=== PATIENT | male | born 1985 | race African-American/Black ===

== ENCOUNTER 2016-07-06 18:22 | Inpatient (IN) | payer OTHER ==
[~2016-07-06] VITALS: Ht 175.3 cm; Wt 62.3 kg
[~2016-07-06 18:22] MED LIST: BENZ1TAB PO; HALO10 PO; HALO10TA PO; HALO50P IM; LITH450 PO; OLAN10 PO
[2016-07-06 18:24] VITALS: BP 121/76; PULSE 97; RESP 12; TEMP 98.1; O2SAT 98
--- NOTE | 2016-07-06 20:02 | PD ---
HPI Chief Complaint: Psychiatric Symptoms Time Seen by Provider: 19:56 Travel History International Travel<30 days: No Contact w/Intl Traveler<30days: No Traveled to known affect area: No History of Present Illness HPI Patient is a 30-year-old male with a history of schizophrenia presents voluntarily because "I want to hurt brother love ". The patient gives nonsensical answers to questions frequent refers to this time in the [employer], the city of [place] and people who are "not feeding me ". He has not been taking his medications including lithium for an indeterminate amount of time. He states he is seeing hand dragons and is hearing voices telling him to hurt other people. He denies any attempts or plans to do so. He denies any SI or attempts. He states he's had a cough for several weeks which is dry. Denies fever and chest pain. He endorses tobacco use but denies illicit drugs and alcohol. 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, UTI) Immune Disorder: No Implanted Vascular Access Dvce: No Musculoskeletal: No Neurologic: No Reproductive: No Respiratory: Yes (ASTHMA) Immunizations Current: Yes Schizophrenia: Yes (paranoid schizophrenia) Sickle Cell Disease: Yes (TRAIT) Past Surgical History Abdominal Surgery: No Cardiac Surgery: No Ear Surgery: No Endocrine Surgery: No Eye Surgery: No Genitourinary Surgery: No Gynecologic Surgery: No Neurologic Surgery: No Oral Surgery: No Thoracic Surgery: No Other Surgery: Yes (cyst removed R wrist) Social History Alcohol Use: Yes Tobacco Use: Yes (1 ppd) Substance Use: Yes Allergies-Medications (Allergen,Severity, Reaction): Coded Allergies: Pork (Verified Adverse Reaction, Intermediate, Nausea/Vomiting, 11/06/15) Reported Meds & Prescriptions Reported Meds & Active Scripts Active Olanzapine 10 Mg Tab 20 Mg PO Q12HR 30 Days [place] Carbonate ER ([place] Carbonate) 450 Mg Tab 450 Mg PO BIDPC 30 Days Haldol (Haloperidol) 10 Mg Tab 10 Mg PO BID 30 Days Haldol (Decanoate) 50 mg Ampule (Haloperidol Decanoate) 50 Mg/Ml Inj 150 Mg IM Q28D 30 Days Haloperidol 10 Mg Tab 10 Mg PO BID 15 Days Continue supplementation with oral Haldol until instructed otherwise by your outpatient mental health provider. Cogentin (Benztropine Mesylate) 1 Mg Tab 1 Mg PO DAILY 15 Days Reported Haldol (Haloperidol) 10 Mg Tab 10 Mg PO TID Review of Systems ROS Limitations: Psychotic General / Constitutional: No: Fever HENT: Positive: Rhinitis, Congestion, No: Headaches, Sore Throat, Neck Stiffness, Masses, Earache Cardiovascular: No: Chest Pain or Discomfort, Tachycardia, Edema Respiratory: Positive: Cough, No: Shortness of Breath, Wheezing, Orthopnea, Hemoptysis, Pleuritic Pain Gastrointestinal: No: Nausea, Vomiting, Abdominal Pain Neurologic: No: Focal Abnormalities Psychiatric: Positive: Depression, Disorder of Thought, Homicidal Ideation, No : Suicidal Ideations, Mood Disorder, Substance Abuse Physical Exam Narrative GENERAL: Well-developed and well-nourished adult male in no acute distress. SKIN: Warm and dry. Good turgor without tenting. HEAD: Normocephalic and atraumatic. EYES: PERRL bilaterally, 5mm. EOMI bilaterally. No injection or icterus present. No proptosis. Lids without edema or erythema. ENT: Nasal mucosa pink and moist without discharge, septum intact and midline. Buccal mucosa pink and moist. Oropharynx free of erythema, tonsillar hypertrophy , masses, swelling, asymmetry and exudates. Uvula midline and airway patent. NECK: Supple, no meningeal signs. Trachea midline, no JVD. No cervical or facial lymphadenopathy. CARDIOVASCULAR: Regular rate and rhythm without murmurs, rubs, clicks or gallops. Radial and posterior tibial pulses 2+ bilaterally. No pedal edema. RESPIRATORY: Clear to auscultation bilaterally with symmetrical rise and fall, no distress or use of accessory muscles. MUSCULOSKELETAL: Patient freely moving all four extremities spontaneously. Extremities without clubbing, cyanosis, or edema. No obvious deformities. NEUROLOGIC: CN II-XII grossly intact. Awake and alert. Motor grossly within normal limits. Normal speech. PSYCHIATRIC: Flat affect. Very tangential. Does not appear to be responding to internal stimuli. Data Data Last Documented VS Vital Signs Date Time Temp Pulse Resp B/P Pulse Ox O2 Delivery O2 Flow Rate FiO2 07/06/16 20:14 16 07/06/16 18:24 98.1 97 121/76 98 Room Air Orders Complete Blood Count With Diff (07/06/16 19:55) Basic Metabolic Panel (Bmp) (07/06/16 19:55) Drug Screen, Random Urine (07/06/16 19:55) Alcohol (Ethanol) (07/06/16 19:55) Psych Screen (07/06/16 19:55) [place] (Li) (07/06/16 19:55) Calcium Carbonate Chew (Tums Chew) (07/06/16 21:00) Admit Order (Ed Use Only) (07/06/16 ) Admit To Inpatient Psych (07/06/16 ) Vital Signs (Adult) DAY.Q12H.E (07/06/16 21:17) Activity Oob Ad Smitha (07/06/16:17) Level Of Observation (Psych) (07/06/16 21:17) Aims-Abnormal Invol Move Scale ONCE (07/06/16 21:17) Diet Regular Basic (07/07/16 Breakfast) Lorazepam (Ativan) (07/06/16 21:30) Lorazepam Inj (Ativan Inj) (07/06/16 21:30) Diphenhydramine (Benadryl) (07/06/16 21:30) Acetaminophen (Tylenol) (07/06/16 21:30) Magnesium Hydroxide Liq (Milk Of Magnesi (07/06/16 21:30) Al-Mag Hy-Si 40-40-4 Mg/Ml Liq (Mag-Al P (07/06/16 21:30) Nicotine 21 Mg Patch.24 Hr (Habitrol 21 (07/07/16 09:00) Benztropine (Cogentin) (07/06/16 21:30) Benztropine Inj (Cogentin Inj) (07/06/16 21:30) Complete Blood Count With Diff (07/07/16 06:00) Comprehensive Metabolic Panel (07/07/16 06:00) Lipid Profile (07/07/16 06:00) Hemoglobin (Hgb) A1c (07/07/16 06:00) Remove Old Patch (07/07/16 09:00) Labs Laboratory Tests Test 07/06/16 07/06/16 20:10 20:25 White Blood Count 5.6 TH/MM3 Red Blood Count 5.40 MIL/MM3 Hemoglobin 11.2 GM/DL Hematocrit 34.2 % Mean Corpuscular Volume 63.3 FL Mean Corpuscular Hemoglobin 20.8 PG Mean Corpuscular Hemoglobin 32.8 % Concent Red Cell Distribution Width 14.3 % Platelet Count 171 TH/MM3 Mean Platelet Volume 9.8 FL Neutrophils (%) (Auto) 52.5 % Lymphocytes (%) (Auto) 32.4 % Monocytes (%) (Auto) 10.4 % Eosinophils (%) (Auto) 4.0 % Basophils (%) (Auto) 0.7 % Neutrophils # (Auto) 3.0 TH/MM3 Lymphocytes # (Auto) 1.8 TH/MM3 Monocytes # (Auto) 0.6 TH/MM3 Eosinophils # (Auto) 0.2 TH/MM3 Basophils # (Auto) 0.0 TH/MM3 CBC Comment AUTO DIFF Differential Comment AUTO DIFF CONFIRMED Platelet Estimate NORMAL Platelet Morphology Comment NORMAL Sodium Level 142 MEQ/L Potassium Level 3.6 MEQ/L Chloride Level 106 MEQ/L Carbon Dioxide Level 27.9 MEQ/L Anion Gap 8 MEQ/L Blood Urea Nitrogen 10 MG/DL Creatinine 0.85 MG/DL Estimat Glomerular Filtration 128 ML/MIN Rate Random Glucose 92 MG/DL Calcium Level 8.2 MG/DL [place] Level LESS THAN 0.1 MEQ/L Ethyl Alcohol Level LESS THAN 3 MG/DL Urine Opiates Screen NEG Urine Barbiturates Screen NEG Urine Amphetamines Screen NEG Urine Benzodiazepines Screen NEG Urine Cocaine Screen NEG Urine Cannabinoids Screen POS MDM Medical Decision Making Medical Screen Exam Complete: Yes Emergency Medical Condition: Yes Differential Diagnosis SI versus depression versus anxiety versus bipolar disorder versus schizophrenia versus substance abuse versus mood disorder versus personality disorder versus adjustment disorder Narrative Course Patient is a 30-year-old male with a history of schizophrenia who has been off of medications presenting with homicidal ideations towards "Brother Love". Endorses visual and auditory hallucinations as well. His cranial chronic dry cough that he is afebrile, nontoxic and his lungs are clear to auscultation. Ordered labs including lithium level. CBC shows H&H 11.2/34.2 which is chronic. MCV 63.3. Metabolic panel shows calcium 8.2, patient was given 1 g calcium carbonate shoes. Ethanol less than 3. Urine drug positive for cannabinoids. [place] less than 0.1. Patient is medically cleared to proceed a psych evaluation. Diagnosis Primary Impression: Schizophrenia Qualified Code: F20.9 - Schizophrenia, unspecified type Condition: Stable Jason Sullivan III Jul 06, 2016 20:02
[2016-07-06 20:24] LABS: BASOPHIL % 0.7 % (0.0-2.0); EOSINOPHIL # 0.2 TH/MM3 (0-0.4); HEMATOCRIT 34.2 % (39.0-51.0); LYMPH % 32.4 % (9.0-44.0); LYMPHOCYTE # 1.8 TH/MM3 (1.0-4.8); MEAN CELL VOLUME 63.3 FL (80.0-100.0); MEAN CORPUSCULAR HEMOGLOBIN 20.8 PG (27.0-34.0); MEAN CORPUSCULAR HGB CONC 32.8 % (32.0-36.0); MONO % 10.4 % (0.0-8.0); NEUT % 52.5 % (16.0-70.0); PLATELET COUNT 171 TH/MM3 (150-450); RED CELL DISTRIBUTION WIDTH 14.3 % (11.6-17.2); WHITE BLOOD COUNT 5.6 TH/MM3 (4.0-11.0)
[2016-07-06 20:27] LABS: HEMO FLAGS AUTO DIFF
[2016-07-06 20:46] LABS: ANION GAP 8 MEQ/L (5-15); BICARBONATE 27.9 MEQ/L (21.0-32.0); BLOOD UREA NITROGEN 10 MG/DL (7-18); CHLORIDE 106 MEQ/L (98-107); GLOMERULAR FILTRATION RATE 128 ML/MIN (>89); POTASSIUM 3.6 MEQ/L (3.5-5.1); SODIUM (NA) 142 MEQ/L (136-145)
[2016-07-06 20:50] LABS: AMPHETAMINE, URINE NEG (NEG); BARBITURATES, URINE NEG (NEG); COCAINE, URINE NEG (NEG)
[2016-07-06] MEDS ORDERED: CALCIUM CARBONATE 500 MG CHEWABLE TAB CHEW ONE (21:00)
[2016-07-06 21:26] LABS: PLATELET ESTIMATE SMEAR NORMAL (NORMAL); PLATELET MORPHOLOGY NORMAL (NORMAL); SCAN/DIFF AUTO DIFF CONFIRMED
[2016-07-06] MEDS ORDERED: ALUMINUM/MAGNESIUM/SIMETH 30 ML CUP PO PRN (21:30)
[2016-07-06] MEDS ORDERED: LORazepam 2 MG/ML VIAL IM PRN (21:30)
[2016-07-06] MEDS ORDERED: MAGNESIUM HYDROXIDE SUSP 30 ML CUP PO PRN (21:30)
[2016-07-06] MEDS ORDERED: BENZTROPINE MESYLATE 2 MG/2 ML VIAL IM PRN (21:30)
[2016-07-06] MEDS ORDERED: BENZTROPINE MESYLATE 1 MG TAB PO PRN (21:30)
[2016-07-06 22:23] VITALS: BP 115/73; PULSE 94; RESP 18; O2SAT 98
[2016-07-06] MEDS ORDERED: HALO10TA PO (22:40)
[2016-07-06] MEDS ORDERED: LITH300T3 PO ×2 (22:40→22:47)
[2016-07-07 01:56] VITALS: BP 124/81; PULSE 79; RESP 16; TEMP 98.2; O2SAT 98
[2016-07-07] MEDS: ACETAMINOPHEN 325 MG TAB PO PRN (05:16)
[2016-07-07 06:21] VITALS: BP 112/69; PULSE 82; RESP 17; TEMP 98.1; O2SAT 98
[2016-07-07 06:23] LABS: AUTOMATED NEUTROPHIL # 3.1 TH/MM3 (1.8-7.7); BASOPHIL % 0.7 % (0.0-2.0); EOSINOPHIL # 0.2 TH/MM3 (0-0.4); EOSINOPHIL % 4.4 % (0.0-4.0); HEMATOCRIT 36.5 % (39.0-51.0); LYMPH % 25.4 % (9.0-44.0); LYMPHOCYTE # 1.3 TH/MM3 (1.0-4.8); MEAN CELL VOLUME 63.6 FL (80.0-100.0); MEAN CORPUSCULAR HEMOGLOBIN 20.6 PG (27.0-34.0); MEAN CORPUSCULAR HGB CONC 32.4 % (32.0-36.0); MONO % 10.5 % (0.0-8.0); PLATELET COUNT 182 TH/MM3 (150-450); RED BLOOD COUNT 5.75 MIL/MM3 (4.50-5.90); RED CELL DISTRIBUTION WIDTH 14.7 % (11.6-17.2); WHITE BLOOD COUNT 5.2 TH/MM3 (4.0-11.0)
[2016-07-07 06:26] LABS: HEMO FLAGS AUTO DIFF
[2016-07-07 06:52] LABS: ALT (GPT) 19 U/L (12-78); ANION GAP 7 MEQ/L (5-15); AST (GOT) 10 U/L (15-37); BICARBONATE 27.5 MEQ/L (21.0-32.0); BLOOD UREA NITROGEN 9 MG/DL (7-18); CHLORIDE 106 MEQ/L (98-107); GLOMERULAR FILTRATION RATE 127 ML/MIN (>89); POTASSIUM 3.7 MEQ/L (3.5-5.1); SODIUM (NA) 140 MEQ/L (136-145)
[2016-07-07 06:54] LABS: ALKALINE PHOSPHATASE 48 U/L (45-117); HDL CHOLESTEROL 47.8 MG/DL (40.0-60.0); LDL CHOLESTEROL 64 MG/DL (0-99); TOTAL BILIRUBIN ADULT 0.6 MG/DL (0.2-1.0)
[2016-07-07 07:34] LABS: SCAN/DIFF AUTO DIFF CONFIRMED
[2016-07-07 07:35] LABS: PLATELET ESTIMATE SMEAR NORMAL (NORMAL); PLATELET MORPHOLOGY NORMAL (NORMAL); TEARDROP RBCS 1+ (NORMAL)
[2016-07-07] MEDS: REMOVE OLD PATCH T-DERMAL SCH (09:00)
[2016-07-07] MEDS: NICOTINE 21 MG/24 HR PATCH T-DERMAL SCH (09:00)
--- NOTE | 2016-07-07 13:52 | HHI.HP ---
Provisional Diagnosis Admission Date Jul 06, 2016 at 21:18 Esparto I. 1. Schizophrenia, paranoid type, acute decompensation 2. Cannabis abuse Esparto II. Deferred Esparto V. GAF is 30 presently Certification of Person's Competence To Provide Express and Informed Consent I have personally examined Kannan Lopez , a person being served at [facility] on, Jul 07, 2016 13:52. Express and informed consent means consent voluntarily given in writing, by a competent person, after sufficient explanation and disclosure of the subject matter involved to enable the person to make a knowing and willful decision without any element of force, fraud, deceit, duress, or other form of constraint or coercion. This person is 18 years of age or older, is not now known to be incompetent to consent to treatment with a guardian advocate, and does not have a health care surrogate or proxy currently making medical treatment decisions. I have found this person to be one of the following: [] Competent to provide express and informed consent, as defined above, for voluntary admission to this facility and is competent to provide express and informed consent for treatment. He/she has the consistent capacity to make well reasoned, willful, and knowing decisions concerning his or her medical or mental health treatment. The person fully and consistently understands the purpose of the admission for examination/placement and is fully capable of personally exercising all rights [place] [x] Incompetent to provide express and informed consent to voluntary admission, and this is incompetent to provide express and informed consent to treatment. The person must be transferred to involuntary status and a petition for a guardian advocate filed with the Circuit Court. [] Refusing to provide express and informed consent to voluntary admission but is competent to provide express and informed consent for treatment. The person must be discharged or transferred to involuntary status. Form shall be completed within 24 hours of a person's arrival at the receiving facility and filed in the clinical record of each person: 1. Admitted on a voluntary basis 2. Permitted to provide express and informed consent to his/her own treatment 3. Allowed to transfer from involuntary to voluntary status 4. Prior to permitting a person to consent to his or her own treatment after having been previously found incompetent to consent to treatment. History of Present Illness Capacity: Lacks Capacity HPI Mr. Lopez is a 30-year-old male with a history of schizophrenia and cannabis abuse who presented voluntarily to the emergency department for psychiatric symptoms. Per the ED provider note, patient was fairly nonsensical and appeared to be hallucinating. Patient is known to me from several prior inpatient psychiatric admissions. Reviewing the electronic medical record, I note the patient was admitted here most recently in October [address] White. Patient seen and examined with nurse, Silverio. Chart reviewed. Case discussed with nurse. On my examination today, the patient presents as fairly somatically preoccupied. He insists that he has "fluid in my neck and swollen hands." In point of fact, patient does not appear to have any fluid in his neck , nor does he have any neck stiffness or immobility. Likewise his hands do not appear to be particularly swollen. In any event, the patient insists that he has had these symptoms for 3 days since he got out of [facility] on stone theft charges. He appears somewhat internally preoccupied and is intense and guarded on examination. He says that he has been having difficulty with sleeping. He denies any issues with mood saying "I'm okay." He denies any suicidal or homicidal ideation. I can elicit no hypomanic or manic symptoms. The remainder of the psychiatric ROS is negative. With the patient's permission, I have obtained collateral from his mother, Suma Lopez. She says that since he was released from [facility] "he's been wandering at 3 or 4 in the morning in [facility] and his mind has been scattering. It's getting to be too much." She is concerned that he is significantly off of his psychiatric baseline. She notes that his psychotropic medications were changed when he was in the [facility]. She says that he's had multiple hospitalizations since he was here under Dr. White including a stay at [facility] and also at a hospital in [place]. She also notes that she has filed an ex parte order to get him into treatment since then. Past psychiatric history: When I endeavor to obtain past psychiatric history from the patient he says "I changed my name to Mikaela Byers, middle name Court, that's [id number]. #[employer] flag in basketball." He maintains that he has been following up psychiatrically at [facility] and denies any interval psychiatric admissions or suicide attempts since he was last here. He says that his only psychotropic medication his Cogentin. Review of Systems ROS Limitations: Psychotic, Poor Historian Other Patient has somatic complaints as detailed above. Otherwise no physical complaints. Past Psych History Psychological trauma history No reported trauma history. Patient denies a history of abuse Violence risk - others (6 mos) Indeterminate. Patient is psychotic and unpredictable. Violence risk - self (6 mos) Indeterminate. Patient is psychotic and unpredictable. Substance Abuse History Drugs/Alcohol past 12 months Patient admits to using "some" cannabis. Denies any other substance use. Past Family Social History Coded Allergies: Pork (Verified Adverse Reaction, Intermediate, Nausea/Vomiting, 11/06/15) Past Medical History See electronic medical record Reported Medications [place]av[place] Carbonate 300 Mg [id number] Mg PO BIDPC Ref 0 07/06/16 Discontinued Reported Medications [place] Carbonate 300 Mg [id number] Mg PO BIDPC Ref 0 07/06/16 Haloperidol 10 Mg Tab10 Mg PO TID Ref 0 07/06/16 Current Medications Medications (Trade) Dose Ordered Sig/Bunny Route Start Time Stop Time Status Last Admin (Ativan) 1 mg Q6H PRN PO 07/06/16 21:30 (Ativan Inj) 1 mg Q6H PRN IM 07/06/16 21:30 (Benadryl) 50 mg HS PRN PO 07/06/16 21:30 (Tylenol) 650 mg Q4H PRN PO 07/06/16 21:30 07/07/16 05:16 (Milk Of Magnesia Liq) 30 ml DAILY PRN PO 07/06/16 21:30 (Mag-Al Plus Susp Liq) 30 ml Q6H PRN PO 07/06/16 21:30 (Habitrol 21 Mg Patch.24 Hr) 1 patch DAILY T-DERMAL 07/07/16 09:00 (Cogentin) 1 mg Q12H PRN PO 07/06/16 21:30 (Cogentin Inj) 1 mg Q12H PRN IM 07/06/16 21:30 Miscellaneous Information 1 DAILY T-DERMAL 07/07/16 09:00 Family History Patient denies any family history of mental illness. Social History Patient reports that he has been living with his father. He was recently released from [facility] on stone theft charges. He is single but says that he has "13 kids and 11 baby mommas." He has some college education. He denies any history. Denies any access to guns or firearms. Patient's Strengths (min. 2) Maintain basic hygiene. Verbally fluent. Physical Exam Physical examination was completed in the emergency room by the ER staff and the patient was medically cleared. On my examination today, the patient appears to be in no acute physical distress. No abnormal motor movements noted. No swelling noted in the neck or hands. Labs and vital signs reviewed. Vital Signs Vital Signs Date Time Temp Pulse Resp B/P Pulse Ox O2 Delivery O2 Flow Rate FiO2 07/07/16 06:21 98.1 82 17 112/69 98 07/06/16 22:23 Room Air I/O 07/06/16 07/06/16 07/07/16 08:00 16:00 00:00 Intake Total 240 ml Balance 240 ml Lab Results Item Value Date Time White Blood Count 5.2 TH/MM3 07/07/16 0609 Hemoglobin 11.8 GM/DL L 07/07/16 0609 Platelet Count 182 TH/MM3 07/07/16 0609 Sodium Level 140 MEQ/L 07/07/16 0609 Potassium Level 3.7 MEQ/L 07/07/16 0609 Chloride Level 106 MEQ/L 07/07/16 0609 Carbon Dioxide Level 27.5 MEQ/L 07/07/16 0609 Blood Urea Nitrogen 9 MG/DL 07/07/16 0609 Creatinine 0.86 MG/DL 07/07/16 0609 Aspartate Amino Transf (AST/SGOT) 10 U/L L 07/07/16 0609 Alanine Aminotransferase (ALT/SGPT) 19 U/L 07/07/16 0609 Alkaline Phosphatase 48 U/L 07/07/16 0609 Urine Cannabinoids Screen POS H 07/06/162024 Ethyl Alcohol Level LESS THAN 3 MG/DL 07/06/162009 Patient's microcytic anemia is chronic and stable. Mental Status Examination Patient is casually dressed. He is somewhat disheveled but appears to be maintaining basic hygiene. He is awake and alert and oriented to person and hospital at least. No abnormal motor movements noted. Speech is within normal limits for rate, tone and volume. Language and fund of knowledge seem average for age. Mood is okay and affect is somewhat inappropriately intense. Thought process somewhat disorganized. Patient is suspicious and guarded and I suspect there is underlying paranoia. He appears internally stimulated. He denies SI or HI but appears to be unreliable to contract for safety at present. Insight and judgment are poor. Assessment & Plan Problem List: (1) Schizophrenia ICD Code: F20.9 (2) Cannabis abuse ICD Code: F12.10 Assessment & Plan This is a 30-year-old male with a history of schizophrenia and cannabis use issues who presented voluntarily to the ED for psychiatric symptoms. Patient is presently psychotic and his mother articulates concerns that he is far from his psychiatric baseline. However, given the history that she provides in our own history with the patient, I wonder if he has had any recent period of significant stability. Patient's recidivist cannabis use, along with medication nonadherence, is almost certainly a precipitating factor for his recurrent psychotic decompensations. Patient requires psychiatric hospitalization at this time for safety, observation and stabilization. --Admit inpatient --Involuntary status as the patient is presently declining voluntary status and insisting on discharge from the hospital. I have completed the first opinion. Consult for second opinion. Request a healthcare surrogate and guardian advocate. --Consult the hospitalist for patient's somatic complaints although I suspect these are delusional in nature. --Patient was stabilized most recently here on Zyprexa. He would likely benefit from a long-acting injectable. Given that the long-acting Zyprexa is cumbersome to administer and little used in our area, I think it best to substitute a different agent. The patient has conceived the notion that he is allergic to Haldol although he is tolerated this well in the past. I will start Prolixin with plans to transition to Prolixin Decanoate. --Ativan as needed for anxiety. Cogentin as needed for EPS. Benadryl as needed for sleep. --Vitals every shift --Counselor to see --Disposition planning --Estimated length of stay: 7-9 days Discharge Planning Pending psychiatric stabilization Request HC Surrog/Guard Advoc?: Yes Problem Qualifiers (1) Schizophrenia: Qualified Code: F20.0 - Paranoid schizophrenia Kirby Melendez MD Jul 07, 2016 13:52
[2016-07-07 14:09] LABS: HEMOGLOBIN A1a 1.8 %; HEMOGLOBIN A1b 0.7 %; HEMOGLOBIN Ao 86.2 %; HEMOGLOBIN F 1.1 %; HEMOGLOBIN LA1C 1.6 %; HEMOGLOBIN P3 3.3 %
[2016-07-07] MEDS ORDERED: fluPHENAZine HCL 25 MG/10 ML VIAL IM PRN (16:00)
--- NOTE | 2016-07-07 16:15 | PD.CONS ---
HPI Service [facility] Hospitalists Consult Requested By Dr Whitaker Reason for Consult swelling in neck and arm Primary Care Physician Ita Lgaos MD Diagnoses: History of Present Illness 30-year-old male with past medical history of schizophrenia presented to the emergency room for Evaluation. He is admitted to psychiatric unit. The hospitalist was consulted for evaluation of neck swelling and arm swelling. The patient is in bed. Says " I need a CAT scan". Says he can't move his head because he has pain. However when asked he moves head in all directions. He doesn't have any swelling in his neck or arms. He is also ambulating without problems. No fever or chills. Review of Systems Constitutional: DENIES: Fever, Chills, Change in appetite Endocrine: DENIES: Heat/cold intolerance Eyes: DENIES: Blurred vision, Eye pain Ears, nose, mouth, throat: DENIES: Tinnitus, Hearing loss, Vertigo, Nasal discharge, Oral lesions, Throat pain, Hoarseness, Ear Pain, Running Nose, Epistaxis, Sinus Pain, Toothache, Odynophagia Respiratory: DENIES: Apneas, Cough, Snoring, Wheezing, Hemoptysis, Sputum production, Shortness of breath Cardiovascular: DENIES: Chest pain, Palpitations, Syncope, Dyspnea on Exertion , PND, Lower Extremity Edema, Orthopnea, Claudication Gastrointestinal: DENIES: Abdominal pain, Black stools, Bloody stools, Constipation, Diarrhea, Nausea, Vomiting, Difficulty Swallowing, Anorexia Genitourinary: DENIES: Urgency, Hematuria, Dysuria Integumentary: DENIES: Rash Neurologic: DENIES: Abnormal gait, Headache, Localized weakness, Paresthesias, Seizures, Speech Problems, Tremor, Poor Balance Psychiatric: COMPLAINS OF: Anxiety, Depression Past Family Social History Allergies: Coded Allergies: Pork (Verified Adverse Reaction, Intermediate, Nausea/Vomiting, 11/06/15) Past Medical History Schizophrenia Past Surgical History None Reported Medications Reported Meds & Active Scripts Active Reported [place] Carbonate 300 Mg Tab 450 Mg PO BIDPC Family History Family history of substance abuse Social History Substance abuse cocaine No alcohol abuse. No tobacco use Physical Exam Vital Signs Vital Signs Date Time Temp Pulse Resp B/P Pulse Ox O2 Delivery O2 Flow Rate FiO2 07/07/16 06:21 98.1 82 17 112/69 98 07/07/16 01:56 98.2 79 16 124/81 98 07/06/16 22:23 94 18 115/73 98 Room Air 07/06/16 20:14 16 07/06/16 18:24 98.1 97 12 121/76 98 Room Air Physical Exam GENERAL: This is a well-nourished, well-developed patient, in no apparent distress. SKIN: No rashes, ecchymoses or lesions. Cool and dry. HEAD: Atraumatic. Normocephalic. No temporal or scalp tenderness. EYES: Pupils equal round and reactive. Extraocular motions intact. No scleral icterus. No injection or drainage. ENT: Nose without bleeding, purulent drainage or septal hematoma. Throat without erythema, tonsillar hypertrophy or exudate. Uvula midline. Airway patent. NECK: Trachea midline. No JVD or lymphadenopathy. Supple, nontender, no meningeal signs. CARDIOVASCULAR: Regular rate and rhythm without murmurs, gallops, or rubs. RESPIRATORY: Clear to auscultation. Breath sounds equal bilaterally. No wheezes , rales, or rhonchi. GASTROINTESTINAL: Abdomen soft, non-tender, nondistended. No hepato-splenomegaly , or palpable masses. No guarding. MUSCULOSKELETAL: Neck paravertebral muscle tenderness on palpation, some pain with flexion. Extremities without clubbing, cyanosis, or edema. No joint tenderness, effusion, or edema noted. No calf tenderness. Negative Homans sign bilaterally. NEUROLOGICAL: Awake and alert. Cranial nerves II through XII intact. Motor and sensory grossly within normal limits. Five out of 5 muscle strength in all muscle groups. Normal speech. Laboratory Laboratory Tests Test 07/06/16 07/06/16 07/07/16 20:10 20:25 06:09 White Blood Count 5.6 5.2 Red Blood Count 5.40 5.75 Hemoglobin 11.2 11.8 Hematocrit 34.2 36.5 Mean Corpuscular Volume 63.3 63.6 Mean Corpuscular Hemoglobin 20.8 20.6 Mean Corpuscular Hemoglobin 32.8 32.4 Concent Red Cell Distribution Width 14.3 14.7 Platelet Count 171 182 Mean Platelet Volume 9.8 9.6 Neutrophils (%) (Auto) 52.5 59.0 Lymphocytes (%) (Auto) 32.4 25.4 Monocytes (%) (Auto) 10.4 10.5 Eosinophils (%) (Auto) 4.0 4.4 Basophils (%) (Auto) 0.7 0.7 Neutrophils # (Auto) 3.0 3.1 Lymphocytes # (Auto) 1.8 1.3 Monocytes # (Auto) 0.6 0.5 Eosinophils # (Auto) 0.2 0.2 Basophils # (Auto) 0.0 0.0 CBC Comment AUTO DIFF AUTO DIFF Differential Comment AUTO DIFF AUTO DIFF CONFIRMED CONFIRMED Platelet Estimate NORMAL NORMAL Platelet Morphology Comment NORMAL NORMAL Sodium Level 142 140 Potassium Level 3.6 3.7 Chloride Level 106 106 Carbon Dioxide Level 27.9 27.5 Anion Gap 8 7 Blood Urea Nitrogen 10 9 Creatinine 0.85 0.86 Estimat Glomerular Filtration 128 127 Rate Random Glucose 92 81 Calcium Level 8.2 8.5 [place] Level LESS THAN 0.1 Ethyl Alcohol Level LESS THAN 3 Urine Opiates Screen NEG Urine Barbiturates Screen NEG Urine Amphetamines Screen NEG Urine Benzodiazepines Screen NEG Urine Cocaine Screen NEG Urine Cannabinoids Screen POS Tear Drop Cells 1+ Total Bilirubin 0.6 Aspartate Amino Transf 10 (AST/SGOT) Alanine Aminotransferase 19 (ALT/SGPT) Alkaline Phosphatase 48 Total Protein 6.3 Albumin 3.4 Triglycerides Level 67 Cholesterol Level 125 LDL Cholesterol 64 HDL Cholesterol 47.8 Cholesterol/HDL Ratio 2.61 Result Diagram: 07/07/1660807/07/16608 Assessment and Plan Assessment and Plan 30-year-old male with Schizophrenia. Management per psychiatry Neck pain, paravertebral muscle tenderness. Will give flexeril at night DVT ppx with ambulation Discussed Condition With Patient, nurse Lacy Delgadillo MD Jul 07, 2016 16:15
[2016-07-07] MEDS ORDERED: PILL SPLITTER OTHER PRN (19:45)
[2016-07-07 19:46] VITALS: BP 146/67; PULSE 65; RESP 18; TEMP 98.4; O2SAT 100
[2016-07-07] MEDS: CYCLOBENZAPRINE HCL 10 MG TAB PO PRN (21:45)
[2016-07-08 05:40] VITALS: BP 120/75; PULSE 73; RESP 18; TEMP 98.1; O2SAT 99
[2016-07-08] MEDS: ACETAMINOPHEN 325 MG TAB PO PRN (05:42)
[2016-07-08] MEDS: NICOTINE 21 MG/24 HR PATCH T-DERMAL SCH (08:04)
[2016-07-08] MEDS: REMOVE OLD PATCH T-DERMAL SCH (09:00)
--- NOTE | 2016-07-08 11:07 | HHI.PYPN ---
Subjective Remarks Patient seen and examined with counselor. Chart reviewed. Case discussed with nursing staff. Patient was transferred from the 2600 to the 2700 unit early this morning to better suit his needs given functional impairment associated with his psychotic disorder; for example, the patient apparently had a bowel movement in a trash can in the shower. On my examination today, the patient remains exceedingly interpersonally intense. He remains internally stimulated. He insists on discharge today, and when I explain that I have transitioned him to involuntary status he abruptly gets up and terminates the interview. I did try to address his cannabis use during our encounter today, but the patient insists, "I'm just gonna keep smoking [cannabis]." No side effects from meds. Review of Systems ROS Limitations: Poor Historian Other No physical complaints today Objective Alert: Yes [place]: Person, Place Mood: Angry, Anxious Affect: Other (Inappropriately intense) Memory Intact: Comment (Intact) Hallucinations: Other (Int stim) Delusions: Yes Delusion Type: Paranoid Suicidal: Ideation (No SI) Homicidal: Ideation (No HI) Insight/Judgement Poor Remarks No abnormal motor movements noted. Thought process perseverative on discharge. Speech somewhat jose david and terse. Labs Labs reviewed. No new labs. Vitals/IOs Vital Signs Date Time Temp Pulse Resp B/P Pulse Ox O2 Delivery O2 Flow Rate FiO2 07/08/16 05:40 98.1 73 18 120/75 99 07/06/16 22:23 Room Air Assessment & Plan Problem List: (1) Schizophrenia ICD Code: F20.9 (2) Cannabis abuse ICD Code: F12.10 Assessment & Plan Titrate Prolixin to 2.5 mg 3 times daily. Plan remains for long-acting injectable antipsychotic. Continue other psychotropics as ordered. Continue other medications and care as ordered. Hospitalist consult noted and appreciated. Justification for Cont. Inpt. Impairments in self-care, reality construction, social functioning. Risk for decompensation. Medication changes. Discharge Planning Pending psychiatric stabilization Request HC Surrog/Guard Advoc?: Yes Problem Qualifiers (1) Schizophrenia: Qualified Code: F20.0 - Paranoid schizophrenia Kirby Melendez MD Jul 08, 2016 11:06
--- NOTE | 2016-07-08 11:58 | PD.CONS ---
Provisional Diagnosis Admission Date Jul 06, 2016 at 21:18 [place] I. 1. Schizophrenia, paranoid type, acute decompensation 2. Cannabis abuse [place] II. Deferred [place] V. GAF is 30 presently History of Present Illness Service Psychiatry Consult Requested By Primary Care Physician Ita Lagos MD HPI Mr. Lopez is a 30-year-old male with a history of schizophrenia and cannabis abuse who presented voluntarily to the emergency department for psychiatric symptoms. Per the ED provider note, patient was fairly nonsensical and appeared to be hallucinating. Patient is known to me from several prior inpatient psychiatric admissions. Reviewing the electronic medical record, I note the patient was admitted here most recently in October [address] White. Patient seen and examined with nurseSilverio. Chart reviewed. Case discussed with nurse. On my examination today, the patient presents as fairly somatically preoccupied. He insists that he has "fluid in my neck and swollen hands." In point of fact, patient does not appear to have any fluid in his neck , nor does he have any neck stiffness or immobility. Likewise his hands do not appear to be particularly swollen. In any event, the patient insists that he has had these symptoms for 3 days since he got out of nursing home on stone theft charges. He appears somewhat internally preoccupied and is intense and guarded on examination. He says that he has been having difficulty with sleeping. He denies any issues with mood saying "I'm okay." He denies any suicidal or homicidal ideation. I can elicit no hypomanic or manic symptoms. The remainder of the psychiatric ROS is negative. With the patient's permission, I have obtained collateral from his mother, Suma Lopez. She says that since he was released from nursing home "he's been wandering at 3 or 4 in the morning in [facility] and his mind has been scattering. It's getting to be too much." She is concerned that he is significantly off of his psychiatric baseline. She notes that his psychotropic medications were changed when he was in the nursing home. She says that he's had multiple hospitalizations since he was here under Dr. White including a stay at [facility] and also at a hospital in [place]. She also notes that she has filed an ex parte order to get him into treatment since then. Past psychiatric history: When I endeavor to obtain past psychiatric history from the patient he says "I changed my name to Mikaela Byers, middle name Court, that's [id number]. #45 flag in basketball." He maintains that he has been following up psychiatrically at [facility] and denies any interval psychiatric admissions or suicide attempts since he was last here. He says that his only psychotropic medication his Cogentin. 07/08/16 Above note dictated by Dr. Melendez noted and agreed with. Patient is 30-year- old Afro-French male admitted to Dr. melendez service under the X[employer] act. Patient seen by me on unit with floor staff, patient very vigilant with marked irritable expression on his face very distracted with marked thought blocking is of responding to internal stimuli. Patient showing no insight into his disease though acknowledges being a "paranoid schizophrenic. But the only medicine he takes is Tylenol. Dr. Melendez is signed first opinion petition supporting [employer] act. I agree. Patient meets criteria for involuntary psychiatric hospitalization under the Xiong act. Thus I will sign second opinion petition supporting [employer] act Past Family Social History Coded Allergies: Pork (Verified Adverse Reaction, Intermediate, Nausea/Vomiting, 11/06/15) Reported Medications [place] Carbonate 300 Mg [id number] Mg PO BIDPC Ref 0 07/06/16 Discontinued Reported Medications [place] Carbonate 300 Mg [id number] Mg PO BIDPC Ref 0 07/06/16 Haloperidol 10 Mg Tab10 Mg PO TID Ref 0 07/06/16 Current Medications Medications (Trade) Dose Ordered Sig/Bunny Route Start Time Stop Time Status Last Admin (Ativan) 1 mg Q6H PRN PO 07/06/16 21:30 (Ativan Inj) 1 mg Q6H PRN IM 07/06/16 21:30 (Benadryl) 50 mg HS PRN PO 07/06/16 21:30 (Tylenol) 650 mg Q4H PRN PO 07/06/16 21:30 07/08/16 05:42 (Milk Of Magnesia Liq) 30 ml DAILY PRN PO 07/06/16 21:30 (Mag-Al Plus Susp Liq) 30 ml Q6H PRN PO 07/06/16 21:30 (Habitrol 21 Mg Patch.24 Hr) 1 patch DAILY T-DERMAL 07/07/16 09:00 (Cogentin) 1 mg Q12H PRN PO 07/06/16 21:30 (Cogentin Inj) 1 mg Q12H PRN IM 07/06/16 21:30 Miscellaneous Information 1 DAILY T-DERMAL 07/07/16 09:00 (Prolixin) 2.5 mg Q12HR PO 07/07/16 21:00 07/08/16 08:03 (Prolixin Inj) 2.5 mg Q12HR PRN IM 07/07/16 16:00 (Flexeril) 5 mg HS PRN PO 07/07/16 20:00 07/07/16 21:45 (Pill Splitter) 1 ea UNSCH PRN OTHER 07/07/16 19:45 Patient's Strengths (min. 2) Maintain basic hygiene. Verbally fluent. Physical Exam Vital Signs Vital Signs Date Time Temp Pulse Resp B/P Pulse Ox O2 Delivery O2 Flow Rate FiO2 07/08/16 05:40 98.1 73 18 120/75 99 07/06/16 22:23 Room Air Mental Status Examination Alert diffusely confused vigilant angry Afro-French male with significant thought blocking Appearance Somewhat disheveled Speech: Hesitant, Other (disorganized) Orientation: Person, Place Memory: Impaired (describe) Thought Process: Linear, Loose Association Thought Content: Paranoid Hallucination Type: None (patient denies though he appears to be responding to internal stimuli and perhaps visual) Attention and Concentration: Easily Distracted Suicidal Ideation: No Previous Suicide Attempts: No Homicidal Ideation: No Previous Homicide Attempts: No Insight: Poor Judgement: Poor Affect: Other (slight increase range and intensity) Mood: Irritable, Other (restricted) Motor Activity: Normal gait Assessment & Plan Problem List: (1) Schizophrenia ICD Code: F20.9 (2) Cannabis abuse ICD Code: F12.10 Assessment & Plan Estimated LOS: days Request HC Surrog/Guard Advoc?: Yes Problem Qualifiers (1) Schizophrenia: Qualified Code: F20.0 - Paranoid schizophrenia Jason Freeman MD Jul 08, 2016 11:58
[2016-07-08] MEDS ORDERED: fluPHENAZine HCL 25 MG/10 ML VIAL IM PRN (13:00)
[2016-07-08] MEDS: LORazepam 1 MG TAB PO PRN (13:41)
[2016-07-08] MEDS ORDERED: IBUPROFEN 400 MG TAB PO PRN (16:15)
[2016-07-08 19:28] VITALS: BP 102/79; PULSE 98; RESP 19; TEMP 98.4; O2SAT 100
[2016-07-09 05:03] VITALS: BP 114/71; PULSE 73; RESP 18; TEMP 98; O2SAT 100
[2016-07-09] MEDS: NICOTINE 21 MG/24 HR PATCH T-DERMAL SCH (09:00)
[2016-07-09] MEDS: REMOVE OLD PATCH T-DERMAL SCH (09:00)
[2016-07-09] MEDS ORDERED: diphenhydrAMINE HCL 50 MG/ML VIAL ONE (10:26)
[2016-07-09] MEDS ORDERED: fluPHENAZine HCL 25 MG/10 ML VIAL IM PRN ×2 (11:00→13:00)
--- NOTE | 2016-07-09 11:00 | HHI.PYPN ---
Subjective Remarks Patient seen and examined with counselor. Chart reviewed. Case discussed with RN. Per RN, patient remains psychotic and disorganized with significant behavioral disorganization. He continues, for example, to move his bowels inappropriately in the trash can with no evident medical reason for this behavior. I would like to ask the patient more about this behavior today, but he is quite irritable and dysphoric. He insists that we are holding him in the hospital illicitly. I do try to explain the involuntary hospitalization process , but he is hearing none of it. He remains disorganized and internally stimulated. No evident side effects from medications. Following my departure from the unit, I receive a call from the nursing staff that the patient is escalating and growing more agitated and has already received PRN Ativan without significant benefit. I have ordered him medicated with Prolixin 5mg IM and Benadryl 50mg IM ETO. Review of Systems ROS Limitations: Uncooperative, Psychotic, Poor Historian Other No reported physical complaints today. Objective Alert: Yes [place]: Person, Place Mood: Agitated, Angry, Anxious Affect: Other (Intense and dysphoric) Memory Intact: Comment (Intact) Hallucinations: Other (Remains internally stimulated.) Delusions: Yes Delusion Type: Paranoid Suicidal: Ideation (No SI) Homicidal: Ideation (No HI) Insight/Judgement Poor. Remarks No abnormal motor movements noted. Steady gait and station. Speech remains angry, short. TP disorganized. Labs Labs reviewed. No new labs. Vitals/IOs Vital Signs Date Time Temp Pulse Resp B/P Pulse Ox O2 Delivery O2 Flow Rate FiO2 07/09/16 05:03 98.0 73 18 114/71 100 07/06/16 22:23 Room Air Assessment & Plan Problem List: (1) Schizophrenia ICD Code: F20.9 (2) Cannabis abuse ICD Code: F12.10 Assessment & Plan Patient's psychosis remains decompensated to a severe degree with associated behavioral disturbance. Titrate Prolixin to 2.5/2.5/5mg PO/IM to target psychosis. Plan for Prolixin Dec. Continue other medications and care as ordered. Justification for Cont. Inpt. Impairments in self-care, social function and reality testing. Medication adjustments. Risk for decompensation. Discharge Planning Pending psychiatric stabilization. Request HC Surrog/Guard Advoc?: Yes Problem Qualifiers (1) Schizophrenia: Qualified Code: F20.0 - Paranoid schizophrenia Kirby Melendez MD Jul 09, 2016 11:00
[2016-07-09] MEDS ORDERED: fluPHENAZine HCL 25 MG/10 ML VIAL IM ONE (12:00)
[2016-07-09] MEDS ORDERED: diphenhydrAMINE HCL 50 MG/ML VIAL IM ONE (12:00)
[2016-07-09] MEDS: CYCLOBENZAPRINE HCL 10 MG TAB PO PRN (21:49)
[2016-07-10 06:28] VITALS: BP 118/61; PULSE 73; RESP 18; TEMP 99; O2SAT 100
[2016-07-10] MEDS: REMOVE OLD PATCH T-DERMAL SCH (08:09)
[2016-07-10] MEDS: LORazepam 1 MG TAB PO PRN ×2 (08:09→15:27)
[2016-07-10] MEDS: NICOTINE 21 MG/24 HR PATCH T-DERMAL SCH (08:09)
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
[2016-07-10] MEDS ORDERED: fluPHENAZine HCL 25 MG/10 ML VIAL IM PRN (18:00)
[2016-07-11 05:50] VITALS: BP 92/47; PULSE 72; RESP 18; TEMP 98.2; O2SAT 96
[2016-07-11] MEDS: REMOVE OLD PATCH T-DERMAL SCH (09:00)
[2016-07-11] MEDS: NICOTINE 21 MG/24 HR PATCH T-DERMAL SCH (09:56)
[2016-07-11 15:21] VITALS: BP 92/58; PULSE 79
--- NOTE | 2016-07-11 16:43 | HHI.PYPN ---
Subjective Remarks Patient was seen and case discussed with nursing. Patient was interviewed while he was mostly under the covers. He is flat and appears paranoid. He is focused on discharge. Affect is irritable. Poor insight into admission psychiatric history. He denies any positive symptoms. Compliant with medications Objective Alert: Yes [place]: Person, Place Mood: Angry, Oppositional Affect: Other (Remains intense and dysphoric) Memory Intact: Comment (Intact) Hallucinations: Other (Again internally stimulated.) Delusions: Yes Delusion Type: Paranoid Suicidal: Ideation (No SI) Homicidal: Ideation (No HI) Insight/Judgement Poor Vitals/IOs Vital Signs Date Time Temp Pulse Resp B/P Pulse Ox O2 Delivery O2 Flow Rate FiO2 07/11/16 15:21 79 92/58 07/11/16 05:50 98.2 18 96 Assessment & Plan Problem List: (1) Schizophrenia ICD Code: F20.9 (2) Cannabis abuse ICD Code: F12.10 Assessment & Plan Continue current treatment plan Justification for Cont. Inpt. Patient will decompensate in a less restrictive setting Request HC Surrog/Guard Advoc?: Yes Problem Qualifiers (1) Schizophrenia: Qualified Code: F20.0 - Paranoid schizophrenia Jorge Best DO Jul 11, 2016 16:43
[2016-07-11 18:27] VITALS: BP 117/73; PULSE 71; RESP 18; TEMP 96.8; O2SAT 100
[2016-07-12] MEDS: REMOVE OLD PATCH T-DERMAL SCH (09:00)
[2016-07-12] MEDS: NICOTINE 21 MG/24 HR PATCH T-DERMAL SCH (09:00)
--- NOTE | 2016-07-12 16:07 | HHI.PYPN ---
Subjective Remarks Patient was seen and case discussed with nursing. Patient remains flat and oppositional. He has been behaving well on the unit. Largely seclusive to self. Very focused and perseverative on discharge. Poor insight into admission. Compliant with medications. Denies psychotic symptoms Objective Alert: Yes [place]: Person, Place Mood: Angry, Oppositional Affect: Other (Remains intense and dysphoric) Memory Intact: Comment (Intact) Hallucinations: Other (Again internally stimulated.) Delusions: Yes Delusion Type: Paranoid Suicidal: Ideation (No SI) Homicidal: Ideation (No HI) Insight/Judgement Poor Vitals/IOs Vital Signs Date Time Temp Pulse Resp B/P Pulse Ox O2 Delivery O2 Flow Rate FiO2 07/11/16 18:27 96.8 71 18 117/73 100 Intake and Output 07/11/16 07/11/16 07/12/16 08:00 16:00 00:00 Intake Total 480 ml Balance 480 ml Assessment & Plan Problem List: (1) Schizophrenia ICD Code: F20.9 (2) Cannabis abuse ICD Code: F12.10 Assessment & Plan Continue current treatment plan Justification for Cont. Inpt. Patient will decompensate in a less restrictive setting Request HC Surrog/Guard Advoc?: Yes Problem Qualifiers (1) Schizophrenia: Qualified Code: F20.0 - Paranoid schizophrenia Jorge Best DO Jul 12, 2016 16:07
[2016-07-12] MEDS: diphenhydrAMINE HCL 50 MG CAP PO PRN (21:54)
[2016-07-13 06:20] VITALS: BP 120/63; PULSE 76; RESP 18; TEMP 97.1; O2SAT 98
[2016-07-13] MEDS: REMOVE OLD PATCH T-DERMAL SCH (09:00)
[2016-07-13] MEDS: NICOTINE 21 MG/24 HR PATCH T-DERMAL SCH (09:00)
--- NOTE | 2016-07-13 10:56 | HHI.PYPN ---
Subjective Remarks Patient seen and examined with counselor. Chart reviewed. Case discussed with nursing staff who reports patient is fixated on discharge but otherwise has been no real behavioral problem. On my examination today, the patient insists that his mother and father waiting on him to be discharged. He remains fairly paranoid. Poor insight prevails. He now says that he will simply quit using cannabis although he had previously said that he will continue to smoke regardless of what happens. He denies any SI, HI or AVH but remains fairly internally stimulated. No evident side effects from medications. Review of Systems ROS Limitations: Psychotic, Poor Historian Other No physical complaints today Objective Alert: Yes [place]: Person, Place Mood: Oppositional, Other (calmer) Affect: Other (less intensely dysphoric) Memory Intact: Comment (Intact) Hallucinations: Other (remains internally stimulated) Delusions: Yes Delusion Type: Paranoid Suicidal: Ideation (No SI) Homicidal: Ideation (No HI) Insight/Judgement Poor Remarks No motoric abnormalities noted Labs Labs reviewed. No new labs. Vitals/IOs Vital Signs Date Time Temp Pulse Resp B/P Pulse Ox O2 Delivery O2 Flow Rate FiO2 07/13/16 06:20 97.1 76 18 120/63 98 Intake and Output 07/12/16 07/12/16 07/13/16 08:00 16:00 00:00 Intake Total 550 ml 440 ml 440 ml Balance 550 ml 440 ml 440 ml Assessment & Plan Problem List: (1) Schizophrenia ICD Code: F20.9 (2) Cannabis abuse ICD Code: F12.10 Assessment & Plan In discussing the case with counselor and nursing staff, we have noticed only modest improvement in patient's psychosis with Prolixin. I will try to titrate the dose one more time to 20 mg total daily dose, but if we don't start see much benefit soon we'll need to switch to a different agent most likely. I will continue other medications as ordered. Continue other care as ordered. Justification for Cont. Inpt. Risk for decompensation. Impairments in reality testing. Medication changes in process. Discharge Planning Pending psychiatric stabilization Request HC Surrog/Guard Advoc?: Yes Problem Qualifiers (1) Schizophrenia: Qualified Code: F20.0 - Paranoid schizophrenia Kirby Melendez MD Jul 13, 2016 10:56
[2016-07-13] MEDS ORDERED: fluPHENAZine HCL 25 MG/10 ML VIAL IM PRN (13:00)
[2016-07-13 20:00] VITALS: BP 118/70; PULSE 77; RESP 16; TEMP 97.6
[2016-07-13] MEDS: diphenhydrAMINE HCL 50 MG CAP PO PRN (20:51)
[2016-07-14 05:34] VITALS: BP 120/67; PULSE 81; RESP 18; TEMP 97.5; O2SAT 100
[2016-07-14] MEDS: NICOTINE 21 MG/24 HR PATCH T-DERMAL SCH (09:00)
[2016-07-14] MEDS: REMOVE OLD PATCH T-DERMAL SCH (09:00)
--- NOTE | 2016-07-14 10:26 | HHI.PYPN ---
Subjective Remarks Patient seen and examined with counselor. Chart reviewed. Case discussed in treatment team. On my examination today, the patient continues to display extremely poor insight. He remains quite paranoid. He insists that because he is taking his medication he is ready to leave, despite the fact that he remains symptomatic. He remains internally preoccupied. Affect is dysphoric. No evident side effects from medications. Review of Systems ROS Limitations: Psychotic, Poor Historian Other No somatic complaints today. Objective Alert: Yes [place]: Person, Place Mood: Oppositional Affect: Other (Dysphoric) Memory Intact: Comment (Intact) Hallucinations: Other (Int stim) Delusions: Yes Delusion Type: Paranoid Suicidal: Ideation (No SI) Homicidal: Ideation (No HI) Insight/Judgement Poor Remarks No motoric abnormalities noted. Speech terse, angry. TP perseverative on discharge. Labs Labs reviewed. No new labs. Vitals/IOs Vital Signs Date Time Temp Pulse Resp B/P Pulse Ox O2 Delivery O2 Flow Rate FiO2 07/14/16 05:34 97.5 81 18 120/67 100 Intake and Output 07/13/16 07/13/16 07/14/16 08:00 16:00 00:00 Intake Total 180 ml Balance 180 ml Assessment & Plan Problem List: (1) Schizophrenia ICD Code: F20.9 (2) Cannabis abuse ICD Code: F12.10 Assessment & Plan Patient with ongoing psychotic symptoms. There also seems to be a significant affective component and the patient has had a schizoaffective disorder diagnosis in the past. I see that he is frequently required a mood stabilizer, such as lithium or Depakote for stabilization. I will add Depakote ER 1 g at bedtime. LFTs and platelets okay. Plan to check a level later this week. No evidence of violence on the unit and so I will discontinue the one-to-one and continue to have the patient monitored closely by the floor staff. Justification for Cont. Inpt. Impairments in reality construction. Risk for decompensation. Discharge Planning Pending outcome a [facility], . If the patient is retained about the court, we will plan to pursue outpatient commitment. Request HC Surrog/Guard Advoc?: Yes Problem Qualifiers (1) Schizophrenia: Qualified Code: F20.0 - Paranoid schizophrenia Kirby Melendez MD Jul 14, 2016 10:26
[2016-07-14] MEDS: LORazepam 1 MG TAB PO PRN (15:28)
[2016-07-14 21:00] VITALS: BP 105/65; PULSE 67; RESP 18; TEMP 97.7; O2SAT 99
[2016-07-14] MEDS ORDERED: DIVALPROEX SODIUM E.R. 500 MG TAB PO SCH (21:00)
[2016-07-15 05:52] VITALS: BP 113/60; PULSE 75; RESP 18; TEMP 97.9; O2SAT 97
[2016-07-15] MEDS: REMOVE OLD PATCH T-DERMAL SCH (09:00)
[2016-07-15] MEDS: NICOTINE 21 MG/24 HR PATCH T-DERMAL SCH (09:00)
--- NOTE | 2016-07-15 10:19 | HHI.PYPN ---
Subjective Remarks Patient seen and examined with counselor. Chart reviewed. Case discussed with nursing staff who reports patient is perhaps somewhat improved today after starting Depakote last night. On my examination today, the patient remains fairly intense and irritable. Paranoid about his family's intentions saying that they are trying to keep him in the hospital for months. Pleased with his current psychotropic medication regimen and insists that the medications are helping. No side effects from medications. Review of Systems ROS Limitations: Psychotic, Poor Historian Other No physical complaints today Objective Alert: Yes [place]: Person, Place Mood: Angry Affect: Other (Dysphoric) Memory Intact: Comment (Intact) Hallucinations: Other (perhaps a little less internally stimulated) Delusions: Yes Delusion Type: Paranoid (perhaps a little less paranoid) Suicidal: Ideation (No SI) Homicidal: Ideation (No HI) Insight/Judgement Poor Remarks No abnormal motor movements noted Labs Labs reviewed. No new labs. Vitals/IOs Vital Signs Date Time Temp Pulse Resp B/P Pulse Ox O2 Delivery O2 Flow Rate FiO2 07/15/16 05:52 97.9 75 18 113/60 97 Assessment & Plan Problem List: (1) Schizophrenia ICD Code: F20.9 (2) Cannabis abuse ICD Code: F12.10 Assessment & Plan Continue Prolixin and Depakote as ordered. Plan to check a Depakote level later this week. Continue other medications and care as ordered. Justification for Cont. Inpt. Impairments in reality testing. Risk for decompensation. Discharge Planning Pending outcome a [facility] court tomorrow. Request HC Surrog/Guard Advoc?: Yes Problem Qualifiers (1) Schizophrenia: Qualified Code: F20.0 - Paranoid schizophrenia Kirby Melendez MD Jul 15, 2016 10:19
[2016-07-15] MEDS: LORazepam 1 MG TAB PO PRN (16:07)
[2016-07-16 06:19] VITALS: BP 110/61; PULSE 80; RESP 16; TEMP 98; O2SAT 97
[2016-07-16] MEDS: NICOTINE 21 MG/24 HR PATCH T-DERMAL SCH (08:38)
[2016-07-16] MEDS ORDERED: FLUP5TAB PO (12:17)
[2016-07-16] MEDS ORDERED: DEPA500T3 PO (12:17)
--- NOTE | 2016-07-16 12:17 | HHI.DS ---
Psychiatry Discharge Summary Inpatient Psychiatric care?: Yes Advance Directive: No Reason Not Provided: Due to Patient Condition Mental Health AdvanceDirective: No Health Care Proxy: No Admission Admission Date Jul 06, 2016 at 21:18 Admission Diagnosis: (1) Schizophrenia ICD Code: F20.9 (2) Cannabis abuse ICD Code: F12.10 Brief History Mr. Lopez is a 30-year-old male with a history of schizophrenia and cannabis abuse who presented voluntarily to the emergency department for psychiatric symptoms. Per the ED provider note, patient was fairly nonsensical and appeared to be hallucinating. Patient is known to me from several prior inpatient psychiatric admissions. Reviewing the electronic medical record, I note the patient was admitted here most recently in October [address] White. Patient seen and examined with nurseSilverio. Chart reviewed. Case discussed with nurse. On my examination today, the patient presents as fairly somatically preoccupied. He insists that he has "fluid in my neck and swollen hands." In point of fact, patient does not appear to have any fluid in his neck , nor does he have any neck stiffness or immobility. Likewise his hands do not appear to be particularly swollen. In any event, the patient insists that he has had these symptoms for 3 days since he got out of correction on stone theft charges. He appears somewhat internally preoccupied and is intense and guarded on examination. He says that he has been having difficulty with sleeping. He denies any issues with mood saying "I'm okay." He denies any suicidal or homicidal ideation. I can elicit no hypomanic or manic symptoms. The remainder of the psychiatric ROS is negative. With the patient's permission, I have obtained collateral from his mother, Suma Lopez. She says that since he was released from correction "he's been wandering at 3 or 4 in the morning in [facility] and his mind has been scattering. It's getting to be too much." She is concerned that he is significantly off of his psychiatric baseline. She notes that his psychotropic medications were changed when he was in the correction. She says that he's had multiple hospitalizations since he was here under Dr. White including a stay at [facility] and also at a hospital in [place]. She also notes that she has filed an ex parte order to get him into treatment since then. Past psychiatric history: When I endeavor to obtain past psychiatric history from the patient he says "I changed my name to Mikaela Byers, middle name Court, that's [id number]. #45 flag in basketball." He maintains that he has been following up psychiatrically at [facility] and denies any interval psychiatric admissions or suicide attempts since he was last here. He says that his only psychotropic medication his Cogentin. Tobacco Use In Past 30 Days: No Tobacco Past 30 Days Alcohol Use: Never Hospital Course Patient was admitted to a locked, inpatient psychiatric unit. Appropriate precautions were in place throughout patient's hospital stay. A general medical consultation was obtained. Patient was seen and examined daily on the unit by psychiatry and also visited by counselor. Medications were adjusted. Patient tolerated medications well without side effects. There was no evidence of any suicidality or homicidality on the inpatient unit. Patient's behavior improved somewhat with medication treatment. On the day of discharge: The patient's case was presented to the Xiong [place] court and the electrical service technician ordered his release from the inpatient psychiatric hospital. The patient did agree to enter into the outpatient commitment program. Patient is to be discharged today with psychiatric follow-up as arranged by counselor. Patient is also to follow-up with primary care. Results Blood Pressure 110 / 61 Vital Signs Date Time Temp Pulse Resp B/P Pulse Ox O2 Delivery O2 Flow Rate FiO2 07/16/16 06:19 98.0 80 16 110/61 97 Item Value Date Time White Blood Count 5.2 TH/MM3 07/07/16 0609 Hemoglobin 11.8 GM/DL L 07/07/16 0609 Platelet Count 182 TH/MM3 07/07/16 0609 Sodium Level 140 MEQ/L 07/07/16 0609 Potassium Level 3.7 MEQ/L 07/07/16 0609 Chloride Level 106 MEQ/L 07/07/16 0609 Carbon Dioxide Level 27.5 MEQ/L 07/07/16 0609 Blood Urea Nitrogen 9 MG/DL 07/07/16 0609 Creatinine 0.86 MG/DL 07/07/16 0609 Hemoglobin A1c 4.9 % 07/07/16 0609 Aspartate Amino Transf (AST/SGOT) 10 U/L L 07/07/16 0609 Alanine Aminotransferase (ALT/SGPT) 19 U/L 07/07/16 0609 Alkaline Phosphatase 48 U/L 07/07/16 0609 Urine Cannabinoids Screen POS H 07/06/162024 Ethyl Alcohol Level LESS THAN 3 MG/DL 07/06/162009 Summary of Procedures None done Imaging None done Pending results at discharge: No Medications # of Antipsychotic meds at D/C: 1 Approp Antipsych med options 1 - Minimum of three failed multiple trials of monotherapy. 2 - Documented plan to taper to monotherapy due to previous use of multiple meds OR cross-taper in progress at D/C. 3 - Documentation of augmentation of Clozapine. 4 - Justification other than those listed in allowable values 1-3, document here : Discharge Discharge Date: Jul 16, 2016 Discharge Diagnosis: (1) Schizophrenia Diagnosis: Principal ICD Code: F20.9 (2) Cannabis abuse Diagnosis: Secondary ICD Code: F12.10 GAF on discharge is 45 Mental Status Exam at Disch Patient is casually dressed. He is fairly well groomed. He is awake and alert and oriented to person and hospital at least. No abnormal motor movements noted. Speech is within normal limits for rate, tone and volume. Mood and affect remain a little dysphoric. Thought process remains perseverative on discharge. I do detect some lingering paranoia. No AVH. No SI or HI. Insight and judgment are poor. Pt Condition on Discharge: Guarded Discharge Disposition: Discharge Home Discharge Instructions Diet Instructions: As Tolerated, No Restrictions Activities you can perform: Weight Bearing as Luís Scheduled Appointment: Aleksandar Hayden Appointment Date: Jul 16, 2016 Appointment Time: 2:30pm New Orders: AMMONIA - 1 Week CBC WITH DIFF - 1 Week DEPAKENE - 1 Week New Medications: Divalproex ER (Depakote ER) 500 Mg Claudia 1000 MG PO HS Mental Health Days 15 Ref 1 TAB Fluphenazine (Fluphenazine) 5 Mg Tab 5 MG PO QID Mental Health Days 15 Ref 1 TAB Discontinued Medications: [place] Carbonate (Ormsby Carbonate) 300 Mg Tab 450 MG PO BIDPC Mood Ref 0 TAB Discharge Time <= 30 minutes Discharge/Advance Care Plan Health Problems: (1) Schizophrenia (2) Cannabis abuse Goals to promote your health * To prevent worsening of your condition and complications * To maintain your health at the optimal level Directions to meet your goals Take your medications as prescribed Follow your dietary instruction Follow activity as directed Keep your appointments as scheduled Take your immunizations and boosters as scheduled If your symptoms worsen call your PCP, if no PCP go to Urgent Care Center or Emergency Room For 18/01 questions related to your inpatient stay or results of tests pending at discharge, please contact Dr. Kirby Melendez at Smoking is Dangerous to Your Health. Avoid second hand smoking Problem Qualifiers (1) Schizophrenia: Qualified Code: F20.0 - Paranoid schizophrenia Kirby Melendez MD Jul 16, 2016 12:17
== END 2016-07-16 14:00 | disposition home or self-care (01) | DRG 885 ==
LOC: NEPJ 18:22 → NEDA 21:18 → H260 23:43 → H270 07-08 08:30
PROVIDERS: ADMIT Psychiatry & Neurology Psychiatry; ATTEND Psychiatry & Neurology Psychiatry
DX: F20.0 Paranoid schizophrenia (principal); R45.850 Homicidal ideations; F14.10 Cocaine abuse, uncomplicated; Z91.14 Patient's other noncompliance with medication regimen; F12.10 Cannabis abuse, uncomplicated; D57.3 Sickle-cell trait; F31.9 Bipolar disorder, unspecified; J45.909 Unspecified asthma, uncomplicated; F17.200 Nicotine dependence, unspecified, uncomplicated
CPT/HCPCS: 80048; 80053; 80061; 80178; 80307; 80320; 83036; 85025; 99285; J1200; J2060; Q0163

== ENCOUNTER 2016-07-21 00:33 | Inpatient (IN) | payer OTHER ==
[~2016-07-21] VITALS: Ht 175.3 cm; Wt 65.0 kg
[~2016-07-21 00:33] MED LIST changes: -BENZ1TAB PO; +DEPA500T3 PO; +FLUP5TAB PO; -HALO10 PO; -HALO10TA PO; -HALO50P IM; -LITH450 PO; -OLAN10 PO
[2016-07-21 02:00] VITALS: BP 124/57; PULSE 61; RESP 18; TEMP 97.4; O2SAT 97
--- NOTE | 2016-07-21 02:59 | PD ---
HPI Chief Complaint: Psychiatric Symptoms Time Seen by Provider: 02:55 Travel History International Travel<30 days: No Contact w/Intl Traveler<30days: No Traveled to known affect area: No History of Present Illness HPI 30-year-old black male with history of schizophrenia presents to emergency department under [facility] act. The patient seemed to be disorganized. He is laying in bed with the covers pulled over his head. He initially declines to talk. After multiple attempts the patient finally then starts to talk but is not making much sense. He states that his back is hurting because people are walking all over his back. He lays back down and pulls covers back over his head. He denies any suicidal or homicidal ideation. Further history is unobtainable due to patient cooperation. PFSH Past Medical History Anemia: Yes Blood Disorders: No Bipolar Disorder: Yes Anxiety: Yes Diminished Hearing: No Endocrine: No Gastrointestinal Disorders: No Genetic Disorder: Yes (sickle cell trait) Genitourinary: Yes (h/o testicular thrombosis, UTI) Immune Disorder: No Implanted Vascular Access Dvce: No Musculoskeletal: No Neurologic: No Psychiatric: Yes Reproductive: Yes Respiratory: Yes (asthma) Immunizations Current: Yes Schizophrenia: Yes (paranoid schizophrenia) Sickle Cell Disease: Yes (trait) Tetanus Vaccination: > 5 Years Influenza Vaccination: Yes Past Surgical History Abdominal Surgery: No Cardiac Surgery: No Ear Surgery: No Endocrine Surgery: No Eye Surgery: No Genitourinary Surgery: No Gynecologic Surgery: No Neurologic Surgery: No Oral Surgery: No Thoracic Surgery: No Other Surgery: Yes (removal of right wrist cyst) Social History Alcohol Use: Yes Tobacco Use: Yes (1 ppd) Substance Use: Yes (FLAKKA and marijuana) Allergies-Medications (Allergen,Severity, Reaction): Coded Allergies: Pork (Verified Adverse Reaction, Intermediate, Nausea/Vomiting, 11/06/15) Reported Meds & Prescriptions Reported Meds & Active Scripts Active Fluphenazine (Fluphenazine HCl) 5 Mg Tab 5 Mg PO QID 15 Days Depakote ER (Divalproex Sodium) 500 Mg Claudia 1,000 Mg PO HS 15 Days Review of Systems ROS Limitations: Uncooperative Except as stated in HPI: all other systems reviewed are Neg Physical Exam Narrative GENERAL: Well-nourished, well-developed patient. SKIN: Warm and dry. HEAD: Normocephalic and atraumatic. EYES: No scleral icterus. No injection or drainage. ENT: No nasal drainage noted. Mucous membranes pink. Airway patent. NECK: Supple, trachea midline. Moves head freely without obvious discomfort. CARDIOVASCULAR: Regular rate and rhythm without murmurs, gallops, or rubs. RESPIRATORY: Breath sounds equal bilaterally. No accessory muscle use. GASTROINTESTINAL: Abdomen soft, non-tender, nondistended. EXTREMITIES: No cyanosis or edema. BACK: Nontender without obvious deformity. No CVA tenderness. NEURO: Patient is alert and oriented. no sensorimotor deficits. Nonfocal. Normal speech. PSYCH: Unable to truly assess secondary to patient cooperation. Data Data Orders Psych Screen (07/21/16 01:39) Complete Blood Count With Diff (07/21/16 02:00) Comprehensive Metabolic Panel (07/21/16 02:00) Drug Screen, Random Urine (07/21/16 02:00) Alcohol (Ethanol) (07/21/16 02:00) Diet Regular Basic (07/21/16 Breakfast) MDM Medical Decision Making Medical Screen Exam Complete: Yes Emergency Medical Condition: Yes Medical Record Reviewed: Yes Differential Diagnosis MDM: High Differential diagnoses: Schizophrenia, schizoaffective disorder, bipolar, anxiety, depression, adjustment reaction, mood disorder NOS, ODD, depressive disorder NOS, dementia, dementia with agitation, psychosis NOS, substance induced mood disorder, intermittent explosive disorder, Asperger syndrome, infection,electrolyte abnormality, malingering. Narrative Course Mental health screening discussed with the patient. Psychiatric screen ordered. The patient's been medically cleared. This is schizophrenia Diagnosis Primary Impression: Schizophrenia Qualified Code: F20.9 - Schizophrenia, unspecified type Condition: Terv Nugent Jul 21, 2016 02:59
[2016-07-21 03:20] LABS: AUTOMATED NEUTROPHIL # 3.8 TH/MM3 (1.8-7.7); BASOPHIL % 0.6 % (0.0-2.0); EOSINOPHIL # 0.1 TH/MM3 (0-0.4); EOSINOPHIL % 0.8 % (0.0-4.0); HEMATOCRIT 33.7 % (39.0-51.0); LYMPH % 31.3 % (9.0-44.0); MEAN CELL VOLUME 63.5 FL (80.0-100.0); MEAN CORPUSCULAR HEMOGLOBIN 20.5 PG (27.0-34.0); MEAN CORPUSCULAR HGB CONC 32.3 % (32.0-36.0); NEUT % 59.3 % (16.0-70.0); PLATELET COUNT 190 TH/MM3 (150-450); RED BLOOD COUNT 5.31 MIL/MM3 (4.50-5.90); RED CELL DISTRIBUTION WIDTH 14.8 % (11.6-17.2); WHITE BLOOD COUNT 6.4 TH/MM3 (4.0-11.0)
[2016-07-21 03:21] LABS: HEMO FLAGS AUTO DIFF
[2016-07-21 03:33] LABS: ALT (GPT) 19 U/L (12-78); ANION GAP 6 MEQ/L (5-15); AST (GOT) 15 U/L (15-37); BICARBONATE 30.6 MEQ/L (21.0-32.0); BLOOD UREA NITROGEN 9 MG/DL (7-18); CHLORIDE 106 MEQ/L (98-107); GLOMERULAR FILTRATION RATE 130 ML/MIN (>89); POTASSIUM 3.9 MEQ/L (3.5-5.1); SODIUM (NA) 143 MEQ/L (136-145)
[2016-07-21 03:36] LABS: ALKALINE PHOSPHATASE 42 U/L (45-117)
[2016-07-21 04:59] LABS: SCAN/DIFF AUTO DIFF CONFIRMED; STOMATOCYTES 1+ (NORMAL)
[2016-07-21 05:00] LABS: ACANTHOCYTES OCC (NORMAL)
[2016-07-21 06:27] VITALS: BP 115/54; PULSE 72; RESP 18; O2SAT 99
[2016-07-21 07:08] LABS: AMPHETAMINE, URINE NEG (NEG); BARBITURATES, URINE NEG (NEG); COCAINE, URINE NEG (NEG)
[2016-07-21 10:25] VITALS: BP 147/63; PULSE 73; RESP 17; O2SAT 96
[2016-07-21 13:59] VITALS: BP 147/63; PULSE 73; RESP 17; O2SAT 96
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
[2016-07-21] MEDS ORDERED: MAGNESIUM HYDROXIDE SUSP 30 ML CUP PO PRN (15:15)
[2016-07-21] MEDS ORDERED: ACETAMINOPHEN 325 MG TAB PO PRN (15:15)
[2016-07-21] MEDS ORDERED: ALUMINUM/MAGNESIUM/SIMETH 30 ML CUP PO PRN (15:15)
[2016-07-21 17:11] VITALS: BP 116/68; PULSE 63; RESP 14; TEMP 98.7; O2SAT 100
[2016-07-21] MEDS: DIVALPROEX SODIUM E.R. 500 MG TAB PO SCH (20:26)
[2016-07-22 06:12] VITALS: BP 116/60; PULSE 70; RESP 18; TEMP 97.7; O2SAT 99
[2016-07-22 07:34] LABS: ANION GAP 8 MEQ/L (5-15); BICARBONATE 28.2 MEQ/L (21.0-32.0); BLOOD UREA NITROGEN 8 MG/DL (7-18); CHLORIDE 104 MEQ/L (98-107); GLOMERULAR FILTRATION RATE 111 ML/MIN (>89); POTASSIUM 4.2 MEQ/L (3.5-5.1); SODIUM (NA) 140 MEQ/L (136-145)
[2016-07-22 07:37] LABS: HDL CHOLESTEROL 40.9 MG/DL (40.0-60.0); LDL CHOLESTEROL 74 MG/DL (0-99)
[2016-07-22] MEDS ORDERED: LORazepam 2 MG/ML VIAL IM PRN (12:15)
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
[2016-07-22] MEDS ORDERED: BENZTROPINE MESYLATE 2 MG/2 ML VIAL IM PRN (13:00)
[2016-07-22] MEDS ORDERED: BENZTROPINE MESYLATE 1 MG TAB PO PRN (13:00)
--- NOTE | 2016-07-22 14:13 | PD.CONS ---
Provisional Diagnosis Admission Date Jul 21, 2016 at 15:17 History of Present Illness Service Psychiatry Consult Requested By Primary Care Physician Ita Lagos MD HPI Patient is a 30-year-old Afro-Canadian male well-known to posterior prior contact comes here under Xiong act and admitted to service. Drs. Melendez initial H&P reviewed and agreed with. Patient seen by me in dayroom with floor staff. Patient continues markedly vigilant and paranoid showing no insight into his problems denying that he ever made statements to harm his mother, denying noncompliance with medication, stating his willingness to be cooperative with medication. Dr. melendez is signed first opinion petition supporting Xiong act. I agree. Patient meets criteria for involuntary psychiatric hospitalization. Thus I will cosign second opinion petition supporting Xiong act Past Family Social History Coded Allergies: Pork (Verified Adverse Reaction, Intermediate, Nausea/Vomiting, 11/06/15) Active Scripts Fluphenazine 5 Mg Tab5 Mg PO QID 15 Days Ref 1 Prov:Kirby Melendez MD 07/16/16 Divalproex ER (Depakote ER)500 Mg Taber1,000 Mg PO HS 15 Days Ref 1 Prov:Kirby Melendez MD 07/16/16 Discontinued Reported Medications [place] Carbonate 300 Mg Piq121 Mg PO BIDPC Ref 0 07/06/16 Current Medications Medications (Trade) Dose Ordered Sig/Bunny Route Start Time Stop Time Status Last Admin (Tylenol) 650 mg Q4H PRN PO 07/21/16 15:15 (Milk Of Magnesia Liq) 30 ml DAILY PRN PO 07/21/16 15:15 (Mag-Al Plus Susp Liq) 30 ml Q6H PRN PO 07/21/16 15:15 (Depakote Er) 1,000 mg HS PO 07/21/16 21:00 07/21/16 20:26 (Prolixin) 5 mg QID PO 07/21/16 18:00 07/22/16 09:00 (Ativan) 1 mg Q6H PRN PO 07/22/16 13:00 (Ativan Inj) 1 mg Q6H PRN IM 07/22/16 12:15 (Cogentin) 1 mg Q12HR PRN PO 07/22/16 13:00 (Cogentin Inj) 1 mg Q12HR PRN IM 07/22/16 13:00 (Benadryl) 50 mg HS PRN PO 07/22/16 13:00 Physical Exam Vital Signs Vital Signs Date Time Temp Pulse Resp B/P Pulse Ox O2 Delivery O2 Flow Rate FiO2 07/22/16 06:12 97.7 70 18 116/60 99 07/21/16 06:27 Room Air Mental Status Examination Speech: Rapid (somewhat), Tangential Orientation: Person, Place Memory: Impaired (describe) Thought Process: Linear Thought Content: Bizarre thinking, Paranoid Hallucination Type: None (denies though he appears to be responding to internal stimuli) Attention and Concentration: Easily Distracted Suicidal Ideation: No Previous Suicide Attempts: No Homicidal Ideation: No (made threatening remarks towards his mother) Previous Homicide Attempts: No Insight: Poor Judgement: Poor Affect: Other (increased range and intensity) Mood: Angry, Irritable Motor Activity: Normal gait Assessment & Plan Problem List: (1) Schizophrenia, paranoid type ICD Code: F20.0 Assessment & Plan Estimated LOS: Jason Xavier MD Jul 22, 2016 14:13
[2016-07-22 15:50] LABS: HEMOGLOBIN A1a 0.8 %; HEMOGLOBIN A1b 0.7 %; HEMOGLOBIN Ao 86.2 %; HEMOGLOBIN F 1.2 %; HEMOGLOBIN LA1C 1.5 %; HEMOGLOBIN P3 3.2 %
[2016-07-22 19:49] VITALS: BP 113/67; PULSE 70; RESP 16; TEMP 98.4
[2016-07-22] MEDS: DIVALPROEX SODIUM E.R. 500 MG TAB PO SCH (20:41)
--- NOTE | 2016-07-23 11:18 | HHI.PYPN ---
Subjective Remarks Patient seen and examined with counselor. Chart reviewed. Case discussed with nursing staff who reports the patient believed he was a nurse himself earlier today and said that he needed "3 vials of pink hydrocodone." On my examination today, the patient is intensely irritable, oppositional and negativistic. He is laying in his room facing away from us and says repeatedly "I'm asleep." He remains internally preoccupied and paranoid. Denies side effects from medications. Review of Systems ROS Limitations: Poor Historian Other No physical complaints today. Objective Alert: Yes [place]: Person, Place Mood: Angry, Oppositional Affect: Restricted (Dysphoric) Memory Intact: Comment (Not formally assessed) Hallucinations: Other (Int stim) Delusions: Yes Delusion Type: Grandiose, Paranoid Suicidal: Ideation (No SI voiced; unreliable to contract for safety) Homicidal: Ideation (No HI voiced) Insight/Judgement Poor Remarks No abnormal motor movements noted. TP perseverative on discharge. Speech very jose david, angry. Labs Labs reviewed. No new labs. Vitals/IOs Vital Signs Date Time Temp Pulse Resp B/P Pulse Ox O2 Delivery O2 Flow Rate FiO2 07/22/16 19:49 98.4 70 16 113/67 07/22/16 06:12 99 07/21/16 06:27 Room Air Assessment & Plan Problem List: (1) Schizophrenia, paranoid type ICD Code: F20.0 Assessment & Plan Patient received Prolixin Dec yesterday and is tolerating this well. Continue oral Prolixin supplementation. Gently titrate Depakote to target irritability; weight based dosing suggests he could tolerate at least 1250mg/day. Plan to check a level over the weekend. Check a CBC to make sure anemia, which is chronic but slowly worsening, remains stable. Continue other medications and care as ordered. Justification for Cont. Inpt. Impairments in reality construction and social function. Risk for impairment in safety. Risk for decompensation. Discharge Planning Pending psychiatric stabilization Request HC Surrog/Guard Advoc?: Yes Kirby Melendez MD Jul 23, 2016 11:18
[2016-07-23] MEDS: DIVALPROEX SODIUM E.R. 500 MG TAB PO SCH (20:31)
[2016-07-23] MEDS: DIVALPROEX SODIUM E.R. 250 MG TAB PO SCH (20:31)
[2016-07-24 05:23] VITALS: BP 95/53; PULSE 66; RESP 18; TEMP 98.5; O2SAT 99
[2016-07-24] MEDS ORDERED: HALOPERIDOL LACTATE 5 MG/ML AMP ONE (10:29)
[2016-07-24] MEDS ORDERED: diphenhydrAMINE HCL 50 MG/ML VIAL ONE (10:29)
--- NOTE | 2016-07-24 10:29 | HHI.PYPN ---
Subjective Remarks Patient seen and examined with counselor. Chart reviewed. Case discussed with nursing staff who reports patient is quite discharge focused insisting that he has to go to work. Patient has reportedly said that he has a variety of different fanciful jobs that he has to get to, none of which are apparently factually based. On my examination today, the patient is extremely dysphoric. 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 He maintains that he had been adherent with his psychotropic medications prior to admission, even given his markedly subtherapeutic Depakote level. I try to explain that we plan to retain him for additional psychiatric stabilization, but the patient is unwilling to accept this. He is quite intrusive as we continue our rounds and castigates the treatment team generally. He grows more agitated and begins to threaten other patients. I have ordered him medicated with Haldol, Ativan and Benadryl. Objective Alert: Yes [place]: Person, Place Mood: Agitated, Angry, Oppositional Affect: Restricted (Remains quite dysphoric) Memory Intact: Comment (Not formally assessed) Hallucinations: Other (Remains internally preoccupied) Delusions: Yes Delusion Type: Grandiose, Paranoid Suicidal: Ideation (No SI voiced; unreliable to contract for safety) Homicidal: Ideation (Agitated, threatening) Insight/Judgement Poor Remarks No abnormal motor movements noted. TP perseverative on discharge. Speech loud , angry. Labs Labs reviewed. No new labs. CBC ordered for tomorrow. Vitals/IOs Vital Signs Date Time Temp Pulse Resp B/P Pulse Ox O2 Delivery O2 Flow Rate FiO2 07/24/16 05:23 98.5 66 18 95/53 99 07/21/16 06:27 Room Air Assessment & Plan Problem List: (1) Schizophrenia, paranoid type ICD Code: F20.0 (2) Cannabis abuse ICD Code: F12.10 Assessment & Plan Patient with ongoing significant psychotic agitation despite fairly significant psychopharmacology. I also note that the patient refused his midday dose of oral Prolixin needed to supplement the Prolixin Decanoate he received a few days ago. I will add IM backup for his oral Prolixin. I will, hopefully temporarily, augment the typical antipsychotic with atypical Geodon PO/IM in divided doses. Depakote level ordered for over the weekend. Continue other medications and care as ordered. Justification for Cont. Inpt. Impairments and safety. Impairments in reality construction. Impairments in social functioning. Risk for decompensation. Medication adjustments in process. Discharge Planning Pending psychiatric stabilization Request HC Surrog/Guard Advoc?: Yes Kirby Melendez MD Jul 24, 2016 10:29
[2016-07-24] MEDS ORDERED: diphenhydrAMINE HCL 50 MG/ML VIAL IM STA (10:41)
[2016-07-24] MEDS ORDERED: HALOPERIDOL LACTATE 5 MG/ML AMP IM ONE (10:42)
[2016-07-24] MEDS ORDERED: LORazepam 2 MG/ML VIAL IM ONE (11:00)
[2016-07-24] MEDS ORDERED: ZIPRASIDONE MESYLATE 20 MG VIAL IM PRN (14:00)
[2016-07-24] MEDS ORDERED: fluPHENAZine HCL 25 MG/10 ML VIAL IM PRN (14:00)
[2016-07-24] MEDS: DIVALPROEX SODIUM E.R. 500 MG TAB PO SCH (21:22)
[2016-07-24] MEDS: DIVALPROEX SODIUM E.R. 250 MG TAB PO SCH (21:22)
[2016-07-25] MEDS: ZIPRASIDONE HCL 40 MG CAP PO SCH ×2 (09:00→17:39)
--- NOTE | 2016-07-25 17:28 | HHI.PYPN ---
Subjective Remarks Patient was seen and case discussed with nursing. Patient is secluded to room. Continues to have very poor insight into his admission. Minimizes history and is focused on discharge. Compliant with medications. Denying psychotic symptoms. Behaving well on the unit Objective Alert: Yes [place]: Person, Place Mood: Agitated, Angry, Oppositional Affect: Restricted (Remains quite dysphoric) Memory Intact: Comment (Not formally assessed) Hallucinations: Other (Remains internally preoccupied) Delusions: Yes Delusion Type: Grandiose, Paranoid Suicidal: Ideation (No SI voiced; unreliable to contract for safety) Homicidal: Ideation (Agitated, threatening) Insight/Judgement Poor Vitals/IOs Vital Signs Date Time Temp Pulse Resp B/P Pulse Ox O2 Delivery O2 Flow Rate FiO2 07/24/16 05:23 98.5 66 18 95/53 99 Assessment & Plan Problem List: (1) Schizophrenia, paranoid type ICD Code: F20.0 (2) Cannabis abuse ICD Code: F12.10 Assessment & Plan Continue current treatment plan Justification for Cont. Inpt. Patient will decompensate in a less restrictive setting Request HC Surrog/Guard Advoc?: Yes Jorge Best DO Jul 25, 2016 17:28
[2016-07-25 19:00] VITALS: BP 103/67; PULSE 108; RESP 18; TEMP 97.5; O2SAT 96
[2016-07-25] MEDS: DIVALPROEX SODIUM E.R. 250 MG TAB PO SCH (20:49)
[2016-07-25] MEDS: DIVALPROEX SODIUM E.R. 500 MG TAB PO SCH (20:49)
[2016-07-26 06:17] VITALS: BP 95/72; PULSE 97; RESP 18; TEMP 98; O2SAT 96
[2016-07-26] MEDS: ZIPRASIDONE HCL 40 MG CAP PO SCH ×2 (09:02→17:15)
--- NOTE | 2016-07-26 16:37 | HHI.PYPN ---
Subjective Remarks Patient was seen and case discussed with nursing. Patient was seen by nursing talking to himself, responding to internal stimuli. Patient remains oppositional and guarded. He denies any psychiatric symptoms or history of psychosis. Tinnitus refuse lab work. Interacting with staff and others showing the various dance moves Objective Alert: Yes [place]: Person, Place Mood: Agitated, Angry, Oppositional Affect: Restricted (Remains quite dysphoric) Memory Intact: Comment (Not formally assessed) Hallucinations: Other (Remains internally preoccupied) Delusions: Yes Delusion Type: Grandiose, Paranoid Suicidal: Ideation (No SI voiced; unreliable to contract for safety) Homicidal: Ideation (Agitated, threatening) Insight/Judgement Poor Vitals/IOs Vital Signs Date Time Temp Pulse Resp B/P Pulse Ox O2 Delivery O2 Flow Rate FiO2 07/26/16 06:17 98.0 97 18 95/72 96 Assessment & Plan Problem List: (1) Schizophrenia, paranoid type ICD Code: F20.0 (2) Cannabis abuse ICD Code: F12.10 Assessment & Plan Continue current treatment plan Justification for Cont. Inpt. Patient will decompensate in a less restrictive setting Request HC Surrog/Guard Advoc?: Yes Jorge Best DO Jul 26, 2016 16:37
[2016-07-26 18:25] VITALS: BP 118/76; PULSE 66; RESP 18; TEMP 97.7; O2SAT 98
[2016-07-26 18:44] LABS: AUTOMATED NEUTROPHIL # 1.7 TH/MM3 (1.8-7.7); BASOPHIL % 0.5 % (0.0-2.0); EOSINOPHIL # 0.1 TH/MM3 (0-0.4); EOSINOPHIL % 2.4 % (0.0-4.0); HEMATOCRIT 37.2 % (39.0-51.0); LYMPH % 44.8 % (9.0-44.0); LYMPHOCYTE # 1.8 TH/MM3 (1.0-4.8); MEAN CELL VOLUME 63.8 FL (80.0-100.0); MEAN CORPUSCULAR HGB CONC 32.9 % (32.0-36.0); MONO % 9.9 % (0.0-8.0); NEUT % 42.4 % (16.0-70.0); PLATELET COUNT 186 TH/MM3 (150-450); RED BLOOD COUNT 5.84 MIL/MM3 (4.50-5.90); RED CELL DISTRIBUTION WIDTH 14.8 % (11.6-17.2); WHITE BLOOD COUNT 4.1 TH/MM3 (4.0-11.0)
[2016-07-26 18:45] LABS: HEMO FLAGS AUTO DIFF
[2016-07-26 19:06] LABS: OVALOCYTES 1+ (NORMAL); TARGET CELLS 1+ (NORMAL)
[2016-07-26 19:07] LABS: PLATELET ESTIMATE SMEAR NORMAL (NORMAL); PLATELET MORPHOLOGY NORMAL (NORMAL); SCAN/DIFF AUTO DIFF CONFIRMED
[2016-07-26] MEDS: DIVALPROEX SODIUM E.R. 250 MG TAB PO SCH (20:40)
[2016-07-26] MEDS: DIVALPROEX SODIUM E.R. 500 MG TAB PO SCH (20:40)
[2016-07-27] MEDS: ZIPRASIDONE HCL 40 MG CAP PO SCH (08:27)
--- NOTE | 2016-07-27 14:11 | HHI.PYPN ---
Subjective Remarks Patient seen and examined with counselor. Chart reviewed. Case discussed with nursing staff who reports patient had no problematic behaviors overnight. On my examination today, the patient is quite discharge focused. We discussed the circumstances of his presentation here, and he takes no ownership for his role in hospitalization, insisting that his mother did not give him the requisite medications and his mother's boyfriend called the police to have him Xiong Acted out of spite. He says that we must discharge him so that he can get to work. His plan is to live with his father, although the patient describes his father as "a crackhead." Patient's insight is poor and he says, "I am not mentally ill." No side effects from medications. Counselor has endeavor to liaison with outpatient case coordinator but has not received a call back yet apparently. Review of Systems ROS Limitations: Poor Historian Other No physical complaints today Objective Alert: Yes [place]: Person, Place Mood: Angry, Oppositional Affect: Restricted (dysphoric) Memory Intact: Comment (Not formally assessed) Hallucinations: Other (again somewhat internally preoccupied) Delusions: Yes Delusion Type: Paranoid Suicidal: Ideation (no SI voiced) Homicidal: Ideation (no HI voiced) Insight/Judgement Very poor Remarks No abnormal motor movements noted Labs Test 07/26/16 18:20 White Blood Count 4.1 TH/MM3 Red Blood Count 5.84 MIL/MM3 Hemoglobin 12.3 GM/DL Hematocrit 37.2 % Mean Corpuscular Volume 63.8 FL Mean Corpuscular Hemoglobin 21.0 PG Mean Corpuscular Hemoglobin 32.9 % Concent Red Cell Distribution Width 14.8 % Platelet Count 186 TH/MM3 Mean Platelet Volume 10.5 FL Neutrophils (%) (Auto) 42.4 % Lymphocytes (%) (Auto) 44.8 % Monocytes (%) (Auto) 9.9 % Eosinophils (%) (Auto) 2.4 % Basophils (%) (Auto) 0.5 % Neutrophils # (Auto) 1.7 TH/MM3 Lymphocytes # (Auto) 1.8 TH/MM3 Monocytes # (Auto) 0.4 TH/MM3 Eosinophils # (Auto) 0.1 TH/MM3 Basophils # (Auto) 0.0 TH/MM3 CBC Comment AUTO DIFF Differential Comment AUTO DIFF CONFIRMED Platelet Estimate NORMAL Platelet Morphology Comment NORMAL Target Cells 1+ Ovalocytes 1+ Ammonia 80 MCMOL/L Valproic Acid (Depakene) Level 73 MCG/ML Labs reviewed. Anemia is improved. Depakote level is within the therapeutic range but ammonia level is elevated without signs of encephalopathy. Vitals/IOs Vital Signs Date Time Temp Pulse Resp B/P Pulse Ox O2 Delivery O2 Flow Rate FiO2 07/26/16 18:25 97.7 66 18 118/76 98 Assessment & Plan Problem List: (1) Schizophrenia, paranoid type ICD Code: F20.0 (2) Cannabis abuse ICD Code: F12.10 Assessment & Plan Titrate Geodon to target ongoing psychosis. Add Carnitor for hyperammonemia. Continue other medications and care as ordered. Justification for Cont. Inpt. Risk for decompensation Discharge Planning Possibly we could consider returning the patient to the outpatient commitment program to give this more of an opportunity to allow the patient to function in the community. However, his insight is extremely poor, and I fear that even the outpatient commitment program may not be adequate to the task. Request HC Surrog/Guard Advoc?: Yes Kirby Melendez MD Jul 27, 2016 14:11
[2016-07-27] MEDS: LORazepam 1 MG TAB PO PRN (16:32)
[2016-07-27] MEDS: levOCARNitine 10% ORAL SOLN 118 ML BTL PO SCH (16:45)
[2016-07-27] MEDS ORDERED: ZIPRASIDONE HCL 40 MG CAP PO SCH (18:00)
[2016-07-27 18:42] VITALS: BP 120/71; PULSE 85; RESP 18; TEMP 97.9; O2SAT 98
[2016-07-27] MEDS: DIVALPROEX SODIUM E.R. 250 MG TAB PO SCH (20:37)
[2016-07-27] MEDS: DIVALPROEX SODIUM E.R. 500 MG TAB PO SCH (20:37)
[2016-07-28 05:38] VITALS: BP 120/70; PULSE 86; RESP 18; TEMP 97.9; O2SAT 99
[2016-07-28] MEDS ORDERED: ZIPRASIDONE HCL 60 MG CAP PO SCH (09:00)
[2016-07-28] MEDS: levOCARNitine 10% ORAL SOLN 118 ML BTL PO SCH ×3 (09:20→18:08)
--- NOTE | 2016-07-28 11:26 | HHI.PYPN ---
Subjective Remarks Patient seen and examined with counselor. Chart reviewed. I note the patient was observed by nursing staff to be acting out and belligerent towards staff yesterday evening. Case discussed in treatment team with nurse, occupational therapist and counselor. Per nursing staff, the patient is angry and was somewhat aggressive yesterday afternoon. Nursing staff notes that the patient only accept his oral medication with hesitation. On my examination today, patient's insight into her mental illness is extremely poor. He continues to say "I don't have a mental illness." He insists that he must be discharged and notes that today is his birthday. He is perhaps slightly less angry and agitated today but remains quite paranoid. No evident side effects from medications. Review of Systems ROS Limitations: Psychotic, Poor Historian Other No physical complaints today Objective Alert: Yes [place]: Person, Place Mood: Anxious, Oppositional Affect: Restricted (dysphoric) Memory Intact: Comment (Not formally assessed) Hallucinations: Other (remains somewhat internally preoccupied) Delusions: Yes Delusion Type: Paranoid Suicidal: Ideation (no SI) Homicidal: Ideation (no HI but unclear that patient is reliable to contract for safety in this regard and he was fairly agitated yesterday per report) Insight/Judgement Poor Remarks No abnormal motor movements noted. No sedation noted. Thought process perseverative on discharge. Labs Labs reviewed. No new labs. Vitals/IOs Vital Signs Date Time Temp Pulse Resp B/P Pulse Ox O2 Delivery O2 Flow Rate FiO2 07/28/16 05:38 97.9 86 18 120/70 99 Assessment & Plan Problem List: (1) Schizophrenia, paranoid type ICD Code: F20.0 (2) Cannabis abuse ICD Code: F12.10 Assessment & Plan Titrate Geodon to target ongoing psychosis. Continue other psychotropics as ordered. Continue other medications and care as ordered. Justification for Cont. Inpt. Risk for decompensation. Impairments in social function. Discharge Planning Pending psychiatric stabilization. Patient now insists that he can go stay with his brother and asks that the counselor give his brother a call. Request HC Surrog/Guard Advoc?: Yes Kirby Melendez MD Jul 28, 2016 11:26
[2016-07-28 18:00] VITALS: BP 102/61; PULSE 65; RESP 18; TEMP 97.7; O2SAT 100
[2016-07-28] MEDS: ZIPRASIDONE HCL 80 MG CAP PO SCH (18:09)
[2016-07-28] MEDS: DIVALPROEX SODIUM E.R. 250 MG TAB PO SCH (21:00)
[2016-07-28] MEDS: DIVALPROEX SODIUM E.R. 500 MG TAB PO SCH (21:41)
[2016-07-28] MEDS: diphenhydrAMINE HCL 50 MG CAP PO PRN (21:46)
[2016-07-29 06:45] VITALS: BP 114/66; PULSE 76; RESP 18; TEMP 98.2; O2SAT 99
[2016-07-29] MEDS: ZIPRASIDONE HCL 80 MG CAP PO SCH ×2 (08:51→18:54)
[2016-07-29] MEDS: levOCARNitine 10% ORAL SOLN 118 ML BTL PO SCH ×4 (08:51→18:00)
--- NOTE | 2016-07-29 09:52 | HHI.PYPN ---
Subjective Remarks Patient seen and examined with counselor. Chart reviewed. Case discussed with nursing staff. On my examination today, the patient seems less angry and agitated than in previous days. He continues to have poor insight into mental illness and remains quite discharge focused but is less frankly paranoid. He now says that he doesn't think that he can stay with his brother but instead might try to stay with a boiler tender that he knows in the community. Denies side effects from medications. Review of Systems ROS Limitations: Poor Historian Other No physical complaints today Objective Alert: Yes [place]: Person, Place Mood: Calm Affect: Restricted (mildly dysphoric) Memory Intact: Comment (Not formally assessed) Hallucinations: Other (no AVH) Delusions: Yes Delusion Type: Paranoid (lessened) Suicidal: Ideation (no SI) Homicidal: Ideation (no HI) Insight/Judgement Poor, likely patient's chronic condition Remarks No abnormal motor movements noted. Labs Labs reviewed. No new labs. Vitals/IOs Vital Signs Date Time Temp Pulse Resp B/P Pulse Ox O2 Delivery O2 Flow Rate FiO2 07/29/16 06:45 98.2 76 18 114/66 99 Assessment & Plan Problem List: (1) Schizophrenia, paranoid type ICD Code: F20.0 (2) Cannabis abuse ICD Code: F12.10 Assessment & Plan Patient appears to be responding to Geodon/Prolixin combination. Continue current psychotropics as ordered. Continue other medications and care as ordered. Justification for Cont. Inpt. Risk for decompensation Discharge Planning Patient will be presented to Xiong act court tomorrow. Disposition is pending outcome of that hearing. If the patient is retained on the inpatient psychiatric unit by the federal judge, I think that we should work towards trying to get the patient some sort of stable housing as I think he would do poorly and relapse quickly without this. Request HC Surrog/Guard Advoc?: Yes Kirby Melendez MD Jul 29, 2016 09:52
[2016-07-29] MEDS: LORazepam 1 MG TAB PO PRN (10:07)
[2016-07-29 21:45] VITALS: BP 115/58; PULSE 84; RESP 18; TEMP 98.2; O2SAT 99
[2016-07-29] MEDS: DIVALPROEX SODIUM E.R. 500 MG TAB PO SCH (22:44)
[2016-07-29] MEDS: DIVALPROEX SODIUM E.R. 250 MG TAB PO SCH (22:45)
[2016-07-30] MEDS: levOCARNitine 10% ORAL SOLN 118 ML BTL PO SCH ×3 (08:49→18:00)
[2016-07-30] MEDS: ZIPRASIDONE HCL 80 MG CAP PO SCH ×2 (08:51→16:25)
--- NOTE | 2016-07-30 10:55 | HHI.PYPN ---
Subjective Remarks Patient seen and case discussed with nursing staff. Chart reviewed. On my examination today, patient seems calmer and less paranoid. His insight into his mental illness remains poor. He is agreeable to assisted living placement. His case was presented to the [facility] court, and he was retained for a period of 1 week with the goal of transitioning the patient into assisted living placement within that time. Review of Systems Other No reported physical complaints Objective Alert: Yes [place]: Person, Place Mood: Calm Affect: Blunted Memory Intact: Comment (Not formally assessed) Hallucinations: Other (no AVH) Delusions: Yes Delusion Type: Paranoid (significantly attenuated) Suicidal: Ideation (no SI) Homicidal: Ideation (no HI) Insight/Judgement Poor Remarks No motoric abnormalities noted Labs Test 07/30/16 07:16 Ammonia 41 MCMOL/L Labs reviewed. Ammonia level significantly improved with Carnitor. Vitals/IOs Vital Signs Date Time Temp Pulse Resp B/P Pulse Ox O2 Delivery O2 Flow Rate FiO2 07/29/16 21:45 98.2 84 18 115/58 99 Assessment & Plan Problem List: (1) Schizophrenia, paranoid type ICD Code: F20.0 (2) Cannabis abuse ICD Code: F12.10 Assessment & Plan Continue current psychotropics as ordered. Continue other medications and care as ordered. Justification for Cont. Inpt. Risk for decompensation Discharge Planning Counselor is working on placement for this patient. There is a facility, [facility], but is considering the patient, but they are requesting first to speak with the patient's outpatient porter sample case through the involuntary outpatient commitment program, and counselor will try to facilitate this. Request HC Surrog/Guard Advoc?: Yes Kirby Melendez MD Jul 30, 2016 10:55
[2016-07-30 18:15] VITALS: BP 106/55; PULSE 72; RESP 16; TEMP 97.7; O2SAT 99
[2016-07-30] MEDS: DIVALPROEX SODIUM E.R. 500 MG TAB PO SCH (20:21)
[2016-07-30] MEDS: DIVALPROEX SODIUM E.R. 250 MG TAB PO SCH (20:22)
[2016-07-30] MEDS: diphenhydrAMINE HCL 50 MG CAP PO PRN (20:22)
[2016-07-31] MEDS: levOCARNitine 10% ORAL SOLN 118 ML BTL PO SCH ×3 (09:16→17:33)
[2016-07-31] MEDS: ZIPRASIDONE HCL 80 MG CAP PO SCH ×2 (09:18→17:34)
--- NOTE | 2016-07-31 12:45 | HHI.PYPN ---
Subjective Remarks Nursing patient seen and examined with nursing staff. Chart reviewed. Case discussed with nursing who reports patient has been no behavioral problem. On my examination today, patient is calm but quite discharge focused. Counselor has been in contact with the [facility] that was considering accepting the patient, and apparently with further investigation patient's finances are inadequate for this placement. Counselor is looking into other placement options, although these will likely not be available before the weekend. Patient's paranoia is considerably attenuated. He denies any suicidal or homicidal thoughts. He denies any side effects from medications. Review of Systems Other No physical complaints today Objective Alert: Yes [place]: Person, Place Mood: Calm Affect: Blunted (remains blunted) Memory Intact: Comment (Not formally assessed) Hallucinations: Other (denies AVH) Delusions: No Delusion Type: Other (no evident delusional material) Suicidal: Ideation (denies SI) Homicidal: Ideation (denies HI) Insight/Judgement Poor Remarks No abnormal motor movements noted Labs Labs reviewed. No new labs. Vitals/IOs Vital Signs Date Time Temp Pulse Resp B/P Pulse Ox O2 Delivery O2 Flow Rate FiO2 07/30/16 18:15 97.7 72 16 106/55 99 Assessment & Plan Problem List: (1) Schizophrenia, paranoid type ICD Code: F20.0 (2) Cannabis abuse ICD Code: F12.10 Assessment & Plan Continue oral Prolixin supplementation of Prolixin Decanoate. Next dose of Prolixin Decanoate due 08/12/2016. Continue Geodon augmentation of Prolixin. Continue Depakote with Carnitor for hyperammonemia. Continue other medications and care as ordered. Justification for Cont. Inpt. High risk for decompensation in a lower level of care without stable housing. Discharge Planning Placement, hopefully after the weekend. Request HC Surrog/Guard Advoc?: Yes Kirby Melendez MD Jul 31, 2016 12:45
[2016-07-31] MEDS: LORazepam 1 MG TAB PO PRN (14:43)
[2016-07-31] MEDS: DIVALPROEX SODIUM E.R. 250 MG TAB PO SCH (20:47)
[2016-07-31] MEDS: DIVALPROEX SODIUM E.R. 500 MG TAB PO SCH (20:48)
[2016-08-01 05:24] VITALS: BP 115/73; PULSE 73; RESP 18; TEMP 97.3; O2SAT 98
[2016-08-01] MEDS: levOCARNitine 10% ORAL SOLN 118 ML BTL PO SCH ×3 (08:56→17:04)
[2016-08-01] MEDS: ZIPRASIDONE HCL 80 MG CAP PO SCH ×2 (08:56→17:04)
--- NOTE | 2016-08-01 11:23 | HHI.PYPN ---
Subjective Remarks Pt seen and discussed with staff. He has been compliant iw medications and deneis side effects. He is preoccupied with discharge but has not been disruptive. He conducts interview huddled under blanket adn refuses to allow MD to see his face. No SI/HI. Objective Alert: Yes [place]: Person, Place Mood: Calm Affect: Blunted (remains blunted) Memory Intact: Comment (Not formally assessed) Hallucinations: Other (denies AVH) Delusions: No Delusion Type: Other (no evident delusional material) Suicidal: Ideation (denies SI) Homicidal: Ideation (denies HI) Insight/Judgement limited Vitals/IOs Vital Signs Date Time Temp Pulse Resp B/P Pulse Ox O2 Delivery O2 Flow Rate FiO2 08/01/16 05:24 97.3 73 18 115/73 98 Assessment & Plan Problem List: (1) Schizophrenia, paranoid type ICD Code: F20.0 (2) Cannabis abuse ICD Code: F12.10 Assessment & Plan Continue current tx plan. Estimated LOS: days Justification for Cont. Inpt. risk of decompensation Request HC Surrog/Guard Advoc?: Yes Aneta Marcano MD Aug 01, 2016 11:23
[2016-08-01 19:37] VITALS: BP 87/48; PULSE 75; RESP 18; TEMP 97.7; O2SAT 97
[2016-08-01] MEDS: DIVALPROEX SODIUM E.R. 250 MG TAB PO SCH (21:03)
[2016-08-01] MEDS: DIVALPROEX SODIUM E.R. 500 MG TAB PO SCH (21:03)
[2016-08-02 06:37] VITALS: BP 129/58; PULSE 73; RESP 18; TEMP 97.8
[2016-08-02] MEDS: levOCARNitine 10% ORAL SOLN 118 ML BTL PO SCH ×3 (08:55→17:30)
[2016-08-02] MEDS: ZIPRASIDONE HCL 80 MG CAP PO SCH ×2 (08:55→17:30)
--- NOTE | 2016-08-02 14:10 | HHI.PYPN ---
Subjective Remarks Pt seen and discussed with staff. Pt has been laughing inappropriately about Armando Paniagua's mustache and making statements that Felicia is bringing about the end of the world. He is compliant with medications and denies side effects. No SI/ HI. Objective Alert: Yes [place]: Person, Place Mood: Calm Affect: Blunted Memory Intact: Comment (Not formally assessed) Hallucinations: Other (denies AVH) Delusions: No Delusion Type: Other (no evident delusional material) Suicidal: Ideation (denies SI) Homicidal: Ideation (denies HI) Insight/Judgement poor Vitals/IOs Vital Signs Date Time Temp Pulse Resp B/P Pulse Ox O2 Delivery O2 Flow Rate FiO2 08/02/16 06:37 97.8 73 18 129/58 08/01/16 19:37 97 Assessment & Plan Problem List: (1) Schizophrenia, paranoid type ICD Code: F20.0 (2) Cannabis abuse ICD Code: F12.10 Assessment & Plan Continue current tx plan. Estimated LOS: days Justification for Cont. Inpt. impairments in social functioning and reality construction. Request HC Surrog/Guard Advoc?: Yes Aneta Marcano MD Aug 02, 2016 14:10
[2016-08-02 19:18] VITALS: BP 129/59; PULSE 78; RESP 19; TEMP 97.6; O2SAT 100
[2016-08-02] MEDS: DIVALPROEX SODIUM E.R. 500 MG TAB PO SCH (20:18)
[2016-08-02] MEDS: DIVALPROEX SODIUM E.R. 250 MG TAB PO SCH (20:18)
[2016-08-03 05:57] VITALS: BP 129/61; PULSE 81; RESP 18; TEMP 98.2; O2SAT 100
[2016-08-03] MEDS: ZIPRASIDONE HCL 80 MG CAP PO SCH ×2 (08:09→16:58)
[2016-08-03] MEDS: levOCARNitine 10% ORAL SOLN 118 ML BTL PO SCH ×3 (08:10→16:58)
--- NOTE | 2016-08-03 12:04 | HHI.PYPN ---
Subjective Remarks Patient seen and examined counselor. Chart reviewed. Case discussed with nursing staff who reports patient has been functioning well on the unit. On my examination today, the patient is hopeful and in good spirits. He says that he is sleeping better with medications. He denies any AVH. He denies any SI or HI. He is hopeful that he will be accepted into [facility] and had an interview with them this morning. Denies side effects from medications. Review of Systems Other No physical complaints today Objective Alert: Yes [place]: Person, Place Mood: Calm Affect: Blunted (somewhat more full and reactive) Memory Intact: Comment (fair) Hallucinations: Other (no AVH) Delusions: No Delusion Type: Other (no delusions) Suicidal: Ideation (denies suicidal ideation) Homicidal: Ideation (denies homicidal ideation) Insight/Judgement Perhaps improving somewhat Remarks No abnormal motor movements noted Labs Labs reviewed. No new labs. Vitals/IOs Vital Signs Date Time Temp Pulse Resp B/P Pulse Ox O2 Delivery O2 Flow Rate FiO2 08/03/16 05:57 98.2 81 18 129/61 100 Assessment & Plan Problem List: (1) Schizophrenia, paranoid type ICD Code: F20.0 (2) Cannabis abuse ICD Code: F12.10 Assessment & Plan Patient appears to be doing well with current psychotropics. Continue these as ordered. Continue other medications and care as ordered. Justification for Cont. Inpt. Risk for decompensation Discharge Planning Placement, hopefully discharge tomorrow Request HC Surrog/Guard Advoc?: Yes Kirby Melendez MD Aug 03, 2016 12:04
[2016-08-03] MEDS: DIVALPROEX SODIUM E.R. 250 MG TAB PO SCH (20:43)
[2016-08-03] MEDS: DIVALPROEX SODIUM E.R. 500 MG TAB PO SCH (20:43)
[2016-08-04] MEDS: LORazepam 1 MG TAB PO PRN ×2 (04:40→13:08)
[2016-08-04 05:17] VITALS: BP 135/66; PULSE 86; RESP 17; TEMP 97.6; O2SAT 97
[2016-08-04] MEDS: levOCARNitine 10% ORAL SOLN 118 ML BTL PO SCH ×3 (08:46→18:00)
[2016-08-04] MEDS: ZIPRASIDONE HCL 80 MG CAP PO SCH ×3 (08:46→18:23)
--- NOTE | 2016-08-04 12:06 | HHI.PYPN ---
Subjective Remarks Patient seen and examined with counselor. Chart reviewed. Case discussed in treatment team with nursing staff, counselor an occupational therapist. On my examination today, patient is fairly discharge focused. He denies any SI, HI or AVH. Denies side effects from medications. We are waiting to hear back from house as a follow-up to see if he has been accepted there. Review of Systems Other No somatic complaints today Objective Alert: Yes [place]: Person, Place Mood: Calm Affect: Blunted Memory Intact: Comment (fair) Hallucinations: Other (denies AVH) Delusions: No Delusion Type: Other (no delusional material) Suicidal: Ideation (denies SI) Homicidal: Ideation (denies HI) Insight/Judgement Poor Remarks Thought processes fairly linear Labs Labs reviewed. No new labs. Vitals/IOs Vital Signs Date Time Temp Pulse Resp B/P Pulse Ox O2 Delivery O2 Flow Rate FiO2 08/04/16 05:17 97.6 86 17 135/66 97 Assessment & Plan Problem List: (1) Schizophrenia, paranoid type ICD Code: F20.0 (2) Cannabis abuse ICD Code: F12.10 Assessment & Plan Continue current psychiatric medications as ordered. Continue other medications and care as ordered. Justification for Cont. Inpt. High risk for decompensation in an unstructured living environment. Discharge Planning Endeavoring to organize placement in a structured living environment. Case discussed with counselor. Request HC Surrog/Guard Advoc?: Yes Kirby Melendez MD Aug 04, 2016 12:06
[2016-08-04] MEDS: DIVALPROEX SODIUM E.R. 500 MG TAB PO SCH (20:57)
[2016-08-04] MEDS: DIVALPROEX SODIUM E.R. 250 MG TAB PO SCH (20:57)
[2016-08-04 21:30] VITALS: BP 105/58; PULSE 76; RESP 18; TEMP 98.7; O2SAT 100
[2016-08-05] MEDS: LORazepam 1 MG TAB PO PRN ×2 (03:47→17:03)
[2016-08-05 06:08] VITALS: BP 111/59; PULSE 74; RESP 17; TEMP 97.7; O2SAT 96
[2016-08-05] MEDS: levOCARNitine 10% ORAL SOLN 118 ML BTL PO SCH ×3 (09:00→17:38)
--- NOTE | 2016-08-05 11:41 | HHI.PYPN ---
Subjective Remarks Patient seen and examined with counselor. Chart reviewed. Case discussed with nursing staff. On my examination today, the patient is quite discharge focused. He insists that he can go stay with his "baby momma" and gives the counselor a number to call. He is more irritable and guarded than in previous days. Denies side effects from medications. Review of Systems ROS Limitations: Poor Historian Other No somatic complaints today. Objective Alert: Yes [place]: Person, Place Mood: Calm Affect: Blunted (more irritable) Memory Intact: Comment (fair) Hallucinations: Other (denies AVH) Delusions: No Delusion Type: Other (Somewhat more guarded than in previous days.) Suicidal: Ideation (Denies SI) Homicidal: Ideation (Denies HI) Insight/Judgement Poor Remarks No motoric abnormalities noted. TP remains fairly linear. Speech wnl for rate , tone, volume. Labs Labs reviewed. No new labs. Vitals/IOs Vital Signs Date Time Temp Pulse Resp B/P Pulse Ox O2 Delivery O2 Flow Rate FiO2 08/05/16 06:08 97.7 74 17 111/59 96 Assessment & Plan Problem List: (1) Schizophrenia, paranoid type ICD Code: F20.0 (2) Cannabis abuse ICD Code: F12.10 Assessment & Plan I am concerned that ongoing hospitalization is wearing on the patient, and he is beginning to decompensate once again. However, discharge into unstructured environment would lead to almost certain rapid decompensation and rehospitalization. I will continue current psychotropics for now, but to consider titration of his Geodon. Continue other medications and care as ordered. Justification for Cont. Inpt. Risk for decompensation in a lower level of care Discharge Planning [facility] [address] tomorrow. [facility] declined pt, per counselor. She is working on other placement options for pt. Request HC Surrog/Guard Advoc?: Yes Kirby Melendez MD Aug 05, 2016 11:41
[2016-08-05] MEDS: ZIPRASIDONE HCL 80 MG CAP PO SCH (17:37)
[2016-08-05 19:26] VITALS: BP 120/68; PULSE 99; RESP 18; TEMP 98.5; O2SAT 98
[2016-08-05] MEDS: DIVALPROEX SODIUM E.R. 500 MG TAB PO SCH (20:37)
[2016-08-05] MEDS: DIVALPROEX SODIUM E.R. 250 MG TAB PO SCH (20:37)
[2016-08-06] MEDS: LORazepam 1 MG TAB PO PRN (06:07)
[2016-08-06] MEDS: ZIPRASIDONE HCL 80 MG CAP PO SCH (09:17)
[2016-08-06] MEDS: levOCARNitine 10% ORAL SOLN 118 ML BTL PO SCH ×2 (09:17→12:23)
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
[2016-08-06] MEDS ORDERED: DEPA500T3 PO (09:47)
[2016-08-06] MEDS ORDERED: FLUP1INJ IM (09:47)
[2016-08-06] MEDS ORDERED: GEOD80CA PO (09:47)
[2016-08-06] MEDS ORDERED: DIVA250ER PO (09:47)
[2016-08-06] MEDS ORDERED: FLUP5TAB PO (09:47)
[2016-08-06] MEDS ORDERED: LEVO10%S PO (09:47)
== END 2016-08-06 12:20 | disposition home or self-care (01) | DRG 885 ==
LOC: NEPJ 00:33 → NEDA 15:17 → H270 16:09
PROVIDERS: ADMIT Psychiatry & Neurology Psychiatry; ATTEND Psychiatry & Neurology Psychiatry
DX: F20.0 Paranoid schizophrenia (principal); E72.20 Disorder of urea cycle metabolism, unspecified; D50.9 Iron deficiency anemia, unspecified; F12.10 Cannabis abuse, uncomplicated; F41.9 Anxiety disorder, unspecified; D57.3 Sickle-cell trait; Z91.14 Patient's other noncompliance with medication regimen; J45.909 Unspecified asthma, uncomplicated; H93.19 Tinnitus, unspecified ear
CPT/HCPCS: 80048; 80053; 80061; 80164; 80307; 80320; 82140; 83036; 85025; 99285; J1200; J1630; J2060; J2680; Q0163

== ENCOUNTER 2016-08-07 21:10 | Inpatient (IN) | payer OTHER ==
[~2016-08-07] VITALS: Ht 175.3 cm; Wt 67.7 kg
[~2016-08-07 21:10] MED LIST changes: +DIVA250ER PO; +FLUP1INJ IM; +GEOD80CA PO; +LEVO10%S PO
[2016-08-07] MEDS ORDERED: LORazepam 1 MG TAB PO ONE (21:45)
[2016-08-07 21:53] LABS: AUTOMATED NEUTROPHIL # 3.2 TH/MM3 (1.8-7.7); BASOPHIL % 0.4 % (0.0-2.0); EOSINOPHIL % 0.7 % (0.0-4.0); HEMATOCRIT 35.1 % (39.0-51.0); LYMPH % 29.6 % (9.0-44.0); LYMPHOCYTE # 1.9 TH/MM3 (1.0-4.8); MEAN CORPUSCULAR HEMOGLOBIN 21.1 PG (27.0-34.0); MEAN CORPUSCULAR HGB CONC 32.9 % (32.0-36.0); MONO % 19.4 % (0.0-8.0); NEUT % 49.9 % (16.0-70.0); PLATELET COUNT 144 TH/MM3 (150-450); RED BLOOD COUNT 5.49 MIL/MM3 (4.50-5.90); RED CELL DISTRIBUTION WIDTH 15.1 % (11.6-17.2); WHITE BLOOD COUNT 6.4 TH/MM3 (4.0-11.0)
[2016-08-07 21:58] VITALS: BP 125/78; PULSE 98; RESP 16; TEMP 99.1; O2SAT 99
[2016-08-07 22:09] LABS: ANION GAP 5 MEQ/L (5-15); HEMO FLAGS AUTO DIFF
[2016-08-07 22:12] LABS: ACETAMINOPHEN LESS THAN 2.0 MCG/ML (10.0-30.0); ALKALINE PHOSPHATASE 49 U/L (45-117); ALT (GPT) 14 U/L (12-78); AST (GOT) 12 U/L (15-37); BICARBONATE 31.1 MEQ/L (21.0-32.0); BLOOD UREA NITROGEN 14 MG/DL (7-18); CHLORIDE 103 MEQ/L (98-107); GLOMERULAR FILTRATION RATE 101 ML/MIN (>89); POTASSIUM 3.8 MEQ/L (3.5-5.1); SODIUM (NA) 139 MEQ/L (136-145); TOTAL BILIRUBIN ADULT 0.6 MG/DL (0.2-1.0)
[2016-08-07 22:24] LABS: PLATELET ESTIMATE SMEAR LOW (NORMAL); PLATELET MORPHOLOGY NORMAL (NORMAL); SCAN/DIFF AUTO DIFF CONFIRMED
[2016-08-07 22:35] LABS: AMPHETAMINE, URINE NEG (NEG); BARBITURATES, URINE NEG (NEG); COCAINE, URINE NEG (NEG)
--- NOTE | 2016-08-07 23:22 | PD ---
HPI Chief Complaint: Psychiatric Symptoms Time Seen by Provider: 21:21 Travel History International Travel<30 days: No Contact w/Intl Traveler<30days: No Traveled to known affect area: No History of Present Illness HPI Patient is a 31-year-old male with known psychiatric history, who comes in voluntarily for psychiatric evaluation. He was discharged yesterday, I did not have any place to go. He says he took walk tonight. He is speaking very quickly and not making much sense. He is not able to provide much history. He says he has no place to sleep. He has no complaints at this time. He denies suicidal or homicidal ideation. PFSH Past Medical History Anemia: Yes Blood Disorders: No Bipolar Disorder: Yes Anxiety: Yes Diminished Hearing: No Endocrine: No Gastrointestinal Disorders: No Genetic Disorder: Yes (sickle cell trait) Genitourinary: Yes (h/o testicular thrombosis, UTI) Immune Disorder: No Implanted Vascular Access Dvce: No Musculoskeletal: No Neurologic: No Psychiatric: Yes Reproductive: Yes Respiratory: Yes (asthma) Immunizations Current: Yes Schizophrenia: Yes (paranoid schizophrenia) Sickle Cell Disease: Yes (trait) Tetanus Vaccination: Unknown Influenza Vaccination: No Past Surgical History Abdominal Surgery: No Cardiac Surgery: No Ear Surgery: No Endocrine Surgery: No Eye Surgery: No Genitourinary Surgery: No Gynecologic Surgery: No Neurologic Surgery: No Oral Surgery: No Thoracic Surgery: No Other Surgery: Yes (removal of right wrist cyst) Social History Alcohol Use: Yes Tobacco Use: Yes (1 ppd) Substance Use: Yes (FLAKKA and marijuana) Allergies-Medications (Allergen,Severity, Reaction): Coded Allergies: Pork (Verified Adverse Reaction, Intermediate, Nausea/Vomiting, 08/07/16) Reported Meds & Prescriptions Reported Meds & Active Scripts Active Fluphenazine Decanoate Inj (Fluphenazine Decanoate) 125 Mg/5 Ml Inj 25 Mg IM Q21D Next dose of fluphenazine decanoate due on 08/12/2016. Geodon (Ziprasidone) 80 Mg Cap 80 Mg PO BIDPC 15 Days Carnitor Liq (Levocarnitine) 1 Gm/10 Ml Soln 3 Ml PO TID 15 Days Fluphenazine (Fluphenazine HCl) 5 Mg Tab 5 Mg PO QID 15 Days Continue taking oral fluphenazine at least until your next fluphenazine decanoate injection. Discuss with your outpatient provider how to proceed after that. Depakote ER (Divalproex Sodium) 500 Mg Claudia 1,000 Mg PO HS 15 Days Depakote ER (Divalproex Sodium) 250 Mg Claudia 250 Mg PO HS 15 Days Review of Systems ROS Limitations: Psychotic General / Constitutional: No: Fever, Chills Cardiovascular: No: Chest Pain or Discomfort Respiratory: No: Shortness of Breath Gastrointestinal: No: Nausea, Vomiting Musculoskeletal: No: Pain Physical Exam Narrative GENERAL: Awake and alert, in no acute distress. SKIN: Warm and dry. HEAD: Atraumatic. Normocephalic. EYES: Pupils equal and round. No scleral icterus. Extraocular movements intact. ENT: Mucous membranes pink and moist. NECK: Trachea midline. No JVD. CARDIOVASCULAR: Regular rate and rhythm. No murmur appreciated. RESPIRATORY: No accessory muscle use. Clear to auscultation. Breath sounds equal bilaterally. MUSCULOSKELETAL: No obvious deformities. No clubbing. No cyanosis. No edema. NEUROLOGICAL: Awake and alert. No obvious cranial nerve deficits. Motor grossly within normal limits. Pressured and tangential speech. Patient often says things that don't make any sense. Data Data Last Documented VS Vital Signs Date Time Temp Pulse Resp B/P Pulse Ox O2 Delivery O2 Flow Rate FiO2 08/07/16 21:58 99.1 98 16 125/78 99 Orders Complete Blood Count With Diff (08/07/16 21:30) Comprehensive Metabolic Panel (08/07/16 21:30) Psych Screen (08/07/16 21:30) Drug Screen, Random Urine (08/07/16 21:30) Alcohol (Ethanol) (08/07/16 21:30) Salicylates (Aspirin) (08/07/16 21:30) Tylenol (Acetaminophen) (08/07/16 21:30) Lorazepam (Ativan) (08/07/16 21:45) Olanzapine (Zyprexa) (08/07/16 23:30) Labs Laboratory Tests Test 08/07/16 21:35 White Blood Count 6.4 TH/MM3 Red Blood Count 5.49 MIL/MM3 Hemoglobin 11.6 GM/DL Hematocrit 35.1 % Mean Corpuscular Volume 64.0 FL Mean Corpuscular Hemoglobin 21.1 PG Mean Corpuscular Hemoglobin 32.9 % Concent Red Cell Distribution Width 15.1 % Platelet Count 144 TH/MM3 Mean Platelet Volume 11.0 FL Neutrophils (%) (Auto) 49.9 % Lymphocytes (%) (Auto) 29.6 % Monocytes (%) (Auto) 19.4 % Eosinophils (%) (Auto) 0.7 % Basophils (%) (Auto) 0.4 % Neutrophils # (Auto) 3.2 TH/MM3 Lymphocytes # (Auto) 1.9 TH/MM3 Monocytes # (Auto) 1.3 TH/MM3 Eosinophils # (Auto) 0.0 TH/MM3 Basophils # (Auto) 0.0 TH/MM3 CBC Comment AUTO DIFF Differential Comment AUTO DIFF CONFIRMED Platelet Estimate LOW Platelet Morphology Comment NORMAL Basophilic Stippling MOD Sodium Level 139 MEQ/L Potassium Level 3.8 MEQ/L Chloride Level 103 MEQ/L Carbon Dioxide Level 31.1 MEQ/L Anion Gap 5 MEQ/L Blood Urea Nitrogen 14 MG/DL Creatinine 1.04 MG/DL Estimat Glomerular Filtration 101 ML/MIN Rate Random Glucose 71 MG/DL Calcium Level 8.4 MG/DL Total Bilirubin 0.6 MG/DL Aspartate Amino Transf 12 U/L (AST/SGOT) Alanine Aminotransferase 14 U/L (ALT/SGPT) Alkaline Phosphatase 49 U/L Total Protein 7.1 GM/DL Albumin 3.9 GM/DL Salicylates Level LESS THAN 1.7 MG/DL Urine Opiates Screen NEG Acetaminophen Level LESS THAN 2.0 MCG/ML Urine Barbiturates Screen NEG Urine Amphetamines Screen NEG Urine Benzodiazepines Screen NEG Urine Cocaine Screen NEG Urine Cannabinoids Screen POS Ethyl Alcohol Level LESS THAN 3 MG/DL MDM Medical Decision Making Medical Screen Exam Complete: Yes Emergency Medical Condition: Yes Medical Record Reviewed: Yes Differential Diagnosis Psychosis versus drug overdose versus electrolyte abnormality Narrative Course Patient is a 31-year-old male who has history of psychiatric illness who comes in on involuntary basis for psychiatric evaluation. Patient is speaking quickly and makes very little sense. Exam shows no physical abnormalities. Patient has no medical complaints. Labs sent show no acute abnormalities. Urine tox is positive for cannabinoids. Patient given Ativan as well as Zyprexa. Medically cleared for psychiatric evaluation. Disposition per psychiatry. Diagnosis Primary Impression: Psychosis Condition: Stable Veronique Mccormick MD Aug 07, 2016 23:22
[2016-08-07] MEDS ORDERED: OLANZapine 5 MG TAB PO ONE (23:30)
[2016-08-08 03:00] VITALS: BP 109/75; PULSE 58; RESP 18; TEMP 97.5; O2SAT 96
[2016-08-08 06:21] VITALS: BP 111/75; PULSE 82; RESP 18; TEMP 97.6; O2SAT 99
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
[2016-08-08] MEDS ORDERED: MAGNESIUM HYDROXIDE SUSP 30 ML CUP PO PRN (08:45)
[2016-08-08] MEDS ORDERED: LORazepam 2 MG/ML VIAL IM PRN (08:45)
[2016-08-08] MEDS ORDERED: BENZTROPINE MESYLATE 1 MG TAB PO PRN (08:45)
[2016-08-08] MEDS ORDERED: BENZTROPINE MESYLATE 2 MG/2 ML VIAL IM PRN (08:45)
[2016-08-08] MEDS: levOCARNitine 10% ORAL SOLN 118 ML BTL PO SCH ×3 (09:00→18:00)
[2016-08-08] MEDS: NICOTINE 21 MG/24 HR PATCH T-DERMAL SCH (09:00)
[2016-08-08] MEDS: ZIPRASIDONE HCL 80 MG CAP PO SCH ×3 (09:00→18:00)
[2016-08-08 09:45] VITALS: BP 110/63; PULSE 75; RESP 18; TEMP 97.8; O2SAT 100
[2016-08-08 10:55] LABS: AMPHETAMINE, URINE NEG (NEG); BARBITURATES, URINE NEG (NEG); COCAINE, URINE NEG (NEG)
[2016-08-08] MEDS: DIVALPROEX SODIUM E.R. 500 MG TAB PO SCH (21:00)
[2016-08-08] MEDS: DIVALPROEX SODIUM E.R. 250 MG TAB PO SCH (21:51)
[2016-08-09] MEDS: diphenhydrAMINE HCL 50 MG CAP PO PRN ×2 (01:39→21:16)
[2016-08-09] MEDS: LORazepam 1 MG TAB PO PRN ×3 (01:39→17:58)
[2016-08-09 05:45] VITALS: BP 108/71; PULSE 82; RESP 18; TEMP 98; O2SAT 98
[2016-08-09 07:34] LABS: ANION GAP 6 MEQ/L (5-15); BICARBONATE 27.8 MEQ/L (21.0-32.0); CHLORIDE 106 MEQ/L (98-107); GLOMERULAR FILTRATION RATE 96 ML/MIN (>89); POTASSIUM 4.4 MEQ/L (3.5-5.1); SODIUM (NA) 140 MEQ/L (136-145)
[2016-08-09 07:36] LABS: BLOOD UREA NITROGEN 11 MG/DL (7-18); HDL CHOLESTEROL 44.3 MG/DL (40.0-60.0); LDL CHOLESTEROL 68 MG/DL (0-99)
[2016-08-09] MEDS: NICOTINE 21 MG/24 HR PATCH T-DERMAL SCH (09:00)
[2016-08-09] MEDS: REMOVE OLD PATCH T-DERMAL SCH (09:00)
[2016-08-09] MEDS: levOCARNitine 10% ORAL SOLN 118 ML BTL PO SCH ×3 (09:00→18:00)
[2016-08-09 09:08] LABS: HEMOGLOBIN A1a 0.9 %; HEMOGLOBIN A1b 0.7 %; HEMOGLOBIN Ao 85.7 %; HEMOGLOBIN F 1.4 %; HEMOGLOBIN LA1C 1.7 %; HEMOGLOBIN P3 3.3 %
[2016-08-09] MEDS: ZIPRASIDONE HCL 80 MG CAP PO SCH ×2 (09:10→18:00)
[2016-08-09] MEDS: ACETAMINOPHEN 325 MG TAB PO PRN (09:12)
--- NOTE | 2016-08-09 15:07 | HHI.PYPN ---
Subjective Remarks This is a second opinion for Dr. Melendez. Per nursing patient has been labile and disorganized. She was seen dancing in the hallways and responding to internal stimuli and responding to his previous providers Kiley Resendiz. Patient continues to have very poor insight into his admission. His compliant with his medications. During this interview he denies auditory visual hallucinations. Denies suicidal or homicidal ideations thought content or plan. Objective Alert: Yes [place]: Person, Place Mood: Oppositional Affect: Blunted Memory Intact: Immediate (impaired) Hallucinations: Auditory (denies but not reliable) Delusions: No Delusion Type: Paranoid (bizarre delusions), Other Suicidal: Ideation Homicidal: Ideation Insight/Judgement Poor Labs Test 08/09/16 06:45 Sodium Level 140 MEQ/L Potassium Level 4.4 MEQ/L Chloride Level 106 MEQ/L Carbon Dioxide Level 27.8 MEQ/L Anion Gap 6 MEQ/L Blood Urea Nitrogen 11 MG/DL Creatinine 1.09 MG/DL Estimat Glomerular Filtration 96 ML/MIN Rate Random Glucose 86 MG/DL Hemoglobin A1c 5.0 % Calcium Level 8.5 MG/DL Triglycerides Level 43 MG/DL Cholesterol Level 121 MG/DL LDL Cholesterol 68 MG/DL HDL Cholesterol 44.3 MG/DL Cholesterol/HDL Ratio 2.73 RATIO Valproic Acid (Depakene) Level 29 MCG/ML Vitals/IOs Vital Signs Date Time Temp Pulse Resp B/P Pulse Ox O2 Delivery O2 Flow Rate FiO2 08/09/16 05:45 98.0 82 18 108/71 98 08/08/16 06:21 Room Air Assessment & Plan Problem List: (1) Schizophrenia, paranoid type ICD Code: F20.0 (2) Cannabis abuse ICD Code: F12.10 Assessment & Plan I agree with the first opinion to continue petition. Criteria include acute psychosis and unstable mood Justification for Cont. Inpt. Patient will decompensate in a less restrictive setting Request HC Surrog/Guard Advoc?: Yes Jorge Best DO Aug 09, 2016 15:07
[2016-08-09 19:39] VITALS: BP 107/56; PULSE 68; RESP 18; TEMP 98.1; O2SAT 99
[2016-08-09] MEDS: DIVALPROEX SODIUM E.R. 250 MG TAB PO SCH (21:16)
[2016-08-09] MEDS: DIVALPROEX SODIUM E.R. 500 MG TAB PO SCH (21:16)
[2016-08-10] MEDS: LORazepam 1 MG TAB PO PRN (03:15)
[2016-08-10 05:32] VITALS: BP_SYST 116; PULSE 80; RESP 17; TEMP 97.6; O2SAT 99
[2016-08-10] MEDS: levOCARNitine 10% ORAL SOLN 118 ML BTL PO SCH ×3 (09:00→17:23)
[2016-08-10] MEDS: ZIPRASIDONE HCL 80 MG CAP PO SCH ×3 (09:00→17:22)
[2016-08-10] MEDS: REMOVE OLD PATCH T-DERMAL SCH (09:00)
[2016-08-10] MEDS: NICOTINE 21 MG/24 HR PATCH T-DERMAL SCH (09:00)
--- NOTE | 2016-08-10 14:25 | HHI.PYPN ---
Subjective Remarks Patient seen and examined with counselor and nurse. Chart reviewed. Case discussed with nursing staff who reports patient is somewhat disorganized and spouting out random numbers. On my examination today, the patient is observed dancing and carrying on in the day room somewhat inappropriately to the milieu. His mood seems somewhat elevated today and he says "welcome to my room, [facility]." He is somewhat disinhibited. He grows increasingly irritable during the course of our interview and finally shows us the peace sign and dismisses us saying "see you." Denies side effects from medications although I do note that he is refusing most of his Geodon. Review of Systems ROS Limitations: Psychotic, Poor Historian Other No somatic complaints today Objective Alert: Yes [place]: Person, Place Mood: Other (elevated/irritable) Affect: Labile Memory Intact: Comment (not formally assessed) Hallucinations: Other (appears internally preoccupied) Delusions: Yes Delusion Type: Paranoid Suicidal: Ideation (no SI voiced but unreliable to contract for safety) Homicidal: Ideation (no HI voiced but unreliable to contract for safety) Insight/Judgement Poor Remarks No abnormal motor movements noted. Thought process disorganized. Speech rambling. Labs Labs reviewed. Extended urine toxicology pending. Vitals/IOs Vital Signs Date Time Temp Pulse Resp B/P Pulse Ox O2 Delivery O2 Flow Rate FiO2 08/10/16 05:32 97.6 80 17 116/ 99 08/08/16 06:21 Room Air Assessment & Plan Problem List: (1) Schizophrenia, paranoid type ICD Code: F20.0 (2) Cannabis abuse ICD Code: F12.10 Assessment & Plan I will order Geodon IM backup for PO Geodon, should he refuse. Continue oral Prolixin, supplementing Prolixin Dec. He is due for next dose of Prolixin Dec, and given his degree of psychiatric decompensation, I believe we should plan for a larger dose of Dec at that time. Continue other medications and care as ordered. Justification for Cont. Inpt. Impairments in reality testing. Very high risk for decompensation in a less restricted environment. Discharge Planning Pending outcome of [facility]. Request HC Surrog/Guard Advoc?: Yes Kirby Melendez MD Aug 10, 2016 14:25
[2016-08-10 17:49] VITALS: BP 108/62; PULSE 80; RESP 18; TEMP 98.1; O2SAT 98
[2016-08-10] MEDS ORDERED: ZIPRASIDONE MESYLATE 20 MG VIAL IM PRN (18:00)
[2016-08-10] MEDS: DIVALPROEX SODIUM E.R. 250 MG TAB PO SCH (21:51)
[2016-08-10] MEDS: DIVALPROEX SODIUM E.R. 500 MG TAB PO SCH (21:51)
[2016-08-11 05:24] VITALS: BP 120/57; PULSE 70; RESP 18; TEMP 97.2; O2SAT 80
[2016-08-11 08:12] VITALS: PULSE 80; O2SAT 100
[2016-08-11] MEDS: REMOVE OLD PATCH T-DERMAL SCH (09:00)
[2016-08-11] MEDS: levOCARNitine 10% ORAL SOLN 118 ML BTL PO SCH ×3 (09:00→17:26)
[2016-08-11] MEDS: ZIPRASIDONE HCL 80 MG CAP PO SCH ×2 (09:36→17:26)
[2016-08-11] MEDS: NICOTINE 21 MG/24 HR PATCH T-DERMAL SCH (09:37)
--- NOTE | 2016-08-11 12:44 | HHI.PYPN ---
Subjective Remarks Patient seen and examined with counselor and nursing staff in treatment team. Chart reviewed. Case discussed with nursing staff, counselor an occupational therapist. Per nursing staff, patient's moods are all over the place. He was apparently telling people that he was a football star yesterday. Per occupational therapist, the patient makes an attempt to go to groups but is too disorganized to really participate in a meaningful way. Prior to my evaluation , the patient is flitting around the unit, apparently in good spirits. He is smiling broadly and asks me repeatedly as I am making my rounds, "How '[email or web address] those Cowboys, doc?" When we go to interview the patient, however, his mood has grown dour and he has the covers pulled over his head. All that he will say to us is, "get out." No evident side effects from medications. Review of Systems ROS Limitations: Psychotic, Poor Historian Other No somatic complaints Objective Alert: Yes [place]: Person, Place Mood: Other (variable) Affect: Labile Memory Intact: Comment (not formally assessed) Hallucinations: Other (remains internally preoccupied) Delusions: Yes Delusion Type: Grandiose, Paranoid Suicidal: Ideation (no SI) Homicidal: Ideation (no HI) Insight/Judgement Poor Remarks No abnormal motor movements noted. Thought process somewhat disorganized with loosening of associations. Speech rambling. Labs Labs reviewed. Vitals/IOs Vital Signs Date Time Temp Pulse Resp B/P Pulse Ox O2 Delivery O2 Flow Rate FiO2 08/11/16 08:12 80 100 08/11/16 05:24 97.2 18 120/57 08/08/16 06:21 Room Air Assessment & Plan Problem List: (1) Schizophrenia, paranoid type ICD Code: F20.0 (2) Cannabis abuse ICD Code: F12.10 Assessment & Plan Patient with ongoing mood instability and psychosis. I will order a larger dose of Prolixin Dec, 37.5mg IM, for tomorrow and continue his Depakote and Geodon as ordered. Plan to check a Depakote level later this week. Continue other medications and care as ordered. Justification for Cont. Inpt. Impairments in reality construction. Impairments in social function. Extremely high risk for decompensation in a less restrictive environment. Discharge Planning Pending psychiatric stabilization. Possible state hospitalization if retained by the [facility] for extended stabilization. Request HC Surrog/Guard Advoc?: Yes Kirby Melendez MD Aug 11, 2016 12:44
[2016-08-11] MEDS: DIVALPROEX SODIUM E.R. 250 MG TAB PO SCH (20:43)
[2016-08-11] MEDS: DIVALPROEX SODIUM E.R. 500 MG TAB PO SCH (20:43)
[2016-08-11] MEDS: diphenhydrAMINE HCL 50 MG CAP PO PRN (22:43)
[2016-08-11] MEDS: ALUMINUM/MAGNESIUM/SIMETH 30 ML CUP PO PRN (22:43)
[2016-08-12 06:05] VITALS: BP 115/77; PULSE 58; RESP 18; TEMP 98.2; O2SAT 98
[2016-08-12] MEDS: levOCARNitine 10% ORAL SOLN 118 ML BTL PO SCH ×3 (09:00→17:46)
[2016-08-12] MEDS: ZIPRASIDONE HCL 80 MG CAP PO SCH ×2 (09:00→17:46)
[2016-08-12] MEDS: NICOTINE 21 MG/24 HR PATCH T-DERMAL SCH (09:00)
[2016-08-12] MEDS: REMOVE OLD PATCH T-DERMAL SCH (09:00)
--- NOTE | 2016-08-12 12:27 | HHI.PYPN ---
Subjective Remarks Patient seen and examined with counselor. Chart reviewed. Case discussed with nursing staff who reports patient remains quite delusional. On my examination today, the patient is quite disrespectful and petulant. He insists on calling me by my first name, although I have not invited him to do so. He is intrusive. He is paranoid. His affect is dysphoric. He refuses to participate in an extended interview and tells me to "take your [place] out of your ass." No evident side effects from medications. Review of Systems ROS Limitations: Psychotic, Poor Historian Other No somatic complaints today. Objective Alert: Yes [place]: Person, Place Mood: Oppositional Affect: Restricted (dysphoric. Petulant and childlike.) Memory Intact: Comment (Not assessed today) Hallucinations: Other (Int stim) Delusions: Yes Delusion Type: Grandiose, Paranoid Suicidal: Ideation (None voiced) Homicidal: Ideation (None voiced) Insight/Judgement Poor Remarks Thought process somewhat scattered. Speech rambling but generally deprecatory. No abnormal motor movements noted. Labs Labs reviewed. No new labs. Awaiting extended urine toxicology. Vitals/IOs Vital Signs Date Time Temp Pulse Resp B/P Pulse Ox O2 Delivery O2 Flow Rate FiO2 08/12/16 06:05 98.2 58 18 115/77 98 Assessment & Plan Problem List: (1) Schizophrenia, paranoid type Assessment & Plan: Versus schizoaffective disorder. Significant affective overlay on this admission. ICD Code: F20.0 (2) Cannabis abuse ICD Code: F12.10 Assessment & Plan Patient to receive increased dose of Prolixin Decanoate today. Patient is in need of additional mood stabilization and I will titrate his Depakote and check a level after the appropriate interval. Continue other medications and care as ordered. Justification for Cont. Inpt. Impairments in social function and reality construction. High risk for decompensation in a lower level of care. Discharge Planning Pending outcome of [place] [facility] tomorrow. If retained by the court, we'll likely refer to the [facility] for extended stabilization. Request HC Surrog/Guard Advoc?: Yes Kirby Melendez MD Aug 12, 2016 12:27
[2016-08-12 19:58] VITALS: BP 131/74; PULSE 77; RESP 16; TEMP 98.4; O2SAT 100
[2016-08-12] MEDS: DIVALPROEX SODIUM E.R. 500 MG TAB PO SCH (21:09)
[2016-08-13] MEDS: LORazepam 1 MG TAB PO PRN ×2 (04:31→20:11)
[2016-08-13 05:50] VITALS: BP 100/49; PULSE 76; RESP 18; TEMP 97.2; O2SAT 99
[2016-08-13 08:09] LABS: BATH SALTS (MDPV) UR NEG (NEG); ECSTASY (MDMA) UR NEG (NEG); HEROIN (6-ACETYLMORPHINE) UR NEG (NEG); K2 SPICE UR NEG (NEG); OBMETHADONE UR NEG (NEG); OXYCODONE (PERCODAN) NEG (NEG); PHENCYCLIDINE URINE NEG (NEG)
[2016-08-13] MEDS: levOCARNitine 10% ORAL SOLN 118 ML BTL PO SCH ×3 (08:18→16:50)
[2016-08-13] MEDS: ZIPRASIDONE HCL 80 MG CAP PO SCH ×2 (08:18→16:50)
[2016-08-13] MEDS: REMOVE OLD PATCH T-DERMAL SCH (09:00)
[2016-08-13] MEDS: NICOTINE 21 MG/24 HR PATCH T-DERMAL SCH (09:00)
--- NOTE | 2016-08-13 12:09 | HHI.PYPN ---
Subjective Remarks Patient seen and case discussed with nursing staff. Chart reviewed. Case discussed with counselor. For me today, patient remains paranoid with poor insight into his condition. Affect remains generally dysphoric. He received his Prolixin Dec yesterday without incident. No evident side effects from medications. Review of Systems ROS Limitations: Psychotic, Poor Historian Other No somatic complaints today. Objective Alert: Yes [place]: Person, Place Mood: Angry, Oppositional Affect: Restricted (dysphoric.) Memory Intact: Comment (Not assessed today) Hallucinations: Other (Remains int stim) Delusions: Yes Delusion Type: Grandiose, Paranoid Suicidal: Ideation (No SI) Homicidal: Ideation (No HI) Insight/Judgement Poor Remarks Thought process somewhat disorganized. Speech rambling. Labs Labs reviewed. Extended toxicological screen negative except for cannabinoids. Vitals/IOs Vital Signs Date Time Temp Pulse Resp B/P Pulse Ox O2 Delivery O2 Flow Rate FiO2 08/13/16 05:50 97.2 76 18 100/49 99 Assessment & Plan Problem List: (1) Schizophrenia, paranoid type ICD Code: F20.0 (2) Cannabis abuse ICD Code: F12.10 Assessment & Plan Titrate Geodon to 100mg BID with IM backup for psychosis. Discontinue oral supplementation of Prolixin Dec. Next dose of Prolixin Dec due on 09/02/16. Continue Depakote with a level ordered for later this week. Patient's case was presented to the [place] today. Patient was retained on the inpatient psychiatric unit by the court. Patient's mother was also in attendance at court. Justification for Cont. Inpt. Impairments in reality construction. Impairments in social function. Very high risk for decompensation in a lower level of care. Discharge Planning Referral to the [facility] for extended stabilization. Request HC Surrog/Guard Advoc?: Yes Kirby Melendez MD Aug 13, 2016 12:08
[2016-08-13] MEDS: ZIPRASIDONE HCL 20 MG CAP PO SCH (16:50)
[2016-08-13 19:19] VITALS: BP 118/80; PULSE 84; RESP 18; TEMP 97.8; O2SAT 100
[2016-08-13] MEDS: DIVALPROEX SODIUM E.R. 500 MG TAB PO SCH (20:11)
[2016-08-14] MEDS: ZIPRASIDONE HCL 20 MG CAP PO SCH ×2 (08:12→17:42)
[2016-08-14] MEDS: ZIPRASIDONE HCL 80 MG CAP PO SCH ×2 (08:12→17:42)
[2016-08-14] MEDS: LORazepam 1 MG TAB PO PRN (08:12)
[2016-08-14] MEDS: REMOVE OLD PATCH T-DERMAL SCH (08:13)
[2016-08-14] MEDS: NICOTINE 21 MG/24 HR PATCH T-DERMAL SCH (08:13)
[2016-08-14] MEDS: levOCARNitine 10% ORAL SOLN 118 ML BTL PO SCH ×3 (08:13→18:00)
--- NOTE | 2016-08-14 10:08 | HHI.PYPN ---
Subjective Remarks Patient seen and examined with counselor. Chart reviewed. Case discussed with nursing staff. On my examination today, patient seems more in keeping with previous presentations than in the last several days. He is dysphoric, paranoid , and fixated on discharge. His insight remains quite poor, "I don't have no [ mental] illness." He denies side effects from medications. Review of Systems ROS Limitations: Poor Historian Other No physical complaints today Objective Alert: Yes [place]: Person, Place Mood: Depressed Affect: Restricted (remains dysphoric) Memory Intact: Comment (Not assessed today) Hallucinations: Other (internally stimulated) Delusions: Yes Delusion Type: Paranoid Suicidal: Ideation (No SI) Homicidal: Ideation (No HI) Insight/Judgement Poor Remarks Thought process less disorganized. Speech remains somewhat rambling. No abnormal motor movements noted. Labs Labs reviewed. No new labs. Vitals/IOs Vital Signs Date Time Temp Pulse Resp B/P Pulse Ox O2 Delivery O2 Flow Rate FiO2 08/13/16 19:19 97.8 84 18 118/80 100 Assessment & Plan Problem List: (1) Schizophrenia, paranoid type ICD Code: F20.0 (2) Cannabis abuse ICD Code: F12.10 Assessment & Plan Patient received increased dose of Prolixin Decanoate 08/12. Geodon dose increased yesterday. Mood seems more stable today although psychosis persists. Continue current psychotropics as ordered and plan to check a Depakote level at the end of the weekend. Continue other medications and care as ordered. Justification for Cont. Inpt. Impairment in social function, reality construction. Extremely high risk for decompensation in a lower level of care. Discharge Planning [facility] psychiatric hospitalization Request HC Surrog/Guard Advoc?: Yes Kirby Melendez MD Aug 14, 2016 10:07
[2016-08-14] MEDS: ACETAMINOPHEN 325 MG TAB PO PRN ×2 (17:44→19:36)
[2016-08-14 19:21] VITALS: BP 116/59; PULSE 67; RESP 16; TEMP 97.3; O2SAT 100
[2016-08-14] MEDS: DIVALPROEX SODIUM E.R. 500 MG TAB PO SCH (20:50)
[2016-08-15] MEDS: ACETAMINOPHEN 325 MG TAB PO PRN (04:16)
[2016-08-15 06:15] VITALS: BP 122/65; PULSE 70; RESP 18; TEMP 98.6; O2SAT 97
[2016-08-15] MEDS: NICOTINE 21 MG/24 HR PATCH T-DERMAL SCH (09:00)
[2016-08-15] MEDS: REMOVE OLD PATCH T-DERMAL SCH (09:00)
[2016-08-15] MEDS: ZIPRASIDONE HCL 20 MG CAP PO SCH ×2 (09:03→18:02)
[2016-08-15] MEDS: levOCARNitine 10% ORAL SOLN 118 ML BTL PO SCH ×3 (09:03→18:02)
[2016-08-15] MEDS: ZIPRASIDONE HCL 80 MG CAP PO SCH ×2 (09:03→18:02)
--- NOTE | 2016-08-15 12:43 | HHI.PYPN ---
Subjective Remarks Pt seen and discussed with staff. Pt remains paranoid and isolative. He states that he will no longer take depakote because he does not need a mood stabilizer and is resistant to attempts at psychoeducation. Staff report that he was angry and agitated earlier in this morning. No SI/HI. No medication side effects. Objective Alert: Yes [place]: Person, Place, Date Mood: Depressed Affect: Restricted (remains dysphoric) Memory Intact: Comment (Not assessed today) Hallucinations: Other (internally stimulated) Delusions: Yes Delusion Type: Paranoid Suicidal: Ideation (No SI) Homicidal: Ideation (No HI) Insight/Judgement poor Vitals/IOs Vital Signs Date Time Temp Pulse Resp B/P Pulse Ox O2 Delivery O2 Flow Rate FiO2 08/15/16 06:15 98.6 70 18 122/65 97 Assessment & Plan Problem List: (1) Schizophrenia, paranoid type ICD Code: F20.0 (2) Cannabis abuse ICD Code: F12.10 Assessment & Plan Continue to encourage medication compliance. Continue current tx plan. Estimated LOS: days Justification for Cont. Inpt. impairments in reality construction Request HC Surrog/Guard Advoc?: Yes Aneta Marcano MD Aug 15, 2016 12:43
[2016-08-15 20:05] VITALS: BP 110/71; PULSE 76; RESP 18; TEMP 98.2; O2SAT 100
[2016-08-15] MEDS: DIVALPROEX SODIUM E.R. 500 MG TAB PO SCH (20:40)
[2016-08-16] MEDS: ZIPRASIDONE HCL 20 MG CAP PO SCH ×2 (08:48→17:19)
[2016-08-16] MEDS: levOCARNitine 10% ORAL SOLN 118 ML BTL PO SCH ×3 (08:48→17:19)
[2016-08-16] MEDS: ZIPRASIDONE HCL 80 MG CAP PO SCH ×2 (08:48→17:19)
[2016-08-16] MEDS: REMOVE OLD PATCH T-DERMAL SCH (08:57)
[2016-08-16] MEDS: NICOTINE 21 MG/24 HR PATCH T-DERMAL SCH (08:57)
--- NOTE | 2016-08-16 13:57 | HHI.PYPN ---
Subjective Remarks Pt seen and discussed with staff. 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 He remains suspicious about medications but has been compliant. He denies medication side effects. No signs or symptoms of depakote toxicity. He has been less agitated today. No SI/HI. Objective Alert: Yes [place]: Person, Place, Date Mood: Depressed Affect: Restricted (remains dysphoric) Memory Intact: Comment (Not assessed today) Hallucinations: Other (internally stimulated) Delusions: Yes Delusion Type: Paranoid Suicidal: Ideation (No SI) Homicidal: Ideation (No HI) Insight/Judgement poor Labs Test 08/16/16 07:07 Valproic Acid (Depakene) Level 111 MCG/ML Vitals/IOs Vital Signs Date Time Temp Pulse Resp B/P Pulse Ox O2 Delivery O2 Flow Rate FiO2 08/15/16 20:05 98.2 76 18 110/71 100 Assessment & Plan Problem List: (1) Schizophrenia, paranoid type ICD Code: F20.0 (2) Cannabis abuse ICD Code: F12.10 Assessment & Plan Continue current tx plan. Estimated LOS: days Justification for Cont. Inpt. impairments in reality construction Request HC Surrog/Guard Advoc?: Yes Aneta Marcano MD Aug 16, 2016 13:57
[2016-08-16 18:00] VITALS: BP 115/79; PULSE 75; RESP 16; TEMP 97.2; O2SAT 99
[2016-08-16] MEDS: DIVALPROEX SODIUM E.R. 500 MG TAB PO SCH (20:38)
[2016-08-17 06:17] VITALS: BP 118/62; PULSE 73; RESP 18; TEMP 98.3; O2SAT 98
[2016-08-17] MEDS: ALUMINUM/MAGNESIUM/SIMETH 30 ML CUP PO PRN (07:16)
[2016-08-17] MEDS: levOCARNitine 10% ORAL SOLN 118 ML BTL PO SCH ×3 (09:00→17:21)
[2016-08-17] MEDS: ZIPRASIDONE HCL 80 MG CAP PO SCH ×2 (09:00→17:24)
[2016-08-17] MEDS: ZIPRASIDONE HCL 20 MG CAP PO SCH ×2 (09:00→17:24)
--- NOTE | 2016-08-17 11:07 | HHI.PYPN ---
Subjective Remarks Patient seen and examined with counselor. Chart reviewed. Case discussed with nursing staff. On my examination today, the patient is quite discharge focused. He insists that his mother is going to buy him a hotel room to stay in , although this has never been her position in the past. He is pleased with his current psychotropic medication regimen and is not interested in medication adjustments at this time. He denies side effects. He says that he will file a writ of Habeas to try to be discharged. Review of Systems ROS Limitations: Poor Historian Other No somatic complaints. No symptoms of Depakote toxicity. Objective Alert: Yes [place]: Person, Place, Date Mood: Other (dysphoric) Affect: Restricted Memory Intact: Comment (Not assessed today) Hallucinations: Other (remains somewhat internally stimulated) Delusions: Yes Delusion Type: Paranoid Suicidal: Ideation (No SI) Homicidal: Ideation (No HI) Insight/Judgement Poor Remarks Thought process less disorganized. Speech more linear. No abnormal motor movements noted. No ataxia. Steady gait and station. Labs Labs reviewed. I note that the Depakote level over the weekend was 111 patient has no signs or symptoms of Depakote toxicity. Vitals/IOs Vital Signs Date Time Temp Pulse Resp B/P Pulse Ox O2 Delivery O2 Flow Rate FiO2 08/17/16 06:17 98.3 73 18 118/62 98 Assessment & Plan Problem List: (1) Schizophrenia, paranoid type ICD Code: F20.0 (2) Cannabis abuse ICD Code: F12.10 Assessment & Plan Continue current psychotropics as ordered. To consider further titration of patient's Geodon. Continue other medications and care as ordered. Justification for Cont. Inpt. Extremely high risk for decompensation in a less restrictive environment. Discharge Planning [facility]. Request HC Surrog/Guard Advoc?: Yes Kirby Melendez MD Aug 17, 2016 11:07
[2016-08-17 18:00] VITALS: BP 107/64; PULSE 74; RESP 18; TEMP 98; O2SAT 98
[2016-08-17 19:57] VITALS: BP 107/64; PULSE 74; RESP 18; TEMP 98; O2SAT 98
[2016-08-17] MEDS: DIVALPROEX SODIUM E.R. 500 MG TAB PO SCH (20:43)
[2016-08-18 05:55] VITALS: BP 104/64; PULSE 98; RESP 16; TEMP 97.3; O2SAT 100
[2016-08-18] MEDS: ZIPRASIDONE HCL 20 MG CAP PO SCH ×2 (08:28→17:19)
[2016-08-18] MEDS: ZIPRASIDONE HCL 80 MG CAP PO SCH ×2 (08:28→17:19)
[2016-08-18] MEDS: levOCARNitine 10% ORAL SOLN 118 ML BTL PO SCH ×3 (08:34→17:19)
[2016-08-18] MEDS: ACETAMINOPHEN 325 MG TAB PO PRN (10:52)
--- NOTE | 2016-08-18 11:56 | HHI.PYPN ---
Subjective Remarks Patient seen and examined with counselor and nurse in treatment team. Chart reviewed. Case discussed with counselor, nursing staff and occupational therapist. Per nursing staff, patient now believes that he has 11 children. He reportedly slept 5 hours last night. On my examination today, the patient continues to insist that his mother is going to put him up in a hotel. Is "I only came here because I was smoking flakka. There are lots of people from [employer] migrating down here." We discussed his medications and he says that the Geodon "helps me not be agitated." He says he likes the Depakote too but " I speak [place]ans so I don't know what Depakote means." Review of Systems ROS Limitations: Poor Historian Other No physical complaints today Objective Alert: Yes [place]: Person, Place, Date Mood: Calm Affect: Blunted Memory Intact: Comment (Not assessed today) Hallucinations: Other (no AVH) Delusions: Yes Delusion Type: Paranoid Suicidal: Ideation (No SI) Homicidal: Ideation (No HI) Insight/Judgement Poor Remarks Speech within normal limits for rate, tone and volume. Labs Labs reviewed. No new labs. Vitals/IOs Vital Signs Date Time Temp Pulse Resp B/P Pulse Ox O2 Delivery O2 Flow Rate FiO2 08/18/16 05:55 97.3 98 16 104/64 100 Assessment & Plan Problem List: (1) Schizophrenia, paranoid type ICD Code: F20.0 (2) Cannabis abuse ICD Code: F12.10 Assessment & Plan Continue current psychotropics as ordered. We could consider titrating his Geodon to 120 mg twice daily. Continue other medications and care as ordered. Justification for Cont. Inpt. Very high risk for decompensation in a lower level of care. Impairments in reality construction. Discharge Planning [facility] psychiatric hospital referral. Request HC Surrog/Guard Advoc?: Yes Kirby Melendez MD Aug 18, 2016 11:56
[2016-08-18] MEDS: LORazepam 1 MG TAB PO PRN (17:21)
[2016-08-18 20:04] VITALS: BP 93/51; PULSE 67; RESP 18; TEMP 97.3; O2SAT 100
[2016-08-18] MEDS: DIVALPROEX SODIUM E.R. 500 MG TAB PO SCH (21:48)
[2016-08-19] MEDS: ACETAMINOPHEN 325 MG TAB PO PRN (04:43)
[2016-08-19 05:55] VITALS: BP 115/69; PULSE 71; RESP 18; TEMP 97.3; O2SAT 99
[2016-08-19] MEDS: levOCARNitine 10% ORAL SOLN 118 ML BTL PO SCH ×3 (09:00→18:00)
[2016-08-19] MEDS: LORazepam 1 MG TAB PO PRN (09:00)
[2016-08-19] MEDS: ZIPRASIDONE HCL 80 MG CAP PO SCH (09:00)
[2016-08-19] MEDS: ZIPRASIDONE HCL 20 MG CAP PO SCH (09:00)
[2016-08-19] MEDS ORDERED: HALOPERIDOL LACTATE 5 MG/ML AMP IM STA (09:24)
[2016-08-19] MEDS ORDERED: diphenhydrAMINE HCL 50 MG/ML VIAL IM STA (09:24)
[2016-08-19] MEDS ORDERED: HALOPERIDOL LACTATE 5 MG/ML AMP ONE (09:29)
[2016-08-19] MEDS ORDERED: diphenhydrAMINE HCL 50 MG/ML VIAL ONE (09:30)
--- NOTE | 2016-08-19 09:54 | HHI.PYPN ---
Subjective Remarks Patient seen and examined. Chart reviewed. Case discussed with nursing staff who reports patient is rambling and delusional. Several new psychotic patients have arrived on the unit and the patient is riling them up. On my examination today, the patient is discharged focused. His insight is extremely poor. He is irritable and demanding. Because of his level of agitation I have ordered him medicated with Haldol and Benadryl ETO. Denies side effects from medications. Review of Systems ROS Limitations: Psychotic, Poor Historian Other No physical complaints today Objective Alert: Yes [place]: Person, Place Mood: Agitated Affect: Restricted (irritable) Memory Intact: Comment (Not assessed today) Hallucinations: Other (appears internally preoccupied) Delusions: Yes Delusion Type: Paranoid Suicidal: Ideation (No SI) Homicidal: Ideation (No HI) Insight/Judgement Poor Remarks Thought process perseverative on discharge. Speech somewhat rambling. No motoric abnormalities noted. Labs Labs reviewed. No new labs. Vitals/IOs Vital Signs Date Time Temp Pulse Resp B/P Pulse Ox O2 Delivery O2 Flow Rate FiO2 08/19/16 05:55 97.3 71 18 115/69 99 Assessment & Plan Problem List: (1) Schizophrenia, paranoid type ICD Code: F20.0 (2) Cannabis abuse ICD Code: F12.10 Assessment & Plan Titrate Geodon to 120 mg twice daily with meals for psychosis. Although mouth checks are being performed, I will check a Depakote level to ensure that he is in fact taking this agent as prescribed to ensure that nonadherence is not contributing to his decompensated appearance today. Continue to monitor on the inpatient psychiatric unit. Continue other medications and care as ordered. Justification for Cont. Inpt. Impairment in social functioning. Impairment in reality construction. Medication changes. High risk for decompensation in a lower level of care. Discharge Planning [facility] psychiatric hospital referral Request HC Surrog/Guard Advoc?: Yes Kirby Melendez MD Aug 19, 2016 09:54
[2016-08-19] MEDS: ZIPRASIDONE HCL 60 MG CAP PO SCH (18:09)
[2016-08-19 18:18] VITALS: BP 110/67; PULSE 78; RESP 16; TEMP 98.7; O2SAT 98
[2016-08-19] MEDS: DIVALPROEX SODIUM E.R. 500 MG TAB PO SCH (20:00)
[2016-08-20] MEDS: diphenhydrAMINE HCL 50 MG CAP PO PRN ×2 (02:32→23:47)
[2016-08-20] MEDS: LORazepam 1 MG TAB PO PRN ×3 (02:50→23:46)
[2016-08-20 05:34] VITALS: BP 115/66; PULSE 74; RESP 18; TEMP 98.2; O2SAT 97
[2016-08-20] MEDS: ZIPRASIDONE HCL 60 MG CAP PO SCH ×2 (08:42→18:00)
[2016-08-20] MEDS: levOCARNitine 10% ORAL SOLN 118 ML BTL PO SCH ×3 (09:00→18:00)
--- NOTE | 2016-08-20 11:42 | HHI.PYPN ---
Subjective Remarks Patient seen and examined. Chart reviewed. Case discussed with nursing staff. On my examination today, the patient presents as paranoid and responding to internal stimuli. He has poor boundaries and crowds over me, trying to look at the patient notes that I am writing. He is discharge focused and insists that we must send him home. He threatens that if we do not then his mother is going to [place]. He shows me the writ of habeas corpus he has filed. No evident side effects from medications. Review of Systems ROS Limitations: Psychotic, Poor Historian Other No physical complaints today. Objective Alert: Yes [place]: Person, Place Mood: Agitated, Angry Affect: Restricted (dysphoric) Memory Intact: Comment (Not assessed today) Hallucinations: Other (Remains internally stimulated) Delusions: Yes Delusion Type: Paranoid Suicidal: Ideation (No SI) Homicidal: Ideation (No HI) Insight/Judgement Poor Remarks No abnormal motor movements noted. Thought process remains somewhat disorganized. Speech terse, somewhat rambling. Labs Test 08/20/16 07:20 Valproic Acid (Depakene) Level 96 MCG/ML Labs reviewed. Depakote level more or less unchanged, suggesting ongoing adherence with at least this medication. Vitals/IOs Vital Signs Date Time Temp Pulse Resp B/P Pulse Ox O2 Delivery O2 Flow Rate FiO2 08/20/16 05:34 98.2 74 18 115/66 97 Assessment & Plan Problem List: (1) Schizophrenia, paranoid type ICD Code: F20.0 (2) Cannabis abuse ICD Code: F12.10 Assessment & Plan Geodon dose titrated yesterday. Continue Geodon as ordered. Continue Depakote as ordered as the level remains at the top of the therapeutic range. Next dose of Prolixin Decanoate due September 02, and we might consider once again titrating the dose at that time. Continue to monitor on the inpatient psychiatric unit. Continue other medications and care as ordered. Justification for Cont. Inpt. Impairment in reality construction. Impairment in social function. Extremely high risk for decompensation in a lower level of care. Discharge Planning [facility]. Request HC Surrog/Guard Advoc?: Yes Kirby Melendez MD Aug 20, 2016 11:41
[2016-08-20] MEDS: DIVALPROEX SODIUM E.R. 500 MG TAB PO SCH (20:26)
[2016-08-21 00:13] VITALS: BP 116/68; PULSE 72
[2016-08-21 05:54] VITALS: BP 116/68; PULSE 72; RESP 18; TEMP 97.2; O2SAT 98
[2016-08-21] MEDS: LORazepam 1 MG TAB PO PRN ×2 (08:20→18:13)
[2016-08-21] MEDS: ZIPRASIDONE HCL 60 MG CAP PO SCH ×2 (08:20→17:31)
[2016-08-21] MEDS: levOCARNitine 10% ORAL SOLN 118 ML BTL PO SCH ×3 (09:00→17:31)
--- NOTE | 2016-08-21 10:36 | HHI.PYPN ---
Subjective Remarks Patient seen and examined with counselor. Chart reviewed. Case discussed with nursing staff who reports patient did well through the early evening last night but then in the later evening became quite somatically preoccupied and verbally abusive and threatened to call 911. On my examination this morning the patient is calm but remains quite paranoid and discharge focused. He wants to speak of little except his writ of habeas and eventual discharge. He remains internally stimulated. No side effects from medications. Review of Systems ROS Limitations: Psychotic, Poor Historian Other No physical complaints today. Objective Alert: Yes [place]: Person, Place Mood: Calm Affect: Restricted (dysphoric) Memory Intact: Comment (Not assessed today) Hallucinations: Other (Remains internally stimulated) Delusions: Yes Delusion Type: Paranoid Suicidal: Ideation (No SI voiced) Homicidal: Ideation (No HI voiced) Insight/Judgement remains poor Remarks No abnormal motor movements noted Labs Labs reviewed. No new labs. Vitals/IOs Vital Signs Date Time Temp Pulse Resp B/P Pulse Ox O2 Delivery O2 Flow Rate FiO2 08/21/16 05:54 97.2 72 18 116/68 98 Assessment & Plan Problem List: (1) Schizophrenia, paranoid type ICD Code: F20.0 (2) Cannabis abuse ICD Code: F12.10 Assessment & Plan Continue Geodon and Depakote as ordered. Patient already has Prolixin Decanoate on board. Continue other medications and care as ordered. Justification for Cont. Inpt. Impairment in social function. Impairment in reality construction. Very high risk for decompensation in a less restrictive environment. Discharge Planning [facility] [place] [facility] referral Request HC Surrog/Guard Advoc?: Yes Kirby Melendez MD Aug 21, 2016 10:36
[2016-08-21] MEDS: DIVALPROEX SODIUM E.R. 500 MG TAB PO SCH (20:39)
[2016-08-21 22:37] VITALS: BP 112/70; PULSE 70; RESP 18; TEMP 98; O2SAT 98
[2016-08-22 06:12] VITALS: BP 98/53; PULSE 107; RESP 18; TEMP 98.1; O2SAT 98
[2016-08-22] MEDS: levOCARNitine 10% ORAL SOLN 118 ML BTL PO SCH ×3 (08:26→17:50)
[2016-08-22] MEDS: ZIPRASIDONE HCL 60 MG CAP PO SCH ×2 (08:27→17:50)
--- NOTE | 2016-08-22 15:05 | HHI.PYPN ---
Subjective Remarks Patient was seen and case discussed with nursing. Patient is apathetic with poor eye contact. Laying in bed and perseverative on discharge. Poor insight into his admission. Compliant with medications per nursing. No outbursts. Denies auditory or visual hallucinations. Objective Alert: Yes [place]: Person, Place Mood: Calm Affect: Restricted (dysphoric) Memory Intact: Comment (Not assessed today) Hallucinations: Other (Remains internally stimulated) Delusions: Yes Delusion Type: Paranoid Suicidal: Ideation Homicidal: Ideation Insight/Judgement Poor Vitals/IOs Vital Signs Date Time Temp Pulse Resp B/P Pulse Ox O2 Delivery O2 Flow Rate FiO2 08/22/16 06:12 98.1 107 18 98/53 98 Assessment & Plan Problem List: (1) Schizophrenia, paranoid type ICD Code: F20.0 (2) Cannabis abuse ICD Code: F12.10 Assessment & Plan Continue current treatment plan Justification for Cont. Inpt. Patient will decompensate in a less restrictive setting Request HC Surrog/Guard Advoc?: Yes Jorge Best DO Aug 22, 2016 15:05
[2016-08-22 19:42] VITALS: BP 124/58; PULSE 80; RESP 18; TEMP 97.2; O2SAT 100
[2016-08-22] MEDS: DIVALPROEX SODIUM E.R. 500 MG TAB PO SCH (21:19)
[2016-08-23 05:35] VITALS: BP 111/58; PULSE 63; RESP 16; TEMP 97.4; O2SAT 100
[2016-08-23] MEDS: levOCARNitine 10% ORAL SOLN 118 ML BTL PO SCH ×3 (08:18→17:56)
[2016-08-23] MEDS: ZIPRASIDONE HCL 60 MG CAP PO SCH ×2 (08:18→17:56)
[2016-08-23] MEDS: LORazepam 1 MG TAB PO PRN (08:24)
[2016-08-23 17:04] VITALS: BP 122/63; PULSE 77; RESP 18; TEMP 97.4; O2SAT 99
--- NOTE | 2016-08-23 17:13 | HHI.PYPN ---
Subjective Remarks Patient was seen and case discussed with nursing. Nursing notes some improvements in his thought process. He apologized for an incidence couple weeks ago to a nurse earlier in the day. This morning was animated and talkative. He appears less apathetic and less focused on discharge. His concerns today is whether he is going to the replaced by [facility] or not. His compliant with his medications. Continues to deny psychosis but remains a poor historian Objective Alert: Yes [place]: Person, Place Mood: Calm Affect: Restricted (dysphoric) Memory Intact: Comment (Not assessed today) Hallucinations: Other (Remains internally stimulated) Delusions: Yes Delusion Type: Paranoid Suicidal: Ideation Homicidal: Ideation Insight/Judgement Poor Vitals/IOs Vital Signs Date Time Temp Pulse Resp B/P Pulse Ox O2 Delivery O2 Flow Rate FiO2 08/23/16 17:04 97.4 77 18 122/63 99 Assessment & Plan Problem List: (1) Schizophrenia, paranoid type ICD Code: F20.0 (2) Cannabis abuse ICD Code: F12.10 Assessment & Plan Continue current treatment plan Justification for Cont. Inpt. Patient will decompensate in a less restrictive setting Request HC Surrog/Guard Advoc?: Yes Jorge Best DO Aug 23, 2016 17:13
[2016-08-23] MEDS: DIVALPROEX SODIUM E.R. 500 MG TAB PO SCH (20:45)
[2016-08-23] MEDS: diphenhydrAMINE HCL 50 MG CAP PO PRN (20:45)
[2016-08-24 05:53] VITALS: BP 106/66; PULSE 76; RESP 17; TEMP 97.4; O2SAT 98
[2016-08-24] MEDS: levOCARNitine 10% ORAL SOLN 118 ML BTL PO SCH ×3 (08:50→17:26)
[2016-08-24] MEDS: ZIPRASIDONE HCL 60 MG CAP PO SCH ×2 (08:50→17:26)
--- NOTE | 2016-08-24 09:50 | HHI.PYPN ---
Subjective Remarks Patient seen and examined with nursing staff. Chart reviewed. Case discussed with nurse who reports patient condition is more or less unchanged. On my examination today, patient is back in his petulant mode. Discharge focused. Remains somewhat psychotic and internally preoccupied, but this seems improved versus before the weekend. No evident side effects from medications. Review of Systems ROS Limitations: Poor Historian Other No physical complaints today. Objective Alert: Yes [place]: Person, Place Mood: Calm Affect: Blunted Memory Intact: Comment (Not formally assessed) Hallucinations: Other (Remains slightly int stim) Delusions: Yes Delusion Type: Paranoid Suicidal: Ideation (No SI) Homicidal: Ideation (No HI) Insight/Judgement Poor Remarks Thought process somewhat disorganized. Speech within normal limits for rate, tone and volume. No motoric abnormalities noted. Labs Labs reviewed. No new labs. Vitals/IOs Vital Signs Date Time Temp Pulse Resp B/P Pulse Ox O2 Delivery O2 Flow Rate FiO2 08/24/16 05:53 97.4 76 17 106/66 98 Assessment & Plan Problem List: (1) Schizophrenia, paranoid type ICD Code: F20.0 (2) Cannabis abuse ICD Code: F12.10 Assessment & Plan Estimated LOS: days continue Geodon and Depakote as ordered. Booster dose of Prolixin Decanoate will be due on September 02. Continue other medications and care as ordered. Justification for Cont. Inpt. Very high risk for decompensation in a lower level of care. Discharge Planning [facility] psychiatric hospital referral. Request HC Surrog/Guard Advoc?: Yes Kirby Melendez MD Aug 24, 2016 09:50
[2016-08-24 15:28] VITALS: BP 120/57; PULSE 72; RESP 18; TEMP 98.2; O2SAT 97
[2016-08-24] MEDS: diphenhydrAMINE HCL 50 MG CAP PO PRN (20:53)
[2016-08-24] MEDS: DIVALPROEX SODIUM E.R. 500 MG TAB PO SCH (20:53)
[2016-08-25] MEDS: ACETAMINOPHEN 325 MG TAB PO PRN (02:01)
[2016-08-25] MEDS: LORazepam 1 MG TAB PO PRN ×3 (03:05→18:00)
[2016-08-25 05:42] VITALS: BP 109/60; PULSE 60; RESP 18; TEMP 97.9; O2SAT 100
[2016-08-25] MEDS: ZIPRASIDONE HCL 60 MG CAP PO SCH ×2 (08:57→17:18)
[2016-08-25] MEDS: levOCARNitine 10% ORAL SOLN 118 ML BTL PO SCH ×3 (08:58→17:18)
--- NOTE | 2016-08-25 09:29 | HHI.PYPN ---
Subjective Remarks Patient seen and examined with counselor. Chart reviewed. Case discussed with counselor, nurse and recreation therapist in treatment team. On my examination today, the patient remains fairly petulant and uncooperative. Remains discharge focused. Insight remains poor. He refuses interview saying, "get out of my room while I sleep." Review of Systems ROS Limitations: Psychotic, Poor Historian Other No physical complaints today Objective Alert: Yes [place]: Person, Place Mood: Oppositional Affect: Flat Memory Intact: Comment (Not formally assessed) Hallucinations: Other (Not assessed) Delusions: Yes Delusion Type: Paranoid Suicidal: Ideation (No SI voiced) Homicidal: Ideation (No HI voiced) Insight/Judgement Very poor Remarks No abnormal motor movements noted. Labs Labs reviewed. No new labs. Vitals/IOs Vital Signs Date Time Temp Pulse Resp B/P Pulse Ox O2 Delivery O2 Flow Rate FiO2 08/25/16 05:42 97.9 60 18 109/60 100 Assessment & Plan Problem List: (1) Schizophrenia, paranoid type ICD Code: F20.0 (2) Cannabis abuse ICD Code: F12.10 Assessment & Plan Continue current psychotropics as ordered. Continue other medications and care as ordered. Justification for Cont. Inpt. Very high risk for decompensation in a less restrictive environment. Discharge Planning [facility] psychiatric hospitalization Request HC Surrog/Guard Advoc?: Yes Kirby Melendez MD Aug 25, 2016 09:29
[2016-08-25 18:12] VITALS: BP 108/74; PULSE 82; RESP 18; TEMP 98.6; O2SAT 100
[2016-08-25] MEDS: DIVALPROEX SODIUM E.R. 500 MG TAB PO SCH (20:32)
[2016-08-26 05:27] VITALS: BP 123/54; PULSE 77; RESP 18; TEMP 97.2; O2SAT 99
[2016-08-26] MEDS: ZIPRASIDONE HCL 60 MG CAP PO SCH ×2 (08:41→17:01)
[2016-08-26] MEDS: LORazepam 1 MG TAB PO PRN (08:41)
[2016-08-26] MEDS: levOCARNitine 10% ORAL SOLN 118 ML BTL PO SCH ×3 (08:41→16:58)
--- NOTE | 2016-08-26 08:49 | HHI.PYPN ---
Subjective Remarks Patient seen and examined with RN. Chart reviewed. Case discussed with RN. Patient reportedly more agitated today, yelling at the TV and racially preoccupied. On my exam, patient presents with a silly, buoyant affect. He says, "hey doc, you smell like weed." He expresses a desire to mate with his nurse and "have black babies that are good at football." We reinforce that this kind of commentary is inappropriate. When I ask why he is so exuberant today, he says it's because "I got $735" referring to his disability check. No evident side effects from medications. Review of Systems ROS Limitations: Psychotic, Poor Historian Other No physical complaints today. Objective Alert: Yes [place]: Person, Place Mood: Other (Elevated) Affect: Other (silly, expansive) Memory Intact: Comment (Not formally assessed) Hallucinations: Other (Int stim) Delusions: Yes Delusion Type: Grandiose, Paranoid Suicidal: Ideation (No SI voiced) Homicidal: Ideation (No HI voiced) Insight/Judgement Poor Remarks No abnormal motor movements noted. Speech a little effusive and hyperverbal. TP with some loosening of associations. Labs Labs reviewed. No new labs. Vitals/IOs Vital Signs Date Time Temp Pulse Resp B/P Pulse Ox O2 Delivery O2 Flow Rate FiO2 08/26/16 05:27 97.2 77 18 123/54 99 Assessment & Plan Problem List: (1) Schizoaffective disorder ICD Code: F25.9 (2) Cannabis abuse ICD Code: F12.10 Assessment & Plan Ongoing issues with control of mood instability. Given comorbid mood and psychosis, I have adjusted the diagnostic schema to reflect his current presentation. Patient is already on a robust dose of Depakote and is also receiving maximal dose of Geodon, which has some mood stabilizing properties. He has received lithium therapy here in the past. I will check a TSH and BMP, and if these are unremarkable will plan to add in lithium for mood stabilization. Continue other medications and care as ordered. UPDATE: BMP and TSH wnl. Start [place] 300mg PO BID. Justification for Cont. Inpt. Impairment in reality testing. Impairment in social function. Very high risk for decompensation in a lower level of care. [facility] Request HC Surrog/Guard Advoc?: Yes Problem Qualifiers (1) Schizoaffective disorder: Qualified Code: F25.0 - Schizoaffective disorder, bipolar type Kirby Melendez MD Aug 26, 2016 08:49
[2016-08-26 13:09] LABS: BICARBONATE 29.8 MEQ/L (21.0-32.0); POTASSIUM 4.1 MEQ/L (3.5-5.1)
[2016-08-26 19:27] VITALS: BP 102/59; PULSE 65; RESP 18; TEMP 98.8
[2016-08-26] MEDS: DIVALPROEX SODIUM E.R. 500 MG TAB PO SCH (20:15)
[2016-08-26] MEDS: LITHIUM CARBONATE 300 MG CAP PO SCH (20:15)
[2016-08-27] MEDS: LORazepam 1 MG TAB PO PRN ×2 (01:58→17:45)
[2016-08-27] MEDS: diphenhydrAMINE HCL 50 MG CAP PO PRN ×2 (02:49→20:32)
[2016-08-27 05:57] VITALS: BP 117/60; PULSE 71; RESP 18; TEMP 97.6
[2016-08-27] MEDS: LITHIUM CARBONATE 300 MG CAP PO SCH ×3 (08:26→20:37)
[2016-08-27] MEDS: ZIPRASIDONE HCL 60 MG CAP PO SCH ×2 (08:26→17:14)
[2016-08-27] MEDS: levOCARNitine 10% ORAL SOLN 118 ML BTL PO SCH ×3 (08:26→17:14)
--- NOTE | 2016-08-27 09:48 | HHI.PYPN ---
Subjective Remarks Patient seen and examined with counselor. Chart reviewed. Case discussed with nursing staff who reports patient remains paranoid and psychotic. On my examination today, patient has elevated mood. Today he is enthusiastic about going to the [facility]. Speech remains rambling and thought process remains a little disorganized. Says he is reading his way through the Quran while he is here. Tolerating the addition of lithium well and has no side effects from medications generally. Review of Systems ROS Limitations: Poor Historian Other No physical complaints today Objective Alert: Yes [place]: Person, Place Mood: Other (somewhat elevated) Affect: Other (somewhat expansive) Memory Intact: Comment (Not formally assessed) Hallucinations: Other (remains somewhat internally stimulated) Delusions: Yes Delusion Type: Grandiose, Paranoid Suicidal: Ideation (No SI voiced) Homicidal: Ideation (No HI voiced) Insight/Judgement Poor Remarks No abnormal motor movements noted Labs Test 08/26/16 11:34 Sodium Level 139 MEQ/L Potassium Level 4.1 MEQ/L Chloride Level 102 MEQ/L Carbon Dioxide Level 29.8 MEQ/L Anion Gap 7 MEQ/L Blood Urea Nitrogen 12 MG/DL Creatinine 1.12 MG/DL Estimat Glomerular Filtration 93 ML/MIN Rate Random Glucose 67 MG/DL Calcium Level 8.7 MG/DL Thyroid Stimulating Hormone 1.990 uIU/ML 3rd Gen Labs reviewed. Renal function intact. TSH within normal limits. Vitals/IOs Vital Signs Date Time Temp Pulse Resp B/P Pulse Ox O2 Delivery O2 Flow Rate FiO2 08/27/16 05:57 97.6 71 18 117/60 08/26/16 05:27 99 Assessment & Plan Problem List: (1) Schizoaffective disorder ICD Code: F25.9 (2) Cannabis abuse ICD Code: F12.10 Assessment & Plan Continue patient's current psychotropics including: [place] 300mg BID, Geodon 120mg BID, Depakote 1500mg qHS. Patient also has Prolixin Dec 37.5mg IM on board and his next dose is due on 09/02, and I have ordered this. I've ordered a lithium level and BMP for Wednesday, and we can adjust the dose based on the level. Continue other medications and care as ordered. Justification for Cont. Inpt. Impairment in reality construction. Impairment in social function. High risk for decompensation in a less restrictive environment. Discharge Planning [facility] referral Request HC Surrog/Guard Advoc?: Yes Problem Qualifiers (1) Schizoaffective disorder: Qualified Code: F25.0 - Schizoaffective disorder, bipolar type Kirby Melendez MD Aug 27, 2016 09:48
[2016-08-27 19:38] VITALS: BP 106/49; PULSE 66; RESP 18; TEMP 98.3; O2SAT 100
[2016-08-27] MEDS: DIVALPROEX SODIUM E.R. 500 MG TAB PO SCH (20:32)
[2016-08-28] MEDS: LORazepam 1 MG TAB PO PRN (00:39)
[2016-08-28 05:29] VITALS: BP 118/62; PULSE 69; RESP 18; TEMP 97.6; O2SAT 99
[2016-08-28] MEDS: levOCARNitine 10% ORAL SOLN 118 ML BTL PO SCH ×3 (09:00→17:51)
[2016-08-28] MEDS: LITHIUM CARBONATE 300 MG CAP PO SCH ×2 (09:06→20:41)
[2016-08-28] MEDS: ZIPRASIDONE HCL 60 MG CAP PO SCH ×2 (09:06→20:40)
--- NOTE | 2016-08-28 11:32 | HHI.PYPN ---
Subjective Remarks Remains delusional with a significant lack of insight and impaired judgment. However, the patient is more calm and cooperative today. Review of Systems ROS Limitations: Clinical Condition Except as stated in HPI: all other systems reviewed are Neg Objective Alert: Yes [place]: Person, Place Mood: Anxious, Other (somewhat elevated) Affect: Restricted, Other (somewhat expansive) Memory Intact: Comment (Not formally assessed) Hallucinations: Other (remains somewhat internally stimulated) Delusions: Yes Delusion Type: Grandiose, Paranoid Suicidal: Ideation (No SI voiced) Homicidal: Ideation (No HI voiced) Insight/Judgement Continues to be very unrealistic regarding his disease and current life expectations. Vitals/IOs Vital Signs Date Time Temp Pulse Resp B/P Pulse Ox O2 Delivery O2 Flow Rate FiO2 08/28/16 05:29 97.6 69 18 118/62 99 Assessment & Plan Problem List: (1) Schizoaffective disorder ICD Code: F25.9 (2) Cannabis abuse ICD Code: F12.10 Assessment & Plan Estimated LOS: days we will continue to evaluate him for medication effectiveness and for improved insight and judgment regarding his illness. Justification for Cont. Inpt. Remains unable to care for himself. Request HC Surrog/Guard Advoc?: Yes Problem Qualifiers (1) Schizoaffective disorder: Qualified Code: F25.0 - Schizoaffective disorder, bipolar type Ki Bowers MD Aug 28, 2016 11:32
[2016-08-28 17:00] VITALS: BP 121/60; PULSE 76; RESP 18; TEMP 98.1; O2SAT 97
[2016-08-28] MEDS: diphenhydrAMINE HCL 50 MG CAP PO PRN (20:40)
[2016-08-28] MEDS: DIVALPROEX SODIUM E.R. 500 MG TAB PO SCH (20:40)
[2016-08-29 05:39] VITALS: BP 113/65; PULSE 75; RESP 18; TEMP 98.3; O2SAT 100
[2016-08-29] MEDS: ZIPRASIDONE HCL 60 MG CAP PO SCH ×2 (08:54→18:36)
[2016-08-29] MEDS: levOCARNitine 10% ORAL SOLN 118 ML BTL PO SCH ×3 (08:54→18:00)
[2016-08-29] MEDS: LITHIUM CARBONATE 300 MG CAP PO SCH ×2 (09:00→20:57)
[2016-08-29] MEDS: LORazepam 1 MG TAB PO PRN (09:20)
--- NOTE | 2016-08-29 12:40 | HHI.PYPN ---
Subjective Remarks Pt seen and discussed with staff. He refused lithium again last night, stating that it would cause him to have headaches. Staff state that pt did not complain of headaches when he was compliant with lithium and did not display signs of discomfort or pain. Staff report that he used this same excuse for other medications. Pt has been increasingly paranoid and irritable since refusing lithium with deteriorating mood. Pt has been isolative to room. During interview , pt engaged minimally and expressed paranoid ideations. No SI/HI. Objective Alert: Yes [place]: Person, Place Mood: Other (irritable) Affect: Restricted, Other (somewhat expansive) Memory Intact: Comment (Not formally assessed) Hallucinations: Other (remains somewhat internally stimulated) Delusions: Yes Delusion Type: Grandiose, Paranoid Suicidal: Ideation (No SI voiced) Homicidal: Ideation (No HI voiced) Insight/Judgement poor Vitals/IOs Vital Signs Date Time Temp Pulse Resp B/P Pulse Ox O2 Delivery O2 Flow Rate FiO2 08/29/16 05:39 98.3 75 18 113/65 100 Assessment & Plan Problem List: (1) Schizoaffective disorder ICD Code: F25.9 (2) Cannabis abuse ICD Code: F12.10 Assessment & Plan Continue current tx plan. Continue to encourage medication compliance. Estimated LOS: days Justification for Cont. Inpt. Pt psychotic and unable to care for self due to current mental state. Request HC Surrog/Guard Advoc?: Yes Problem Qualifiers (1) Schizoaffective disorder: Qualified Code: F25.0 - Schizoaffective disorder, bipolar type Aneta Marcano MD Aug 29, 2016 12:40
[2016-08-29 17:36] VITALS: BP 112/54; PULSE 71; RESP 17; TEMP 96; O2SAT 100
[2016-08-29 19:49] VITALS: BP 112/54; PULSE 71; RESP 17; TEMP 96
[2016-08-29] MEDS: DIVALPROEX SODIUM E.R. 500 MG TAB PO SCH (20:56)
[2016-08-29] MEDS: diphenhydrAMINE HCL 50 MG CAP PO PRN (20:57)
[2016-08-30] MEDS: LORazepam 1 MG TAB PO PRN ×4 (04:08→20:12)
[2016-08-30 05:53] VITALS: BP 124/60; PULSE 71; RESP 18; TEMP 97.6; O2SAT 98
[2016-08-30] MEDS: ACETAMINOPHEN 325 MG TAB PO PRN (06:41)
[2016-08-30 07:34] LABS: BICARBONATE 30.1 MEQ/L (21.0-32.0); POTASSIUM 4.2 MEQ/L (3.5-5.1)
[2016-08-30] MEDS: LITHIUM CARBONATE 300 MG CAP PO SCH ×3 (08:59→20:09)
[2016-08-30] MEDS: ZIPRASIDONE HCL 60 MG CAP PO SCH ×2 (08:59→17:59)
[2016-08-30] MEDS: levOCARNitine 10% ORAL SOLN 118 ML BTL PO SCH ×3 (09:00→17:59)
[2016-08-30] MEDS: DIVALPROEX SODIUM E.R. 500 MG TAB PO SCH (20:08)
--- NOTE | 2016-08-30 22:47 | HHI.PYPN ---
Subjective Remarks Pt seen and discussed with staff. He continues to refuse lithium. He was agitated this morning. He has spent most of day in room. He is selectively mute during interview, communicating via bizarre hand gestures. Objective Alert: Yes [place]: Person, Place Mood: Other (irritable) Affect: Restricted, Other (somewhat expansive) Memory Intact: Comment (Not formally assessed) Hallucinations: Other (remains somewhat internally stimulated) Delusions: Yes Delusion Type: Grandiose, Paranoid Suicidal: Ideation (No SI voiced) Homicidal: Ideation (No HI voiced) Insight/Judgement poor Labs Test 08/30/16 06:15 Sodium Level 141 MEQ/L Potassium Level 4.2 MEQ/L Chloride Level 102 MEQ/L Carbon Dioxide Level 30.1 MEQ/L Anion Gap 9 MEQ/L Blood Urea Nitrogen 10 MG/DL Creatinine 1.25 MG/DL Estimat Glomerular Filtration 82 ML/MIN Rate Random Glucose 59 MG/DL Calcium Level 9.0 MG/DL [place] Level LESS THAN 0.1 MEQ/L Vitals/IOs Vital Signs Date Time Temp Pulse Resp B/P Pulse Ox O2 Delivery O2 Flow Rate FiO2 08/30/16 05:53 97.6 71 18 124/60 98 Assessment & Plan Problem List: (1) Schizoaffective disorder ICD Code: F25.9 (2) Cannabis abuse ICD Code: F12.10 Assessment & Plan Continue current tx plan. Estimated LOS: days Justification for Cont. Inpt. severe psychosis Request HC Surrog/Guard Advoc?: Yes Problem Qualifiers (1) Schizoaffective disorder: Qualified Code: F25.0 - Schizoaffective disorder, bipolar type Aneta Marcano MD Aug 30, 2016 22:47
[2016-08-31] MEDS: LORazepam 1 MG TAB PO PRN ×2 (01:48→09:07)
[2016-08-31] MEDS: LITHIUM CARBONATE 300 MG CAP PO SCH ×3 (09:00→20:14)
[2016-08-31] MEDS: ZIPRASIDONE HCL 60 MG CAP PO SCH ×2 (09:07→18:14)
[2016-08-31] MEDS: levOCARNitine 10% ORAL SOLN 118 ML BTL PO SCH ×3 (09:11→18:14)
--- NOTE | 2016-08-31 13:28 | HHI.PYPN ---
Subjective Remarks Patient remains easily disorganized and has continued difficulty with linear and logical thinking. Review of Systems ROS Limitations: Clinical Condition Except as stated in HPI: all other systems reviewed are Neg Objective Alert: Yes [place]: Person, Place Mood: Anxious, Other (irritable) Affect: Restricted, Other (somewhat expansive) Memory Intact: Comment (Not formally assessed) Hallucinations: Auditory, Other (remains somewhat internally stimulated) Delusions: Yes Delusion Type: Grandiose, Paranoid Suicidal: Ideation (No SI voiced) Homicidal: Ideation (No HI voiced) Insight/Judgement Remain impaired. Vitals/IOs Vital Signs Date Time Temp Pulse Resp B/P Pulse Ox O2 Delivery O2 Flow Rate FiO2 08/30/16 05:53 97.6 71 18 124/60 98 Assessment & Plan Problem List: (1) Schizoaffective disorder ICD Code: F25.9 (2) Cannabis abuse ICD Code: F12.10 Assessment & Plan Estimated LOS: days Justification for Cont. Inpt. Remains unable to care for self. Request HC Surrog/Guard Advoc?: Yes Problem Qualifiers (1) Schizoaffective disorder: Qualified Code: F25.0 - Schizoaffective disorder, bipolar type Ki Bowers MD Aug 31, 2016 13:28
[2016-08-31 15:15] VITALS: BP 107/67; PULSE 72; RESP 18; TEMP 97.4; O2SAT 100
[2016-08-31] MEDS: DIVALPROEX SODIUM E.R. 500 MG TAB PO SCH (20:14)
[2016-09-01 06:15] VITALS: BP 116/68; RESP 18; TEMP 97.7; O2SAT 98
[2016-09-01] MEDS: ZIPRASIDONE HCL 60 MG CAP PO SCH ×2 (07:21→18:00)
[2016-09-01] MEDS: LITHIUM CARBONATE 300 MG CAP PO SCH ×3 (07:21→20:51)
[2016-09-01] MEDS: levOCARNitine 10% ORAL SOLN 118 ML BTL PO SCH ×3 (07:21→18:00)
--- NOTE | 2016-09-01 13:01 | HHI.PYPN ---
Subjective Remarks Patient was seen and discussed with the staff technologist. Patient reported that he has been feeling little better but willing to wait to go to a state hospital. Since he is doing better he sometimes thinks about wanting to be on his own but he could be reassured. He denied any active auditory or visual hallucinations at this time. His thoughts are little more organized and he is not rambling. No behavior or management problem reported. He is compliant in taking medication. No side effects were complained. Advised to continue with the same treatment. Review of Systems Except as stated in HPI: all other systems reviewed are Neg Psychiatric: COMPLAINS OF: Mood changes, Depression, Hallucinations Objective Alert: Yes [place]: Person, Place Mood: Anxious, Calm Affect: Restricted, Other (somewhat expansive) Memory Intact: Comment (Not formally assessed but seems fairly intact) Hallucinations: Auditory, Other (remains somewhat internally stimulated) Delusions: Yes Delusion Type: Grandiose, Paranoid Suicidal: Ideation (No SI voiced) Homicidal: Ideation (No HI voiced) Insight/Judgement Limited Vitals/IOs Vital Signs Date Time Temp Pulse Resp B/P Pulse Ox O2 Delivery O2 Flow Rate FiO2 09/01/16 06:15 97.7 18 116/68 98 08/31/16 15:15 72 Assessment & Plan Problem List: (1) Schizoaffective disorder ICD Code: F25.9 (2) Cannabis abuse ICD Code: F12.10 Assessment & Plan Estimated LOS: days Justification for Cont. Inpt. Risk of decompensation and monitoring of the medication to control the psychotic symptoms Request HC Surrog/Guard Advoc?: Yes Problem Qualifiers (1) Schizoaffective disorder: Qualified Code: F25.0 - Schizoaffective disorder, bipolar type Abhishek Whitaker MD Sep 01, 2016 13:01
[2016-09-01 15:28] VITALS: BP 124/55; RESP 18; TEMP 97.4; O2SAT 100
[2016-09-01] MEDS ORDERED: HALOPERIDOL LACTATE 5 MG/ML AMP ONE (19:59)
[2016-09-01] MEDS ORDERED: HALOPERIDOL LACTATE 5 MG/ML AMP IM ONE (20:15)
[2016-09-01] MEDS ORDERED: LORazepam 2 MG/ML VIAL IM ONE (20:15)
[2016-09-01] MEDS: DIVALPROEX SODIUM E.R. 500 MG TAB PO SCH (20:48)
[2016-09-01] MEDS ORDERED: OLANZapine IM 10 MG VIAL IM ONE (21:45)
[2016-09-02 06:14] VITALS: BP 120/64; PULSE 68; RESP 18; TEMP 98.2; O2SAT 99
[2016-09-02] MEDS: levOCARNitine 10% ORAL SOLN 118 ML BTL PO SCH ×3 (09:00→18:00)
[2016-09-02] MEDS: LITHIUM CARBONATE 300 MG CAP PO SCH ×2 (09:00→21:11)
[2016-09-02] MEDS: ZIPRASIDONE HCL 60 MG CAP PO SCH ×2 (09:18→18:25)
--- NOTE | 2016-09-02 11:14 | HHI.PYPN ---
Subjective Remarks Patient was seen and discussed with the senior staff psychologist. Patient reported that he has been doing okay he is anxiously awaiting to go to a state hospital. No behavior or management problem reported. Sometimes he gets paranoid but he could be reassured. He has been compliant in taking medication. No side effects were complained. Continue with the same treatment Review of Systems Except as stated in HPI: all other systems reviewed are Neg Psychiatric: COMPLAINS OF: Mood changes, Depression, Hallucinations, Delusions Objective Alert: Yes [place]: Person, Place Mood: Anxious, Calm Affect: Restricted, Other (somewhat expansive) Memory Intact: Comment (Not formally assessed but seems fairly intact) Hallucinations: Auditory, Other (remains somewhat internally stimulated) Delusions: Yes Delusion Type: Grandiose, Paranoid Suicidal: Ideation (No SI voiced) Homicidal: Ideation (No HI voiced) Insight/Judgement Limited Vitals/IOs Vital Signs Date Time Temp Pulse Resp B/P Pulse Ox O2 Delivery O2 Flow Rate FiO2 09/02/16 06:14 98.2 68 18 120/64 99 Assessment & Plan Problem List: (1) Schizoaffective disorder ICD Code: F25.9 (2) Cannabis abuse ICD Code: F12.10 Assessment & Plan Estimated LOS: days Justification for Cont. Inpt. His current decompensation at a lower level of setting Request HC Surrog/Guard Advoc?: Yes Problem Qualifiers (1) Schizoaffective disorder: Qualified Code: F25.0 - Schizoaffective disorder, bipolar type Abhishek Whitaker MD Sep 02, 2016 11:14
[2016-09-02 18:25] VITALS: BP 119/56; PULSE 86; RESP 18; TEMP 98.3; O2SAT 99
[2016-09-02] MEDS: DIVALPROEX SODIUM E.R. 500 MG TAB PO SCH (21:11)
[2016-09-02] MEDS: ALUMINUM/MAGNESIUM/SIMETH 30 ML CUP PO PRN (23:47)
[2016-09-03] MEDS: LORazepam 1 MG TAB PO PRN ×2 (00:38→01:39)
[2016-09-03] MEDS: diphenhydrAMINE HCL 50 MG CAP PO PRN (00:38)
[2016-09-03 06:12] VITALS: BP 121/65; PULSE 70; RESP 16; TEMP 97.9; O2SAT 100
[2016-09-03] MEDS: LITHIUM CARBONATE 300 MG CAP PO SCH ×3 (09:00→20:50)
[2016-09-03] MEDS: levOCARNitine 10% ORAL SOLN 118 ML BTL PO SCH ×3 (09:00→18:00)
[2016-09-03] MEDS: ZIPRASIDONE HCL 60 MG CAP PO SCH ×3 (09:00→18:00)
--- NOTE | 2016-09-03 11:29 | HHI.PYPN ---
Subjective Remarks Patient seen and examined. Chart reviewed. I note the patient had been refusing his lithium for more or less the entire duration of my absence. He had been transferred to the lower acuity 2600 unit but had made some sexually inappropriate statements this morning and so was transferred back to the 2700 unit, in which context I am seeing him now. Case discussed with nursing staff on the 2600 unit who reported that the patient was refusing his medications this morning and when asked why he said that it was because he wasn't masturbating three times a day. Patient has subsequently accepted his morning medications from the nurse on the 2700 unit. On my examination today, the patient is not sexually preoccupied but is somewhat more disorganized and his affect is somewhat expansive, I suspect for lack of his lithium. He says that he plans on resuming his medications as ordered and that he only stopped taking the lithium because it made him feel unwell and some nondescript way one time when he took it. He says that he had not had this problem before that. No evident side effects from medications. Wants to go to [facility], asking if he can smoke there. Review of Systems ROS Limitations: Psychotic, Poor Historian Other No physical complaints today Objective Alert: Yes [place]: Person, Place Mood: Other (mildly elevated) Affect: Other (mildly expansive) Memory Intact: Comment (seems grossly intact on clinical exam) Hallucinations: Other (remains internally preoccupied) Delusions: Yes Delusion Type: Paranoid Suicidal: Ideation (No SI voiced) Homicidal: Ideation (No HI voiced) Insight/Judgement Poor Remarks Thought process somewhat disorganized with mild loosening of associations. No abnormal motor movements noted. Speech a little bit rambling. Labs Labs reviewed. No new laboratories but I note the lithium level drawn on the fifth was undetectable, unsurprising given his nonadherence during that period. Vitals/IOs Vital Signs Date Time Temp Pulse Resp B/P Pulse Ox O2 Delivery O2 Flow Rate FiO2 09/03/16 06:12 97.9 70 16 121/65 100 Assessment & Plan Problem List: (1) Schizoaffective disorder ICD Code: F25.9 (2) Cannabis abuse ICD Code: F12.10 Assessment & Plan I have encouraged adherence with scheduled psychotropics. Continue lithium, Depakote and Geodon as ordered. Patient did receive his Prolixin decanoate injection on the eighth as scheduled. Sexual precautions remain in place. Continue to monitor on the 2700 unit. Justification for Cont. Inpt. High risk for decompensation in a less restrictive environment Discharge Planning [facility]. Request HC Surrog/Guard Advoc?: Yes Problem Qualifiers (1) Schizoaffective disorder: Qualified Code: F25.0 - Schizoaffective disorder, bipolar type Kirby Melendez MD Sep 03, 2016 11:29
[2016-09-03 18:16] VITALS: BP 115/64; PULSE 81; RESP 17; TEMP 97.9; O2SAT 99
[2016-09-03 18:44] VITALS: BP 97/49; PULSE 67; RESP 16; TEMP 98.1; O2SAT 98
--- NOTE | 2016-09-03 20:20 | RADRPT ---
EXAM DATE/TIME: 09/03/2016 19:50 [place] COMPARISON: CT BRAIN W/O CONTRAST, November 03, 2012, 12:19. INDICATIONS : Status-post fall; cephalgia. RADIATION DOSE: 45.36 CTDIvol (mGy) MEDICAL HISTORY : None SURGICAL HISTORY : None. ENCOUNTER: Initial ACUITY: 1 day PAIN SCALE: 4/10 LOCATION: cranial TECHNIQUE: Multiple contiguous axial images were obtained of the head. Using automated exposure control and adj ustment of the mA and/or kV according to patient size, radiation dose was kept as low as reasonably a chievable to obtain optimal diagnostic quality images. FINDINGS: CEREBRUM: The ventricles are normal for age. No evidence of midline shift, mass lesion, hemorrhage or acute in farction. No extra-axial fluid collections are seen. POSTERIOR FOSSA: The cerebellum and brainstem are intact. The 4th ventricle is midline. The cerebellopontine angle i s unremarkable. EXTRACRANIAL: The visualized portion of the orbits is intact. SKULL: The calvaria is intact. No evidence of skull fracture. CONCLUSION: Negative noncontrast head CT. Jason Hou MD on September 03, 2016 at 20:18 Board Certified Radiologist. This report was verified electronically.
[2016-09-03] MEDS: DIVALPROEX SODIUM E.R. 500 MG TAB PO SCH (20:50)
[2016-09-04] MEDS: LORazepam 1 MG TAB PO PRN (02:30)
[2016-09-04] MEDS: diphenhydrAMINE HCL 50 MG CAP PO PRN (04:35)
[2016-09-04 06:06] VITALS: BP 116/61; PULSE 83; RESP 18; TEMP 98; O2SAT 100
[2016-09-04] MEDS: ZIPRASIDONE HCL 60 MG CAP PO SCH ×2 (08:55→18:14)
[2016-09-04] MEDS: levOCARNitine 10% ORAL SOLN 118 ML BTL PO SCH ×3 (08:56→18:00)
[2016-09-04] MEDS: LITHIUM CARBONATE 300 MG CAP PO SCH (08:56)
--- NOTE | 2016-09-04 11:22 | HHI.PYPN ---
Subjective Remarks Patient seen and examined with counselor and occupational therapist. Chart reviewed. Case discussed with nursing staff, counselor an occupational therapist in treatment team. I was educational guidance counselor last night and was called by the nurse last evening to inform me that the patient had allegedly taken a fall, possibly striking his head. There was no evidence of trauma, and head CT was read as negative for acute process. Patient did not inform nursing staff directly but rather called his mother, who subsequently called nursing and relayed patient's report of the fall along with a request from the patient for aleksandra childs. On my examination today, patient is irritable and intrusive. He is discharge focused and insists that his mother has made arrangements for patient to live outside of the hospital, although treatment team has previously been in contact with patient's mother who has repeatedly said that she cannot manage the patient given his psychiatric symptomatology. The patient rehearses his report of fall to me, although I see no sign of trauma or bruising on the head or face. Patient insists that he was feeling dizzy secondary to the lithium and does not want to take this medication anymore. Insight remains poor. Denies side effects from medications otherwise. Following my evaluation , patient became increasingly agitated and had to be placed in locked seclusion. I returned to evaluate him within 1 hour of initiation of seclusion as required. Patient remains irritable but is calmer. He tells me only that he has "masturbated already." Review of Systems ROS Limitations: Poor Historian Other Maintains report of fall overnight. Otherwise, no physical complaints. Objective Alert: Yes [place]: Person, Place Mood: Oppositional, Other (irritable) Affect: Other (dysphoric) Memory Intact: Comment (seems grossly intact on clinical exam) Hallucinations: Other (again remains internally preoccupied) Delusions: Yes Delusion Type: Paranoid Suicidal: Ideation (No SI) Homicidal: Ideation (No HI) Insight/Judgement Poor Remarks No abnormal motor movements noted. No signs of trauma, as noted above. TP disorganized. Labs Labs reviewed. No new labs. Vitals/IOs Vital Signs Date Time Temp Pulse Resp B/P Pulse Ox O2 Delivery O2 Flow Rate FiO2 09/04/16 06:06 98.0 83 18 116/61 100 Assessment & Plan Problem List: (1) Schizoaffective disorder ICD Code: F25.9 (2) Cannabis abuse ICD Code: F12.10 Assessment & Plan Unclear if patient, in fact, took a fall. He links the fall to his lithium, but I suspect this is more out of a desire not to take this agent. Regardless, he says that he plans to refuse this medication going forward, and so it is likely not a good long-term strategy. Patient does remain behaviorally disturbed, even though his Depakote and Geodon are both dosed at the top of the range and patient is on a robust dose of Prolixin Dec. I will discontinue lithium and add scheduled benzodiazepine to try to lessen severity of behaviors. I had considered clonidine or beta veronica, but BPs are likely not robust enough to support these agents. Justification for Cont. Inpt. Impairments in self-care. Impairments in reality construction. Medication changes in process. High risk for decompensation in a less restrictive environment. Discharge Planning [facility] referral Request HC Surrog/Guard Advoc?: Yes Problem Qualifiers (1) Schizoaffective disorder: Qualified Code: F25.0 - Schizoaffective disorder, bipolar type Kirby Melendez MD Sep 04, 2016 11:22
[2016-09-04 17:53] VITALS: BP 114/60; PULSE 86; RESP 18; TEMP 97.2; O2SAT 100
[2016-09-04] MEDS: clonazePAM 0.5 MG TAB PO SCH (20:51)
[2016-09-04] MEDS: DIVALPROEX SODIUM E.R. 500 MG TAB PO SCH (20:51)
[2016-09-04] MEDS: CLOTRIMAZOLE 1% CREAM 15 GM TOPICAL SCH (21:50)
[2016-09-05] MEDS: LORazepam 1 MG TAB PO PRN (04:55)
[2016-09-05] MEDS: ZIPRASIDONE HCL 60 MG CAP PO SCH ×2 (09:23→18:00)
[2016-09-05] MEDS: clonazePAM 0.5 MG TAB PO SCH ×2 (09:23→21:24)
[2016-09-05] MEDS: levOCARNitine 10% ORAL SOLN 118 ML BTL PO SCH ×3 (09:24→18:00)
[2016-09-05] MEDS: CLOTRIMAZOLE 1% CREAM 15 GM TOPICAL SCH ×2 (09:24→21:00)
--- NOTE | 2016-09-05 16:37 | HHI.PYPN ---
Subjective Remarks Patient was seen and case discussed with nursing. Patient is a tired and apathetic resting in bed. Per nursing he just received Ativan. Remains guarded about his hallucinations. Per nursing he called 911 earlier today telling him he was being held hostage Objective Alert: Yes [place]: Person, Place Mood: Oppositional, Other (irritable) Affect: Other (dysphoric) Memory Intact: Comment (seems grossly intact on clinical exam) Hallucinations: Other (again remains internally preoccupied) Delusions: Yes Delusion Type: Paranoid Suicidal: Ideation (No SI) Homicidal: Ideation (No HI) Insight/Judgement Poor Vitals/IOs Vital Signs Date Time Temp Pulse Resp B/P Pulse Ox O2 Delivery O2 Flow Rate FiO2 09/04/16 17:53 97.2 86 18 114/60 100 Assessment & Plan Problem List: (1) Schizoaffective disorder ICD Code: F25.9 (2) Cannabis abuse ICD Code: F12.10 Assessment & Plan Continue current treatment plan Justification for Cont. Inpt. Patient will decompensate in a less restrictive setting Request HC Surrog/Guard Advoc?: Yes Problem Qualifiers (1) Schizoaffective disorder: Qualified Code: F25.0 - Schizoaffective disorder, bipolar type Jorge Best DO Sep 05, 2016 16:37
[2016-09-05] MEDS: diphenhydrAMINE HCL 50 MG CAP PO PRN (21:25)
[2016-09-05] MEDS: DIVALPROEX SODIUM E.R. 500 MG TAB PO SCH (21:25)
[2016-09-05 22:23] VITALS: BP 106/64; PULSE 77; RESP 18; TEMP 98.1; O2SAT 100
[2016-09-06 05:30] VITALS: BP 159/65; PULSE 74; RESP 18; TEMP 97.9; O2SAT 99
[2016-09-06] MEDS: ZIPRASIDONE HCL 60 MG CAP PO SCH ×2 (07:53→18:11)
[2016-09-06] MEDS: levOCARNitine 10% ORAL SOLN 118 ML BTL PO SCH ×3 (07:53→18:11)
[2016-09-06] MEDS: CLOTRIMAZOLE 1% CREAM 15 GM TOPICAL SCH ×2 (07:53→21:00)
[2016-09-06] MEDS: clonazePAM 0.5 MG TAB PO SCH ×2 (07:53→21:07)
--- NOTE | 2016-09-06 16:41 | HHI.PYPN ---
Subjective Remarks Patient was seen and case discussed with nursing. Patient remains disorganized. Continues to have poor insight into his mental health and his prognosis. Patient believes he will be discharged and start attending a community college. Compliant with his medications. Mildly irritable this morning per nursing. Objective Alert: Yes [place]: Person, Place Mood: Anxious Affect: Blunted Memory Intact: Comment (seems grossly intact on clinical exam) Hallucinations: Other (again remains internally preoccupied) Delusions: Yes Delusion Type: Paranoid Suicidal: Ideation (No SI) Homicidal: Ideation (No HI) Insight/Judgement Poor Vitals/IOs Vital Signs Date Time Temp Pulse Resp B/P Pulse Ox O2 Delivery O2 Flow Rate FiO2 09/06/16 05:30 97.9 74 18 159/65 99 Assessment & Plan Problem List: (1) Schizoaffective disorder ICD Code: F25.9 (2) Cannabis abuse ICD Code: F12.10 Assessment & Plan Continue current treatment plan Justification for Cont. Inpt. Patient will decompensate in a less restrictive setting Request HC Surrog/Guard Advoc?: Yes Problem Qualifiers (1) Schizoaffective disorder: Qualified Code: F25.0 - Schizoaffective disorder, bipolar type Jorge Best DO Sep 06, 2016 16:41
[2016-09-06 19:01] VITALS: BP 109/68; PULSE 81; RESP 18; TEMP 98
[2016-09-06] MEDS: DIVALPROEX SODIUM E.R. 500 MG TAB PO SCH (21:07)
[2016-09-07 06:20] VITALS: BP 142/72; PULSE 70; RESP 20; TEMP 97.6; O2SAT 97
[2016-09-07] MEDS: levOCARNitine 10% ORAL SOLN 118 ML BTL PO SCH ×3 (08:38→18:00)
[2016-09-07] MEDS: ZIPRASIDONE HCL 60 MG CAP PO SCH ×2 (08:39→18:04)
[2016-09-07] MEDS: clonazePAM 0.5 MG TAB PO SCH (08:39)
[2016-09-07] MEDS: CLOTRIMAZOLE 1% CREAM 15 GM TOPICAL SCH ×2 (08:52→20:22)
--- NOTE | 2016-09-07 09:59 | HHI.PYPN ---
Subjective Remarks Patient seen and examined with counselor and nurse. Chart reviewed. Case discussed with nursing staff. On my examination, patient is disinhibited and sexually preoccupied. Prior to my evaluation, he is in the dayroom thrusting his pelvis at no one in particular. He insists that the staff are watching him masturbate through the camera in his room, although this camera is not presently turned on. He says that the Depakote tablet is too large, and he would like to switch to a different pill, but he does not want Depakene liquid. Denies side effects from medications. Refusing morning dose of Klonopin. Review of Systems ROS Limitations: Psychotic, Poor Historian Other No physical complaints today. Objective Alert: Yes [place]: Person, Place Mood: Other (Elevated) Affect: Other (Expansive) Memory Intact: Comment (Fair) Hallucinations: Other (Remains int stim) Delusions: Yes Delusion Type: Grandiose, Paranoid Suicidal: Ideation (No SI) Homicidal: Ideation (No HI) Insight/Judgement Poor Remarks TP disorganized. Speech rambling. No motor abnormalities noted. Grooming and hygiene fair at best. Labs Labs reviewed. No new labs. Vitals/IOs Vital Signs Date Time Temp Pulse Resp B/P Pulse Ox O2 Delivery O2 Flow Rate FiO2 09/07/16 06:20 97.6 70 20 142/72 97 Assessment & Plan Problem List: (1) Schizoaffective disorder ICD Code: F25.9 (2) Cannabis abuse ICD Code: F12.10 Assessment & Plan If anything, patient seems more disinhibited following addition of benzodiazepine, although some of this may be behavioral. Discontinue Klonopin. Change Depakote ER to Depakote DR, 1250mg total daily dose to maintain plasma levels. Sexual precautions remain in place. Continue other medications and care as ordered. Justification for Cont. Inpt. Impairment in social function. Impairment in reality construction. Medication changes. High risk for decompensation in a less restrictive environment. Discharge Planning [facility] I have instructed the counselor to find out where the patient is on the [facility]. Request HC Surrog/Guard Advoc?: Yes Problem Qualifiers (1) Schizoaffective disorder: Qualified Code: F25.0 - Schizoaffective disorder, bipolar type Kirby Melendez MD Sep 07, 2016 09:59
[2016-09-07 18:04] VITALS: BP 110/65; PULSE 70; RESP 18; TEMP 98; O2SAT 99
[2016-09-07] MEDS: DIVALPROEX SODIUM DELAYED RELEASE 250 MG TAB PO SCH (20:20)
[2016-09-08 05:38] VITALS: BP 118/56; PULSE 60; RESP 18; TEMP 98; O2SAT 98
[2016-09-08] MEDS: levOCARNitine 10% ORAL SOLN 118 ML BTL PO SCH ×3 (09:00→17:15)
[2016-09-08] MEDS: CLOTRIMAZOLE 1% CREAM 15 GM TOPICAL SCH ×3 (09:00→20:26)
[2016-09-08] MEDS: ZIPRASIDONE HCL 60 MG CAP PO SCH ×2 (09:05→18:43)
[2016-09-08] MEDS: DIVALPROEX DR 500 MG TABEC PO SCH (09:05)
--- NOTE | 2016-09-08 11:44 | HHI.PYPN ---
Subjective Remarks Patient seen and examined with nurse. Chart reviewed. Case discussed with nurse, counselor and occupational therapist in treatment team. Per nursing staff, patient has been more obstreperous since the pediatric patient that the patient believed was his son was moved to the lower acuity unit. He reportedly almost refused his Depakote this morning although he did finally excepted. Counselor informs me that the patient is #19 on the [facility] waiting list. Occupational therapist reports that the patient tends to "pick on " a female patient and is generally an instigator in groups. On my examination today, the patient is sullen and morose. He is secluding in his room. He declines to participate in extended interview and denies side effects from medications. He has discharge focused, and we discussed his place on the pending sale to [facility] list. Review of Systems ROS Limitations: Poor Historian Other No physical complaints today Objective Alert: Yes [place]: Person, Place (at least) Mood: Other (dysphoric) Affect: Restricted Memory Intact: Comment (Fair) Hallucinations: Other (somewhat internally stimulated) Delusions: Yes Delusion Type: Paranoid Suicidal: Ideation (No SI) Homicidal: Ideation (No HI) Insight/Judgement Poor Remarks Thought process perseverative on discharge Labs Labs reviewed. No new labs. Vitals/IOs Vital Signs Date Time Temp Pulse Resp B/P Pulse Ox O2 Delivery O2 Flow Rate FiO2 09/08/16 05:38 98.0 60 18 118/56 98 Assessment & Plan Problem List: (1) Schizoaffective disorder ICD Code: F25.9 (2) Cannabis abuse ICD Code: F12.10 Assessment & Plan Continue current psychotropics as ordered. Continue other medications and care as ordered. Justification for Cont. Inpt. High risk for decompensation in a less restrictive environment Discharge Planning [facility] referral, #19 on the [facility] list per counselor. Request HC Surrog/Guard Advoc?: Yes Problem Qualifiers (1) Schizoaffective disorder: Qualified Code: F25.0 - Schizoaffective disorder, bipolar type Kirby Melendez MD Sep 08, 2016 11:44
[2016-09-08 17:30] VITALS: BP 113/59; PULSE 71; RESP 18; TEMP 98; O2SAT 98
[2016-09-08] MEDS: DIVALPROEX SODIUM DELAYED RELEASE 250 MG TAB PO SCH (20:44)
[2016-09-09 06:06] VITALS: BP 127/56; PULSE 80; RESP 19; TEMP 97.7; O2SAT 100
[2016-09-09] MEDS: levOCARNitine 10% ORAL SOLN 118 ML BTL PO SCH ×3 (09:00→17:34)
[2016-09-09] MEDS: CLOTRIMAZOLE 1% CREAM 15 GM TOPICAL SCH ×2 (09:00→20:49)
[2016-09-09] MEDS: ZIPRASIDONE HCL 60 MG CAP PO SCH ×2 (09:12→17:34)
[2016-09-09] MEDS: DIVALPROEX DR 500 MG TABEC PO SCH (09:12)
[2016-09-09] MEDS ORDERED: diphenhydrAMINE HCL 50 MG/ML VIAL ONE (11:05)
[2016-09-09] MEDS ORDERED: ZIPRASIDONE MESYLATE 20 MG VIAL IM ONE (11:30)
[2016-09-09] MEDS ORDERED: LORazepam 2 MG/ML VIAL IM ONE (11:30)
[2016-09-09] MEDS ORDERED: diphenhydrAMINE HCL 50 MG/ML VIAL IM ONE (11:30)
--- NOTE | 2016-09-09 12:23 | HHI.PYPN ---
Subjective Remarks Patient seen and examined. Chart reviewed. Case discussed with nursing staff. Prior to my interview with the patient, the patient was becoming extremely agitated. He was instigating other patients. Staff reportedly endeavored verbal de-escalation techniques, but the patient remained quite agitated. I have ordered him medicated with Geodon, Ativan and Benadryl ETO. Consequently, at the time of my evaluation, the patient is sedated. He appears to be in no acute physical distress. Interview limited for this reason. Review of Systems Other None reported Objective Alert: No (sedated) [place]: Person Mood: Other (unable to assess) Affect: Flat Memory Intact: Comment (unable to assess) Hallucinations: Other (unable to assess) Delusions: No Delusion Type: Other (unable to assess) Suicidal: Ideation (unable to assess) Homicidal: Ideation (unable to assess) Insight/Judgement Absent presently Remarks No evident physical distress Labs Labs reviewed. No new labs. Vitals/IOs Vital Signs Date Time Temp Pulse Resp B/P Pulse Ox O2 Delivery O2 Flow Rate FiO2 09/09/16 06:06 97.7 80 19 127/56 100 Assessment & Plan Problem List: (1) Schizoaffective disorder ICD Code: F25.9 (2) Cannabis abuse ICD Code: F12.10 Assessment & Plan Patient with ongoing, almost daily behavioral disturbance. Patient purportedly couldn't tolerate lithium and Klonopin seemed to make him more disinhibited. He has tolerated Zyprexa in the past, and so I will begin a cross-taper, Geodon to Zyprexa in hopes that this will be more efficacious in controlling his moods and agitation. I will add a small dose of Zyprexa this evening to start. He will be due for Prolixin Dec at the end of the month. Continue other medications and care as ordered. Justification for Cont. Inpt. Impairment in social functioning. Impairment in reality construction. Medication changes. High risk for decompensation in a less restrictive environment. [facility]charge Planning [facility] Request HC Surrog/Guard Advoc?: Yes Problem Qualifiers (1) Schizoaffective disorder: Qualified Code: F25.0 - Schizoaffective disorder, bipolar type Kirby Melendez MD Sep 09, 2016 12:23
[2016-09-09] MEDS: DIVALPROEX SODIUM DELAYED RELEASE 250 MG TAB PO SCH (20:49)
[2016-09-09] MEDS ORDERED: OLANZapine 2.5 MG TAB PO SCH (21:00)
[2016-09-10 05:27] VITALS: BP 104/68; PULSE 62; RESP 18; TEMP 97.5; O2SAT 100
[2016-09-10] MEDS: levOCARNitine 10% ORAL SOLN 118 ML BTL PO SCH ×3 (08:16→17:38)
[2016-09-10] MEDS: ZIPRASIDONE HCL 60 MG CAP PO SCH ×2 (08:16→17:38)
[2016-09-10] MEDS: DIVALPROEX DR 500 MG TABEC PO SCH (08:16)
[2016-09-10] MEDS: CLOTRIMAZOLE 1% CREAM 15 GM TOPICAL SCH ×2 (09:00→20:31)
--- NOTE | 2016-09-10 11:33 | HHI.PYPN ---
Subjective Remarks Patient seen and examined with nurse. Chart reviewed. Case discussed with nursing staff who reports patient is bizarre and frequently makes odd, disconnected statements. Patient is also trying to instigate peers. On my examination today, the patient presents as angry and dysphoric. He is threatening the lawsuit although it is unclear what his grievance is. He remains fairly argumentative and paranoid. He is apparently upset about the ETO that he received yesterday and says "you all keep giving me shots because you wanna keep seeing my fucking ass." Remains perseverative on discharge home , but nurse tells me that just this morning patient was saying he wants to go to [facility]. Denies side effects from medications. Review of Systems ROS Limitations: Psychotic, Poor Historian Other No physical complaints today. Objective Alert: Yes [place]: Person, Place, Date (approx) Mood: Angry Affect: Restricted (dysphoric) Memory Intact: Comment (Not formally assessed today) Hallucinations: Other (Internally preoccupied) Delusions: Yes Delusion Type: Paranoid Suicidal: Ideation (No SI voiced) Homicidal: Ideation (No HI voiced) Insight/Judgement Poor Remarks Thought process remains a little disorganized. No abnormal motor movements noted. Grooming and hygiene fair at best. Labs Labs reviewed. No new labs. Vitals/IOs Vital Signs Date Time Temp Pulse Resp B/P Pulse Ox O2 Delivery O2 Flow Rate FiO2 09/10/16 05:27 97.5 62 18 104/68 100 Assessment & Plan Problem List: (1) Schizoaffective disorder ICD Code: F25.9 (2) Cannabis abuse ICD Code: F12.10 Assessment & Plan Titrate Zyprexa to 5 mg at bedtime. My plan over succeeding days is to increase the Zyprexa to a dose likely to be therapeutic while simultaneously tapering patient's Geodon, but I want to increase his Zyprexa first as he remains fairly symptomatic. Continue Depakote as ordered. Prolixin Decanoate is on board. Continue to monitor on the inpatient unit. Continue other medications and care as ordered. Justification for Cont. Inpt. Impairment in reality construction. Impairment in social function. Medication changes and process, namely the cross taper as detailed above. High risk for decompensation in a less restrictive environment. Discharge Planning [facility] psychiatric hospital referral. Request HC Surrog/Guard Advoc?: Yes Problem Qualifiers (1) Schizoaffective disorder: Qualified Code: F25.0 - Schizoaffective disorder, bipolar type Kirby Melendez MD Sep 10, 2016 11:33
[2016-09-10 17:00] VITALS: BP 100/67; PULSE 61; RESP 18; TEMP 98.5; O2SAT 100
[2016-09-10] MEDS: DIVALPROEX SODIUM DELAYED RELEASE 250 MG TAB PO SCH (20:31)
[2016-09-10] MEDS ORDERED: OLANZapine 5 MG TAB PO SCH (21:00)
[2016-09-11] MEDS: LORazepam 1 MG TAB PO PRN (05:04)
[2016-09-11 05:36] VITALS: BP 103/52; PULSE 63; RESP 18; TEMP 98; O2SAT 97
[2016-09-11] MEDS: CLOTRIMAZOLE 1% CREAM 15 GM TOPICAL SCH ×2 (08:11→20:29)
[2016-09-11] MEDS: DIVALPROEX DR 500 MG TABEC PO SCH (08:11)
[2016-09-11] MEDS: ZIPRASIDONE HCL 60 MG CAP PO SCH (08:11)
[2016-09-11] MEDS: levOCARNitine 10% ORAL SOLN 118 ML BTL PO SCH ×3 (08:14→17:19)
--- NOTE | 2016-09-11 10:08 | HHI.PYPN ---
Subjective Remarks Patient seen and examined with counselor. Chart reviewed. Case discussed with nursing staff reports the patient has been considerably calmer but remains delusional, believing for example today that he is Arvind. On my examination today, the patient is calm and pleasant. He is considerably less irritable, intrusive and disruptive today. He is asking to go to the [facility]. He is hopeful to go to school online and study engineering there. He also is looking forward to smoking. He denies side effects from medications. No other issues noted. Review of Systems ROS Limitations: Psychotic, Poor Historian Other No physical complaints today Objective Alert: Yes [place]: Person, Place Mood: Calm Affect: Blunted Memory Intact: Comment (Not assessed) Hallucinations: Other (remains internally preoccupied) Delusions: Yes Delusion Type: Paranoid (bizarre) Suicidal: Ideation (no SI) Homicidal: Ideation (no HI) Insight/Judgement Poor Remarks Thought process seems a little more linear today. No motor abnormalities noted. Grooming and hygiene fair. Labs Test 09/11/16 07:14 Valproic Acid (Depakene) Level 82 MCG/ML Labs reviewed. Depakote level within the therapeutic range. Vitals/IOs Vital Signs Date Time Temp Pulse Resp B/P Pulse Ox O2 Delivery O2 Flow Rate FiO2 09/11/16 05:36 98.0 63 18 103/52 97 Assessment & Plan Problem List: (1) Schizoaffective disorder ICD Code: F25.9 (2) Cannabis abuse ICD Code: F12.10 Assessment & Plan Much improved today, and I am hopeful this is due to Zyprexa. Continue cross- taper of Geodon to Zyprexa. Starting this evening: Titrate Zyprexa to 10mg qHS and taper Geodon to 80mg BIDPC. Weekend rounder: please consider continuing cross-taper, increasing Zyprexa and tapering Geodon as appropriate. Continue Depakote as ordered. Patient also has Prolixin Decanoate on board and this is next due at the end of the month. Continue other medications and care as ordered. Justification for Cont. Inpt. Impairment in reality construction. Medication changes in process. Very high risk for decompensation in a less restrictive environment. Discharge Planning [facility] referral. I have asked the counselor to get an update on patient's place on the wait list after the weekend. Request HC Surrog/Guard Advoc?: Yes Problem Qualifiers (1) Schizoaffective disorder: Qualified Code: F25.0 - Schizoaffective disorder, bipolar type Kirby Melendez MD Sep 11, 2016 10:08
[2016-09-11 15:30] VITALS: BP 108/59; PULSE 69; RESP 16; TEMP 97.9; O2SAT 98
[2016-09-11] MEDS: ZIPRASIDONE HCL 40 MG CAP PO SCH (17:19)
[2016-09-11] MEDS: DIVALPROEX SODIUM DELAYED RELEASE 250 MG TAB PO SCH (20:28)
[2016-09-11] MEDS: OLANZapine 5 MG TAB PO SCH (20:30)
[2016-09-12] MEDS: LORazepam 1 MG TAB PO PRN ×2 (00:20→11:02)
[2016-09-12] MEDS: DIVALPROEX DR 500 MG TABEC PO SCH (08:38)
[2016-09-12] MEDS: ZIPRASIDONE HCL 40 MG CAP PO SCH ×2 (08:39→17:20)
[2016-09-12] MEDS: CLOTRIMAZOLE 1% CREAM 15 GM TOPICAL SCH ×2 (08:39→20:58)
[2016-09-12] MEDS: levOCARNitine 10% ORAL SOLN 118 ML BTL PO SCH ×3 (08:41→17:20)
--- NOTE | 2016-09-12 16:12 | HHI.PYPN ---
Subjective Remarks Pt seen and discussed with staff. Pt has been compliant with medications. He remains paranoid and delusional but has been less irritable and more cooperative today. He isolates to room but did go out for fresh air activities. No SI/HI. Objective Alert: Yes [place]: Person, Place Mood: Calm Affect: Blunted Memory Intact: Comment (intact) Hallucinations: Other (remains internally preoccupied) Delusions: Yes Delusion Type: Paranoid (bizarre) Suicidal: Ideation (no SI) Homicidal: Ideation (no HI) Insight/Judgement poor Vitals/IOs Vital Signs Date Time Temp Pulse Resp B/P Pulse Ox O2 Delivery O2 Flow Rate FiO2 09/11/16 15:30 97.9 69 16 108/59 98 Assessment & Plan Problem List: (1) Schizoaffective disorder ICD Code: F25.9 (2) Cannabis abuse ICD Code: F12.10 Assessment & Plan Continue current tx plan. Estimated LOS: days Justification for Cont. Inpt. impairments in self care, reality construction and social functioning. Request HC Surrog/Guard Advoc?: Yes Problem Qualifiers (1) Schizoaffective disorder: Qualified Code: F25.0 - Schizoaffective disorder, bipolar type Aneta Marcano MD Sep 12, 2016 16:12
[2016-09-12 17:30] VITALS: BP 118/69; PULSE 65; RESP 18; TEMP 97.4
[2016-09-12] MEDS: DIVALPROEX SODIUM DELAYED RELEASE 250 MG TAB PO SCH (20:58)
[2016-09-12] MEDS: OLANZapine 5 MG TAB PO SCH (20:58)
[2016-09-13 05:42] VITALS: BP 122/76; PULSE 71; RESP 17; TEMP 98
[2016-09-13] MEDS: CLOTRIMAZOLE 1% CREAM 15 GM TOPICAL SCH ×2 (09:00→20:17)
[2016-09-13] MEDS: levOCARNitine 10% ORAL SOLN 118 ML BTL PO SCH ×3 (09:00→17:20)
[2016-09-13] MEDS: DIVALPROEX DR 500 MG TABEC PO SCH (09:03)
[2016-09-13] MEDS: ZIPRASIDONE HCL 40 MG CAP PO SCH ×2 (09:03→17:20)
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
[2016-09-13 17:09] VITALS: BP 113/60; PULSE 83; RESP 18; TEMP 98.1; O2SAT 98
[2016-09-13] MEDS: OLANZapine 5 MG TAB PO SCH (20:17)
[2016-09-13] MEDS: DIVALPROEX SODIUM DELAYED RELEASE 250 MG TAB PO SCH (20:17)
[2016-09-14] MEDS: DIVALPROEX DR 500 MG TABEC PO SCH (08:11)
[2016-09-14] MEDS: ZIPRASIDONE HCL 40 MG CAP PO SCH ×2 (08:11→17:45)
[2016-09-14] MEDS: levOCARNitine 10% ORAL SOLN 118 ML BTL PO SCH ×3 (08:12→17:44)
[2016-09-14] MEDS: CLOTRIMAZOLE 1% CREAM 15 GM TOPICAL SCH ×3 (08:44→21:00)
[2016-09-14 08:48] VITALS: BP 136/86; PULSE 96; RESP 16; TEMP 98.2; O2SAT 100
--- NOTE | 2016-09-14 12:26 | HHI.PYPN ---
Subjective Remarks Patient seen and examined with counselor. Chart reviewed. Case discussed with nurse, counselor and occupational therapist in treatment team. Per nursing staff, patient has been masturbating since 2 AM. 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 Counselor reports that the patient is presently #17 on the wait list for the [facility]. The occupational therapist notes that the patient struggles in groups. At the time of my evaluation, the patient is fairly calm and pleasant. He has no particular complaints, although he remained somewhat internally preoccupied and his thought process remains disorganized. He doesn't like taking the Depakote dose in the morning and would like to switch back to taking it all at night. Denies side effects from medications. Feels like the Zyprexa is helping better than the Geodon did. Review of Systems ROS Limitations: Poor Historian Other No physical complaints today Objective Alert: Yes [place]: Person, Place, Situation Mood: Calm Affect: Blunted (tending towards flat) Memory Intact: Comment (remains intact) Hallucinations: Other (internally stimulated) Delusions: Yes Delusion Type: Paranoid Suicidal: Ideation (no SI) Homicidal: Ideation (no HI) Insight/Judgement Poor Remarks Thought process somewhat disorganized. Speech somewhat rambling. Grooming and hygiene fair to poor at best. Labs Labs reviewed. No new labs. Vitals/IOs Vital Signs Date Time Temp Pulse Resp B/P Pulse Ox O2 Delivery O2 Flow Rate FiO2 09/14/16 08:48 98.2 96 16 136/86 100 Assessment & Plan Problem List: (1) Schizoaffective disorder ICD Code: F25.9 (2) Cannabis abuse ICD Code: F12.10 Assessment & Plan Patient does seem calmer with transition from Geodon to Zyprexa, overnight report aside. I will titrate patient's Zyprexa to 15 mg at bedtime and taper patient's Geodon to 40 mg twice daily. Patient will be due for Prolixin Decanoate injection at the end of the month. Patient had originally wanted to switch from Depakote ER because of the tablet size. I have checked with the pharmacy and we do stock the smaller 250 mg ER tablet, and so I will switch patient back from Depakote DR to Depakote ER 1500 mg at bedtime but have instructed the pharmacy to provide this to him in the 250 mg tablets. Continue to monitor on the inpatient unit. Continue other medications and care as ordered. Justification for Cont. Inpt. Impairment in reality construction. Impairment in social function. Medication changes in process. High risk for decompensation in a less restrictive environment. Discharge Planning [facility]. #17 on the wait list. Request HC Surrog/Guard Advoc?: Yes Problem Qualifiers (1) Schizoaffective disorder: Qualified Code: F25.0 - Schizoaffective disorder, bipolar type Kirby Melendez MD Sep 14, 2016 12:26
[2016-09-14] MEDS: LORazepam 1 MG TAB PO PRN (14:15)
[2016-09-14 17:52] VITALS: BP 113/63; PULSE 72; RESP 18; TEMP 98.7; O2SAT 100
[2016-09-14] MEDS: DIVALPROEX SODIUM E.R. 250 MG TAB PO SCH (20:24)
[2016-09-15] MEDS: CLOTRIMAZOLE 1% CREAM 15 GM TOPICAL SCH ×2 (09:00→20:40)
[2016-09-15] MEDS: levOCARNitine 10% ORAL SOLN 118 ML BTL PO SCH ×3 (09:00→17:28)
[2016-09-15] MEDS: ZIPRASIDONE HCL 40 MG CAP PO SCH (09:14)
--- NOTE | 2016-09-15 14:16 | HHI.PYPN ---
Subjective Remarks Patient seen and examined with nurse. Chart reviewed. Case discussed with nursing staff who reports that the patient himself recognizes that he is less paranoid and less anxious since switching from Geodon to Zyprexa. He has been in good behavioral control. On my examination today, the patient thanks me for making this medication adjustment, and he does feel much improved on the Zyprexa. He is calm and pleasant on my examination. He verbalizes no psychiatric complaints. He does seem slightly sedated, and we discussed discontinuing the last of his Geodon to try to manage this. Patient is agreeable to making this change. Patient is pleased with the adjustment in Depakote dosing and he has no problem taking the smaller Depakote ER 250mg pills. Review of Systems ROS Limitations: Poor Historian Other No physical complaints today Objective Alert: Yes [place]: Person, Place, Situation Mood: Calm Affect: Blunted Memory Intact: Comment (intact) Hallucinations: Other (no AVH) Delusions: No Delusion Type: Other (no delusions) Suicidal: Ideation (no SI) Homicidal: Ideation (no HI) Insight/Judgement Poor Remarks Thought process more linear today. Speech within normal limits for rate, tone and volume. No motoric abnormalities noted. Labs Labs reviewed. No new labs. Vitals/IOs Vital Signs Date Time Temp Pulse Resp B/P Pulse Ox O2 Delivery O2 Flow Rate FiO2 09/14/16 17:52 98.7 72 18 113/63 100 Assessment & Plan Problem List: (1) Schizoaffective disorder ICD Code: F25.9 (2) Cannabis abuse ICD Code: F12.10 Assessment & Plan Continue Zyprexa as ordered. Discontinue Geodon. Continue Depakote as ordered. Prolixin Decanoate would be due at the end of the month, but given that we are planning on referring to the [facility] and given that he is having a positive response to Zyprexa, we may see if the patient can be managed adequately with Zyprexa alone. Continue to monitor on the inpatient unit. Continue other medications and care as ordered. Justification for Cont. Inpt. High risk for decompensation in a less restrictive environment. Discharge Planning [facility] referral. Request HC Surrog/Guard Advoc?: Yes Problem Qualifiers (1) Schizoaffective disorder: Qualified Code: F25.0 - Schizoaffective disorder, bipolar type Chaiffetz,Kirby B. MD Sep 15, 2016 14:16
[2016-09-15 17:48] VITALS: BP 124/61; PULSE 77; RESP 18; TEMP 99; O2SAT 100
[2016-09-15] MEDS: DIVALPROEX SODIUM E.R. 250 MG TAB PO SCH ×2 (20:36→20:41)
[2016-09-15] MEDS ORDERED: diphenhydrAMINE HCL 50 MG/ML VIAL IM ONE (22:30)
[2016-09-15] MEDS ORDERED: LORazepam 2 MG/ML VIAL IM ONE (22:30)
[2016-09-16 06:32] VITALS: BP 123/61; PULSE 59; RESP 18; TEMP 98; O2SAT 99
[2016-09-16] MEDS: CLOTRIMAZOLE 1% CREAM 15 GM TOPICAL SCH ×2 (08:34→20:07)
[2016-09-16] MEDS: levOCARNitine 10% ORAL SOLN 118 ML BTL PO SCH ×3 (08:34→17:11)
--- NOTE | 2016-09-16 09:07 | HHI.PYPN ---
Subjective Remarks Patient seen and examined. Chart reviewed. Case discussed with nursing staff. I was on-call yesterday evening and was notified by the nurse overnight that the patient had refused his Depakote and was demanding IM medications for sleep. I provided orders for Ativan and Benadryl IM. On my examination today, the patient is apparently somewhat calmer. He says that he refused his Depakote because it "reminded me of Dilaudid that my cousin gave me." He says that he is "#2 on the apartment list" and hopes that this means that he will be able to be placed in an apartment instead of going to the [facility]. Thought process somewhat more disorganized today. Denies side effects from medications. Review of Systems ROS Limitations: Psychotic, Poor Historian Other No somatic complaints today Objective Alert: Yes [place]: Person, Place, Situation Mood: Anxious Affect: Blunted Memory Intact: Comment (intact) Hallucinations: Other (remains somewhat internally preoccupied) Delusions: Yes Delusion Type: Paranoid Suicidal: Ideation (no SI) Homicidal: Ideation (no HI) Insight/Judgement Poor Remarks Thought process a little more disorganized. Speech a little more rambling. No abnormal motor movements noted. Steady gait and station. Labs Labs reviewed. No new labs. Vitals/IOs Vital Signs Date Time Temp Pulse Resp B/P Pulse Ox O2 Delivery O2 Flow Rate FiO2 09/16/16 06:32 98.0 59 18 123/61 99 Assessment & Plan Problem List: (1) Schizoaffective disorder ICD Code: F25.9 (2) Cannabis abuse ICD Code: F12.10 Assessment & Plan Titrate Zyprexa to 5 mg/15 mg. Continue Depakote as ordered. I have encouraged the patient to remain adherent with his psychotropics. Continue to monitor on the inpatient unit. Continue other medications and care as ordered. Justification for Cont. Inpt. High risk for decompensation in a less restrictive environment. Discharge Planning [facility] referral. Request HC Surrog/Guard Advoc?: Yes Problem Qualifiers (1) Schizoaffective disorder: Qualified Code: F25.0 - Schizoaffective disorder, bipolar type Kirby Melendez MD Sep 16, 2016 09:07
[2016-09-16] MEDS: OLANZapine 5 MG TAB PO SCH (09:29)
[2016-09-16] MEDS: LORazepam 1 MG TAB PO PRN (15:05)
[2016-09-16 18:15] VITALS: BP 108/69; PULSE 75; RESP 18; TEMP 98.3; O2SAT 100
[2016-09-16] MEDS: DIVALPROEX SODIUM E.R. 250 MG TAB PO SCH (20:05)
[2016-09-17 06:07] VITALS: BP 124/65; PULSE 74; RESP 18; TEMP 98.3; O2SAT 98
[2016-09-17] MEDS: OLANZapine 5 MG TAB PO SCH (09:00)
[2016-09-17] MEDS: CLOTRIMAZOLE 1% CREAM 15 GM TOPICAL SCH ×2 (09:00→20:42)
[2016-09-17] MEDS: levOCARNitine 10% ORAL SOLN 118 ML BTL PO SCH ×4 (09:00→20:44)
--- NOTE | 2016-09-17 13:46 | HHI.PYPN ---
Subjective Remarks Patient seen and examined. Chart reviewed. Case discussed with nursing staff reports patient is more or less unchanged today. Reportedly masturbating extensively at night. On my examination today, patient is fairly calm and pleasant but somewhat paranoid. Thought process remains little disorganized. Fixated on moving over to the lower acuity unit, but I suspect his nighttime behaviors in particular would make this impractical, and I have tried to discuss this with the patient. Denies side effects from medications. Review of Systems ROS Limitations: Psychotic, Poor Historian Other No physical complaints today Objective Alert: Yes [place]: Person, Place, Situation Mood: Calm Affect: Blunted Memory Intact: Comment (intact) Hallucinations: Other (internally stimulated) Delusions: Yes Delusion Type: Paranoid (mild) Suicidal: Ideation (no SI) Homicidal: Ideation (no HI) Insight/Judgement Poor Remarks Thought process somewhat disorganized. No motor abnormalities noted. Labs Labs reviewed. No new labs. Vitals/IOs Vital Signs Date Time Temp Pulse Resp B/P Pulse Ox O2 Delivery O2 Flow Rate FiO2 09/17/16 06:07 98.3 74 18 124/65 98 Assessment & Plan Problem List: (1) Schizoaffective disorder ICD Code: F25.9 (2) Cannabis abuse ICD Code: F12.10 Assessment & Plan Add Ambien as needed for sleep. Continue other psychotropics as ordered. Continue other medications and care as ordered. Justification for Cont. Inpt. Impairment in reality construction. Very high risk for decompensation in a less restrictive environment. Discharge Planning [facility] psychiatric hospital referral Request HC Surrog/Guard Advoc?: Yes Problem Qualifiers (1) Schizoaffective disorder: Qualified Code: F25.0 - Schizoaffective disorder, bipolar type Kirby Melendez MD Sep 17, 2016 13:46
[2016-09-17] MEDS ORDERED: ZOLPIDEM TARTRATE 5 MG TAB PO PRN (16:30)
[2016-09-17 17:25] VITALS: BP 91/55; PULSE 67; RESP 18; TEMP 98.2; O2SAT 100
[2016-09-17] MEDS: LORazepam 1 MG TAB PO PRN (18:24)
[2016-09-17] MEDS: DIVALPROEX SODIUM E.R. 250 MG TAB PO SCH (20:41)
[2016-09-18] MEDS: OLANZapine 5 MG TAB PO SCH (08:24)
[2016-09-18] MEDS: CLOTRIMAZOLE 1% CREAM 15 GM TOPICAL SCH ×2 (08:25→20:23)
--- NOTE | 2016-09-18 10:48 | HHI.PYPN ---
Subjective Remarks Remains grossly psychotic and feels one of the nurses is with his child. Review of Systems ROS Limitations: Clinical Condition Except as stated in HPI: all other systems reviewed are Neg Objective Alert: Yes [place]: Person, Place Mood: Calm Affect: Restricted, Blunted Memory Intact: Comment (intact) Hallucinations: Other (internally stimulated) Delusions: Yes Delusion Type: Paranoid (mild) Suicidal: Ideation (no SI) Homicidal: Ideation (no HI) Insight/Judgement Significantly impaired. Vitals/IOs Vital Signs Date Time Temp Pulse Resp B/P Pulse Ox O2 Delivery O2 Flow Rate FiO2 09/17/16 17:25 98.2 67 18 91/55 100 Assessment & Plan Problem List: (1) Schizoaffective disorder ICD Code: F25.9 (2) Cannabis abuse ICD Code: F12.10 Assessment & Plan Estimated LOS: 30 days days patient continues to require state hospital treatment. We will continue to evaluate for medication changes. Justification for Cont. Inpt. Unable to care for self. Request HC Surrog/Guard Advoc?: Yes Problem Qualifiers (1) Schizoaffective disorder: Qualified Code: F25.0 - Schizoaffective disorder, bipolar type Ki Bowers MD Sep 18, 2016 10:48
[2016-09-18] MEDS: levOCARNitine 10% ORAL SOLN 118 ML BTL PO SCH ×2 (13:00→17:06)
[2016-09-18 17:17] VITALS: BP 112/56; PULSE 63; RESP 16; TEMP 98.2; O2SAT 100
[2016-09-18 17:24] VITALS: BP 107/58; PULSE 73; RESP 16; TEMP 98.2; O2SAT 99
[2016-09-18] MEDS: DIVALPROEX SODIUM E.R. 250 MG TAB PO SCH (20:21)
[2016-09-19] MEDS: OLANZapine 5 MG TAB PO SCH (08:16)
[2016-09-19] MEDS: levOCARNitine 10% ORAL SOLN 118 ML BTL PO SCH ×3 (08:18→18:00)
[2016-09-19] MEDS: CLOTRIMAZOLE 1% CREAM 15 GM TOPICAL SCH ×3 (08:19→21:00)
--- NOTE | 2016-09-19 17:30 | HHI.PYPN ---
Subjective Remarks Patient was seen and case discussed with nursing. Nursing reports patient has had an increase in irritability today this is evident during the interview. We spoke about his Ambien causing bedwetting for the last 2 days patient is demanding that it be continued. Remains grossly disorganized. Perseverative on discharge. Continues to deny psychotic symptoms Objective Alert: Yes [place]: Person, Place Mood: Oppositional Affect: Blunted Memory Intact: Comment (intact) Hallucinations: Other (internally stimulated) Delusions: Yes Delusion Type: Paranoid (mild) Suicidal: Ideation (no SI) Homicidal: Ideation (no HI) Insight/Judgement Poor Vitals/IOs Vital Signs Date Time Temp Pulse Resp B/P Pulse Ox O2 Delivery O2 Flow Rate FiO2 09/18/16 17:24 98.2 73 16 107/58 99 Assessment & Plan Problem List: (1) Schizoaffective disorder ICD Code: F25.9 (2) Cannabis abuse ICD Code: F12.10 Assessment & Plan DC Ambien, if needed a sleeping medication will be added tomorrow Justification for Cont. Inpt. Patient will decompensate in a less restrictive setting Request HC Surrog/Guard Advoc?: Yes Problem Qualifiers (1) Schizoaffective disorder: Qualified Code: F25.0 - Schizoaffective disorder, bipolar type Jorge Best DO Sep 19, 2016 17:30
[2016-09-19 18:59] VITALS: BP 98/67; PULSE 79; RESP 18; TEMP 98; O2SAT 99
[2016-09-19] MEDS: DIVALPROEX SODIUM E.R. 250 MG TAB PO SCH (20:17)
[2016-09-20] MEDS: levOCARNitine 10% ORAL SOLN 118 ML BTL PO SCH ×3 (08:03→18:00)
[2016-09-20] MEDS: OLANZapine 5 MG TAB PO SCH (08:03)
[2016-09-20] MEDS: CLOTRIMAZOLE 1% CREAM 15 GM TOPICAL SCH ×2 (08:04→20:31)
--- NOTE | 2016-09-20 14:29 | HHI.PYPN ---
Subjective Remarks Patient was seen and case discussed with nursing. Patient appears resigned to the fact that he is going to the [facility] hospital is low perseverative on that date. Per nursing he sleeps throughout the day. Denies suicidal ideation intent or plan. Compliant with medications Objective Alert: Yes [place]: Person, Place, Situation Mood: Oppositional Affect: Flat Memory Intact: Comment (not tested) Hallucinations: Other (internally stimulated) Delusions: Yes Delusion Type: Paranoid (mild) Suicidal: Ideation (no SI) Homicidal: Ideation (no HI) Insight/Judgement Poor Vitals/IOs Vital Signs Date Time Temp Pulse Resp B/P Pulse Ox O2 Delivery O2 Flow Rate FiO2 09/19/16 18:59 98.0 79 18 98/67 99 Assessment & Plan Problem List: (1) Schizoaffective disorder ICD Code: F25.9 (2) Cannabis abuse ICD Code: F12.10 Assessment & Plan Continue current treatment plan Justification for Cont. Inpt. Patient will decompensate in a less restrictive setting Request HC Surrog/Guard Advoc?: Yes Problem Qualifiers (1) Schizoaffective disorder: Qualified Code: F25.0 - Schizoaffective disorder, bipolar type Jorge Best DO Sep 20, 2016 14:29
[2016-09-20 18:06] VITALS: BP 117/60; PULSE 68; RESP 18; TEMP 98; O2SAT 99
[2016-09-20] MEDS: DIVALPROEX SODIUM E.R. 250 MG TAB PO SCH (20:31)
[2016-09-21] MEDS: levOCARNitine 10% ORAL SOLN 118 ML BTL PO SCH ×3 (09:00→18:16)
[2016-09-21] MEDS: OLANZapine 5 MG TAB PO SCH (09:00)
[2016-09-21] MEDS: CLOTRIMAZOLE 1% CREAM 15 GM TOPICAL SCH ×2 (09:00→20:30)
--- NOTE | 2016-09-21 10:19 | HHI.PYPN ---
Subjective Remarks Patient seen and examined with nurse. Chart reviewed. Case discussed with nursing staff who reports patient has been fairly flat and has not required an ETO in 3 days. On my examination today, patient is calm. He does indeed seem a little hyperverbal and flat. No particular complaints. Denies side effects from medications. Review of Systems ROS Limitations: Poor Historian Other No physical complaints Objective Alert: Yes [place]: Person, Place, Situation Mood: Calm Affect: Flat Memory Intact: Comment (not formally assessed today) Hallucinations: Other (no AVH) Delusions: Yes Delusion Type: Paranoid (minimal) Suicidal: Ideation (no SI) Homicidal: Ideation (no HI) Insight/Judgement Poor Remarks No abnormal motor movements noted Labs Labs reviewed. No new labs. Vitals/IOs Vital Signs Date Time Temp Pulse Resp B/P Pulse Ox O2 Delivery O2 Flow Rate FiO2 09/20/16 18:06 98.0 68 18 117/60 99 Assessment & Plan Problem List: (1) Schizoaffective disorder ICD Code: F25.9 (2) Cannabis abuse ICD Code: F12.10 Assessment & Plan Continue Depakote and Zyprexa as ordered. Patient seems to be doing fairly well with this combination, and since we are monitoring the patient on the inpatient unit we might be able to hold off on administering the next dose of his Prolixin Decanoate, which would be due middle of this week, to see if the patient really requires multiple antipsychotics. Check an updated set of basic labs. Continue other medications and care as ordered. Justification for Cont. Inpt. High risk for decompensation in a less restrictive environment Discharge Planning [facility] psychiatric hospital referral Request HC Surrog/Guard Advoc?: Yes Problem Qualifiers (1) Schizoaffective disorder: Qualified Code: F25.0 - Schizoaffective disorder, bipolar type Kirby Melendez MD Sep 21, 2016 10:19
[2016-09-21 17:51] VITALS: BP 113/67; PULSE 75; RESP 16; TEMP 97.7; O2SAT 100
[2016-09-21] MEDS: DIVALPROEX SODIUM E.R. 250 MG TAB PO SCH (20:30)
[2016-09-22 05:50] VITALS: BP 104/55; PULSE 71; RESP 18; TEMP 97.6; O2SAT 98
[2016-09-22 07:52] LABS: AUTOMATED NEUTROPHIL # 1.8 TH/MM3 (1.8-7.7); BASOPHIL % 0.7 % (0.0-2.0); EOSINOPHIL # 0.2 TH/MM3 (0-0.4); EOSINOPHIL % 5.1 % (0.0-4.0); HEMATOCRIT 36.5 % (39.0-51.0); LYMPH % 41.1 % (9.0-44.0); LYMPHOCYTE # 1.8 TH/MM3 (1.0-4.8); MEAN CELL VOLUME 65.9 FL (80.0-100.0); MEAN CORPUSCULAR HEMOGLOBIN 20.5 PG (27.0-34.0); MEAN CORPUSCULAR HGB CONC 31.1 % (32.0-36.0); MONO % 11.7 % (0.0-8.0); NEUT % 41.4 % (16.0-70.0); PLATELET COUNT 154 TH/MM3 (150-450); RED BLOOD COUNT 5.54 MIL/MM3 (4.50-5.90); RED CELL DISTRIBUTION WIDTH 15.3 % (11.6-17.2); WHITE BLOOD COUNT 4.4 TH/MM3 (4.0-11.0)
[2016-09-22 07:56] LABS: HEMO FLAGS AUTO DIFF
[2016-09-22 08:29] LABS: ALKALINE PHOSPHATASE 33 U/L (45-117); ALT (GPT) 14 U/L (12-78); ANION GAP 5 MEQ/L (5-15); AST (GOT) 10 U/L (15-37); BICARBONATE 30.9 MEQ/L (21.0-32.0); BLOOD UREA NITROGEN 15 MG/DL (7-18); CHLORIDE 105 MEQ/L (98-107); GLOMERULAR FILTRATION RATE 119 ML/MIN (>89); POTASSIUM 4.6 MEQ/L (3.5-5.1); SODIUM (NA) 141 MEQ/L (136-145); TOTAL BILIRUBIN ADULT 0.4 MG/DL (0.2-1.0)
[2016-09-22] MEDS: CLOTRIMAZOLE 1% CREAM 15 GM TOPICAL SCH ×2 (08:37→20:36)
[2016-09-22] MEDS: levOCARNitine 10% ORAL SOLN 118 ML BTL PO SCH ×3 (08:37→17:07)
[2016-09-22] MEDS: OLANZapine 5 MG TAB PO SCH (08:37)
[2016-09-22 09:24] LABS: ACANTHOCYTES OCC (NORMAL); TARGET CELLS 1+ (NORMAL)
[2016-09-22 09:25] LABS: KERATOCYTES OCC (NORMAL); OVALOCYTES 1+ (NORMAL); PLATELET ESTIMATE SMEAR LOW (NORMAL); PLATELET MORPHOLOGY NORMAL (NORMAL); SCAN/DIFF AUTO DIFF CONFIRMED
--- NOTE | 2016-09-22 11:56 | HHI.PYPN ---
Subjective Remarks Patient seen and examined. Chart reviewed. Case discussed in treatment team with nurse, counselor and recreation therapist. Per her counselor, patient is # 12 on the [facility] wait list. Recreation therapist notes that the patient is participating somewhat less in unit activities but, on the other hand, his behavior is more appropriate when he does participate. On my examination today, the patient is calm and generally pleasant. He is somewhat ambivalent about state hospitalization versus discharge. He denies any SI, HI or AVH. Denies any side effects from medications. psychiatric secretary has notified me that the patient filed a writ of habeas, which will be heard by the patrol judge 09/24. Review of Systems ROS Limitations: Poor Historian Other No physical complaints today Objective Alert: Yes [place]: Person, Place, Date (approx), Situation Mood: Calm Affect: Blunted Memory Intact: Comment (not formally assessed today) Hallucinations: Other (No AVH) Delusions: No Delusion Type: Other (None elicited) Suicidal: Ideation (no SI) Homicidal: Ideation (no HI) Insight/Judgement Poor Remarks No abnormal motor movements noted. Labs Test 09/22/16 07:30 White Blood Count 4.4 TH/MM3 Red Blood Count 5.54 MIL/MM3 Hemoglobin 11.3 GM/DL Hematocrit 36.5 % Mean Corpuscular Volume 65.9 FL Mean Corpuscular Hemoglobin 20.5 PG Mean Corpuscular Hemoglobin 31.1 % Concent Red Cell Distribution Width 15.3 % Platelet Count 154 TH/MM3 Mean Platelet Volume 11.1 FL Neutrophils (%) (Auto) 41.4 % Lymphocytes (%) (Auto) 41.1 % Monocytes (%) (Auto) 11.7 % Eosinophils (%) (Auto) 5.1 % Basophils (%) (Auto) 0.7 % Neutrophils # (Auto) 1.8 TH/MM3 Lymphocytes # (Auto) 1.8 TH/MM3 Monocytes # (Auto) 0.5 TH/MM3 Eosinophils # (Auto) 0.2 TH/MM3 Basophils # (Auto) 0.0 TH/MM3 CBC Comment AUTO DIFF Differential Comment AUTO DIFF CONFIRMED Platelet Estimate LOW Platelet Morphology Comment NORMAL Basophilic Stippling FAINT Target Cells 1+ Ovalocytes 1+ Acanthocytes OCC Keratocytes OCC Sodium Level 141 MEQ/L Potassium Level 4.6 MEQ/L Chloride Level 105 MEQ/L Carbon Dioxide Level 30.9 MEQ/L Anion Gap 5 MEQ/L Blood Urea Nitrogen 15 MG/DL Creatinine 0.90 MG/DL Estimat Glomerular Filtration 119 ML/MIN Rate Random Glucose 75 MG/DL Calcium Level 8.5 MG/DL Total Bilirubin 0.4 MG/DL Aspartate Amino Transf 10 U/L (AST/SGOT) Alanine Aminotransferase 14 U/L (ALT/SGPT) Alkaline Phosphatase 33 U/L Total Protein 6.1 GM/DL Albumin 3.3 GM/DL Labs reviewed. Stable anemia. CMP is unremarkable. Vitals/IOs Vital Signs Date Time Temp Pulse Resp B/P Pulse Ox O2 Delivery O2 Flow Rate FiO2 09/22/16 05:50 97.6 71 18 104/55 98 Assessment & Plan Problem List: (1) Schizoaffective disorder ICD Code: F25.9 (2) Cannabis abuse ICD Code: F12.10 Assessment & Plan Continue Zyprexa and Depakote as ordered. Given the possibility now that the patient may be ordered released by the patrol judge, may need to reconsider plan to hold off on administering Prolixin Dec as we will not have the requisite time to assess for psychotic decompensation off of this medication. Continue to monitor on the inpatient unit for now. Continue other medications and care as ordered. Justification for Cont. Inpt. High risk for decompensation in a less restrictive environment. Discharge Planning My plan remains for [facility] referral, and the patient is #12 on the wait list. I believe this offers the patient the best chance for extended stability. I fear that if he is released by the patrol judge he will resume his cannabis use, become medication nonadherent and decompensate rapidly. Request HC Surrog/Guard Advoc?: Yes Problem Qualifiers (1) Schizoaffective disorder: Qualified Code: F25.0 - Schizoaffective disorder, bipolar type Kirby Melendez MD Sep 22, 2016 11:56
[2016-09-22 18:06] VITALS: BP 131/85; PULSE 68; RESP 16; TEMP 98.3; O2SAT 97
[2016-09-22] MEDS: DIVALPROEX SODIUM E.R. 250 MG TAB PO SCH (20:27)
[2016-09-23] MEDS: levOCARNitine 10% ORAL SOLN 118 ML BTL PO SCH ×3 (08:42→17:50)
[2016-09-23] MEDS: CLOTRIMAZOLE 1% CREAM 15 GM TOPICAL SCH ×2 (09:00→21:15)
[2016-09-23] MEDS: OLANZapine 5 MG TAB PO SCH (09:00)
--- NOTE | 2016-09-23 10:46 | HHI.PYPN ---
Subjective Remarks Patient seen and examined. Chart reviewed. Case discussed with nursing staff. On my examination today, the patient is sleeping in bed. He arouses easily. He has no particular complaints. He is hopeful that the salvage clerk will order his release tomorrow. No SI or HI voiced. Denies side effects from medications. Review of Systems ROS Limitations: Poor Historian Except as stated in HPI: all other systems reviewed are Neg Objective Alert: Yes [place]: Person, Place, Date, Situation Mood: Calm Affect: Blunted Memory Intact: Comment (not assessed) Hallucinations: Other (none) Delusions: No Delusion Type: Other (no tonja delusions) Suicidal: Ideation (no SI) Homicidal: Ideation (no HI) Insight/Judgement Poor Remarks No motor abnormalities noted Labs Labs reviewed. No new labs. Vitals/IOs Vital Signs Date Time Temp Pulse Resp B/P Pulse Ox O2 Delivery O2 Flow Rate FiO2 09/22/16 18:06 98.3 68 16 131/85 97 Assessment & Plan Problem List: (1) Schizoaffective disorder ICD Code: F25.9 (2) Cannabis abuse ICD Code: F12.10 Assessment & Plan Administer Prolixin Decanoate 37.5 mg IM today. Continue Zyprexa and Depakote as ordered. Continue to monitor on the inpatient unit. Continue other medications and care as ordered. Justification for Cont. Inpt. Very high risk for decompensation in a less restrictive environment. Discharge Planning Pending outcome of [place] tomorrow. I fear that if he is released by the salvage clerk, his prognosis is extremely poor, and he will likely decompensate and require readmission in a less restrictive environment. Request HC Surrog/Guard Advoc?: Yes Problem Qualifiers (1) Schizoaffective disorder: Qualified Code: F25.0 - Schizoaffective disorder, bipolar type Kirby Melendez MD Sep 23, 2016 10:46
[2016-09-23 18:35] VITALS: BP 121/66; PULSE 96; RESP 16; TEMP 98.1; O2SAT 96
[2016-09-23] MEDS: DIVALPROEX SODIUM E.R. 250 MG TAB PO SCH (21:15)
[2016-09-24] MEDS: CLOTRIMAZOLE 1% CREAM 15 GM TOPICAL SCH ×2 (08:08→21:48)
[2016-09-24] MEDS: OLANZapine 5 MG TAB PO SCH (08:08)
[2016-09-24] MEDS: levOCARNitine 10% ORAL SOLN 118 ML BTL PO SCH ×3 (08:08→17:54)
--- NOTE | 2016-09-24 11:55 | HHI.PYPN ---
Subjective Remarks Patient seen and case discussed with nursing staff. Chart reviewed. For me today, patient is calm and pleasant. Thought process seems fairly linear. No reported side effects from medications. Patient's case was presented to the [employer] act court as the patient had filed a [facility]. His request for release was declined by the court. Review of Systems Except as stated in HPI: all other systems reviewed are Neg Objective Alert: Yes [place]: Person, Place (at least), Situation Mood: Calm Affect: Blunted Memory Intact: Comment (not formally assessed today) Hallucinations: Other (none) Delusions: No Delusion Type: Other (no delusions noted) Suicidal: Ideation (no SI voiced) Homicidal: Ideation (no HI voiced) Insight/Judgement Poor Remarks No motor abnormalities noted Labs Labs reviewed. No new labs. Vitals/IOs Vital Signs Date Time Temp Pulse Resp B/P Pulse Ox O2 Delivery O2 Flow Rate FiO2 09/23/16 18:35 98.1 96 16 121/66 96 Intake and Output 09/23/16 09/23/16 09/24/16 08:00 16:00 00:00 Intake Total 360 ml Balance 360 ml Assessment & Plan Problem List: (1) Schizoaffective disorder ICD Code: F25.9 (2) Cannabis abuse ICD Code: F12.10 Assessment & Plan Continue Zyprexa and Depakote as ordered. Patient received Prolixin Decanoate injection yesterday. Continue to monitor on the inpatient unit. Continue other medications and care as ordered. Justification for Cont. Inpt. Very high risk for decompensation in a less restrictive environment. Discharge Planning [facility] psychiatric hospital referral. Request HC Surrog/Guard Advoc?: Yes Problem Qualifiers (1) Schizoaffective disorder: Qualified Code: F25.0 - Schizoaffective disorder, bipolar type Kirby Melendez MD Sep 24, 2016 11:54
[2016-09-24 16:25] VITALS: BP 102/46; PULSE 85; RESP 16; TEMP 98.4; O2SAT 99
[2016-09-24] MEDS: DIVALPROEX SODIUM E.R. 250 MG TAB PO SCH (21:48)
[2016-09-25] MEDS: CLOTRIMAZOLE 1% CREAM 15 GM TOPICAL SCH ×2 (08:13→21:00)
[2016-09-25] MEDS: levOCARNitine 10% ORAL SOLN 118 ML BTL PO SCH ×3 (08:14→17:52)
[2016-09-25] MEDS: OLANZapine 5 MG TAB PO SCH (08:15)
--- NOTE | 2016-09-25 12:22 | HHI.PYPN ---
Subjective Remarks Patient seen and examined. Chart reviewed. Case discussed with nursing staff. On my examination today, patient is calm and pleasant. He is not particularly upset that his petition to leave the hospital was not upheld by the criminal judge. No reported psychotic symptoms. Denies side effects from medications. Review of Systems Except as stated in HPI: all other systems reviewed are Neg Objective Alert: Yes [place]: Person, Place, Situation Mood: Calm Affect: Blunted Memory Intact: Comment (seems fairly intact on clinical exam) Hallucinations: Other (no AVH) Delusions: No Delusion Type: Other (no delusions noted) Suicidal: Ideation (no SI) Homicidal: Ideation (no HI) Insight/Judgement Poor Remarks No motor abnormalities noted Labs Labs reviewed. No new labs. Vitals/IOs Vital Signs Date Time Temp Pulse Resp B/P Pulse Ox O2 Delivery O2 Flow Rate FiO2 09/24/16 16:25 98.4 85 16 102/46 99 Assessment & Plan Problem List: (1) Schizoaffective disorder ICD Code: F25.9 (2) Cannabis abuse ICD Code: F12.10 Assessment & Plan Continue Zyprexa and Depakote as ordered. Relaxin to cannulate administered earlier this week. Continue other medications and care as ordered. Justification for Cont. Inpt. High risk for decompensation in a less restrictive environment. [facility] Request HC Surrog/Guard Advoc?: Yes Problem Qualifiers (1) Schizoaffective disorder: Qualified Code: F25.0 - Schizoaffective disorder, bipolar type Kirby Melendez MD Sep 25, 2016 12:22
[2016-09-25 17:00] VITALS: BP 126/69; PULSE 83; RESP 18; TEMP 98.4
[2016-09-25] MEDS: DIVALPROEX SODIUM E.R. 250 MG TAB PO SCH (21:51)
[2016-09-26] MEDS: CLOTRIMAZOLE 1% CREAM 15 GM TOPICAL SCH ×2 (09:00→20:45)
[2016-09-26] MEDS: OLANZapine 5 MG TAB PO SCH (09:00)
[2016-09-26] MEDS: levOCARNitine 10% ORAL SOLN 118 ML BTL PO SCH ×3 (09:00→18:00)
--- NOTE | 2016-09-26 12:58 | HHI.PYPN ---
Subjective Remarks Pt seen and discussed with staff. He has been compliant and cooperative with medications. No medication side effects. He remains isolative to his room. No agitation or disruptive behavior. No SI/HI Objective Alert: Yes [place]: Person, Place, Situation Mood: Calm Affect: Blunted Memory Intact: Comment (intact) Hallucinations: Other (no AVH) Delusions: No Delusion Type: Other (no delusions noted) Suicidal: Ideation (no SI) Homicidal: Ideation (no HI) Insight/Judgement poor Vitals/IOs Vital Signs Date Time Temp Pulse Resp B/P Pulse Ox O2 Delivery O2 Flow Rate FiO2 09/25/16 17:00 98.4 83 18 126/69 09/24/16 16:25 99 Assessment & Plan Problem List: (1) Schizoaffective disorder ICD Code: F25.9 (2) Cannabis abuse ICD Code: F12.10 Assessment & Plan Continue current tx plan. Estimated LOS: days Justification for Cont. Inpt. risk of decompensation Request HC Surrog/Guard Advoc?: Yes Problem Qualifiers (1) Schizoaffective disorder: Qualified Code: F25.0 - Schizoaffective disorder, bipolar type Aneta Marcano MD Sep 26, 2016 12:58
[2016-09-26 17:22] VITALS: BP 107/61; PULSE 85; RESP 18; TEMP 98; O2SAT 100
[2016-09-26] MEDS: DIVALPROEX SODIUM E.R. 250 MG TAB PO SCH (20:45)
[2016-09-27] MEDS: levOCARNitine 10% ORAL SOLN 118 ML BTL PO SCH ×3 (08:37→18:00)
[2016-09-27] MEDS: OLANZapine 5 MG TAB PO SCH (08:37)
[2016-09-27] MEDS: CLOTRIMAZOLE 1% CREAM 15 GM TOPICAL SCH ×2 (08:38→20:34)
--- NOTE | 2016-09-27 13:34 | HHI.PYPN ---
Subjective Remarks Pt seen and discussed with staff. Pt has been cooperative and compliant with medications. Staff reports that pt continues to isolate to room. Pt is resistant to encouragement to go out for fresh air but agrees to consider it. NO SI/HI. No medication side effects. Objective Alert: Yes [place]: Person, Place, Situation Mood: Calm Affect: Blunted Memory Intact: Comment (intact) Hallucinations: Other (no AVH) Delusions: No Delusion Type: Other (no delusions noted) Suicidal: Ideation (no SI) Homicidal: Ideation (no HI) Insight/Judgement poor Vitals/IOs Vital Signs Date Time Temp Pulse Resp B/P Pulse Ox O2 Delivery O2 Flow Rate FiO2 09/26/16 17:22 98.0 85 18 107/61 100 Assessment & Plan Problem List: (1) Schizoaffective disorder ICD Code: F25.9 (2) Cannabis abuse ICD Code: F12.10 Assessment & Plan Continue current tx plan. Estimated LOS: days Justification for Cont. Inpt. risk of decompensation Request HC Surrog/Guard Advoc?: Yes Problem Qualifiers (1) Schizoaffective disorder: Qualified Code: F25.0 - Schizoaffective disorder, bipolar type Aneta Marcano MD Sep 27, 2016 13:34
[2016-09-27 18:32] VITALS: BP 119/66; PULSE 77; RESP 18; TEMP 97.4; O2SAT 99
[2016-09-27] MEDS: DIVALPROEX SODIUM E.R. 250 MG TAB PO SCH (20:34)
[2016-09-28 08:30] VITALS: BP 98/56; PULSE 66
[2016-09-28] MEDS: CLOTRIMAZOLE 1% CREAM 15 GM TOPICAL SCH ×2 (08:47→22:14)
[2016-09-28] MEDS: OLANZapine 5 MG TAB PO SCH (08:47)
[2016-09-28] MEDS: levOCARNitine 10% ORAL SOLN 118 ML BTL PO SCH ×3 (08:47→17:18)
--- NOTE | 2016-09-28 10:44 | HHI.PYPN ---
Subjective Remarks Patient seen and examined. Chart reviewed. Case discussed with nursing staff. On my examination today, patient is calm and pleasant. Asks to be transferred to the lower acuity unit. Per nursing staff, no significant behavioral problems that might prevent this. No SI, HI. Denies side effects from medications. Review of Systems Except as stated in HPI: all other systems reviewed are Neg Objective Alert: Yes [place]: Person, Place, Date (approximate), Situation Mood: Calm Affect: Blunted (remains a little blunted) Memory Intact: Comment (intact) Hallucinations: Other (no AVH) Delusions: No Delusion Type: Other (no delusions) Suicidal: Ideation (no SI) Homicidal: Ideation (no HI) Insight/Judgement Poor Remarks No motor abnormalities noted Labs Labs reviewed Vitals/IOs Vital Signs Date Time Temp Pulse Resp B/P Pulse Ox O2 Delivery O2 Flow Rate FiO2 09/28/16 08:30 66 98/56 09/27/16 18:32 97.4 18 99 Assessment & Plan Problem List: (1) Schizoaffective disorder ICD Code: F25.9 (2) Cannabis abuse ICD Code: F12.10 Assessment & Plan Continue current psychotropics as ordered. Continue other medications and care as ordered. Justification for Cont. Inpt. Very high risk for decompensation in a less restrictive environment. Discharge Planning [facility] psychiatric hospital referral. Request HC Surrog/Guard Advoc?: Yes Problem Qualifiers (1) Schizoaffective disorder: Qualified Code: F25.0 - Schizoaffective disorder, bipolar type Kirby Melendez MD Sep 28, 2016 10:44
[2016-09-28] MEDS: DIVALPROEX SODIUM E.R. 250 MG TAB PO SCH (21:39)
[2016-09-29 05:45] VITALS: BP 111/60; PULSE 58; RESP 16; TEMP 98.1; O2SAT 97
[2016-09-29] MEDS: OLANZapine 5 MG TAB PO SCH (08:44)
[2016-09-29] MEDS: levOCARNitine 10% ORAL SOLN 118 ML BTL PO SCH ×3 (08:45→17:08)
[2016-09-29] MEDS: CLOTRIMAZOLE 1% CREAM 15 GM TOPICAL SCH ×2 (08:47→21:05)
--- NOTE | 2016-09-29 11:11 | HHI.PYPN ---
Subjective Remarks Patient seclusive and in bed. Not a problem at this time. Review of Systems ROS Limitations: Clinical Condition Except as stated in HPI: all other systems reviewed are Neg Objective Alert: Yes [place]: Person, Place, Date (approximate), Situation Mood: Calm Affect: Blunted (remains a little blunted) Memory Intact: Comment (intact) Hallucinations: Other (no AVH) Delusions: No Delusion Type: Other (no delusions) Suicidal: Ideation (no SI) Homicidal: Ideation (no HI) Insight/Judgement Impaired Vitals/IOs Vital Signs Date Time Temp Pulse Resp B/P Pulse Ox O2 Delivery O2 Flow Rate FiO2 09/29/16 05:45 98.1 58 16 111/60 97 Assessment & Plan Problem List: (1) Schizoaffective disorder ICD Code: F25.9 (2) Cannabis abuse ICD Code: F12.10 Assessment & Plan Estimated LOS: 30 days days awaiting state hospital placement. Justification for Cont. Inpt. Awaiting placement. Request HC Surrog/Guard Advoc?: Yes Problem Qualifiers (1) Schizoaffective disorder: Qualified Code: F25.0 - Schizoaffective disorder, bipolar type Ki Bowers MD Sep 29, 2016 11:11
[2016-09-29 17:00] VITALS: BP 131/68; PULSE 69; RESP 18; TEMP 97.6; O2SAT 100
[2016-09-29] MEDS: DIVALPROEX SODIUM E.R. 250 MG TAB PO SCH (21:06)
[2016-09-30] MEDS: OLANZapine 5 MG TAB PO SCH (08:54)
[2016-09-30] MEDS: levOCARNitine 10% ORAL SOLN 118 ML BTL PO SCH ×3 (08:54→17:08)
[2016-09-30] MEDS: CLOTRIMAZOLE 1% CREAM 15 GM TOPICAL SCH ×2 (08:54→20:27)
[2016-09-30 18:19] VITALS: BP 112/69; PULSE 66; RESP 18; TEMP 97.5; O2SAT 97
[2016-09-30] MEDS: DIVALPROEX SODIUM E.R. 250 MG TAB PO SCH (20:27)
[2016-10-01 06:38] VITALS: BP 112/60; PULSE 55; RESP 16; TEMP 97; O2SAT 99
[2016-10-01] MEDS: OLANZapine 5 MG TAB PO SCH (09:14)
[2016-10-01] MEDS: CLOTRIMAZOLE 1% CREAM 15 GM TOPICAL SCH ×2 (09:15→21:02)
[2016-10-01] MEDS: levOCARNitine 10% ORAL SOLN 118 ML BTL PO SCH ×3 (09:16→17:59)
--- NOTE | 2016-10-01 14:53 | HHI.PYPN ---
Subjective Remarks Hospital note for 09/30/16 .No change. Patient still reclusive and paranoid. Review of Systems ROS Limitations: Clinical Condition Objective Alert: Yes [place]: Person, Place, Date (approximate), Situation Mood: Calm Affect: Blunted (remains a little blunted) Memory Intact: Comment (intact) Hallucinations: Other (no AVH) Delusions: No Delusion Type: Other (no delusions) Suicidal: Ideation (no SI) Homicidal: Ideation (no HI) Insight/Judgement Impaired Vitals/IOs Vital Signs Date Time Temp Pulse Resp B/P Pulse Ox O2 Delivery O2 Flow Rate FiO2 10/01/16 06:38 97.0 55 16 112/60 99 Intake and Output 09/30/16 09/30/16 10/01/16 08:00 16:00 00:00 Intake Total 360 ml Balance 360 ml Assessment & Plan Problem List: (1) Schizoaffective disorder ICD Code: F25.9 (2) Cannabis abuse ICD Code: F12.10 Assessment & Plan Estimated LOS: 15 days awaiting state hospital placement Justification for Cont. Inpt. Unable to be released Request HC Surrog/Guard Advoc?: Yes Problem Qualifiers (1) Schizoaffective disorder: Qualified Code: F25.0 - Schizoaffective disorder, bipolar type Ki Bowers MD Oct 01, 2016 14:53
--- NOTE | 2016-10-01 15:03 | HHI.PYPN ---
Subjective Remarks No change. Reclusive and paranoid. Awaiting state hospitalization. Review of Systems ROS Limitations: Clinical Condition Objective Alert: Yes [place]: Person, Place, Date (approximate), Situation Mood: Calm Affect: Blunted (remains a little blunted) Memory Intact: Comment (intact) Hallucinations: Other (no AVH) Delusions: No Delusion Type: Other (no delusions) Suicidal: Ideation (no SI) Homicidal: Ideation (no HI) Insight/Judgment Impaired Vitals/IOs Vital Signs Date Time Temp Pulse Resp B/P Pulse Ox O2 Delivery O2 Flow Rate FiO2 10/01/16 06:38 97.0 55 16 112/60 99 Intake and Output 09/30/16 09/30/16 10/01/16 08:00 16:00 00:00 Intake Total 360 ml Balance 360 ml Assessment & Plan Problem List: (1) Schizoaffective disorder ICD Code: F25.9 (2) Cannabis abuse ICD Code: F12.10 Assessment & Plan Estimated LOS: 14 days awaiting state hospitalization. Justification for Cont. Inpt. Waiting for state hospital admission. Request HC Surrog/Guard Advoc?: Yes Problem Qualifiers (1) Schizoaffective disorder: Qualified Code: F25.0 - Schizoaffective disorder, bipolar type Ki Bowers MD Oct 01, 2016 15:03
[2016-10-01 19:24] VITALS: BP 116/76; PULSE 82; RESP 17; TEMP 98; O2SAT 97
[2016-10-01] MEDS: DIVALPROEX SODIUM E.R. 250 MG TAB PO SCH (21:02)
[2016-10-02 05:38] VITALS: BP 102/60; PULSE 58; RESP 16; TEMP 97.8; O2SAT 98
[2016-10-02] MEDS: CLOTRIMAZOLE 1% CREAM 15 GM TOPICAL SCH ×2 (09:00→20:22)
[2016-10-02] MEDS: OLANZapine 5 MG TAB PO SCH (09:25)
[2016-10-02] MEDS: levOCARNitine 10% ORAL SOLN 118 ML BTL PO SCH ×3 (09:25→18:00)
--- NOTE | 2016-10-02 14:07 | HHI.PYPN ---
Subjective Remarks No change. Paranoid. Providing [facility] care until state hospitalization. Review of Systems ROS Limitations: Clinical Condition Objective Alert: Yes [place]: Person, Place Mood: Calm Affect: Restricted, Blunted (remains a little blunted) Memory Intact: Comment (intact) Hallucinations: Other (no AVH) Delusions: Yes Delusion Type: Paranoid, Other (no delusions) Suicidal: Ideation (no SI) Homicidal: Ideation (no HI) Insight/Judgment Impaired Vitals/IOs Vital Signs Date Time Temp Pulse Resp B/P Pulse Ox O2 Delivery O2 Flow Rate FiO2 10/02/16 05:38 97.8 58 16 102/60 98 Assessment & Plan Problem List: (1) Schizoaffective disorder ICD Code: F25.9 (2) Cannabis abuse ICD Code: F12.10 Assessment & Plan Estimated LOS: 10 days awaiting state hospitalization Justification for Cont. Inpt. Psychotic and unable to care for self. Request HC Surrog/Guard Advoc?: Yes Problem Qualifiers (1) Schizoaffective disorder: Qualified Code: F25.0 - Schizoaffective disorder, bipolar type Ki Bowers MD Oct 02, 2016 14:07
[2016-10-02 19:00] VITALS: BP 120/63; PULSE 81; RESP 18; TEMP 99; O2SAT 98
[2016-10-02] MEDS: DIVALPROEX SODIUM E.R. 250 MG TAB PO SCH (20:22)
[2016-10-03 05:49] VITALS: BP 95/50; PULSE 61; RESP 18; TEMP 98.3; O2SAT 99
[2016-10-03] MEDS: CLOTRIMAZOLE 1% CREAM 15 GM TOPICAL SCH ×2 (09:00→21:18)
[2016-10-03] MEDS: levOCARNitine 10% ORAL SOLN 118 ML BTL PO SCH ×3 (09:13→17:35)
[2016-10-03] MEDS: OLANZapine 5 MG TAB PO SCH (09:13)
--- NOTE | 2016-10-03 13:36 | HHI.PYPN ---
Subjective Remarks Patient was seen and case discussed with nursing. Patient is perseverative and being [facility] and [facility]. Per nursing preoccupied. His compliant with his medications. Denies hallucinations. His very poor insight concerning his many admissions. Says he was not seen by a doctor all of last week. Had a visit from his mom and dad today Objective Alert: Yes [place]: Person, Place Mood: Oppositional Affect: Restricted Memory Intact: Comment (intact) Hallucinations: Other (no AVH) Delusions: Yes Delusion Type: Paranoid, Other (no delusions) Suicidal: Ideation (no SI) Homicidal: Ideation (no HI) Insight/Judgment Poor Vitals/IOs Vital Signs Date Time Temp Pulse Resp B/P Pulse Ox O2 Delivery O2 Flow Rate FiO2 10/03/16 05:49 98.3 61 18 95/50 99 Intake and Output 10/02/16 10/02/16 10/03/16 08:00 16:00 00:00 Intake Total 240 ml 240 ml Balance 240 ml 240 ml Assessment & Plan Problem List: (1) Schizoaffective disorder ICD Code: F25.9 (2) Cannabis abuse ICD Code: F12.10 Assessment & Plan Continue current treatment plan Justification for Cont. Inpt. Patient will decompensate in a less restrictive setting Request HC Surrog/Guard Advoc?: Yes Problem Qualifiers (1) Schizoaffective disorder: Qualified Code: F25.0 - Schizoaffective disorder, bipolar type Jorge Best DO Oct 03, 2016 13:36
[2016-10-03 19:25] VITALS: BP 103/61; PULSE 89; RESP 18; TEMP 97.6; O2SAT 99
[2016-10-03] MEDS: DIVALPROEX SODIUM E.R. 250 MG TAB PO SCH (21:19)
[2016-10-04] MEDS: levOCARNitine 10% ORAL SOLN 118 ML BTL PO SCH ×3 (09:00→17:53)
[2016-10-04] MEDS: CLOTRIMAZOLE 1% CREAM 15 GM TOPICAL SCH ×2 (09:00→20:47)
[2016-10-04] MEDS: OLANZapine 5 MG TAB PO SCH (09:00)
--- NOTE | 2016-10-04 18:07 | HHI.PYPN ---
Subjective Remarks Patient was seen and case discussed with nursing. Patient refused his morning medications. Argumentative that he should be on Haldol instead of Zyprexa. After psychoeducation here agrees to be compliant with Zyprexa. Continues to be perseverant are not going to the [facility]. Asking for an update from his health care attorney. Complaining of hearing music but no voices. Affect remains blunted Objective Alert: Yes [place]: Person, Place Mood: Anxious, Oppositional Affect: Blunted Memory Intact: Comment (intact) Hallucinations: Other (no AVH) Delusions: Yes Delusion Type: Other (music) Suicidal: Ideation (no SI) Homicidal: Ideation (no HI) Insight/Judgment Poor Vitals/IOs Vital Signs Date Time Temp Pulse Resp B/P Pulse Ox O2 Delivery O2 Flow Rate FiO2 10/03/16 19:25 97.6 89 18 103/61 99 Assessment & Plan Problem List: (1) Schizoaffective disorder ICD Code: F25.9 (2) Cannabis abuse ICD Code: F12.10 Assessment & Plan Continue current treatment plan Justification for Cont. Inpt. Patient will decompensate in a less restrictive setting Request HC Surrog/Guard Advoc?: Yes Problem Qualifiers (1) Schizoaffective disorder: Qualified Code: F25.0 - Schizoaffective disorder, bipolar type Jorge Best DO Oct 04, 2016 18:07
[2016-10-04] MEDS: LORazepam 1 MG TAB PO PRN (19:33)
[2016-10-04 19:48] VITALS: BP 124/70; PULSE 87; O2SAT 100
[2016-10-04] MEDS: DIVALPROEX SODIUM E.R. 250 MG TAB PO SCH (20:48)
[2016-10-05] MEDS: CLOTRIMAZOLE 1% CREAM 15 GM TOPICAL SCH ×2 (09:00→20:24)
[2016-10-05] MEDS: OLANZapine 5 MG TAB PO SCH (09:24)
[2016-10-05] MEDS: levOCARNitine 10% ORAL SOLN 118 ML BTL PO SCH ×3 (09:25→17:06)
--- NOTE | 2016-10-05 12:39 | HHI.PYPN ---
Subjective Remarks Still has paranoid delusions. Review of Systems ROS Limitations: Clinical Condition Objective Alert: Yes [place]: Person, Place Mood: Anxious, Oppositional Affect: Blunted Memory Intact: Comment (intact) Hallucinations: Other (no AVH) Delusions: Yes Delusion Type: Other (music) Suicidal: Ideation (no SI) Homicidal: Ideation (no HI) Insight/Judgment Impaired Vitals/IOs Vital Signs Date Time Temp Pulse Resp B/P Pulse Ox O2 Delivery O2 Flow Rate FiO2 10/04/16 19:48 87 124/70 100 10/03/16 19:25 97.6 18 Assessment & Plan Problem List: (1) Schizoaffective disorder ICD Code: F25.9 (2) Cannabis abuse ICD Code: F12.10 Assessment & Plan Estimated LOS: 10 days awaiting state hospital placement Justification for Cont. Inpt. Psychotic and unable to care for self. Request HC Surrog/Guard Advoc?: Yes Problem Qualifiers (1) Schizoaffective disorder: Qualified Code: F25.0 - Schizoaffective disorder, bipolar type Ki Bowers MD Oct 05, 2016 12:39
[2016-10-05] MEDS: LORazepam 1 MG TAB PO PRN (14:27)
[2016-10-05] MEDS ORDERED: LORazepam 2 MG/ML VIAL IM STA (15:33)
[2016-10-05] MEDS ORDERED: HALOPERIDOL LACTATE 5 MG/ML AMP IM STA (15:33)
[2016-10-05] MEDS ORDERED: diphenhydrAMINE HCL 50 MG/ML VIAL IM STA (15:33)
[2016-10-05] MEDS ORDERED: diphenhydrAMINE HCL 50 MG/ML VIAL ONE (15:34)
[2016-10-05] MEDS ORDERED: HALOPERIDOL LACTATE 5 MG/ML AMP ONE (15:34)
[2016-10-05] MEDS: DIVALPROEX SODIUM E.R. 250 MG TAB PO SCH (20:23)
[2016-10-06 06:43] VITALS: BP 100/54; PULSE 56; RESP 18; TEMP 98.2; O2SAT 96
[2016-10-06] MEDS: OLANZapine 5 MG TAB PO SCH (09:19)
[2016-10-06] MEDS: levOCARNitine 10% ORAL SOLN 118 ML BTL PO SCH ×3 (09:19→17:51)
[2016-10-06] MEDS: CLOTRIMAZOLE 1% CREAM 15 GM TOPICAL SCH ×2 (09:19→20:31)
--- NOTE | 2016-10-06 11:58 | HHI.PYPN ---
Subjective Remarks Remains paranoid. Review of Systems ROS Limitations: Clinical Condition Objective Alert: Yes [place]: Person, Place Mood: Anxious, Oppositional Affect: Blunted Memory Intact: Immediate, Comment (intact) Hallucinations: Other (no AVH) Delusions: Yes Delusion Type: Paranoid, Other (music) Suicidal: Ideation (no SI) Homicidal: Ideation (no HI) Insight/Judgment Impaired Vitals/IOs Vital Signs Date Time Temp Pulse Resp B/P Pulse Ox O2 Delivery O2 Flow Rate FiO2 10/06/16 06:43 98.2 56 18 100/54 96 Intake and Output 10/05/16 10/05/16 10/06/16 08:00 16:00 00:00 Intake Total 360 ml 240 ml Balance 360 ml 240 ml Assessment & Plan Problem List: (1) Schizoaffective disorder ICD Code: F25.9 (2) Cannabis abuse ICD Code: F12.10 Assessment & Plan Estimated LOS: 8 days awaiting state hospital placement. Justification for Cont. Inpt. Psychotic and dangerous. Request HC Surrog/Guard Advoc?: Yes Problem Qualifiers (1) Schizoaffective disorder: Qualified Code: F25.0 - Schizoaffective disorder, bipolar type Ki Bowers MD Oct 06, 2016 11:58
[2016-10-06 17:45] VITALS: BP 119/73; PULSE 82; RESP 18; TEMP 97.4; O2SAT 100
[2016-10-06] MEDS: DIVALPROEX SODIUM E.R. 250 MG TAB PO SCH (20:29)
[2016-10-07 05:28] VITALS: BP 94/63; PULSE 72; RESP 17; TEMP 97.8; O2SAT 97
[2016-10-07] MEDS: levOCARNitine 10% ORAL SOLN 118 ML BTL PO SCH ×2 (08:45→14:07)
[2016-10-07] MEDS: OLANZapine 5 MG TAB PO SCH (08:46)
[2016-10-07] MEDS: CLOTRIMAZOLE 1% CREAM 15 GM TOPICAL SCH (08:47)
[2016-10-07] MEDS: LORazepam 1 MG TAB PO PRN (09:45)
[2016-10-07] MEDS ORDERED: HALOPERIDOL LACTATE 5 MG/ML AMP IM STA (10:22)
[2016-10-07] MEDS ORDERED: diphenhydrAMINE HCL 50 MG/ML VIAL IM STA (10:22)
[2016-10-07] MEDS ORDERED: LORazepam 2 MG/ML VIAL IM STA (10:22)
[2016-10-07] MEDS ORDERED: HALOPERIDOL LACTATE 5 MG/ML AMP ONE (10:24)
--- NOTE | 2016-10-07 13:04 | HHI.PYPN ---
Subjective Remarks Patient remains paranoid and reclusive. No significant change in his affect her cognition. Review of Systems ROS Limitations: Clinical Condition Objective Alert: Yes [place]: Person, Place Mood: Anxious, Oppositional Affect: Restricted, Blunted Memory Intact: Immediate, Comment (intact) Hallucinations: Other (no AVH) Delusions: Yes Delusion Type: Paranoid, Other (music) Suicidal: Ideation (no SI) Homicidal: Ideation (no HI) Insight/Judgment Impaired Vitals/IOs Vital Signs Date Time Temp Pulse Resp B/P Pulse Ox O2 Delivery O2 Flow Rate FiO2 10/07/16 05:28 97.8 72 17 94/63 97 Assessment & Plan Problem List: (1) Schizoaffective disorder ICD Code: F25.9 (2) Cannabis abuse ICD Code: F12.10 Assessment & Plan Estimated LOS: 8 days psychotic and unable to care for himself Justification for Cont. Inpt. Awaiting state hospital transfer. Request HC Surrog/Guard Advoc?: Yes Problem Qualifiers (1) Schizoaffective disorder: Qualified Code: F25.0 - Schizoaffective disorder, bipolar type Ki Bowers MD Oct 07, 2016 13:04
[2016-10-07] MEDS ORDERED: OLAN15TA PO (15:11)
[2016-10-07] MEDS ORDERED: CLOT1CRE6 TOPICAL (15:11)
[2016-10-07] MEDS ORDERED: OLAN5TAB PO (15:11)
[2016-10-07] MEDS ORDERED: DIVA250ER PO (15:11)
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
== END 2016-10-07 16:35 | disposition home or self-care (01) | DRG 885 ==
LOC: NEPA 21:10 → NEDA 08-08 08:36 → H270 08-08 09:30 → H260 09-02 05:45 → H270 09-03 10:20 → H260 09-28 18:01
PROVIDERS: ADMIT Psychiatry & Neurology Psychiatry; ATTEND Psychiatry & Neurology Psychiatry
DX: F25.0 Schizoaffective disorder, bipolar type (principal); D57.1 Sickle-cell disease without crisis; J45.909 Unspecified asthma, uncomplicated; F12.10 Cannabis abuse, uncomplicated; F41.9 Anxiety disorder, unspecified; F94.0 Selective mutism; Z72.0 Tobacco use
CPT/HCPCS: 70450; 80048; 80053; 80061; 80164; 80178; 80307; 80320; 80329; 83036; 84443; 85025; 99284; G0480; G0481; J1200; J1630; J2060; J2680; J3486; Q0163

== ENCOUNTER 2016-10-15 11:48 | Inpatient (IN) | payer OTHER ==
[~2016-10-15] VITALS: Ht 175.3 cm; Wt 65.0 kg
[~2016-10-15 11:48] MED LIST changes: +CLOT1CRE6 TOPICAL; +OLAN15TA PO; +OLAN5TAB PO
[2016-10-15 11:55] VITALS: BP 113/60; PULSE 86; RESP 19; TEMP 99.3; O2SAT 98
--- NOTE | 2016-10-15 12:01 | PD ---
HPI Chief Complaint: ba Time Seen by Provider: 12:01 Travel History International Travel<30 days: No Contact w/Intl Traveler<30days: No Traveled to known affect area: No History of Present Illness HPI 31-year-old male with history of paranoid schizophrenia presents to emergency department a Xiong act for psychiatric evaluation. Patient was discharged one week ago following an extended stay here at the emergency department. States that he has not been taking his medications since he left has been smoking merle for the last 7 days. Denies suicidal homicidal ideations. Denies any acute medically since this time. PFSH Past Medical History Anemia: Yes Blood Disorders: No Bipolar Disorder: Yes Anxiety: Yes Diminished Hearing: No Endocrine: No Gastrointestinal Disorders: No Genetic Disorder: Yes (sickle cell trait) Genitourinary: Yes (h/o testicular thrombosis, UTI) Immune Disorder: No Implanted Vascular Access Dvce: No Musculoskeletal: No Neurologic: No Psychiatric: Yes Reproductive: Yes Respiratory: Yes (asthma) Immunizations Current: Yes Schizophrenia: Yes (paranoid schizophrenia) Sickle Cell Disease: Yes (trait) Past Surgical History Abdominal Surgery: No Cardiac Surgery: No Ear Surgery: No Endocrine Surgery: No Eye Surgery: No Genitourinary Surgery: No Gynecologic Surgery: No Neurologic Surgery: No Oral Surgery: No Thoracic Surgery: No Other Surgery: Yes (removal of right wrist cyst) Social History Alcohol Use: Yes Tobacco Use: Yes (1 ppd) Substance Use: Yes (FLAKKA and marijuana) Allergies-Medications (Allergen,Severity, Reaction): Coded Allergies: Pork (Verified Adverse Reaction, Intermediate, Nausea/Vomiting, 10/15/16) Reported Meds & Prescriptions Reported Meds & Active Scripts Active Olanzapine 15 Mg Tab 15 Mg PO HS Olanzapine 5 Mg Tab 5 Mg PO DAILY Depakote ER (Divalproex Sodium) 250 Mg Claudia 1,500 Mg PO HS Clotrimazole Anti-Fungal Topical (Clotrimazole) 1% Cream 1 Applic TOPICAL Q12HR Fluphenazine Decanoate Inj (Fluphenazine Decanoate) 125 Mg/5 Ml Inj 25 Mg IM Q21D Next dose of fluphenazine decanoate due on 08/12/2016. Geodon (Ziprasidone) 80 Mg Cap 80 Mg PO BIDPC 15 Days Carnitor Liq (Levocarnitine) 1 Gm/10 Ml Soln 3 Ml PO TID 15 Days Fluphenazine (Fluphenazine HCl) 5 Mg Tab 5 Mg PO QID 15 Days Continue taking oral fluphenazine at least until your next fluphenazine decanoate injection. Discuss with your outpatient provider how to proceed after that. Depakote ER (Divalproex Sodium) 500 Mg Claudia 1,000 Mg PO HS 15 Days Depakote ER (Divalproex Sodium) 250 Mg Claudia 250 Mg PO HS 15 Days Review of Systems Except as stated in HPI: all other systems reviewed are Neg Physical Exam Narrative GENERAL: Well-nourished male patient, in no acute distress SKIN: Focused skin assessment warm/dry. HEAD: Atraumatic. Normocephalic. EYES: Pupils equal and round. No scleral icterus. No injection or drainage. ENT: No nasal bleeding or discharge. Mucous membranes pink and moist. NECK: Trachea midline. No JVD. CARDIOVASCULAR: Regular rate and rhythm. No murmur appreciated. RESPIRATORY: No accessory muscle use. Clear to auscultation. Breath sounds equal bilaterally. GASTROINTESTINAL: Abdomen soft, non-tender, nondistended. Hepatic and splenic margins not palpable. MUSCULOSKELETAL: No obvious deformities. No clubbing. No cyanosis. No edema. NEUROLOGICAL: Awake and alert. No obvious cranial nerve deficits. Motor grossly within normal limits. Normal speech. Data Data Last Documented VS Vital Signs Date Time Temp Pulse Resp B/P Pulse Ox O2 Delivery O2 Flow Rate FiO2 10/15/16 16:19 98.0 67 18 113/75 100 Room Air Orders Complete Blood Count With Diff (10/15/16 11:58) Basic Metabolic Panel (Bmp) (10/15/16 11:58) Psych Screen (10/15/16 11:58) Drug Screen, Random Urine (10/15/16 11:58) Alcohol (Ethanol) (10/15/16 11:58) Diet Clear Liquid (10/15/16 Lunch) Diet Regular Basic (10/15/16 Dinner) Admit Order (Ed Use Only) (10/15/16 18:57) Labs Laboratory Tests Test 10/15/16 10/15/16 12:20 15:15 White Blood Count 5.0 TH/MM3 Red Blood Count 5.65 MIL/MM3 Hemoglobin 11.6 GM/DL Hematocrit 36.9 % Mean Corpuscular Volume 65.3 FL Mean Corpuscular Hemoglobin 20.6 PG Mean Corpuscular Hemoglobin 31.5 % Concent Red Cell Distribution Width 14.9 % Platelet Count 172 TH/MM3 Mean Platelet Volume 10.1 FL Neutrophils (%) (Auto) 56.4 % Lymphocytes (%) (Auto) 28.8 % Monocytes (%) (Auto) 10.8 % Eosinophils (%) (Auto) 3.0 % Basophils (%) (Auto) 1.0 % Neutrophils # (Auto) 2.8 TH/MM3 Lymphocytes # (Auto) 1.4 TH/MM3 Monocytes # (Auto) 0.5 TH/MM3 Eosinophils # (Auto) 0.1 TH/MM3 Basophils # (Auto) 0.0 TH/MM3 CBC Comment AUTO DIFF Differential Comment AUTO DIFF CONFIRMED Platelet Estimate NORMAL Platelet Morphology Comment ENLARGED Basophilic Stippling FAINT Target Cells 1+ Sodium Level 141 MEQ/L Potassium Level 3.9 MEQ/L Chloride Level 108 MEQ/L Carbon Dioxide Level 26.1 MEQ/L Anion Gap 7 MEQ/L Blood Urea Nitrogen 13 MG/DL Creatinine 0.88 MG/DL Estimat Glomerular Filtration 122 ML/MIN Rate Random Glucose 75 MG/DL Calcium Level 8.2 MG/DL Ethyl Alcohol Level LESS THAN 3 MG/DL Urine Opiates Screen NEG Urine Barbiturates Screen NEG Urine Amphetamines Screen NEG Urine Benzodiazepines Screen NEG Urine Cocaine Screen NEG Urine Cannabinoids Screen POS MDM Medical Decision Making Medical Screen Exam Complete: Yes Emergency Medical Condition: Yes Medical Record Reviewed: Yes Differential Diagnosis Mood disorder versus personality disorder versus adjustment reaction disorder versus medication noncompliance Narrative Course 31-year-old male presents to emergency department under Xiong act for psychiatric evaluation. Patient appears without distress. Vital signs are stable. The CBC and BMP appear without acute concern. Toxicology is positive for Cantu noise. Patient is medically cleared to undergo psychiatric screening for further evaluation and disposition. Mental health screening discussed with the patient. Psychiatric screen ordered. Diagnosis Primary Impression: Schizophrenia, paranoid type Condition: Stable Patsy Banerjee Oct 15, 2016 12:01
[2016-10-15 12:39] LABS: AUTOMATED NEUTROPHIL # 2.8 TH/MM3 (1.8-7.7); EOSINOPHIL # 0.1 TH/MM3 (0-0.4); HEMATOCRIT 36.9 % (39.0-51.0); LYMPH % 28.8 % (9.0-44.0); LYMPHOCYTE # 1.4 TH/MM3 (1.0-4.8); MEAN CELL VOLUME 65.3 FL (80.0-100.0); MEAN CORPUSCULAR HEMOGLOBIN 20.6 PG (27.0-34.0); MEAN CORPUSCULAR HGB CONC 31.5 % (32.0-36.0); MONO % 10.8 % (0.0-8.0); NEUT % 56.4 % (16.0-70.0); PLATELET COUNT 172 TH/MM3 (150-450); RED BLOOD COUNT 5.65 MIL/MM3 (4.50-5.90); RED CELL DISTRIBUTION WIDTH 14.9 % (11.6-17.2)
[2016-10-15 12:42] LABS: HEMO FLAGS AUTO DIFF
[2016-10-15 12:58] LABS: ANION GAP 7 MEQ/L (5-15); BICARBONATE 26.1 MEQ/L (21.0-32.0); BLOOD UREA NITROGEN 13 MG/DL (7-18); CHLORIDE 108 MEQ/L (98-107); GLOMERULAR FILTRATION RATE 122 ML/MIN (>89); POTASSIUM 3.9 MEQ/L (3.5-5.1); SODIUM (NA) 141 MEQ/L (136-145)
[2016-10-15 13:06] LABS: TARGET CELLS 1+ (NORMAL)
[2016-10-15 13:07] LABS: PLATELET ESTIMATE SMEAR NORMAL (NORMAL); PLATELET MORPHOLOGY ENLARGED (NORMAL); SCAN/DIFF AUTO DIFF CONFIRMED
[2016-10-15 15:41] LABS: AMPHETAMINE, URINE NEG (NEG); BARBITURATES, URINE NEG (NEG); COCAINE, URINE NEG (NEG)
[2016-10-15 16:00] VITALS: BP 105/61; PULSE 68; RESP 18; O2SAT 97
[2016-10-15 16:19] VITALS: BP 113/75; PULSE 67; RESP 18; TEMP 98; O2SAT 100
[2016-10-15 20:10] VITALS: BP 120/65; PULSE 83; RESP 18; O2SAT 96
[2016-10-15] MEDS ORDERED: MAGNESIUM HYDROXIDE SUSP 30 ML CUP PO PRN (20:30)
[2016-10-15] MEDS ORDERED: LORazepam 2 MG/ML VIAL IM PRN (20:30)
[2016-10-15] MEDS ORDERED: OLANZapine IM 10 MG VIAL IM PRN (20:30)
[2016-10-15] MEDS ORDERED: LORazepam 1 MG TAB PO PRN (20:30)
[2016-10-15] MEDS ORDERED: ALUMINUM/MAGNESIUM/SIMETH 30 ML CUP PO PRN (20:30)
[2016-10-15] MEDS ORDERED: ACETAMINOPHEN 325 MG TAB PO PRN (20:30)
[2016-10-16 06:12] VITALS: BP 105/56; PULSE 86; RESP 18; TEMP 97.8; O2SAT 98
[2016-10-16 11:12] LABS: HDL CHOLESTEROL 38.9 MG/DL (40.0-60.0); LDL CHOLESTEROL 92 MG/DL (0-99)
--- NOTE | 2016-10-16 12:18 | HHI.HP ---
Provisional Diagnosis Admission Date Oct 15, 2016 at 19:00 [place] I. Schizophrenia, chronic paranoid type Certification of Person's Competence To Provide Express and Informed Consent I have personally examined Kannan Lopez , a person being served at [facility] on, Oct 16, 2016 12:12. Express and informed consent means consent voluntarily given in writing, by a competent person, after sufficient explanation and disclosure of the subject matter involved to enable the person to make a knowing and willful decision without any element of force, fraud, deceit, duress, or other form of constraint or coercion. This person is 18 years of age or older, is not now known to be incompetent to consent to treatment with a guardian advocate, and does not have a health care surrogate or proxy currently making medical treatment decisions. I have found this person to be one of the following: [X] Competent to provide express and informed consent, as defined above, for voluntary admission to this facility and is competent to provide express and informed consent for treatment. He/she has the consistent capacity to make well reasoned, willful, and knowing decisions concerning his or her medical or mental health treatment. The person fully and consistently understands the purpose of the admission for examination/placement and is fully capable of personally exercising all rights assured [place] [] Incompetent to provide express and informed consent to voluntary admission, and this is incompetent to provide express and informed consent to treatment. The person must be transferred to involuntary status and a petition for a guardian advocate filed with the Circuit Court. [] Refusing to provide express and informed consent to voluntary admission but is competent to provide express and informed consent for treatment. The person must be discharged or transferred to involuntary status. Form shall be completed within 24 hours of a person's arrival at the receiving facility and filed in the clinical record of each person: 1. Admitted on a voluntary basis 2. Permitted to provide express and informed consent to his/her own treatment 3. Allowed to transfer from involuntary to voluntary status 4. Prior to permitting a person to consent to his or her own treatment after having been previously found incompetent to consent to treatment. History of Present Illness Capacity: Has Capacity HPI Patient is well known to the staff at [facility] and to this physician. He was recently discharged from this facility, approximately a week ago, based on a court order. Unfortunately, at that time the ordering tribal judge did not hear information presented by a clinician but rather the patient' s public health policy analyst. The patient had been on a state hospital wait list for 2 months due to chronic psychosis, noncompliance with medications and threatening behavior. At this time the patient is admitted once again due to psychosis, noncompliance with medication and threatening comments towards his mother and about himself. When interviewed by this physician he is demonstrating loose associations and poor organizational thought. He denies being noncompliant with his medications but his mother indicates that he has been noncompliant. She also reports that he has been smoking marijuana daily for a week. Review of Systems ROS Limitations: Clinical Condition Past Psych History Psychological trauma history Unknown Violence risk - others (6 mos) Moderate Violence risk - self (6 mos) Moderate. The patient was also reportedly wandering in traffic. Substance Abuse History Drugs/Alcohol past 12 months Smoking marijuana daily. Past Family Social History Coded Allergies: Pork (Verified Adverse Reaction, Intermediate, Nausea/Vomiting, 10/15/16) Active Scripts Olanzapine 15 Mg Tab15 Mg PO HS #30 TAB Prov:Ki Bowers MD 10/07/16 Olanzapine 5 Mg Tab5 Mg PO DAILY #30 TAB Prov:Ki Bowers MD 10/07/16 Divalproex ER (Depakote ER)250 Mg Taber1,500 Mg PO HS #180 TAB Prov:Ki Bowers MD 10/07/16 Clotrimazole Topical (Clotrimazole Anti-Fungal Topical)1% Cream1 Applic TOPICAL Q12HR #1 TUBE Prov:Ki Bowers MD 10/07/16 Fluphenazine Decanoate Inj 125 Mg/5 Ml Inj25 Mg IM Q21D #1 VIAL Ref 0 Next dose of fluphenazine decanoate due on 08/12/2016. Prov:Kirby Melendez MD 08/06/16 Ziprasidone (Geodon)80 Mg Cap80 Mg PO BIDPC 15 Days Ref 1 Prov:Kirby Melendez MD 08/06/16 Levocarnitine Liq (Carnitor Liq)1 Gm/10 Ml Soln3 Ml PO TID 15 Days Ref 1 Prov:Kirby Melendez MD 08/06/16 Fluphenazine 5 Mg Tab5 Mg PO QID 15 Days Ref 1 Continue taking oral fluphenazine at least until your next fluphenazine decanoate injection. Discuss with your outpatient provider how to proceed after that. Prov:Kirby Melendez MD 08/06/16 Divalproex ER (Depakote ER)500 Mg Taber1,000 Mg PO HS 15 Days Ref 1 Prov:Kirby Melendez MD 08/06/16 Divalproex ER (Depakote ER)250 Mg [id number] Mg PO HS 15 Days Ref 1 Prov:Kirby Melendez MD 08/06/16 Current Medications Medications (Trade) Dose Ordered Sig/Bunny Route Start Time Stop Time Status Last Admin (Ativan) 1 mg Q6H PRN PO 10/15/16 20:30 (Ativan Inj) 1 mg Q6H PRN IM 10/15/16 20:30 (Tylenol) 650 mg Q4H PRN PO 10/15/16 20:30 (Milk Of Magnesia Liq) 30 ml DAILY PRN PO 10/15/16 20:30 (Mag-Al Plus Susp Liq) 30 ml Q6H PRN PO 10/15/16 20:30 (Prolixin) 5 mg BID PO 10/15/16 21:00 10/16/16 09:00 (ZyPREXA INJ) 10 mg Q6H PRN IM 10/15/16 20:30 Family History Positive for psychotic disorders. Social History On social security disability. He occasionally lives with his mother but she is reluctant to take him home. Continues to use marijuana and other drugs. Patient's Strengths (min. 2) Verbal and resilient. Physical Exam GENERAL: SKIN: Warm and dry. HEAD: Normocephalic. EYES: No scleral icterus. No injection or drainage. NECK: Supple, trachea midline. No JVD or lymphadenopathy. CARDIOVASCULAR: Regular rate and rhythm without murmurs, gallops, or rubs. RESPIRATORY: Breath sounds equal bilaterally. No accessory muscle use. GASTROINTESTINAL: Abdomen soft, non-tender, nondistended. MUSCULOSKELETAL: No cyanosis, or edema. BACK: Nontender without obvious deformity. No CVA tenderness. Vital Signs Vital Signs Date Time Temp Pulse Resp B/P Pulse Ox O2 Delivery O2 Flow Rate FiO2 10/16/16 06:12 97.8 86 18 105/56 98 10/15/16 16:19 Room Air Mental Status Examination Speech: Incoherent, Circumstantial, Tangential Orientation: Person, Place Memory: Unremarkable Thought Process: Loose Association Thought Content: Bizarre thinking, Paranoid Hallucination Type: Auditory Attention and Concentration: Easily Distracted Suicidal Ideation: Yes Previous Suicide Attempts: Yes Homicidal Ideation: No Previous Homicide Attempts: No Insight: Poor Judgment: Unrealistic Affect: Oppositional Affect if Inappropriate: Blunt Mood: Oppositional Motor Activity: Normal gait Assessment & Plan Problem List: (1) Schizophrenia, paranoid type ICD Code: F20.0 Assessment & Plan Estimated LOS: 7 days this physician feels the patient should be treated with long-acting injectable antipsychotic medication. There will be a further discussion regarding the possibility of holding him for state hospitalization. The patient has been repeatedly hospitalized and repeatedly noncompliant and repeatedly using illicit drugs. Ki Bowers MD Oct 16, 2016 12:18
[2016-10-16 14:32] LABS: HEMOGLOBIN A1a 0.8 %; HEMOGLOBIN A1b 0.6 %; HEMOGLOBIN Ao 86.3 %; HEMOGLOBIN F 1.5 %; HEMOGLOBIN LA1C 1.7 %; HEMOGLOBIN P3 3.2 %
[2016-10-17 05:39] VITALS: BP 115/72; PULSE 72; RESP 16; TEMP 98.5; O2SAT 97
--- NOTE | 2016-10-17 16:28 | HHI.PYPN ---
Subjective Remarks Patient was seen and case discussed with nursing. Patient is perseverative on his legal status is expiring Xiong act. We discussed how is not appropriate that he remains voluntary at this time given his poor insight and documented psychotic behavior and drug use and threats to himself and others per previous doctor's notes. Patient became upset and noncooperative with interview Objective Alert: Yes [place]: Person, Place, Date Mood: Agitated, Angry Affect: Labile Memory Intact: Immediate (not tested) Hallucinations: Other (would not answer) Delusions: No Delusion Type: Paranoid (would not answer) Suicidal: Ideation (denies) Homicidal: Ideation (denies) Insight/Judgment Poor Vitals/IOs Vital Signs Date Time Temp Pulse Resp B/P Pulse Ox O2 Delivery O2 Flow Rate FiO2 10/17/16 05:39 98.5 72 16 115/72 97 10/15/16 16:19 Room Air Assessment & Plan Problem List: (1) Schizophrenia, paranoid type ICD Code: F20.0 Assessment & Plan Given expiring Xiong act and reasons outlined in the history of present illness we will initiate a petition Justification for Cont. Inpt. Patient will decompensate in a less restrictive setting Jorge Best DO Oct 17, 2016 16:28
[2016-10-18 05:56] VITALS: BP 99/58; PULSE 59; RESP 18; TEMP 97.5; O2SAT 100
--- NOTE | 2016-10-18 15:35 | HHI.PYPN ---
Subjective Remarks Patient was seen and case discussed with nursing. Patient is rude, agitated and insulting to staff throughout the day. He is very angry that he is been petitioned and is not leaving. Not cooperative with interview. Is compliant with medications Objective Alert: Yes [place]: Person, Place Mood: Agitated, Angry Affect: Labile Memory Intact: Immediate (not tested) Hallucinations: Other (would not answer) Delusions: No Delusion Type: Paranoid (would not answer) Suicidal: Ideation (denies) Homicidal: Ideation (denies) Insight/Judgment Poor Vitals/IOs Vital Signs Date Time Temp Pulse Resp B/P Pulse Ox O2 Delivery O2 Flow Rate FiO2 10/18/16 05:56 97.5 59 18 99/58 100 10/15/16 16:19 Room Air Assessment & Plan Problem List: (1) Schizophrenia, paranoid type ICD Code: F20.0 Assessment & Plan Continue current treatment plan Justification for Cont. Inpt. Patient will decompensate in a less restrictive setting Jorge Best DO Oct 18, 2016 15:35
[2016-10-19 06:17] VITALS: BP 97/51; PULSE 62; RESP 17; TEMP 97.2; O2SAT 97
--- NOTE | 2016-10-19 11:54 | HHI.DS ---
Psychiatry Discharge Summary Inpatient Psychiatric care?: Yes Advance Directive: No Reason Not Provided: Due to Patient Condition Mental Health AdvanceDirective: No Health Care Proxy: No Admission Admission Date Oct 15, 2016 at 19:00 Admission Diagnosis: (1) Schizophrenia, paranoid type ICD Code: F20.0 Brief History Patient is well known to the staff at [place] [facility] and to this physician. He was recently discharged from this facility, approximately a week ago, based on a court order. Unfortunately, at that time the ordering technical clerk did not hear information presented by a clinician but rather the patient' s public relations account supervisor. The patient had been on a [facility] wait list for 2 months due to chronic psychosis, noncompliance with medications and threatening behavior. At this time the patient is admitted once again due to psychosis, noncompliance with medication and threatening comments towards his mother and about himself. When interviewed by this physician he is demonstrating loose associations and poor organizational thought. He denies being noncompliant with his medications but his mother indicates that he has been noncompliant. She also reports that he has been smoking marijuana daily for a week. Tobacco Use In Past 30 Days: 5 or More Cigarettes/Day Alcohol Use: Monthly or Less Hospital Course The patient was admitted to a locked, inpatient psychiatric unit. Patient was seen and examined daily on the unit by psychiatry. Appropriate precautions were in place throughout patient's hospital stay. Patient was resumed on oral Prolixin. There was no evidence of any suicidal or homicidal behavior on the inpatient unit. I do note that he has been accepting his oral Prolixin. On the day of discharge: Patient seen and examined with counselor and nurse. Chart reviewed. Case discussed with counselor and nurse. Per nursing staff, patient has been no real behavioral problem overnight but has been quite discharge focused. On my examination today, the patient is requesting discharge from the inpatient psychiatric unit. Mood is reportedly stable and he denies any suicidal or homicidal ideation. He denies any audiovisual hallucinations. I can elicit no frankly delusional material, although he does have a variety of somewhat overly optimistic plans for the future, and some of these may in fact be delusional in nature. He admits to use of cannabis prior to admission and he himself says that he is in need of drug counseling for which we will refer him. He denies side effects from medications and says that he has an adequate supply of medications at home and is not in need of any prescriptions today. He has no physical complaints. Weighing the acute, chronic, and protective factors and based on the available evidence, I technical clerk to a reasonable degree of medical certainty that the patient is at low imminent risk of harm to self or others from a mental illness as defined under the Xiong act and his level of function is adequate for outpatient care. Consequently, the patient does not meet Xiong act criteria. I have strongly recommended that the patient remain on the inpatient unit for further stabilization, but he has declined. Given that I have no basis to retain the patient involuntarily and given that the patient does not meet criteria for involuntary psychiatric hospitalization at this time, I must arrange for his discharge from the inpatient psychiatric unit today. I have explained that I will be discharging him AGAINST MEDICAL ADVICE, and he understands this. Patient is to follow-up psychiatrically as arranged by counselor. Patient is also to follow-up with primary care. I have reminded the patient to return to the psychiatric emergency room for any concerning psychiatric symptoms. As noted above, the patient reports an adequate supply of medications at home and I have provided him with no prescriptions on discharge today. Results Blood Pressure 97 / 51 Vital Signs Date Time Temp Pulse Resp B/P Pulse Ox O2 Delivery O2 Flow Rate FiO2 10/19/16 06:17 97.2 62 17 97/51 97 10/15/16 16:19 Room Air Laboratory Results Test 10/16/16 10:15 Hemoglobin A1c 4.7 % (4.3-6.0) Triglycerides Level 70 MG/DL (42-150) Cholesterol Level 145 MG/DL (120-200) LDL Cholesterol 92 MG/DL (0-99) HDL Cholesterol 38.9 MG/DL (40.0-60.0) Summary of Procedures None done Imaging None done Pending results at discharge: No Medications # of Antipsychotic meds at D/C: 2 Appropriate >1 Antipsych meds?: 4 Approp Antipsych med options 1 - Minimum of three failed multiple trials of monotherapy. 2 - Documented plan to taper to monotherapy due to previous use of multiple meds OR cross-taper in progress at D/C. 3 - Documentation of augmentation of Clozapine. 4 - Justification other than those listed in allowable values 1-3, document here : Prior to admission regimen. Discharge Discharge Date: Oct 19, 2016 Discharge Diagnosis: (1) Schizophrenia, paranoid type Diagnosis: Principal ICD Code: F20.0 (2) Cannabis abuse Diagnosis: Secondary (counseled to quit) ICD Code: F12.10 Mental Status Exam at Disch Patient is casually dressed. He is fairly well groomed and maintaining basic hygiene. He is awake and alert and oriented to person and hospital at least. No evidence of delirium. No motor abnormalities noted. Steady gait and station. Speech is within normal limits for rate, tone and volume. Language and fund of knowledge seem average. Mood is fair and affect is blunted. Thought process perseverative on discharge. No loosening of associations. No tonja delusional material. Denies audiovisual hallucinations. Denies suicidal or homicidal ideation. Insight and judgment are poor. Pt Condition on Discharge: Guarded (AMA discharge) Discharge Disposition: Discharge Home Discharge Instructions Diet Instructions: As Tolerated, No Restrictions Activities you can perform: Weight Bearing as Luís Scheduled Appointment: as per counselor's notes Continued Medications: Clotrimazole Topical (Clotrimazole Anti-Fungal Topical) 1% Cream 1 APPLIC TOPICAL Q12HR #1 TUBE Divalproex ER (Depakote ER) 250 Mg Claudia 1500 MG PO HS #180 TAB Fluphenazine Decanoate Inj (Fluphenazine Decanoate Inj) 125 Mg/5 Ml Inj 25 MG IM Q21D Next dose of fluphenazine decanoate due on 08/12/2016. Mental Health #1 Ref 0 VIAL Levocarnitine Liq (Carnitor Liq) 1 Gm/10 Ml Soln 3 ML PO TID Hyperammonemia Days 15 Ref 1 ML Olanzapine (Olanzapine) 5 Mg Tab 5 MG PO DAILY #30 TAB Olanzapine (Olanzapine) 15 Mg Tab 15 MG PO HS #30 TAB Discontinued Medications: Divalproex ER (Depakote ER) 250 Mg Claudia 250 MG PO HS Mental Health Days 15 Ref 1 TAB Divalproex ER (Depakote ER) 500 Mg Claudia 1000 MG PO HS Mental Health Days 15 Ref 1 TAB Fluphenazine (Fluphenazine) 5 Mg Tab 5 MG PO QID Continue taking oral fluphenazine at least until your next fluphenazine decanoate injection. Discuss with your outpatient provider how to proceed after that. Mental Health Days 15 Ref 1 TAB Ziprasidone (Geodon) 80 Mg Cap 80 MG PO BIDPC Mental Health Days 15 Ref 1 CAP Discharge Time <= 30 minutes Discharge/Advance Care Plan Health Problems: (1) Schizophrenia, paranoid type Goals to promote your health * To prevent worsening of your condition and complications * To maintain your health at the optimal level Directions to meet your goals Take your medications as prescribed Follow your dietary instruction Follow activity as directed Keep your appointments as scheduled Take your immunizations and boosters as scheduled If your symptoms worsen call your PCP, if no PCP go to Urgent Care Center or Emergency Room For 18/01 questions related to your inpatient stay or results of tests pending at discharge, please contact Dr. Kirby Melendez at Smoking is Dangerous to Your Health. Avoid second hand smoking Kirby Melendez MD Oct 19, 2016 11:54
== END 2016-10-19 14:00 | disposition left against medical advice (07) | DRG 885 ==
LOC: NEPD 11:48 → NEDA 19:00 → H270 20:00 → NEDA 20:00 → UNDODISIN 10-19 13:55 → H270 10-19 14:00
PROVIDERS: ADMIT Psychiatry & Neurology Psychiatry; ATTEND Psychiatry & Neurology Psychiatry
DX: F20.0 Paranoid schizophrenia (principal); D57.3 Sickle-cell trait; F12.10 Cannabis abuse, uncomplicated; Z72.0 Tobacco use; J45.909 Unspecified asthma, uncomplicated; D64.9 Anemia, unspecified
CPT/HCPCS: 80048; 80061; 80307; 83036; 85025; 99285

== ENCOUNTER 2016-10-24 21:17 | Inpatient (IN) | payer OTHER ==
[~2016-10-24] VITALS: Ht 175.3 cm; Wt 68.0 kg
[~2016-10-24 21:17] MED LIST changes: -DEPA500T3 PO; -FLUP5TAB PO; -GEOD80CA PO
[2016-10-24 21:41] VITALS: BP 115/70; PULSE 67; RESP 16; TEMP 98.2; O2SAT 100
[2016-10-24 22:46] LABS: BASOPHIL % 0.8 % (0.0-2.0); EOSINOPHIL # 0.2 TH/MM3 (0-0.4); EOSINOPHIL % 4.2 % (0.0-4.0); HEMATOCRIT 40.1 % (39.0-51.0); LYMPH % 43.4 % (9.0-44.0); LYMPHOCYTE # 2.1 TH/MM3 (1.0-4.8); MEAN CELL VOLUME 66.5 FL (80.0-100.0); MEAN CORPUSCULAR HEMOGLOBIN 20.5 PG (27.0-34.0); MEAN CORPUSCULAR HGB CONC 30.8 % (32.0-36.0); NEUT % 41.6 % (16.0-70.0); PLATELET COUNT 181 TH/MM3 (150-450); RED BLOOD COUNT 6.03 MIL/MM3 (4.50-5.90); RED CELL DISTRIBUTION WIDTH 14.6 % (11.6-17.2); WHITE BLOOD COUNT 4.8 TH/MM3 (4.0-11.0)
[2016-10-24 22:48] LABS: HEMO FLAGS AUTO DIFF
--- NOTE | 2016-10-24 23:05 | PD ---
HPI Chief Complaint: Psychiatric Symptoms Time Seen by Provider: 23:02 Travel History International Travel<30 days: No Contact w/Intl Traveler<30days: No Traveled to known affect area: No History of Present Illness HPI 31-year-old black male presents to emergency department under Xiong act by PD. According to the Xiong act family members are concerned that the patient is becoming out of control and they are concerned that his behavior puts them at risk for harm. They don't feel comfortable with him being at home. The patient here denies any suicidal homicidal ideation. He states that he is compliant with his medications. Patient has history of schizoaffective disorder. He does admit to marijuana. He denies making any threatening statements or actions towards family. The patient appears to be more interested in laying down and sleeping. He is poorly interactive. He closes his eyes and rolled over on the side. He is unwilling to continue to answer questions at this time. PFSH Past Medical History Narrative Medical Schizoaffective, sickle cell trait, marijuana abuse Anemia: Yes Blood Disorders: No Bipolar Disorder: Yes Anxiety: Yes Diminished Hearing: No Endocrine: No Gastrointestinal Disorders: No Genetic Disorder: Yes (sickle cell trait) Genitourinary: Yes (h/o testicular thrombosis, UTI) Immune Disorder: No Implanted Vascular Access Dvce: No Musculoskeletal: No Neurologic: No Psychiatric: Yes Reproductive: Yes Respiratory: Yes (asthma) Immunizations Current: Yes Schizophrenia: Yes (paranoid schizophrenia) Sickle Cell Disease: Yes (trait) Past Surgical History Abdominal Surgery: No Cardiac Surgery: No Ear Surgery: No Endocrine Surgery: No Eye Surgery: No Genitourinary Surgery: No Gynecologic Surgery: No Neurologic Surgery: No Oral Surgery: No Thoracic Surgery: No Other Surgery: Yes (removal of right wrist cyst) Social History Alcohol Use: No (DENIES) Tobacco Use: Yes (1 ppd) Substance Use: Yes (Hx Katty per records. ) Allergies-Medications (Allergen,Severity, Reaction): Coded Allergies: Pork (Verified Adverse Reaction, Intermediate, Nausea/Vomiting, 10/24/16) Reported Meds & Prescriptions Reported Meds & Active Scripts Active Olanzapine 15 Mg Tab 15 Mg PO HS Olanzapine 5 Mg Tab 5 Mg PO DAILY Depakote ER (Divalproex Sodium) 250 Mg Claudia 1,500 Mg PO HS Clotrimazole Anti-Fungal Topical (Clotrimazole) 1% Cream 1 Applic TOPICAL Q12HR Fluphenazine Decanoate Inj (Fluphenazine Decanoate) 125 Mg/5 Ml Inj 25 Mg IM Q21D Next dose of fluphenazine decanoate due on 08/12/2016. Carnitor Liq (Levocarnitine) 1 Gm/10 Ml Soln 3 Ml PO TID 15 Days Review of Systems ROS Limitations: Uncooperative, Poor Historian (disabled Neosporin dressing) Except as stated in HPI: all other systems reviewed are Neg Physical Exam Narrative GENERAL: Well-nourished, well-developed patient. SKIN: Warm and dry. HEAD: Normocephalic and atraumatic. EYES: No scleral icterus. No injection or drainage. ENT: No nasal drainage noted. Mucous membranes pink. Airway patent. NECK: Supple, trachea midline. Moves head freely without obvious discomfort. CARDIOVASCULAR: Regular rate and rhythm without murmurs, gallops, or rubs. RESPIRATORY: Breath sounds equal bilaterally. No accessory muscle use. GASTROINTESTINAL: Abdomen soft, non-tender, nondistended. EXTREMITIES: No cyanosis or edema. BACK: Nontender without obvious deformity. No CVA tenderness. NEURO: Patient is alert and oriented. no sensorimotor deficits. Nonfocal. Normal speech. PSYCH: No delusions. No auditory or visual hallucinations. Data Data Last Documented VS Vital Signs Date Time Temp Pulse Resp B/P Pulse Ox O2 Delivery O2 Flow Rate FiO2 10/24/16 21:41 98.2 67 16 115/70 100 Orders Complete Blood Count With Diff (10/24/16 22:15) Comprehensive Metabolic Panel (10/24/16 22:15) Psych Screen (10/24/16 22:15) Drug Screen, Random Urine (10/24/16 22:15) Alcohol (Ethanol) (10/24/16 22:15) Salicylates (Aspirin) (10/24/16 22:15) Tylenol (Acetaminophen) (10/24/16 22:15) Valproic Acid (Depakene) (10/24/16 22:15) Labs Laboratory Tests Test 10/24/16 21:35 White Blood Count 4.8 TH/MM3 Red Blood Count 6.03 MIL/MM3 Hemoglobin 12.3 GM/DL Hematocrit 40.1 % Mean Corpuscular Volume 66.5 FL Mean Corpuscular Hemoglobin 20.5 PG Mean Corpuscular Hemoglobin 30.8 % Concent Red Cell Distribution Width 14.6 % Platelet Count 181 TH/MM3 Mean Platelet Volume 10.4 FL Neutrophils (%) (Auto) 41.6 % Lymphocytes (%) (Auto) 43.4 % Monocytes (%) (Auto) 10.0 % Eosinophils (%) (Auto) 4.2 % Basophils (%) (Auto) 0.8 % Neutrophils # (Auto) 2.0 TH/MM3 Lymphocytes # (Auto) 2.1 TH/MM3 Monocytes # (Auto) 0.5 TH/MM3 Eosinophils # (Auto) 0.2 TH/MM3 Basophils # (Auto) 0.0 TH/MM3 CBC Comment AUTO DIFF Salicylates Level 2.6 MG/DL MDM Medical Decision Making Medical Screen Exam Complete: Yes Emergency Medical Condition: Yes Medical Record Reviewed: Yes Differential Diagnosis MDM: High Differential diagnoses: Schizophrenia, schizoaffective disorder, bipolar, anxiety, depression, adjustment reaction, mood disorder NOS, ODD, depressive disorder NOS, dementia, dementia with agitation, psychosis NOS, substance induced mood disorder, intermittent explosive disorder, Asperger syndrome, infection,electrolyte abnormality, malingering. Narrative Course Mental health screening discussed with the patient. Psychiatric screen ordered. The patient is been medically cleared. This is schizoaffective disorder Diagnosis Primary Impression: Schizoaffective disorder Qualified Code: F25.9 - Schizoaffective disorder, unspecified type Condition: Trev Nugent Oct 24, 2016 23:05
[2016-10-24 23:09] LABS: ALT (GPT) 15 U/L (12-78); ANION GAP 6 MEQ/L (5-15); AST (GOT) 15 U/L (15-37); BICARBONATE 28.9 MEQ/L (21.0-32.0); BLOOD UREA NITROGEN 11 MG/DL (7-18); CHLORIDE 108 MEQ/L (98-107); GLOMERULAR FILTRATION RATE 89 ML/MIN (>89); POTASSIUM 4.3 MEQ/L (3.5-5.1); SODIUM (NA) 143 MEQ/L (136-145)
[2016-10-24 23:12] LABS: ACETAMINOPHEN LESS THAN 2.0 MCG/ML (10.0-30.0); ALKALINE PHOSPHATASE 42 U/L (45-117); TOTAL BILIRUBIN ADULT 0.5 MG/DL (0.2-1.0)
[2016-10-24 23:18] LABS: PLATELET ESTIMATE SMEAR NORMAL (NORMAL)
[2016-10-24 23:19] LABS: PLATELET MORPHOLOGY ENLARGED (NORMAL); SCAN/DIFF AUTO DIFF CONFIRMED
[2016-10-25 18:01] VITALS: BP 110/67; PULSE 57; RESP 18; TEMP 98.5; O2SAT 100
[2016-10-25] MEDS ORDERED: ALUMINUM/MAGNESIUM/SIMETH 30 ML CUP PO PRN (18:15)
[2016-10-25] MEDS ORDERED: MAGNESIUM HYDROXIDE SUSP 30 ML CUP PO PRN (18:15)
[2016-10-25] MEDS ORDERED: LORazepam 2 MG/ML VIAL IM PRN (18:15)
[2016-10-25] MEDS ORDERED: ACETAMINOPHEN 325 MG TAB PO PRN (18:15)
[2016-10-25] MEDS: REMOVE OLD NICOTINE PATCH T-DERMAL SCH (21:00)
[2016-10-26] MEDS: NICOTINE 21 MG/24 HR PATCH T-DERMAL SCH (09:00)
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
[2016-10-26] MEDS ORDERED: BENZTROPINE MESYLATE 2 MG/2 ML VIAL IM PRN (15:15)
[2016-10-26] MEDS ORDERED: BENZTROPINE MESYLATE 1 MG TAB PO PRN (15:15)
[2016-10-26] MEDS ORDERED: diphenhydrAMINE HCL 50 MG CAP PO PRN (15:15)
[2016-10-26] MEDS ORDERED: HALOPERIDOL LACTATE 5 MG/ML AMP IM STA (15:29)
[2016-10-26] MEDS ORDERED: OLANZapine IM 10 MG VIAL IM PRN (15:30)
[2016-10-26] MEDS ORDERED: diphenhydrAMINE HCL 50 MG/ML VIAL IM ONE (15:30)
[2016-10-26] MEDS ORDERED: LORazepam 2 MG/ML VIAL IM ONE (15:30)
[2016-10-26] MEDS ORDERED: DO NOT ADM ANY ANTICOAGULANT DRUGS PRN (15:45)
[2016-10-26] MEDS: levOCARNitine 10% ORAL SOLN 118 ML BTL PO SCH (17:50)
[2016-10-26] MEDS: DIVALPROEX SODIUM E.R. 500 MG TAB PO SCH (20:58)
[2016-10-26] MEDS: REMOVE OLD NICOTINE PATCH T-DERMAL SCH (21:00)
[2016-10-27] MEDS: levOCARNitine 10% ORAL SOLN 118 ML BTL PO SCH ×3 (09:00→18:00)
[2016-10-27] MEDS: NICOTINE 21 MG/24 HR PATCH T-DERMAL SCH (09:00)
[2016-10-27] MEDS: OLANZapine 5 MG TAB PO SCH (09:00)
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
[2016-10-27 18:09] VITALS: BP 99/62; PULSE 133; RESP 16; TEMP 97.6; O2SAT 98
[2016-10-27] MEDS: DIVALPROEX SODIUM E.R. 500 MG TAB PO SCH (20:34)
[2016-10-28] MEDS: OLANZapine 5 MG TAB PO SCH (09:41)
[2016-10-28] MEDS: levOCARNitine 10% ORAL SOLN 118 ML BTL PO SCH ×3 (09:41→18:20)
--- NOTE | 2016-10-28 13:38 | HHI.PYPN ---
Subjective Remarks Patient seen and examined with counselor. Chart reviewed. Case discussed with nursing staff reports that the patient is more or less unchanged today. He was masturbating through the night. He was also incontinent of urine. On my examination today, the patient has entered his sullen and petulant mode. He keeps the covers pulled tightly over his head and says "I'm asleep. I'm 31 years old. He declines to enter into any sort of discussion of his current mental status. No evident side effects from medications. No reported physical complaints. Review of Systems ROS Limitations: Uncooperative, Psychotic, Poor Historian Except as stated in HPI: all other systems reviewed are Neg Objective Alert: Yes [place]: Person, Place Mood: Oppositional Affect: Restricted (petulant, sullen) Memory Intact: Comment (Psychosis interferes) Hallucinations: Other (No AVH) Delusions: Yes Delusion Type: Paranoid Suicidal: Ideation (No SI) Homicidal: Ideation (No HI) Insight/Judgment Poor Remarks No motor abnormalities noted. Sample to limited to assess thought process. Labs Labs reviewed. Vitals/IOs Vital Signs Date Time Temp Pulse Resp B/P Pulse Ox O2 Delivery O2 Flow Rate FiO2 10/27/16 18:09 97.6 133 16 99/62 98 Assessment & Plan Problem List: (1) Schizoaffective disorder ICD Code: F25.9 (2) Cannabis abuse ICD Code: F12.10 Assessment & Plan Continue Zyprexa and Depakote as ordered. I will check a urinalysis in light of patient's reported ongoing nocturnal incontinence, but I suspect this is related to temporary excessive sedation while the patient reacclimates to his psychotropics. Continue to monitor on the high acuity unit. Continue other medications and care as ordered. Justification for Cont. Inpt. Impairment in self-care. Impairment in social function. High risk for decompensation in a less restrictive environment. Discharge Planning Pending psychiatric stabilization. Xiong court tomorrow. Request HC Surrog/Guard Advoc?: Yes Problem Qualifiers (1) Schizoaffective disorder: Qualified Code: F25.0 - Schizoaffective disorder, bipolar type Kirby Melendez MD October 28, 2016 13:38
[2016-10-28 16:44] LABS: BACTERIA, URINE FEW /hpf; BLOOD, URINE NEG (NEG); CALCIUM OXALATE CRYSTALS,URINE OCC /hpf; COMMENT (UR) CULT NOT INDICATED; CULTURE IF INDICATED CULT NOT INDICATED; GLUCOSE,URINE NEG (NEG); KETONE, URINE TRACE mg/dL (NEG); MUCUS URINE FEW /lpf (OCC); NITRITE,URINE NEG (NEG); SQUAMOUS EPITHELIAL CELL URINE 2 /hpf (0-5); URINE COLOR YELLOW (YELLW/STRAW)
[2016-10-28 18:05] VITALS: BP 115/65; PULSE 94; RESP 18; TEMP 98.1; O2SAT 97
[2016-10-28] MEDS: LORazepam 1 MG TAB PO PRN (18:11)
[2016-10-28] MEDS: DIVALPROEX SODIUM E.R. 500 MG TAB PO SCH (20:54)
[2016-10-29] MEDS: OLANZapine 5 MG TAB PO SCH (09:37)
[2016-10-29] MEDS: levOCARNitine 10% ORAL SOLN 118 ML BTL PO SCH ×3 (09:38→18:31)
--- NOTE | 2016-10-29 11:11 | HHI.PYPN ---
Subjective Remarks Patient seen and examined with counselor. Chart reviewed. Case discussed with nursing staff who reports patient has been irritable. On my examination today, the patient remains delusional. He believes that he has 14 children. He also alleges that his mother took his medications and this is why he was nonadherent prior to admission. He continues to appear internally preoccupied. Insight into mental illness is nil. He denies side effects from medications. He remains quite discharge focused and even after he is retained on the unit by the supervisor costuming the patient asks when he is going to be discharged. Review of Systems ROS Limitations: Psychotic, Poor Historian Except as stated in HPI: all other systems reviewed are Neg Objective Alert: Yes [place]: Person, Place Mood: Other (somewhat irritable) Affect: Restricted Memory Intact: Comment (fair) Hallucinations: Other (internally preoccupied) Delusions: Yes Delusion Type: Paranoid Suicidal: Ideation (No SI) Homicidal: Ideation (No HI) Insight/Judgment Poor Remarks No motor abnormalities noted Labs Test 10/28/16 16:00 Urine Color YELLOW Urine Turbidity HAZY Urine pH 6.0 Urine Specific [place] 1.039 Urine Protein 100 mg/dL Urine Glucose (UA) NEG mg/dL Urine Ketones TRACE mg/dL Urine Occult Blood NEG Urine Nitrite NEG Urine Bilirubin NEG Urine Urobilinogen 2.0 MG/DL Urine Leukocyte Esterase TRACE Urine RBC 2 /hpf Urine WBC 2 /hpf Urine Squamous Epithelial 2 /hpf Cells Urine Calcium Oxalate Crystals OCC /hpf Urine Bacteria FEW /hpf Urine Mucus FEW /lpf Microscopic Urinalysis Comment CULT NOT INDICATED Labs reviewed. I note proteinuria but no pyuria or other signs of UTI. Vitals/IOs Vital Signs Date Time Temp Pulse Resp B/P Pulse Ox O2 Delivery O2 Flow Rate FiO2 10/28/16 18:05 98.1 94 18 115/65 97 Assessment & Plan Problem List: (1) Schizoaffective disorder ICD Code: F25.9 (2) Cannabis abuse ICD Code: F12.10 Assessment & Plan Titrate Zyprexa to 10/15mg to target psychosis. Continue Depakote as ordered. Depakote and ammonia level ordered for this evening. Continue to monitor on the high acuity unit. Continue other medications and care as ordered. Patient' s case was presented to the Xiong act court, and the patient was retained on the unit by the supervisor costuming and a [facility] guardian was appointed [place]. Justification for Cont. Inpt. Impairment in reality construction. Medication changes in process. High risk for decompensation pending psychiatric stabilization. Discharge Planning Pending psychiatric stabilization. Request HC Surrog/Guard Advoc?: Yes Problem Qualifiers (1) Schizoaffective disorder: Qualified Code: F25.0 - Schizoaffective disorder, bipolar type Kirby Melendez MD October 29, 2016 11:11
[2016-10-29] MEDS: LORazepam 1 MG TAB PO PRN (15:00)
[2016-10-29 16:00] VITALS: BP 97/52; PULSE 74; RESP 18; O2SAT 100
[2016-10-29] MEDS: DIVALPROEX SODIUM E.R. 500 MG TAB PO SCH (20:40)
[2016-10-30 06:33] VITALS: BP 90/66; PULSE 68; RESP 18; TEMP 97.4; O2SAT 98
[2016-10-30] MEDS: levOCARNitine 10% ORAL SOLN 118 ML BTL PO SCH ×3 (08:57→17:58)
[2016-10-30] MEDS ORDERED: OLANZapine 10 MG TAB PO SCH (09:00)
--- NOTE | 2016-10-30 09:04 | HHI.PYPN ---
Subjective Remarks And nurse. Chart reviewed. Case discussed with nursing staff reports that the patient slept overnight. On my examination today, the patient remains internally preoccupied. He is discharge focus. He is insisting on getting a Prolixin Decanoate shot. No SI or HI. Denies side effects from medications. Review of Systems ROS Limitations: Psychotic, Poor Historian Except as stated in HPI: all other systems reviewed are Neg Objective Alert: Yes [place]: Person, Place Mood: Other (somewhat dysphoric) Affect: Restricted Memory Intact: Comment (fair) Hallucinations: Other (internally preoccupied) Delusions: Yes Delusion Type: Paranoid (perhaps decreasing) Suicidal: Ideation (No SI) Homicidal: Ideation (No HI) Insight/Judgment Poor Remarks No motor abnormalities noted Labs Test 10/29/16 17:48 Ammonia 58 MCMOL/L Valproic Acid (Depakene) Level 60 MCG/ML Labs reviewed. Depakote level within the therapeutic range. Ammonia level is slightly elevated without signs of encephalopathy. Vitals/IOs Vital Signs Date Time Temp Pulse Resp B/P Pulse Ox O2 Delivery O2 Flow Rate FiO2 10/30/16 06:33 97.4 68 18 90/66 98 Assessment & Plan Problem List: (1) Schizoaffective disorder ICD Code: F25.9 (2) Cannabis abuse ICD Code: F12.10 Assessment & Plan Patient would like to start Prolixin Decanoate, which he has tolerated well in the past. He is also somewhat hypotensive, which may be related to his high dose of Zyprexa. To try to correct both of these issues, I will taper Zyprexa, discontinuing the morning dose but continuing the evening dose of 15 mg. I will initiate Prolixin Decanoate at that dose the patient previously required, 37.5 mg IM. I will titrate patient's Carnitor in light of his hyperammonemia and recheck an ammonia level. Continue to monitor on the high acuity inpatient unit. Continue other medications and care as ordered. Justification for Cont. Inpt. Medication changes in process. High risk for decompensation pending psychiatric stabilization. Discharge Planning Pending psychiatric stabilization. Request HC Surrog/Guard Advoc?: Yes Problem Qualifiers (1) Schizoaffective disorder: Qualified Code: F25.0 - Schizoaffective disorder, bipolar type Kirby Melendez MD October 30, 2016 09:04
[2016-10-30] MEDS: LEVOCARNITINE 10% PO SCH ×2 (12:46→17:57)
[2016-10-30] MEDS: LORazepam 1 MG TAB PO PRN (17:56)
[2016-10-30 17:57] VITALS: BP 117/69; PULSE 96; RESP 17; TEMP 98.1; O2SAT 99
[2016-10-30] MEDS ORDERED: OLANZapine IM 10 MG VIAL IM PRN (21:00)
[2016-10-30] MEDS: DIVALPROEX SODIUM E.R. 500 MG TAB PO SCH (21:13)
[2016-10-31] MEDS: levOCARNitine 10% ORAL SOLN 118 ML BTL PO SCH ×3 (09:09→17:37)
[2016-10-31] MEDS: LEVOCARNITINE 10% PO SCH ×3 (09:09→17:37)
--- NOTE | 2016-10-31 13:47 | HHI.PYPN ---
Subjective Remarks Patient was seen and case discussed with nursing. Patient is oppositional and refusing to cooperate with interview. Spending most of the day in bed. Per nursing he received his Prolixin Decanoate tolerated it well. Is alert and oriented 3. No behavioral outbursts today Objective Alert: Yes [place]: Person, Place, Date Mood: Oppositional Affect: Blunted Memory Intact: Comment (fair) Hallucinations: Other (internally preoccupied) Delusions: Yes Delusion Type: Paranoid (internally preoccupied) Suicidal: Ideation (No SI) Homicidal: Ideation (No HI) Insight/Judgment Poor Vitals/IOs Vital Signs Date Time Temp Pulse Resp B/P Pulse Ox O2 Delivery O2 Flow Rate FiO2 10/30/16 17:57 98.1 96 17 117/69 99 Assessment & Plan Problem List: (1) Schizoaffective disorder ICD Code: F25.9 (2) Cannabis abuse ICD Code: F12.10 Assessment & Plan Continue current treatment plan Justification for Cont. Inpt. Patient will decompensate in a less restrictive setting Request HC Surrog/Guard Advoc?: Yes Problem Qualifiers (1) Schizoaffective disorder: Qualified Code: F25.0 - Schizoaffective disorder, bipolar type Jorge Best DO October 31, 2016 13:46
[2016-10-31 14:53] VITALS: BP 95/64; PULSE 75; RESP 17; TEMP 97.8; O2SAT 98
[2016-10-31] MEDS: LORazepam 1 MG TAB PO PRN (19:34)
[2016-10-31] MEDS: DIVALPROEX SODIUM E.R. 500 MG TAB PO SCH (21:33)
[2016-11-01 05:46] VITALS: BP 110/59; PULSE 60; RESP 16; TEMP 96.7; O2SAT 99
[2016-11-01] MEDS: levOCARNitine 10% ORAL SOLN 118 ML BTL PO SCH ×3 (09:00→17:43)
[2016-11-01] MEDS: LEVOCARNITINE 10% PO SCH ×3 (09:00→17:43)
--- NOTE | 2016-11-01 12:16 | HHI.PYPN ---
Subjective Remarks Patient was seen and case discussed with nursing. Patient interviewed in his room and was awoken for the interview. He is more cooperative today. However, continues to have poor insight into his mental health since for admission. Focused on discharge. Hyporverbal, one-word answers. Continues to deny psychotic symptoms Objective Alert: Yes [place]: Person, Place, Date Mood: Oppositional Affect: Blunted Memory Intact: Comment (fair) Hallucinations: Other (internally preoccupied) Delusions: Yes Delusion Type: Paranoid (internally preoccupied) Suicidal: Ideation (No SI) Homicidal: Ideation (No HI) Insight/Judgment Poor Vitals/IOs Vital Signs Date Time Temp Pulse Resp B/P Pulse Ox O2 Delivery O2 Flow Rate FiO2 11/01/16 05:46 96.7 60 16 110/59 99 Assessment & Plan Problem List: (1) Schizoaffective disorder ICD Code: F25.9 (2) Cannabis abuse ICD Code: F12.10 Assessment & Plan Continue current treatment plan Justification for Cont. Inpt. Patient will decompensate in a less restrictive setting Request HC Surrog/Guard Advoc?: Yes Problem Qualifiers (1) Schizoaffective disorder: Qualified Code: F25.0 - Schizoaffective disorder, bipolar type Jorge Best DO November 01, 2016 12:16
[2016-11-01 18:08] VITALS: BP 117/59; PULSE 94; RESP 18; TEMP 98.6; O2SAT 98
[2016-11-01] MEDS: DIVALPROEX SODIUM E.R. 500 MG TAB PO SCH (20:00)
[2016-11-01] MEDS: LORazepam 1 MG TAB PO PRN (22:03)
[2016-11-02 05:51] VITALS: BP 125/58; PULSE 78; RESP 18; TEMP 98.7; O2SAT 98
[2016-11-02] MEDS: LEVOCARNITINE 10% PO SCH (09:00)
[2016-11-02] MEDS: levOCARNitine 10% ORAL SOLN 118 ML BTL PO SCH (09:00)
[2016-11-02] MEDS ORDERED: FLUP1INJ SQ (10:05)
[2016-11-02] MEDS ORDERED: OLAN15TA PO (10:05)
[2016-11-02] MEDS ORDERED: DIVA250ER PO (10:05)
[2016-11-02] MEDS ORDERED: LEVO10%S PO (10:05)
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
== END 2016-11-02 12:00 | disposition home or self-care (01) | DRG 885 ==
LOC: NEPD 21:17 → NEDA 10-25 15:51 → H270 10-25 17:38
PROVIDERS: ADMIT Psychiatry & Neurology Psychiatry; ATTEND Psychiatry & Neurology Psychiatry
DX: F25.9 Schizoaffective disorder, unspecified (principal); F17.210 Nicotine dependence, cigarettes, uncomplicated; F12.10 Cannabis abuse, uncomplicated; R32 Unspecified urinary incontinence
CPT/HCPCS: 80053; 80164; 80307; 81001; 82140; 85025; 99284; J2680

== ENCOUNTER 2016-11-18 23:10 | Emergency (ER) | payer MEDICAID, OTHER ==
[~2016-11-18] VITALS: Ht 175.3 cm; Wt 68.0 kg
[~2016-11-18 23:10] MED LIST changes: -CLOT1CRE6 TOPICAL; -FLUP1INJ IM; +FLUP1INJ SQ; -OLAN5TAB PO
[2016-11-18 23:12] VITALS: BP 117/67; PULSE 74; RESP 14; TEMP 98.2; O2SAT 98
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
[2016-11-19 00:46] LABS: AUTOMATED NEUTROPHIL # 3.7 TH/MM3 (1.8-7.7); BASOPHIL % 0.4 % (0.0-2.0); EOSINOPHIL # 0.1 TH/MM3 (0-0.4); EOSINOPHIL % 1.5 % (0.0-4.0); HEMATOCRIT 36.4 % (39.0-51.0); HEMO FLAGS DIFF FINAL; LYMPH % 30.5 % (9.0-44.0); LYMPHOCYTE # 1.9 TH/MM3 (1.0-4.8); MEAN CELL VOLUME 64.7 FL (80.0-100.0); MEAN CORPUSCULAR HEMOGLOBIN 20.7 PG (27.0-34.0); NEUT % 60.6 % (16.0-70.0); PLATELET COUNT 174 TH/MM3 (150-450); RED BLOOD COUNT 5.63 MIL/MM3 (4.50-5.90); RED CELL DISTRIBUTION WIDTH 14.4 % (11.6-17.2); WHITE BLOOD COUNT 6.1 TH/MM3 (4.0-11.0)
[2016-11-19 01:01] LABS: ANION GAP 6 MEQ/L (5-15)
[2016-11-19 01:04] LABS: ACETAMINOPHEN LESS THAN 2.0 MCG/ML (10.0-30.0); ALKALINE PHOSPHATASE 45 U/L (45-117); ALT (GPT) 13 U/L (12-78); AST (GOT) 11 U/L (15-37); BICARBONATE 26.7 MEQ/L (21.0-32.0); BLOOD UREA NITROGEN 9 MG/DL (7-18); CHLORIDE 107 MEQ/L (98-107); GLOMERULAR FILTRATION RATE 113 ML/MIN (>89); POTASSIUM 3.4 MEQ/L (3.5-5.1); SODIUM (NA) 140 MEQ/L (136-145); TOTAL BILIRUBIN ADULT 0.5 MG/DL (0.2-1.0)
[2016-11-19 06:02] VITALS: BP 124/74; PULSE 68; RESP 14; O2SAT 99
[2016-11-19 06:26] LABS: AMPHETAMINE, URINE NEG (NEG); BARBITURATES, URINE NEG (NEG); COCAINE, URINE NEG (NEG)
== END 2016-11-19 10:41 | disposition left against medical advice (07) ==
LOC: NEPD 23:10
DX: F20.9 Schizophrenia, unspecified (principal); Z79.899 Other long term (current) drug therapy
CPT/HCPCS: 80053; 80307; 85025; 99284

== ENCOUNTER 2016-12-21 03:21 | Emergency (ER) | payer MEDICAID, OTHER ==
[~2016-12-21] VITALS: Ht 175.3 cm; Wt 67.0 kg
[2016-12-21 03:24] VITALS: BP 118/73; PULSE 94; RESP 16; TEMP 97.9; O2SAT 100
[2016-12-21 03:38] VITALS: BP 113/74; PULSE 89; RESP 20; O2SAT 100
== END 2016-12-21 04:20 | disposition left against medical advice (07) ==
LOC: NEPD 03:21
DX: Z04.3 Encounter for examination and observation following other accident (principal); Z53.21 Procedure and treatment not carried out due to patient leaving prior to being seen by health care provider
CPT/HCPCS: 99281

== ENCOUNTER 2017-01-16 18:57 | Emergency (ER) | payer MEDICAID ==
[~2017-01-16] VITALS: Ht 175.3 cm; Wt 64.0 kg
[2017-01-16 18:58] VITALS: BP 115/64; PULSE 86; RESP 15; TEMP 98.2; O2SAT 98
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
[2017-01-16 21:08] LABS: AUTOMATED NEUTROPHIL # 1.4 TH/MM3 (1.8-7.7); BASOPHIL % 0.6 % (0.0-2.0); EOSINOPHIL # 0.1 TH/MM3 (0-0.4); EOSINOPHIL % 2.1 % (0.0-4.0); HEMO FLAGS DIFF FINAL; MEAN CELL VOLUME 66.5 FL (80.0-100.0); MEAN CORPUSCULAR HEMOGLOBIN 20.8 PG (27.0-34.0); MEAN CORPUSCULAR HGB CONC 31.2 % (32.0-36.0); MONO % 8.8 % (0.0-8.0); NEUT % 36.5 % (16.0-70.0); PLATELET COUNT 179 TH/MM3 (150-450); RED BLOOD COUNT 5.42 MIL/MM3 (4.50-5.90); RED CELL DISTRIBUTION WIDTH 15.2 % (11.6-17.2); WHITE BLOOD COUNT 3.9 TH/MM3 (4.0-11.0)
[2017-01-16 21:16] LABS: AMPHETAMINE, URINE NEG (NEG); BARBITURATES, URINE NEG (NEG); COCAINE, URINE NEG (NEG)
[2017-01-16 21:30] LABS: ALT (GPT) 19 U/L (12-78); ANION GAP 6 MEQ/L (5-15); AST (GOT) 12 U/L (15-37); BICARBONATE 25.7 MEQ/L (21.0-32.0); BLOOD UREA NITROGEN 11 MG/DL (7-18); CHLORIDE 108 MEQ/L (98-107); GLOMERULAR FILTRATION RATE 113 ML/MIN (>89); POTASSIUM 3.7 MEQ/L (3.5-5.1); SODIUM (NA) 140 MEQ/L (136-145)
[2017-01-16 21:33] LABS: ALKALINE PHOSPHATASE 47 U/L (45-117); TOTAL BILIRUBIN ADULT 0.6 MG/DL (0.2-1.0)
[2017-01-16 22:46] VITALS: BP 109/69; PULSE 60; RESP 18; TEMP 97.8; O2SAT 95
[2017-01-17 02:04] VITALS: BP 112/72; PULSE 66; RESP 18
[2017-01-17 06:00] VITALS: BP 116/68; PULSE 61; RESP 18
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
[2017-01-17 10:22] VITALS: BP 116/68
== END 2017-01-17 10:46 | disposition home or self-care (01) ==
LOC: NEPJ 18:57
DX: F20.0 Paranoid schizophrenia (principal)
CPT/HCPCS: 80053; 80307; 85025; 99284

== ENCOUNTER 2017-03-09 14:02 | Emergency (ER) | payer MEDICAID ==
[~2017-03-09] VITALS: Ht 170.2 cm; Wt 59.0 kg
[2017-03-09 14:05] VITALS: BP 112/76; PULSE 82; RESP 14; TEMP 98.4; O2SAT 98
== END 2017-03-09 14:50 | disposition left against medical advice (07) ==
LOC: NED 14:02
DX: Z00.8 Encounter for other general examination (principal); Z53.21 Procedure and treatment not carried out due to patient leaving prior to being seen by health care provider
CPT/HCPCS: 99281

== ENCOUNTER 2017-04-14 04:35 | Emergency (ER) | payer MEDICAID ==
[~2017-04-14] VITALS: Ht 175.3 cm; Wt 75.0 kg
[2017-04-14 04:38] VITALS: BP 132/79; PULSE 82; RESP 16; TEMP 98.5; O2SAT 100
[2017-04-14 05:28] LABS: BLOOD, URINE NEG (NEG); COMMENT (UR) CULT NOT INDICATED; CULTURE IF INDICATED CULT NOT INDICATED; GLUCOSE,URINE NEG (NEG); KETONE, URINE NEG (NEG); MUCUS URINE FEW /lpf (OCC); NITRITE,URINE NEG (NEG); PH, URINE 6.5 (5.0-8.5); SQUAMOUS EPITHELIAL CELL URINE <1 /hpf (0-5); URINE COLOR YELLOW (YELLW/STRAW)
[2017-04-14] MEDS ORDERED: CIPR-9 PO (05:37)
--- NOTE | 2017-04-14 05:37 | PD ---
HPI Chief Complaint: Complaint Time Seen by Provider: 05:33 Travel History International Travel<30 days: No Contact w/Intl Traveler<30days: No Traveled to known affect area: No History of Present Illness HPI BURNING WITH URINATION, STATED THAT HE NOTED BLOOD IN URINE WELL, DENIES ANY FLANK PAIN, OR ABD PAIN. NO FEVER. NO ALLEVIATING FACTORS, AGGRAVATED BY URINATION. DENIES FREQUENCY/ URGENCY BUT POSITIVE DYSURIA OF 5/10. PFSH Past Medical History Hx Anticoagulant Therapy: No Anemia: Yes Blood Disorders: No Bipolar Disorder: Yes Anxiety: Yes Cardiovascular Problems: No Chemotherapy: No Chest Pain: Yes Cerebrovascular Accident: No Diabetes: No Diminished Hearing: No Endocrine: No Gastrointestinal Disorders: No Genetic Disorder: Yes (sickle cell trait) Genitourinary: Yes (h/o testicular thrombosis, UTI) Headaches: Yes Immune Disorder: No Implanted Vascular Access Dvce: No Musculoskeletal: No Neurologic: No Psychiatric: Yes (Schizophrenia) Reproductive: Yes Respiratory: No Immunizations Current: Yes Schizophrenia: Yes (paranoid schizophrenia) Seizures: Yes Sickle Cell Disease: Yes (trait) Tetanus Vaccination: Unknown Past Surgical History Abdominal Surgery: No Cardiac Surgery: No Ear Surgery: No Endocrine Surgery: No Eye Surgery: No Genitourinary Surgery: No Gynecologic Surgery: No Hysterectomy: No Neurologic Surgery: No Oral Surgery: No Thoracic Surgery: No Other Surgery: Yes (removal of right wrist cyst) Social History Alcohol Use: No (DENIES) Tobacco Use: Yes (1 ppd) Substance Use: Yes (merle, marijuana, flakka) Allergies-Medications (Allergen,Severity, Reaction): Coded Allergies: Pork/Porcine Containing Products (Unverified Adverse Reaction, Intermediate, Nausea/Vomiting, 03/09/17) Reported Meds & Prescriptions Reported Meds & Active Scripts Active Fluphenazine Decanoate Inj (Fluphenazine Decanoate) 125 Mg/5 Ml Inj 37.5 Mg SQ Q21D This dose of fluphenazine dec is due on 11/20/2016. Olanzapine 15 Mg Tab 15 Mg PO HS 15 Days Depakote ER (Divalproex Sodium) 250 Mg Claudia 1,500 Mg PO HS 15 Days Pharmacist: Ok to dispense in any strength so long as dose is the same. Carnitor Liq (Levocarnitine) 1 Gm/10 Ml Soln 6 Ml PO TID 15 Days Review of Systems Except as stated in HPI: all other systems reviewed are Neg Genitourinary: Positive: Dysuria, Hematuria Physical Exam Narrative GENERAL: SKIN: Warm and dry. HEAD: Atraumatic. Normocephalic. EYES: Pupils equal and round. No scleral icterus. No injection or drainage. ENT: No nasal bleeding or discharge. Mucous membranes pink and moist. NECK: Trachea midline. No JVD. CARDIOVASCULAR: Regular rate and rhythm. RESPIRATORY: No accessory muscle use. Clear to auscultation. Breath sounds equal bilaterally. GASTROINTESTINAL: Abdomen soft, non-tender, nondistended. MUSCULOSKELETAL: Extremities without clubbing, cyanosis, or edema. No obvious deformities. NEUROLOGICAL: Awake and alert. No obvious cranial nerve deficits. Motor grossly within normal limits. Five out of 5 muscle strength in the arms and legs. Normal speech. PSYCHIATRIC: Appropriate mood and affect; insight and judgment normal. Data Data Last Documented VS Vital Signs Date Time Temp Pulse Resp B/P (MAP) Pulse Ox O2 Delivery O2 Flow Rate FiO2 04/14/17 04:38 98.5 82 16 132/79 (96) 100 Orders Orders Urinalysis - C+S If Indicated (04/14/17 05:11) Labs Laboratory Tests Test 04/14/17 05:10 Urine Color YELLOW Urine Turbidity CLEAR Urine pH 6.5 Urine Specific [place] 1.024 Urine Protein TRACE mg/dL Urine Glucose (UA) NEG mg/dL Urine Ketones NEG mg/dL Urine Occult Blood NEG Urine Nitrite NEG Urine Bilirubin NEG Urine Urobilinogen 2.0 MG/DL Urine Leukocyte Esterase NEG Urine RBC LESS THAN 1 /hpf Urine WBC 1 /hpf Urine Squamous Epithelial Cells <1 /hpf Urine Mucus FEW /lpf Microscopic Urinalysis Comment CULT NOT INDICATED [facility] Medical Decision Making Medical Screen Exam Complete: Yes Emergency Medical Condition: Yes Medical Record Reviewed: Yes Differential Diagnosis UTI V URETHRITIS Narrative Course PATIENT IS NOT SI/HI AT THIS TIME AND ONLY COMPLAINT IS THAT HPI. UA IS NEG FOR UTI AND NO RBC'S NOTED, C/W URETHRITIS Diagnosis Primary Impression: Urethritis Patient Instructions: General Instructions, Nonspecific Urethritis in Men (ED) Scripts Ciprofloxacin (Cipro) 500 Mg Tab 500 MG PO BID for Infection for 7 Days, #14 TAB 0 Refills Prov: Jesus Garcia MD 04/14/17 Disposition: 01 DISCHARGE HOME Condition: Stable Jesus Garcia MD Apr 14, 2017 05:37
== END 2017-04-14 05:59 | disposition home or self-care (01) ==
LOC: NEPC 04:35
DX: N34.2 Other urethritis (principal)
CPT/HCPCS: 81001; 99283

== ENCOUNTER 2017-07-07 10:08 | Emergency (ER) | payer MEDICAID ==
[~2017-07-07] VITALS: Ht 170.2 cm; Wt 60.0 kg
[~2017-07-07 10:08] MED LIST changes: +CIPR-9 PO
[2017-07-07 10:09] VITALS: BP 128/90; PULSE 90; RESP 18; TEMP 98.6; O2SAT 98
== END 2017-07-07 14:22 | disposition left against medical advice (07) ==
LOC: NED 10:08
DX: Z53.21 Procedure and treatment not carried out due to patient leaving prior to being seen by health care provider (principal)
CPT/HCPCS: 99281

== ENCOUNTER 2017-07-21 15:24 | Inpatient (IN) | payer MEDICAID, OTHER ==
[~2017-07-21] VITALS: Ht 175.3 cm; Wt 61.8 kg
[2017-07-21 15:26] VITALS: BP 114/69; PULSE 104; RESP 16; TEMP 98.8; O2SAT 98
[2017-07-21] MEDS ORDERED: BENZATROPINE PO (16:29)
[2017-07-21] MEDS ORDERED: HALO10TA PO (16:29)
[2017-07-21 16:30] LABS: AUTOMATED NEUTROPHIL # 4.1 TH/MM3 (1.8-7.7); BASOPHIL % 0.6 % (0.0-2.0); EOSINOPHIL % 0.1 % (0.0-4.0); HEMATOCRIT 33.6 % (39.0-51.0); HEMOGLOBIN 10.8 GM/DL (13.0-17.0); LYMPH % 23.6 % (9.0-44.0); LYMPHOCYTE # 1.4 TH/MM3 (1.0-4.8); MEAN CELL VOLUME 65.7 FL (80.0-100.0); MONO % 7.4 % (0.0-8.0); MONOCYTE # 0.4 TH/MM3 (0-0.9); NEUT % 68.3 % (16.0-70.0); PLATELET COUNT 305 TH/MM3 (150-450); RED BLOOD COUNT 5.12 MIL/MM3 (4.50-5.90); RED CELL DISTRIBUTION WIDTH 14.7 % (11.6-17.2); WHITE BLOOD COUNT 6.1 TH/MM3 (4.0-11.0)
[2017-07-21 16:42] LABS: ALBUMIN 3.5 GM/DL (3.4-5.0); AST (GOT) 14 U/L (15-37); BICARBONATE 30.2 MEQ/L (21.0-32.0); BLOOD UREA NITROGEN 7 MG/DL (7-18); CALCIUM 8.5 MG/DL (8.5-10.1); CHLORIDE 108 MEQ/L (98-107); CREATININE 0.82 MG/DL (0.60-1.30); GLOMERULAR FILTRATION RATE 110 ML/MIN (>89); GLUCOSE,RANDOM 80 MG/DL (74-106); SODIUM (NA) 142 MEQ/L (136-145)
[2017-07-21 16:54] LABS: ALKALINE PHOSPHATASE 56 U/L (45-117); ALT (GPT) 18 U/L (12-78); TOTAL BILIRUBIN ADULT 0.4 MG/DL (0.2-1.0); TOTAL PROTEIN 7.3 GM/DL (6.4-8.2)
[2017-07-21] MEDS ORDERED: diphenhydrAMINE HCL 50 MG/ML VIAL IM ONE (17:00)
[2017-07-21] MEDS ORDERED: HALOPERIDOL LACTATE 5 MG/ML AMP IM ONE (17:00)
[2017-07-21 17:07] LABS: ACETAMINOPHEN LESS THAN 2.0 MCG/ML (10.0-30.0)
--- NOTE | 2017-07-21 17:10 | PD ---
HPI Chief Complaint: Psychiatric Symptoms Time Seen by Provider: 16:10 Travel History International Travel<30 days: No Contact w/Intl Traveler<30days: No History of Present Illness HPI 31-year-old male that presents to the ED for evaluation of psych. Patient came here voluntarily for this. The patient was sent here from [facility] for evaluation of psychosis. Per patient his been having hallucinations and hearing voices. Per patient his been hearing the voices telling him to hurt himself. He denies any medical issues or the temperature medicine when asked what he means by arthritis she states that he has pain in his urethra but he points to his testicles. He denies any drug abuse other than marijuana. Patient comes here with mother who states the patient has been compliant with his although and Xanax but continues to have symptoms and wanted them to come here to get evaluated. He has been psychotic per family member. No other medical issues. No allergies to medication. PFSH Past Medical History Anemia: Yes Schizophrenia: Yes Sickle Cell Disease: Yes Influenza Vaccination: Yes Social History Alcohol Use: No Tobacco Use: Yes Substance Use: Yes (MARIJUANA) Allergies-Medications (Allergen,Severity, Reaction): Coded Allergies: No Known Allergies (Unverified , 07/21/17) Reported Meds & Prescriptions Reported Meds & Active Scripts Active Reported [Benzatropine] 5 Mg PO DAILY Haloperidol 10 Mg Tab 10 Mg PO DAILY Review of Systems ROS Limitations: Psychotic Except as stated in HPI: all other systems reviewed are Neg Physical Exam Exam Limitations: Psychotic Narrative GENERAL: SKIN: Warm and dry. HEAD: Atraumatic. Normocephalic. EYES: Pupils equal and round. No scleral icterus. No injection or drainage. ENT: No nasal bleeding or discharge. Mucous membranes pink and moist. Tongue is midline. No uvula deviation. NECK: Trachea midline. No JVD. CARDIOVASCULAR: Regular rate and rhythm. No murmurs, S3, S4. RESPIRATORY: No accessory muscle use. Clear to auscultation. Breath sounds equal bilaterally. GASTROINTESTINAL: Abdomen soft, non-tender, nondistended. Hepatic and splenic margins not palpable. MUSCULOSKELETAL: Extremities without clubbing, cyanosis, or edema. No obvious deformities. Full range of motion of the upper and lower extremities bilaterally. Genital exam: The with female nurse present. Patient has no obvious mass or deformity noted on the testicle or penis. Patient is circumcised. NEUROLOGICAL: Awake and alert. No obvious cranial nerve deficits. Motor grossly within normal limits. Five out of 5 muscle strength in the arms and legs. Normal speech. PSYCHIATRIC: Appropriate mood and affect; insight and judgment normal. Data Data Last Documented VS Vital Signs Date Time Temp Pulse Resp B/P (MAP) Pulse Ox O2 Delivery O2 Flow Rate FiO2 07/21/17 16:32 18 07/21/17 15:26 98.8 104 114/69 (84) 98 Orders Orders Complete Blood Count With Diff (07/21/17 15:38) Comprehensive Metabolic Panel (07/21/17 15:38) Thyroid Stimulating Hormone (07/21/17 15:38) Psych Screen (07/21/17 15:38) Drug Screen, Random Urine (07/21/17 15:38) Alcohol (Ethanol) (07/21/17 15:38) Salicylates (Aspirin) (07/21/17 15:38) Tylenol (Acetaminophen) (07/21/17 15:38) Haloperidol Inj (Haldol Inj) (07/21/17 17:00) Diphenhydramine Inj (Benadryl Inj) (07/21/17 17:00) Labs Laboratory Tests Test 07/21/17 15:44 White Blood Count 6.1 TH/MM3 Red Blood Count 5.12 MIL/MM3 Hemoglobin 10.8 GM/DL Hematocrit 33.6 % Mean Corpuscular Volume 65.7 FL Mean Corpuscular Hemoglobin 21.0 PG Mean Corpuscular Hemoglobin Concent 32.0 % Red Cell Distribution Width 14.7 % Platelet Count 305 TH/MM3 Mean Platelet Volume 9.0 FL Neutrophils (%) (Auto) 68.3 % Lymphocytes (%) (Auto) 23.6 % Monocytes (%) (Auto) 7.4 % Eosinophils (%) (Auto) 0.1 % Basophils (%) (Auto) 0.6 % Neutrophils # (Auto) 4.1 TH/MM3 Lymphocytes # (Auto) 1.4 TH/MM3 Monocytes # (Auto) 0.4 TH/MM3 Eosinophils # (Auto) 0.0 TH/MM3 Basophils # (Auto) 0.0 TH/MM3 CBC Comment DIFF FINAL Differential Comment Salicylates Level LESS THAN 1.7 MG/DL Urine Opiates Screen NEG Urine Barbiturates Screen NEG Urine Amphetamines Screen NEG Urine Benzodiazepines Screen NEG Urine Cocaine Screen NEG Urine Cannabinoids Screen POS MDM Medical Decision Making Medical Screen Exam Complete: Yes Emergency Medical Condition: Yes Medical Record Reviewed: Yes Interpretation(s) CBC & BMP Diagram 07/21/17 15:44 Total Protein 7.3, Albumin 3.5, Calcium Level 8.5, Alkaline Phosphatase 56, Aspartate Amino Transf (AST/SGOT) 14 L, Alanine Aminotransferase (ALT/SGPT) 18, Total Bilirubin 0.4 tox positive for cannabinoids Differential Diagnosis Depression versus suicidal ideation versus anxiety versus adjustment disorder versus mood disorder versus bipolar disorder versus schizophrenia versus paranoid disorder versus psychosis versus substance abuse versus alcohol abuse versus alcohol induced psychosis versus homicidality addition versus cutting versus personality disorder Narrative Course 31-year-old male that presents to the ED for evaluation of psych. Patient was properly examined and was found to have signs and symptoms consistent with psychiatric illness. No sign of acute medical distress. Labs were ordered. Patient was medically cleared. Okay to be seen by psych. I was asked to give medication for the patient as patient does appear to be somewhat psychotic and was actively masturbating per nurse. Patient was given IM dose of haldol as well as Benadryl. Mental health screening was discussed with the patient. 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
[2017-07-21 18:29] VITALS: BP 131/50; PULSE 84; RESP 16; TEMP 97.6; O2SAT 99
--- NOTE | 2017-07-21 19:46 | PD ---
History of Present Illness Chief Complaint: Psychiatric Symptoms Time Seen by Provider: 19:15 Travel History International Travel<30 Days: No Contact w/Intl Traveler<30days: No Legal Status Legal Status: Voluntary History of Present Illness: History of Present Illness HPI 31-year-old male with with reported history of schizophrenia that presents to the ED on a voluntary basis for psychiatric evaluation. The patient was at [facility] outpatient clinic and from there he was sent to the ED for further evaluation. He reports that he is been having increase in auditory hallucinations for the past 2-7 days and he reported to the ED provider that the voices were telling him to hurt himself. While in the ED the patient received ETO of Haldol and Benadryl as it was reported by nursing staff that he was psychotic and that he was masturbating in front of the nurses. Electronic medical record is reviewed. No previous history with [facility] psychiatry. Current toxicology is positive for cannabinoids. The patient is seen in [facility] pod. He is somnolent but makes an effort and engaging and answering questions. He admits to hearing the voices and states that he is stressed because his mother in 2014. At this time he is unable unable to distinguish what the voices are telling him. He is requesting hospitalization "to treat my voices. He reports medication compliance. I have contacted the next of kin listed on his medical record, Suma Lopez at [phone]. She tells me that she is his mother. She is concerned over her sons continue report of hearing voices which are telling him to harm himself. She also reports that he had been living by himself and in the past several weeks has been afraid of being in his home. She also tells me that he received an injection on Wednesday at [facility] but she is not aware of what that injection was. No other information is obtained as the call was terminated abruptly and I have been unable to reach them again. PFS Past Medical History Anemia: Yes Schizophrenia: Yes Sickle Cell Disease: Yes Influenza Vaccination: Yes Psychiatric History Psychiatric History Hx Psychiatric Treatment: Receives outpatient treatment at [facility]. Possible inpatient admission at [facility] as well but patient is unable to provide details. History of Inpatient Treatment: Yes Guns or firearms in home: No Social History Limited information is obtained from the patient. As per record he is single and lives by himself. Hx Alcohol Use: No Hx Tobacco Use: Yes Hx Substance Use: Yes (MARIJUANA) Allergies-Medications (Allergen,Severity, Reaction): Coded Allergies: No Known Allergies (Unverified , 07/21/17) Reported Meds & Prescriptions Reported Meds & Active Scripts Active Reported [Benzatropine] 5 Mg PO DAILY Haloperidol 10 Mg Tab 10 Mg PO DAILY Review of Systems ROS Limitations: Other (somnolent from medication) Mental Status Examination Appearance: Malodorous Consciousness: Somnolent Orientation: Person, Place, Situation Motor Activity: Other (in bed) Speech: Hesitant, Slow Language: Adequate Fund of Knowledge: Adequate (unable to determine) Attention and Concentration: Other (patient is somnolent with decreased attention and concentration) Memory: Impaired (unable to assess) Mood: Sad Affect: Blunt Thought Process & Associations: Other (diminished) Thought Content: Hallucinations Hallucination Type: Auditory (command type telling him to hurt himself) Delusion Type: Paranoid (possibly experiencing paranoid symptoms as his mother reports he is afraid to be by himself) Suicidal Ideation: No Suicidal Plan: No Suicidal Intention: No Homicidal Ideation: No Homicidal Plan: No Homicidal Intention: No Insight: Fair MDM Medical Decision Making Medical Record Reviewed: Yes Assessment/Plan 31-year-old male with reported history of schizophrenia who initially presents to the ED on a voluntary basis having been brought to [place] from [facility] outpatient clinic. The patient is requesting psychiatric hospitalization and is reporting increase in auditory hallucinations command type that tell him to hurt himself. He also tells me that he is stressed because his mother in 2014 but I contacted the next of kin listed and spoke with of female who states that she is the patient's mother. Suma Lopez reports that her son has been living by himself but has been afraid of staying in his home and has been experiencing an increase in hallucinations. The patient will be admitted to inpatient psychiatric unit for further evaluation, for safety and for stabilization. Further information would need to be obtained tomorrow from [facility] for recent medication changes and to verify reported injectable medication administration. Orders Orders Complete Blood Count With Diff (07/21/17 15:38) Comprehensive Metabolic Panel (07/21/17 15:38) Thyroid Stimulating Hormone (07/21/17 15:38) Psych Screen (07/21/17 15:38) Drug Screen, Random Urine (07/21/17 15:38) Alcohol (Ethanol) (07/21/17 15:38) Salicylates (Aspirin) (07/21/17 15:38) Tylenol (Acetaminophen) (07/21/17 15:38) Haloperidol Inj (Haldol Inj) (07/21/17 17:00) Diphenhydramine Inj (Benadryl Inj) (07/21/17 17:00) Results Vital Signs Date Time Temp Pulse Resp B/P (MAP) Pulse Ox O2 Delivery O2 Flow Rate FiO2 07/21/17 18:29 97.6 84 16 131/50 (77) 99 Room Air 07/21/17 16:32 18 07/21/17 15:26 98.8 104 16 114/69 (84) 98 Laboratory Tests Test 07/21/17 15:44 White Blood Count 6.1 Red Blood Count 5.12 Hemoglobin 10.8 Hematocrit 33.6 Mean Corpuscular Volume 65.7 Mean Corpuscular Hemoglobin 21.0 Mean Corpuscular Hemoglobin Concent 32.0 Red Cell Distribution Width 14.7 Platelet Count 305 Mean Platelet Volume 9.0 Neutrophils (%) (Auto) 68.3 Lymphocytes (%) (Auto) 23.6 Monocytes (%) (Auto) 7.4 Eosinophils (%) (Auto) 0.1 Basophils (%) (Auto) 0.6 Neutrophils # (Auto) 4.1 Lymphocytes # (Auto) 1.4 Monocytes # (Auto) 0.4 Eosinophils # (Auto) 0.0 Basophils # (Auto) 0.0 CBC Comment DIFF FINAL Differential Comment Blood Urea Nitrogen 7 Creatinine 0.82 Random Glucose 80 Total Protein 7.3 Albumin 3.5 Calcium Level 8.5 Alkaline Phosphatase 56 Aspartate Amino Transf (AST/SGOT) 14 Alanine Aminotransferase (ALT/SGPT) 18 Total Bilirubin 0.4 Sodium Level 142 Potassium Level 4.1 Chloride Level 108 Carbon Dioxide Level 30.2 Anion Gap 4 Estimat Glomerular Filtration Rate 110 Thyroid Stimulating Hormone 3rd Gen 0.436 Salicylates Level LESS THAN 1.7 Urine Opiates Screen NEG Acetaminophen Level LESS THAN 2.0 Urine Barbiturates Screen NEG Urine Amphetamines Screen NEG Urine Benzodiazepines Screen NEG Urine Cocaine Screen NEG Urine Cannabinoids Screen POS Ethyl Alcohol Level LESS THAN 3 Diagnosis Primary Impression: Schizophrenia Admitting Information Admitting Physician Requests: Admit Problem Qualifiers Primary Impression: Schizophrenia Qualified Codes: F20.0 - Paranoid schizophrenia Jojo Duke Jul 21, 2017 19:46
[2017-07-21] MEDS ORDERED: ALUMINUM/MAGNESIUM/SIMETH 30 ML CUP PO PRN (20:00)
[2017-07-21] MEDS ORDERED: ACETAMINOPHEN 325 MG TAB PO PRN (20:00)
[2017-07-21] MEDS ORDERED: MAGNESIUM HYDROXIDE SUSP 30 ML CUP PO PRN (20:00)
[2017-07-21 23:30] VITALS: BP 121/70; PULSE 77; RESP 18; TEMP 97; O2SAT 98
[2017-07-22 05:38] VITALS: BP 121/59; PULSE 82; RESP 18; TEMP 97.2; O2SAT 98
[2017-07-22 08:35] LABS: BICARBONATE 30.1 MEQ/L (21.0-32.0); BLOOD UREA NITROGEN 7 MG/DL (7-18); CALCIUM 8.7 MG/DL (8.5-10.1); CHLORIDE 107 MEQ/L (98-107); CREATININE 0.84 MG/DL (0.60-1.30); GLOMERULAR FILTRATION RATE 129 ML/MIN (>89); GLUCOSE,RANDOM 85 MG/DL (74-106); SODIUM (NA) 142 MEQ/L (136-145)
[2017-07-22 08:36] LABS: CHOLESTEROL 128 MG/DL (120-200); TRIGLYCERIDES 46 MG/DL (42-150)
[2017-07-22 08:39] LABS: CHOLESTEROL/ HDL RATIO 2.61 RATIO; HDL CHOLESTEROL 48.9 MG/DL (40.0-60.0); LDL CHOLESTEROL 70 MG/DL (0-99)
[2017-07-22] MEDS ORDERED: BENZ0.5T PO (11:40)
--- NOTE | 2017-07-22 12:14 | HHI.HP ---
Provisional Diagnosis Admission Date Jul 21, 2017 at 20:03 [place]. Schizophrenia, Cannabis use disorder Certification of Person's Competence To Provide Express and Informed Consent I have personally examined Kannan Allen , a person being served at [facility] on, Jul 22, 2017 12:03. Express and informed consent means consent voluntarily given in writing, by a competent person, after sufficient explanation and disclosure of the subject matter involved to enable the person to make a knowing and willful decision without any element of force, fraud, deceit, duress, or other form of constraint or coercion. This person is 18 years of age or older, is not now known to be incompetent to consent to treatment with a guardian advocate, and does not have a health care surrogate or proxy currently making medical treatment decisions. I have found this person to be one of the following: [x] Competent to provide express and informed consent, as defined above, for voluntary admission to this facility and is competent to provide express and informed consent for treatment. He/she has the consistent capacity to make well reasoned, willful, and knowing decisions concerning his or her medical or mental health treatment. The person fully and consistently understands the purpose of the admission for examination/placement and is fully capable of personally exercising all rights [place] [] Incompetent to provide express and informed consent to voluntary admission, and this is incompetent to provide express and informed consent to treatment. The person must be transferred to involuntary status and a petition for a guardian advocate filed with the Circuit Court. [] Refusing to provide express and informed consent to voluntary admission but is competent to provide express and informed consent for treatment. The person must be discharged or transferred to involuntary status. Form shall be completed within 24 hours of a person's arrival at the receiving facility and filed in the clinical record of each person: 1. Admitted on a voluntary basis 2. Permitted to provide express and informed consent to his/her own treatment 3. Allowed to transfer from involuntary to voluntary status 4. Prior to permitting a person to consent to his or her own treatment after having been previously found incompetent to consent to treatment. History of Present Illness Capacity: Has Capacity HPI Patient is a 21-year-old [place] as a diagnosis schizophrenia, marijuana use disorder, multiple psychiatric admissions, multiple ED visits who came in voluntarily due to endorsing auditory hallucinations command type to hurt himself which she was admitted to inpatient psychiatry for further evaluation and management. Patient in the ED was noted to have continue it auditory hallucinations and found masturbating from nurses which patient was provided with ETO of Haldol and Benadryl 1 and stated that his mother had although she currently is alive and staff had contacted her and reported patient living alone for several weeks. Patient was found lying in hospital bed noted to be calm initially but irritable and demanding discharge stated he was having auditory hallucinations because "because I was smoking weed " and reports having used about 5 joints of marijuana after his recent discharge from [facility] inpatient unit at discharge on 07/19/17. Patient at this time noted to be more irritable during interview and refuses to continue to cooperate after patient was advised to stay for further observation overnight. Discussion with nursing staff reported patient had any bizarre paranoid behavior but did refuse initially lab work but then later accepted. Past psychiatric history: Schizophrenia versus schizoaffective disorder, marijuana use disorder, previous psychiatric hospitalizations last time and [facility] in September 2016 but was recently discharged from [facility] on 07/19. Patient follows up at [facility] for Mrs. follow-up appointment. Patient reports being on Haldol and Cogentin and states having receive Haldol Decanoate doses specified. Substance use history: Marijuana use daily since his teenage years currently reporting wanting to stop. He denies use of any other substance. Past medical history: Sickle cell disease Allergies: NKDA Social history: Single, domiciled alone, has 1 daughter who lives with his grandparents, unemployed on SSI. Review of Systems Except as stated in HPI: all other systems reviewed are Neg Past Psych History Violence risk - others (6 mos) Low Violence risk - self (6 mos) Elevated recent report of command auditory hallucinations to hurt himself Substance Abuse History Drugs/Alcohol past 12 months Marijuana use daily since his teenage years currently reporting wanting to stop. He denies use of any other substance. Past Family Social History Coded Allergies: No Known Allergies (Unverified , 07/21/17) Reported Medications Benztropine (Benztropine) 0.5 Mg Tab, 5 MG PO DAILY, #60 TAB 0 Refills 07/22/17 Haloperidol (Haloperidol) 10 Mg Tab, 10 MG PO DAILY, TAB 0 Refills 07/21/17 Current Medications Medications (Trade) Dose Ordered Sig/Bunny Route Start Time Stop Time Status Last Admin (Tylenol) 650 mg Q4H PRN PO 07/21/17 20:00 (Milk Of Magnesia Liq) 30 ml DAILY PRN PO 07/21/17 20:00 (Mag-Al Plus Susp Liq) 30 ml Q6H PRN PO 07/21/17 20:00 Social History Single, domiciled alone, has 1 daughter who lives with his grandparents, unemployed on SSI. Patient's Strengths (min. 2) Verbally and communicative Physical Exam Vital Signs Vital Signs Date Time Temp Pulse Resp B/P (MAP) Pulse Ox O2 Delivery O2 Flow Rate FiO2 07/22/17 05:38 97.2 82 18 121/59 (79) 98 07/21/17 18:29 Room Air Lab Results Test 07/21/17 15:44 07/22/17 07:33 White Blood Count 6.1 TH/MM3 Red Blood Count 5.12 MIL/MM3 Hemoglobin 10.8 GM/DL Hematocrit 33.6 % Mean Corpuscular Volume 65.7 FL Mean Corpuscular Hemoglobin 21.0 PG Mean Corpuscular Hemoglobin Concent 32.0 % Red Cell Distribution Width 14.7 % Platelet Count 305 TH/MM3 Mean Platelet Volume 9.0 FL Neutrophils (%) (Auto) 68.3 % Lymphocytes (%) (Auto) 23.6 % Monocytes (%) (Auto) 7.4 % Eosinophils (%) (Auto) 0.1 % Basophils (%) (Auto) 0.6 % Neutrophils # (Auto) 4.1 TH/MM3 Lymphocytes # (Auto) 1.4 TH/MM3 Monocytes # (Auto) 0.4 TH/MM3 Eosinophils # (Auto) 0.0 TH/MM3 Basophils # (Auto) 0.0 TH/MM3 CBC Comment DIFF FINAL Differential Comment Blood Urea Nitrogen 7 MG/DL 7 MG/DL Creatinine 0.82 MG/DL 0.84 MG/DL Random Glucose 80 MG/DL 85 MG/DL Total Protein 7.3 GM/DL Albumin 3.5 GM/DL Calcium Level 8.5 MG/DL 8.7 MG/DL Alkaline Phosphatase 56 U/L Aspartate Amino Transf (AST/SGOT) 14 U/L Alanine Aminotransferase (ALT/SGPT) 18 U/L Total Bilirubin 0.4 MG/DL Sodium Level 142 MEQ/L 142 MEQ/L Potassium Level 4.1 MEQ/L 3.7 MEQ/L Chloride Level 108 MEQ/L 107 MEQ/L Carbon Dioxide Level 30.2 MEQ/L 30.1 MEQ/L Anion Gap 4 MEQ/L 5 MEQ/L Estimat Glomerular Filtration Rate 110 ML/MIN 129 ML/MIN Thyroid Stimulating Hormone 3rd Gen 0.436 uIU/ML Salicylates Level LESS THAN 1.7 MG/DL Urine Opiates Screen NEG Acetaminophen Level LESS THAN 2.0 MCG/ML Urine Barbiturates Screen NEG Urine Amphetamines Screen NEG Urine Benzodiazepines Screen NEG Urine Cocaine Screen NEG Urine Cannabinoids Screen POS Ethyl Alcohol Level LESS THAN 3 MG/DL Triglycerides Level 46 MG/DL Cholesterol Level 128 MG/DL LDL Cholesterol 70 MG/DL HDL Cholesterol 48.9 MG/DL Cholesterol/HDL Ratio 2.61 RATIO Mental Status Examination Appearance: Appropriate, Malodorous Consciousness: Alert, Somnolent Orientation: Person, Place, Situation Motor Activity: Other (in bed) Speech: Unremarkable, Hesitant, Slow Language: Adequate Fund of Knowledge: Inadequate Attention and Concentration: Adequate, Other (patient is somnolent with decreased attention and concentration) Memory: Unremarkable Mood: Irritable Affect: Irritable Thought Process & Associations: Goal directed, Linear Thought Content: Hallucinations (denies today) Hallucination Type: Auditory (denies today) Delusion Type: None Suicidal Ideation: No Suicidal Plan: No Suicidal Intention: No Homicidal Ideation: No Homicidal Plan: No Homicidal Intention: No Insight: Fair Judgment: Poor Assessment & Plan Problem List: (1) Schizophrenia ICD Codes: F20.9 - Schizophrenia, unspecified Status: Acute Assessment & Plan Patient is a 21-year-old P[place] as a diagnosis schizophrenia, marijuana use disorder, multiple psychiatric admissions, multiple ED visits who came in voluntarily due to endorsing auditory hallucinations command type to hurt himself which she was admitted to inpatient psychiatry for further evaluation and management. Patient at this time denies any perceptual disturbances, has not been noted to have any disorganized behavior or psychosis due to recent history of command auditory hallucinations to kill himself patient will be observed overnight with possible discharge tomorrow as his symptoms likely secondary to his recent substance use with marijuana. We'll continue Haldol 5 mg by mouth twice a day and Cogentin 0.5 mg by mouth twice a day. Continue to monitor mood and behavior. Attempted to obtain collateral from patient's mother but unsuccessful as no one answered the phone. ([phone]). Discharge planning in progress Discharge Planning Patient to return back to his residence Problem Qualifiers (1) Schizophrenia: Qualified Codes: F20.0 - Paranoid schizophrenia Akbar Dean MD Jul 22, 2017 12:14
[2017-07-22] MEDS ORDERED: PILL SPLITTER OTHER PRN (12:45)
[2017-07-22] MEDS: BENZTROPINE MESYLATE 1 MG TAB PO SCH ×2 (14:42→20:01)
[2017-07-22] MEDS: HALOPERIDOL 5 MG TAB PO SCH ×2 (14:42→20:01)
[2017-07-22 16:45] LABS: HEMOGLOBIN A1C 5.1 % (4.3-6.0)
[2017-07-22 17:15] VITALS: BP 112/64; PULSE 77; RESP 18; TEMP 98.3; O2SAT 97
[2017-07-23 05:59] VITALS: BP 118/63; PULSE 97; RESP 18; TEMP 98.2; O2SAT 98
[2017-07-23] MEDS: BENZTROPINE MESYLATE 1 MG TAB PO SCH (08:48)
[2017-07-23] MEDS: HALOPERIDOL 5 MG TAB PO SCH (08:48)
--- NOTE | 2017-07-23 10:25 | EKG ---
Date Performed: 07/22/2017 Time Performed: 13:00:58 PTAGE: 31 years EKG: Sinus rhythm NORMAL ECG NO PREVIOUS TRACING DOCTOR: Willian Gomez Interpretating Date/Time 07/23/2017 10:23:07
[2017-07-23] MEDS ORDERED: HALO5TAB PO (10:27)
[2017-07-23] MEDS ORDERED: Benztropine PO (10:27)
--- NOTE | 2017-07-23 10:28 | HHI.DS ---
Psychiatry Discharge Summary Inpatient Psychiatric care?: Yes Advance Directive: No Reason Not Provided: does not have Mental Health AdvanceDirective: No Health Care Proxy: No Admission Admission Date Jul 21, 2017 at 20:03 Admission Diagnosis: (1) Schizophrenia ICD Code: F20.9 - Schizophrenia, unspecified Brief History Patient is a 21-year-old Piter as a diagnosis schizophrenia, marijuana use disorder, multiple psychiatric admissions, multiple ED visits who came in voluntarily due to endorsing auditory hallucinations command type to hurt himself which she was admitted to inpatient psychiatry for further evaluation and management. Patient in the ED was noted to have continue it auditory hallucinations and found masturbating from nurses which patient was provided with ETO of Haldol and Benadryl 1 and stated that his mother had although she currently is alive and staff had contacted her and reported patient living alone for several weeks. Patient was found lying in hospital bed noted to be calm initially but irritable and demanding discharge stated he was having auditory hallucinations because "because I was smoking weed " and reports having used about 5 joints of marijuana after his recent discharge from [facility] inpatient unit at discharge on 07/19/17. Patient at this time noted to be more irritable during interview and refuses to continue to cooperate after patient was advised to stay for further observation overnight. Discussion with nursing staff reported patient had any bizarre paranoid behavior but did refuse initially lab work but then later accepted. Past psychiatric history: Schizophrenia versus schizoaffective disorder, marijuana use disorder, previous psychiatric hospitalizations last time and [facility] in September 2016 but was recently discharged from [facility] on 07/19. Patient follows up at [facility] for Mrs. follow-up appointment. Patient reports being on Haldol and Cogentin and states having receive Haldol Decanoate doses specified. Substance use history: Marijuana use daily since his teenage years currently reporting wanting to stop. He denies use of any other substance. Past medical history: Sickle cell disease Allergies: NKDA Social history: Single, domiciled alone, has 1 daughter who lives with his grandparents, unemployed on SSI. Tobacco Use In Past 30 Days: 5 or More Cigarettes/Day Alcohol Use: 2-4 Times Per Month Hospital Course Patient is a 21-year-old who carries as a diagnosis schizophrenia, marijuana use disorder, multiple psychiatric admissions, multiple ED visits who came in voluntarily due to endorsing auditory hallucinations command type to hurt himself which she was admitted to inpatient psychiatry for further evaluation and management. Patient started on Haldol 5mg PO BID and benztropine 0.5mg PO BID due to recent psychotic symptoms such as auditory hallucinations and bizarre delusions which patient endorsed in the ED but denied upon intial interview attributing his symptoms to recent THC use. Patient had one episode of agitation while in the ED that required emergency treatment orders to treat his symptoms and his agitation. Upon admission to the unit, patient did not have any further behavioral dyscontrol. Patient was noted to have continued improvement of mood , cessation of auditory hallucinations, and compliant with treatment. Patient was cooperative with staff, had no behavioral dyscontrol, and participated in groups and activities. Upon discharge patient stated that she was feeling good , denied any psychotic symptoms, denied any SI, HI or delusions. Patient recent presentation likely secondary to recent substance use which was noted to resolve once cleared from acute intoxication. Patient had received long acting injectible upon discharge from his recent admission. Patient was counseled on abtinence from substance use. Patient agreed to continue medication regimen and outpatient follow up for continuity of care. I have counseled the patient regarding warning signs for need to return to the psychiatric emergency room as part of a general safety plan. Patient advised to call 911 or go nearest ED in case of emergency. Patient agrees with plan. Results Blood Pressure 118 / 63 Vital Signs Date Time Temp Pulse Resp B/P (MAP) Pulse Ox O2 Delivery O2 Flow Rate FiO2 07/23/17 05:59 98.2 97 18 118/63 (81) 98 07/21/17 18:29 Room Air Laboratory Tests Test 07/21/17 15:44 07/22/17 07:33 Hemoglobin 10.8 GM/DL (13.0-17.0) Hematocrit 33.6 % (39.0-51.0) Mean Corpuscular Volume 65.7 FL (80.0-100.0) Mean Corpuscular Hemoglobin 21.0 PG (27.0-34.0) Aspartate Amino Transf (AST/SGOT) 14 U/L (15-37) Chloride Level 108 MEQ/L (98-107) Anion Gap 4 MEQ/L (5-15) Salicylates Level LESS THAN 1.7 MG/DL Acetaminophen Level LESS THAN 2.0 MCG/ML Urine Cannabinoids Screen POS (NEG) Valproic Acid (Depakene) Level LESS THAN 3 MCG/ML Laboratory Results Test 07/22/17 07:33 Cholesterol Level 128 MG/DL (120-200) HDL Cholesterol 48.9 MG/DL (40.0-60.0) Hemoglobin A1c 5.1 % (4.3-6.0) LDL Cholesterol 70 MG/DL (0-99) Triglycerides Level 46 MG/DL (42-150) Valproic Acid (Depakene) Level LESS THAN 3 MCG/ML Summary of Procedures none Pending results at discharge: No Medications # of Antipsychotic meds at D/C: 1 Approp Antipsych med options 1 - Minimum of three failed multiple trials of monotherapy. 2 - Documented plan to taper to monotherapy due to previous use of multiple meds OR cross-taper in progress at D/C. 3 - Documentation of augmentation of Clozapine. 4 - Justification other than those listed in allowable values 1-3, document here : Discharge Discharge Date: Jul 23, 2017 Discharge Diagnosis: (1) Schizophrenia ICD Code: F20.9 - Schizophrenia, unspecified Status: Acute Pt Condition on Discharge: Stable Discharge Disposition: Discharge Home Discharge Instructions Diet Instructions: As Tolerated, No Restrictions Activities you can perform: Regular-No Restrictions Discharge Time > 30 minutes Mental Status Examination Appearance: Appropriate, Malodorous Consciousness: Alert, Somnolent Orientation: Person, Place, Situation Motor Activity: Other (in bed) Speech: Unremarkable, Hesitant, Slow Language: Adequate Fund of Knowledge: Inadequate Attention and Concentration: Adequate, Other (patient is somnolent with decreased attention and concentration) Memory: Unremarkable Mood: Appropriate Affect: Appropriate, Irritable Thought Process & Associations: Goal directed, Linear Thought Content: Appropriate Hallucination Type: None Delusion Type: None Suicidal Ideation: No Suicidal Plan: No Suicidal Intention: No Homicidal Ideation: No Homicidal Plan: No Homicidal Intention: No Insight: Fair Judgment: Impulsive Discharge/Advance Care Plan Health Problems: (1) Schizophrenia Goals to promote your health * To prevent worsening of your condition and complications * To maintain your health at the optimal level Directions to meet your goals Take your medications as prescribed Follow your dietary instruction Follow activity as directed Keep your appointments as scheduled Take your immunizations and boosters as scheduled If your symptoms worsen call your PCP, if no PCP go to Urgent Care Center or Emergency Room For 18/01 questions related to your inpatient stay or results of tests pending at discharge, please contact Dr. Akbar Dean at Smoking is Dangerous to Your Health. Avoid second hand smoking Problem Qualifiers (1) Schizophrenia: Qualified Codes: F20.0 - Paranoid schizophrenia Akbar Dean MD Jul 23, 2017 10:28
== END 2017-07-23 12:40 | disposition home or self-care (01) | DRG 885 ==
LOC: NEPD 15:24 → NEDA 20:03 → MERGE 20:03 → H270 22:00
PROVIDERS: ADMIT Student in an Organized Health Care Education/Training Program; ATTEND Student in an Organized Health Care Education/Training Program
DX: F20.0 Paranoid schizophrenia (principal); D57.1 Sickle-cell disease without crisis; F12.90 Cannabis use, unspecified, uncomplicated; D64.9 Anemia, unspecified; F17.210 Nicotine dependence, cigarettes, uncomplicated; Z79.899 Other long term (current) drug therapy
CPT/HCPCS: 80048; 80053; 80061; 80164; 80307; 83036; 84443; 85025; 93005; 96372; J1200; J1630

== ENCOUNTER 2017-07-25 19:21 | Inpatient (IN) | payer MEDICAID, OTHER ==
[~2017-07-25] VITALS: Ht 175.3 cm; Wt 60.9 kg
[~2017-07-25 19:21] MED LIST changes: +Benztropine PO; +HALO5TAB PO
[2017-07-25 19:22] VITALS: BP 127/74; PULSE 111; RESP 16; TEMP 99.5; O2SAT 100
[2017-07-25 20:50] VITALS: BP 128/90; PULSE 99; RESP 20; TEMP 98.8; O2SAT 99
[2017-07-25] MEDS ORDERED: HALOPERIDOL LACTATE 5 MG/ML AMP IM ONE (21:00)
[2017-07-25] MEDS ORDERED: LORazepam 2 MG/ML VIAL IM ONE (21:00)
--- NOTE | 2017-07-25 22:03 | PD ---
HPI Chief Complaint: Psychiatric Symptoms Time Seen by Provider: 20:46 Travel History International Travel<30 days: No Contact w/Intl Traveler<30days: No Traveled to known affect area: No History of Present Illness HPI 31-year-old black male with a history of mental health presents to the ER acting psychotic in triage. The patient verbalized suicidal ideation and homicidal ideation. The patient was brought directly [facility] and medicated and placed in seclusion. An order for non-violent restraints were ordered at 2044. Patient was medicated with Haldol 10 mg and Ativan 2 mg. PFSH Past Medical History Anemia: Yes Schizophrenia: Yes Sickle Cell Disease: Yes Social History Alcohol Use: No Tobacco Use: Yes Substance Use: Yes (MARIJUANA) Allergies-Medications (Allergen,Severity, Reaction): Coded Allergies: No Known Allergies (Unverified , 07/25/17) Reported Meds & Prescriptions Reported Meds & Active Scripts Active [Benztropine] 1 MG Tab 0.5 Mg PO Q12HR 30 Days Haloperidol 5 Mg Tab 5 Mg PO BID 30 Days Review of Systems ROS Limitations: Psychotic Physical Exam Narrative GENERAL: Well-nourished, well-developed patient. SKIN: Warm and dry. HEAD: Normocephalic and atraumatic. EYES: No scleral icterus. No injection or drainage. ENT: No nasal drainage noted. Mucous membranes pink. Airway patent. NECK: Supple, trachea midline. Moves head freely without obvious discomfort. CARDIOVASCULAR: Regular rate and rhythm without murmurs, gallops, or rubs. RESPIRATORY: Breath sounds equal bilaterally. No accessory muscle use. GASTROINTESTINAL: Abdomen soft, non-tender, nondistended. EXTREMITIES: No cyanosis or edema. BACK: Nontender without obvious deformity. No CVA tenderness. NEURO: Patient is alert and oriented. no sensorimotor deficits. Nonfocal. Normal speech. PSYCH: The patient is acutely psychotic and delusional. Data Data Last Documented VS Vital Signs Date Time Temp Pulse Resp B/P (MAP) Pulse Ox O2 Delivery O2 Flow Rate FiO2 07/25/17 20:50 98.8 99 20 128/90 (103) 99 Room Air Orders Orders Restraints Violent (07/25/17 20:46) Drug Screen, Random Urine (07/25/17 20:46) Haloperidol Inj (Haldol Inj) (07/25/17 21:00) Lorazepam Inj (Ativan Inj) (07/25/17 21:00) Psych Screen (07/25/17 21:02) Labs Laboratory Tests Test 07/25/17 20:45 Urine Opiates Screen NEG Urine Barbiturates Screen NEG Urine Amphetamines Screen NEG Urine Benzodiazepines Screen NEG Urine Cocaine Screen POS Urine Cannabinoids Screen POS MDM Medical Decision Making Medical Screen Exam Complete: Yes Emergency Medical Condition: Yes Medical Record Reviewed: Yes Interpretation(s) Laboratory Tests Test 07/25/17 20:45 Urine Opiates Screen NEG Urine Barbiturates Screen NEG Urine Amphetamines Screen NEG Urine Benzodiazepines Screen NEG Urine Cocaine Screen POS Urine Cannabinoids Screen POS Differential Diagnosis MDM: High Differential diagnoses: Schizophrenia, schizoaffective disorder, bipolar, anxiety, depression, adjustment reaction, mood disorder NOS, ODD, depressive disorder NOS, dementia, dementia with agitation, psychosis NOS, substance induced mood disorder, DMDD, Asperger syndrome, infection,electrolyte abnormality, malingering. Narrative Course Mental health screening discussed with the patient. Psychiatric screen ordered. This is a 31-year-old black male with a history of schizophrenia and substance abuse. He came to the ER and aggressive psychotic fashion. To protect the staff as well as the patient he was placed in seclusion and medicated with Haldol 10 mg and Ativan 2 mg IM. Medications have had good results. This is schizophrenia with acute psychosis Diagnosis Primary Impression: schizophrenia with acute psychosis Condition: Trev Nugent Jul 25, 2017 22:03
[2017-07-25] MEDS ORDERED: MAGNESIUM HYDROXIDE SUSP 30 ML CUP PO PRN (23:15)
[2017-07-25] MEDS ORDERED: ACETAMINOPHEN 325 MG TAB PO PRN (23:15)
[2017-07-25] MEDS ORDERED: diphenhydrAMINE HCL 50 MG CAP PO PRN (23:15)
[2017-07-25] MEDS ORDERED: hydrOXYzine HCL 50 MG TAB PO PRN (23:15)
[2017-07-25] MEDS ORDERED: BENZTROPINE MESYLATE 1 MG TAB PO PRN (23:15)
[2017-07-25] MEDS ORDERED: ALUMINUM/MAGNESIUM/SIMETH 30 ML CUP PO PRN (23:15)
[2017-07-25] MEDS ORDERED: traZODone HCL 50 MG TAB PO PRN (23:15)
[2017-07-25] MEDS ORDERED: diphenhydrAMINE HCL 50 MG/ML VIAL IM PRN (23:15)
[2017-07-25] MEDS ORDERED: BENZTROPINE MESYLATE 2 MG/2 ML VIAL IM PRN (23:15)
[2017-07-25] MEDS ORDERED: diphenhydrAMINE HCL 50 MG/ML VIAL - HS PRN IM (23:15)
[2017-07-25] MEDS ORDERED: LORazepam 2 MG/ML VIAL IM PRN (23:15)
[2017-07-25] MEDS ORDERED: PILL SPLITTER OTHER PRN (23:30)
[2017-07-26 00:35] VITALS: BP 136/63; PULSE 90; RESP 17; TEMP 97.1; O2SAT 100
[2017-07-26 05:26] VITALS: BP 131/67; PULSE 75; RESP 17; TEMP 98.1; O2SAT 100
[2017-07-26] MEDS: NICOTINE 21 MG/24 HR PATCH T-DERMAL SCH (08:52)
[2017-07-26] MEDS ORDERED: HALOPERIDOL 5 MG TAB PO SCH (09:00)
[2017-07-26] MEDS ORDERED: BENZTROPINE MESYLATE 1 MG TAB PO SCH (09:00)
--- NOTE | 2017-07-26 10:57 | HHI.HP ---
Provisional Diagnosis Admission Date Jul 25, 2017 at 23:08 [place] I. 1. Schizoaffective disorder, bipolar type 2. Cannabis abuse 3. Cocaine abuse Franklin II. Deferred Certification of Person's Competence To Provide Express and Informed Consent I have personally examined Kannan Allen , a person being served at [facility] on, Jul 26, 2017 10:57. Express and informed consent means consent voluntarily given in writing, by a competent person, after sufficient explanation and disclosure of the subject matter involved to enable the person to make a knowing and willful decision without any element of force, fraud, deceit, duress, or other form of constraint or coercion. This person is 18 years of age or older, is not now known to be incompetent to consent to treatment with a guardian advocate, and does not have a health care surrogate or proxy currently making medical treatment decisions. I have found this person to be one of the following: [] Competent to provide express and informed consent, as defined above, for voluntary admission to this facility and is competent to provide express and informed consent for treatment. He/she has the consistent capacity to make well reasoned, willful, and knowing decisions concerning his or her medical or mental health treatment. The person fully and consistently understands the purpose of the admission for examination/placement and is fully capable of personally exercising all rights [place] [x] Incompetent to provide express and informed consent to voluntary admission, and this is incompetent to provide express and informed consent to treatment. The person must be transferred to involuntary status and a petition for a guardian advocate filed with the Circuit Court. [] Refusing to provide express and informed consent to voluntary admission but is competent to provide express and informed consent for treatment. The person must be discharged or transferred to involuntary status. Form shall be completed within 24 hours of a person's arrival at the receiving facility and filed in the clinical record of each person: 1. Admitted on a voluntary basis 2. Permitted to provide express and informed consent to his/her own treatment 3. Allowed to transfer from involuntary to voluntary status 4. Prior to permitting a person to consent to his or her own treatment after having been previously found incompetent to consent to treatment. History of Present Illness Capacity: Lacks Capacity Psych Chief Complaint: Psychosis HPI Mr. Allen is a 31-year-old male with a history of psychotic disorder and substance use issues who presented to the emergency department with psychotic symptoms. He verbalized suicidal and homicidal ideation per ED provider notes. He was placed under the Xiong act and required seclusion and chemical restraint because of agitation. Patient is well known to the inpatient psychiatric service here. He was just discharged Wednesday by Dr. Dean and was admitted under my care under a different medical record number in September 2016. Electronic medical record reviewed. Patient seen and examined with nurse. Chart reviewed. Case discussed with nursing staff. Patient noted to be irritable and psychotic by nursing staff. Patient is presently admitted to the lower acuity inpatient unit. On my examination today, the patient is irritable, oppositional and minimally cooperative. He answers many of my questions with "I plead the fifth amendment. " He tells me that he is going to [place] for his birthday. He appears internally stimulated. He is paranoid. Affect is dysphoric. He does not verbalize any suicidal or homicidal ideation but seems unreliable to contract for safety in his present state. He is unable to tolerate extended interview and yells at us repeatedly to "get out of my room!" Psychiatric interview is limited because of patient's degree of psychiatric impairment presently. No physical complaints. I have obtained outpatient treatment records from [facility]. Patient was treated there most recently on an outpatient basis in March 2017 and was on Inderal, Haldol and long-acting injectable Abilify at that time. Patient was also apparently hospitalized at [facility] earlier this month. Given the patient's degree of psychiatric impairment and need for healthcare surrogate as the patient is unable to participate in discussion regarding medication/treatment because of his psychosis, I have placed a call to the patient's mother, Suma Lopez at the number in the electronic medical record. Mother is erroneously listed as the patient's sister. She notes that the patient continues to exhibit a downward course of his psychotic illness. There are ongoing issues with substance use and medication non-adherence. She received a call from patient yesterday saying that someone had been murdered in his apartment, but when she went to his apartment to check, she discovered this was not so. She is willing to act as HCS and is in agreement with the treatment plan as outlined below. Review of Systems ROS Limitations: Uncooperative, Psychotic, Poor Historian Except as stated in HPI: all other systems reviewed are Neg Past Psych History Psychological trauma history No reported trauma history to me Violence risk - others (6 mos) Elevated. Psychotic and unpredictable. Already exhibited agitated behavior in ED. Violence risk - self (6 mos) Indeterminate. Psychotic and unpredictable. Substance Abuse History Drugs/Alcohol past 12 months Urine toxicology positive for cocaine and cannabinoids. Patient has historically abused cannabis. Patient is unable to provide chemical dependency history presently because of his degree of psychiatric impairment. Past Family Social History Coded Allergies: No Known Allergies (Unverified , 07/25/17) Past Medical History See electronic medical record Active Scripts [Benztropine] 1 MG TAB No Conflict Check, 0.5 MG PO Q12HR for health for 30 Days , #30 Prov:Akbar Dean MD 07/23/17 Haloperidol (Haloperidol) 5 Mg Tab, 5 MG PO BID for health for 30 Days, #60 TAB Prov:Akbar Dean MD 07/23/17 Discontinued Reported Medications Benztropine (Benztropine) 0.5 Mg Tab, 5 MG PO DAILY, #60 TAB 0 Refills 07/22/17 Haloperidol (Haloperidol) 10 Mg Tab, 10 MG PO DAILY, TAB 0 Refills 07/21/17 Current Medications Medications (Trade) Dose Ordered Sig/Bunny Route Start Time Stop Time Status Last Admin (Ativan) 1 mg Q6H PRN PO 07/25/17 23:15 (Ativan Inj) 1 mg Q6H PRN IM 07/25/17 23:15 (Atarax) 50 mg Q6H PRN PO 07/25/17 23:15 (Benadryl) 50 mg Q6H PRN PO 07/25/17 23:15 (Benadryl Inj) 50 mg Q6H PRN IM 07/25/17 23:15 (Cogentin) 1 mg Q12H PRN PO 07/25/17 23:15 (Cogentin Inj) 1 mg Q12H PRN IM 07/25/17 23:15 (Benadryl) 50 mg HS PRN PO 07/25/17 23:15 (Benadryl Inj) 50 mg HS PRN IM 07/25/17 23:15 (Desyrel) 50 mg HS PRN PO 07/25/17 23:15 (Tylenol) 650 mg Q4H PRN PO 07/25/17 23:15 (Milk Of Magnesia Liq) 30 ml DAILY PRN PO 07/25/17 23:15 (Mag-Al Plus Susp Liq) 30 ml Q6H PRN PO 07/25/17 23:15 (Habitrol 21 Mg Patch.24 Hr) 1 patch DAILY T-DERMAL 07/26/17 09:00 Miscellaneous Information 1 HS T-DERMAL 07/26/17 21:00 (Haldol) 5 mg BID PO 07/26/17 09:00 (Cogentin) 0.5 mg BID PO 07/26/17 09:00 (Pill Splitter) 1 ea UNSCH PRN OTHER 07/25/17 23:30 Family Psych History Patient unable to provide because of degree of psychiatric impairment. Social History Patient unable to provide because of degree of psychiatric impairment. Patient's Strengths (min. 2) In a monitored setting. Supportive mother. Physical Exam Physical examination completed by ED provider. On my examination today, the patient appears to be in no acute physical distress. No motor abnormalities noted. No signs of intoxication or withdrawal noted. Labs and vitals reviewed: Vital Signs Vital Signs Date Time Temp Pulse Resp B/P (MAP) Pulse Ox O2 Delivery O2 Flow Rate FiO2 07/26/17 05:26 98.1 75 17 131/67 (88) 100 07/25/17 20:50 Room Air Lab Results Item Value Date Time White Blood Count 6.1 TH/MM3 07/21/17 1544 Hemoglobin 10.8 GM/DL L 07/21/17 1544 Platelet Count 305 TH/MM3 07/21/17 1544 Sodium Level 142 MEQ/L 07/22/17 0733 Potassium Level 3.7 MEQ/L 07/22/17 0733 Chloride Level 107 MEQ/L 07/22/17 0733 Carbon Dioxide Level 30.1 MEQ/L 07/22/17 0733 Blood Urea Nitrogen 7 MG/DL 07/22/17 0733 Creatinine 0.84 MG/DL 07/22/17 0733 Estimat Glomerular Filtration Rate 129 ML/MIN 07/22/17 0733 Aspartate Amino Transf (AST/SGOT) 14 U/L L 07/21/17 1544 Alanine Aminotransferase (ALT/SGPT) 18 U/L 07/21/17 1544 Alkaline Phosphatase 56 U/L 07/21/17 1544 Thyroid Stimulating Hormone 3rd Gen 0.436 uIU/ML 07/21/17 1544 Urine Cocaine Screen POS H 07/25/175 Urine Cannabinoids Screen POS H 07/25/172044 Some of these laboratories are from recent hospitalization under Dr. Dean. EKG 07/22 sinus rhythm with QTcH 382ms Mental Status Examination Appearance: Disheveled Consciousness: Alert, Vigilant Orientation: Person, Place Motor Activity: Normal gait, Other (No motor abnormalities noted) Speech: Other (Angry, terse) Language: [place] Fund of Knowledge: Inadequate Attention and Concentration: Easily Distracted Memory: Impaired (psychosis interferes presently) Mood: Angry, Oppositional, Other (dysphoric) Affect: Irritable, Other (restricted) Thought Process & Associations: Disorganized Thought Content: Hallucinations, Thought blocking, Delusional Hallucination Type: Other (Appears int stim) Delusion Type: Paranoid Suicidal Ideation: No (unreliable to contract for safety) Suicidal Plan: No Suicidal Intention: No Homicidal Ideation: No Homicidal Plan: No Homicidal Intention: No Insight: Poor Judgment: Poor Assessment & Plan Problem List: (1) Schizoaffective disorder, bipolar type ICD Codes: F25.0 - Schizoaffective disorder, bipolar type (2) Cannabis abuse ICD Codes: F12.10 - Cannabis abuse, uncomplicated (3) Cocaine abuse ICD Codes: F14.10 - Cocaine abuse, uncomplicated Assessment & Plan 31-year-old male with psychiatric history as detailed above presently admitted to the inpatient psychiatric unit under a Xiong act. Patient presents with signs and symptoms of decompensated psychosis in the setting of substance use. Medication non-adherence may also be a factor. Given the patient's degree of psychiatric impairment presently, he requires psychiatric hospitalization for safety, observation and stabilization. Admit inpatient. Involuntary status. I completed first opinion. Consult for second opinion. Request healthcare surrogate and guardian advocate. Titrate Haldol to 10 mg twice daily to target psychosis. Additional Haldol IM available as needed for severe agitation or in case the patient should refuse oral Haldol. Ativan as needed for anxiety, Cogentin as needed for EPS, Benadryl as needed for sleep. Vitals every shift. Counselor to see and obtain further collateral. Disposition planning. Estimated length of stay: 5-7 days. Discharge Planning Pending psychiatric stabilization Request HC Surrog/Guard Advoc?: Yes Kirby Melendez MD Jul 26, 2017 10:57
[2017-07-26] MEDS: REMOVE OLD NICOTINE PATCH T-DERMAL SCH (21:00)
[2017-07-26] MEDS: HALOPERIDOL 10 MG TAB PO SCH (21:00)
[2017-07-27] MEDS: HALOPERIDOL LACTATE 5 MG/ML AMP IM PRN (07:44)
[2017-07-27 08:02] LABS: BICARBONATE 27.9 MEQ/L (21.0-32.0); BLOOD UREA NITROGEN 14 MG/DL (7-18); CALCIUM 8.8 MG/DL (8.5-10.1); CHLORIDE 104 MEQ/L (98-107); CREATININE 1.02 MG/DL (0.60-1.30); GLOMERULAR FILTRATION RATE 103 ML/MIN (>89); GLUCOSE,RANDOM 55 MG/DL (74-106); SODIUM (NA) 140 MEQ/L (136-145)
[2017-07-27 08:09] LABS: CHOLESTEROL 150 MG/DL (120-200); CHOLESTEROL/ HDL RATIO 3.19 RATIO; HDL CHOLESTEROL 46.9 MG/DL (40.0-60.0); LDL CHOLESTEROL 94 MG/DL (0-99); TRIGLYCERIDES 45 MG/DL (42-150)
[2017-07-27] MEDS: HALOPERIDOL 10 MG TAB PO SCH ×2 (08:30→20:32)
[2017-07-27] MEDS: NICOTINE 21 MG/24 HR PATCH T-DERMAL SCH (09:00)
--- NOTE | 2017-07-27 10:06 | HHI.PYPN ---
Subjective Chief Complaint: Psychosis Remarks Patient seen and examined with nurse. Chart reviewed. Case discussed with nursing staff. Patient noted to be argumentative and threatening staff this morning; he required Haldol IM. Case discussed in treatment team. On my examination today, the patient is dysphoric, sullen and paranoid. He denies AVH but remains internally stimulated. He denies SI or HI but seems unreliable to contract for safety. His insight into his illness remains quite poor. He denies side effects from medications. No physical complaints. He is not interested in any sort of placement, such as at [facility]. Review of Systems ROS Limitations: Psychotic, Poor Historian Except as stated in HPI: all other systems reviewed are Neg Mental Status Examination Appearance: Disheveled Consciousness: Alert Orientation: Person, Place Motor Activity: Other (no motor abnormalities noted. ) Speech: Unremarkable Language: Adequate Fund of Knowledge: Inadequate Attention and Concentration: Easily Distracted Memory: Impaired (psychosis interferes presently) Mood: Oppositional, Other (dysphoric) Affect: Other (dysphoric and sullen) Thought Process & Associations: Linear (within delusions) Thought Content: Delusional Hallucination Type: Other (remains internally stimulated) Delusion Type: Paranoid Suicidal Ideation: No (unreliable to contract for safety) Suicidal Plan: No Suicidal Intention: No Homicidal Ideation: No Homicidal Plan: No Homicidal Intention: No Insight: Poor Judgment: Poor Results Labs Test 07/27/17 05:40 Blood Urea Nitrogen 14 MG/DL Creatinine 1.02 MG/DL Random Glucose 55 MG/DL Calcium Level 8.8 MG/DL Sodium Level 140 MEQ/L Potassium Level 4.2 MEQ/L Chloride Level 104 MEQ/L Carbon Dioxide Level 27.9 MEQ/L Anion Gap 8 MEQ/L Estimat Glomerular Filtration Rate 103 ML/MIN Triglycerides Level 45 MG/DL Cholesterol Level 150 MG/DL LDL Cholesterol 94 MG/DL HDL Cholesterol 46.9 MG/DL Cholesterol/HDL Ratio 3.19 RATIO Labs reviewed. Hypoglycemia noted. Hypoglycemia protocol ordered. Vitals/IOs Vital Signs Date Time Temp Pulse Resp B/P (MAP) Pulse Ox O2 Delivery O2 Flow Rate FiO2 07/26/17 05:26 98.1 75 17 131/67 (88) 100 07/25/17 20:50 Room Air Assessment & Plan Problem List: (1) Schizoaffective disorder, bipolar type ICD Codes: F25.0 - Schizoaffective disorder, bipolar type (2) Cannabis abuse ICD Codes: F12.10 - Cannabis abuse, uncomplicated (3) Cocaine abuse ICD Codes: F14.10 - Cocaine abuse, uncomplicated Assessment & Plan Continue oral Haldol as ordered. Adjust IM Haldol dose to 10 mg so that if patient refuses oral Haldol he will receive an equivalent dose IM. To consider further titration of this agent. Continue to monitor on high acuity unit. Continue other medications and care as ordered. Justification for Cont. Inpt. Impairment in reality construction. Risk for decompensation in less restrictive environment. Discharge Planning Pending stabilization. Request HC Surrog/Guard Advoc?: Yes Kirby Melendez MD Jul 27, 2017 10:06
--- NOTE | 2017-07-27 10:15 | PD.TTN ---
Patient Problems 1. Discharge planning 2. Medication compliance 3. Knowledge deficit 4. Lack of coping skills Progress Toward Goals Provider Present: Dr. Milton Melendez Provider Input: Dr. Melendez treatment team met to discuss patient's medication, treatment team, and discharge. Patient was started on Haldol. Patient is presenting psychotic. Patient will remain until stable. Nurse(s) Input: Patient was threatening this morning, agitated, aggressive need and injection to help calm patient down Psychiatric Counselors Present: Mahogany Yates [facility] Input: Patient would not respond to this counselor. Patient was found in his bed with the sheets over his head. Group Spec/RT/OT/CHAVEZ Present: JAIME Ambriz Group Spec/RT/OT/CHAVEZ Input: Patient has attended selective group activities since his admission. Mahogany Yates [facility] Jul 27, 2017 10:15
--- NOTE | 2017-07-27 13:36 | PD.PSY.CON ---
Provisional Diagnosis Admission Date Jul 25, 2017 at 23:08 Bliss I. 1. Schizoaffective disorder, bipolar type 2. Cannabis abuse 3. Cocaine abuse Bliss II. Deferred History of Present Illness Service Psychiatry Consult Requested By Second opinion Reason for Consult Psychosis Primary Care Physician REBEL Mr. Allen is a 31-year-old male with a history of psychotic disorder and substance use issues who presented to the emergency department with psychotic symptoms. He verbalized suicidal and homicidal ideation per ED provider notes. He was placed under the Xiong act and required seclusion and chemical restraint because of agitation. Patient is well known to the inpatient psychiatric service here. He was just discharged Wednesday by Dr. Dean and was admitted under my care under a different medical record number in September 2016. Electronic medical record reviewed. Patient seen and examined with nurse. Chart reviewed. Case discussed with nursing staff. Patient noted to be irritable and psychotic by nursing staff. Patient is presently admitted to the lower acuity inpatient unit. On my examination today, the patient is irritable, oppositional and minimally cooperative. He answers many of my questions with "I plead the fifth amendment. " He tells me that he is going to [place] for his birthday. He appears internally stimulated. He is paranoid. Affect is dysphoric. He does not verbalize any suicidal or homicidal ideation but seems unreliableto contract for safety in his present state. He is unable to tolerate extended interview and yells at us repeatedly to "get out of my room!" Psychiatric interview is limited because of patient's degree of psychiatric impairment presently. No physical complaints. I have obtained outpatient treatment records from [facility]. Patient was treated there most recently on an outpatient basis in March 2017 and was on Inderal, Haldol and long-acting injectable Abilify at that time. Patient was also apparently hospitalized at [facility] earlier this month. The patient is a 31 years old man, domiciled with his aunt in [facility], unemployed, single, with psychiatric history of schizoaffective disorder, multiple psychiatric hospitalizations, outpatient psychiatric care in [facility], history of aggressive behavior, who presented in the [facility] psychotic was placed on the Xiong act with requiring admission. During this hospitalization the patient has been increasingly agitated, needing restraint and seclusion. He was consulted to be for second opinion. He my evaluation the patient is irritable, oppositional, at the beginning refusing to talk. He says that he is ready to be discharged today. He says that he already got his Haldol decanoate yesterday he is now ready to leave. He says that his birthday is tomorrow and he is not planning to stay here. At this moment he denies suicidal and homicidal ideation, he denies visual and auditory hallucinations. Review of Systems Except as stated in HPI: all other systems reviewed are Neg Past Family Social History Coded Allergies: haloperidol (Verified Allergy, Unknown, UNKNOWN , 07/07/17) No Known Allergies (Unverified Allergy, 07/27/17) Pork/Porcine Containing Products (Unverified Adverse Reaction, Intermediate, Nausea/Vomiting, 07/07/17) Active Scripts [Benztropine] 1 MG TAB No Conflict Check, 0.5 MG PO Q12HR for health for 30 Days , #30 Prov:Akbar Dean MD 07/23/17 Haloperidol (Haloperidol) 5 Mg Tab, 5 MG PO BID for health for 30 Days, #60 TAB Prov:Akbar Dean MD 07/23/17 Ciprofloxacin (Cipro) 500 Mg Tab, 500 MG PO BID for Infection for 7 Days, #14 TAB 0 Refills Prov:Jesus Garcia MD 04/14/17 Fluphenazine Decanoate Inj (Fluphenazine Decanoate Inj) 125 Mg/5 Ml Inj, 37.5 MG SQ Q21D for Mental Health, #1 VIAL 0 Refills This dose of fluphenazine dec is due on 11/20/2016. Prov:Kriby Melendez MD 11/02/16 Olanzapine (Olanzapine) 15 Mg Tab, 15 MG PO HS for Mental Health for 15 Days, TAB 1 Refill Prov:Kirby Melendez MD 11/02/16 Divalproex ER (Depakote ER) 250 Mg Claudia, 1500 MG PO HS for Mental Health for 15 Days, TAB 1 Refill Pharmacist: Ok to dispense in any strength so long as dose is the same. Prov:Kirby Melendez MD 11/02/16 Levocarnitine Liq (Carnitor Liq) 1 Gm/10 Ml Soln, 6 ML PO TID for Hyperammonemia for 15 Days, ML 1 Refill Prov:Kirby Melendez MD 11/02/16 Discontinued Reported Medications Benztropine (Benztropine) 0.5 Mg Tab, 5 MG PO DAILY, #60 TAB 0 Refills 07/22/17 Haloperidol (Haloperidol) 10 Mg Tab, 10 MG PO DAILY, TAB 0 Refills 07/21/17 Current Medications Medications (Trade) Dose Ordered Sig/Bunny Route Start Time Stop Time Status Last Admin (Ativan) 1 mg Q6H PRN PO 07/25/17 23:15 Future hold (Ativan Inj) 1 mg Q6H PRN IM 07/25/17 23:15 Future hold 07/27/17 07:44 (Cogentin) 1 mg Q12H PRN PO 07/25/17 23:15 Future hold (Cogentin Inj) 1 mg Q12H PRN IM 07/25/17 23:15 Future hold (Benadryl) 50 mg HS PRN PO 07/25/17 23:15 Future hold (Tylenol) 650 mg Q4H PRN PO 07/25/17 23:15 (Milk Of Magnesia Liq) 30 ml DAILY PRN PO 07/25/17 23:15 (Mag-Al Plus Susp Liq) 30 ml Q6H PRN PO 07/25/17 23:15 (Habitrol 21 Mg Patch.24 Hr) 1 patch DAILY T-DERMAL 07/26/17 09:00 Miscellaneous Information 1 HS T-DERMAL 07/26/17 21:00 (Pill Splitter) 1 ea UNSCH PRN OTHER 07/25/17 23:30 (Haldol) 10 mg BID PO 07/26/17 21:00 07/26/17 21:00 (Haldol Inj) 5 mg Q6H PRN IM 07/26/17 15:00 07/27/17 07:44 Patient's Strengths (min. 2) In a monitored setting. Supportive mother. Physical Exam Vital Signs Vital Signs Date Time Temp Pulse Resp B/P (MAP) Pulse Ox O2 Delivery O2 Flow Rate FiO2 07/26/17 05:26 98.1 75 17 131/67 (88) 100 07/25/17 20:50 Room Air Lab Results Test 07/27/17 05:40 Blood Urea Nitrogen 14 MG/DL Creatinine 1.02 MG/DL Random Glucose 55 MG/DL Calcium Level 8.8 MG/DL Sodium Level 140 MEQ/L Potassium Level 4.2 MEQ/L Chloride Level 104 MEQ/L Carbon Dioxide Level 27.9 MEQ/L Anion Gap 8 MEQ/L Estimat Glomerular Filtration Rate 103 ML/MIN Triglycerides Level 45 MG/DL Cholesterol Level 150 MG/DL LDL Cholesterol 94 MG/DL HDL Cholesterol 46.9 MG/DL Cholesterol/HDL Ratio 3.19 RATIO Mental Status Examination Appearance: Disheveled Consciousness: Alert, Vigilant Orientation: Person, Place Motor Activity: Normal gait, Other (No motor abnormalities noted) Speech: Other (Angry, terse) Language: [place] Fund of Knowledge: Inadequate Attention and Concentration: Easily Distracted Memory: Impaired (psychosis interferes presently) Mood: Angry, Oppositional, Other (dysphoric) Affect: Irritable, Other (restricted) Thought Process & Associations: Disorganized Thought Content: Hallucinations, Thought blocking, Delusional Hallucination Type: Other (Appears int stim) Delusion Type: Paranoid Suicidal Ideation: No (unreliable to contract for safety) Suicidal Plan: No Suicidal Intention: No Homicidal Ideation: No Homicidal Plan: No Homicidal Intention: No Insight: Poor Judgment: Poor Assessment & Plan Problem List: (1) Schizoaffective disorder, bipolar type ICD Codes: F25.0 - Schizoaffective disorder, bipolar type Assessment & Plan: I have seen and examined this patient, review documentation , I agree and concur with Dr. Melendez assessment and plan. (2) Cannabis abuse ICD Codes: F12.10 - Cannabis abuse, uncomplicated (3) Cocaine abuse ICD Codes: F14.10 - Cocaine abuse, uncomplicated Assessment & Plan Estimated LOS: days Request HC Surrog/Guard Advoc?: Yes Kenyon Alejandro MD Jul 27, 2017 13:36
[2017-07-27] MEDS: REMOVE OLD NICOTINE PATCH T-DERMAL SCH (21:00)
[2017-07-28] MEDS: diphenhydrAMINE HCL 50 MG CAP - HS PRN PO (08:22)
[2017-07-28] MEDS: LORazepam 1 MG TAB PO PRN (08:22)
[2017-07-28] MEDS: NICOTINE 21 MG/24 HR PATCH T-DERMAL SCH (08:27)
[2017-07-28] MEDS: HALOPERIDOL 10 MG TAB PO SCH ×2 (08:27→20:18)
--- NOTE | 2017-07-28 12:32 | HHI.PYPN ---
Subjective Chief Complaint: Psychosis Remarks Patient seen and examined with nurse. Chart reviewed. Case discussed with nursing staff who reports that patient is intrusive, discharge focused and masturbating frequently. On my examination today, the patient seems less sullen and less discharge focused. He remains fairly irritable. He says "I am well." He denies any SI or HI. He denies any AVH. Insight into mental illness remains quite poor as is insight into need for treatment. Denies side effects from medications, and patient did accept oral Haldol yesterday evening and this morning. No physical complaints. Patient thinks he may have received a dose of long-acting injectable antipsychotic while he was hospitalized at [facility]. Review of Systems ROS Limitations: Poor Historian Except as stated in HPI: all other systems reviewed are Neg Mental Status Examination Appearance: Disheveled Consciousness: Alert Orientation: Person, Place Motor Activity: Other (no abnormal motor movements noted) Speech: Unremarkable Language: Adequate Fund of Knowledge: Inadequate Attention and Concentration: Easily Distracted Memory: Impaired (psychosis interferes presently) Mood: Irritable Affect: Blunt Thought Process & Associations: Linear Thought Content: Preoccupations Hallucination Type: Other (denies AVH but does appear somewhat internally stimulated) Delusion Type: Paranoid (decreasing) Suicidal Ideation: No Suicidal Plan: No Suicidal Intention: No Homicidal Ideation: No Homicidal Plan: No Homicidal Intention: No Insight: Poor Judgment: Poor Results Labs Labs reviewed Vitals/IOs Vital Signs Date Time Temp Pulse Resp B/P (MAP) Pulse Ox O2 Delivery O2 Flow Rate FiO2 07/26/17 05:26 98.1 75 17 131/67 (88) 100 07/25/17 20:50 Room Air Assessment & Plan Problem List: (1) Schizoaffective disorder, bipolar type ICD Codes: F25.0 - Schizoaffective disorder, bipolar type (2) Cannabis abuse ICD Codes: F12.10 - Cannabis abuse, uncomplicated (3) Cocaine abuse ICD Codes: F14.10 - Cocaine abuse, uncomplicated Assessment & Plan Continue oral Haldol as ordered. Clarify whether patient received long-acting injectable at [facility]. If not, to consider Haldol Dec. Continue to monitor on the high acuity unit. Continue other medications and care as ordered. Justification for Cont. Inpt. Resolving impairments in reality construction. Risk for decompensation in less restrictive environment. Discharge Planning Pending psychiatric stabilization. Xiong court tomorrow. Request HC Surrog/Guard Advoc?: Yes Kirby Melendez MD Jul 28, 2017 12:32
[2017-07-28] MEDS: REMOVE OLD NICOTINE PATCH T-DERMAL SCH (20:18)
[2017-07-29] MEDS: NICOTINE 21 MG/24 HR PATCH T-DERMAL SCH (09:03)
[2017-07-29] MEDS: HALOPERIDOL 10 MG TAB PO SCH ×2 (09:03→20:34)
[2017-07-29] MEDS ORDERED: HALOPERIDOL LACTATE 5 MG/ML AMP IM STA (09:42)
[2017-07-29] MEDS ORDERED: diphenhydrAMINE HCL 50 MG/ML VIAL IM ONE (09:45)
[2017-07-29] MEDS ORDERED: LORazepam 2 MG/ML VIAL IM ONE (09:45)
--- NOTE | 2017-07-29 10:46 | HHI.PYPN ---
Subjective Chief Complaint: Psychosis Remarks Patient seen and examined with nurse. Chart reviewed. Records requested from [facility]. Case discussed with nursing staff. Patient continues to masturbate frequently but was no major behavioral problem overnight. On my exam before court, patient is calm. He denies the psychiatric ROS. No side effects from medications. No physical complaints. Following court hearing, at which patient was retained, patient becomes extremely agitated. He insists during court that he heard gunshots in his apartment. He also insisted that his mother , who was present for court, was not in fact her mother. I have ordered patient medicated with Haldol/Ativan/Benadryl ETO for his agitation and have ordered the patient placed in locked seclusion as he is presenting a risk to safety of self/others in his highly agitated state. Review of Systems ROS Limitations: Psychotic, Poor Historian Except as stated in HPI: all other systems reviewed are Neg Mental Status Examination Appearance: Disheveled Consciousness: Alert Orientation: Person, Place Motor Activity: Other (no motor abnormalities noted) Speech: Unremarkable Language: Adequate Fund of Knowledge: Inadequate Attention and Concentration: Easily Distracted Memory: Impaired (psychosis interferes presently) Mood: Irritable Affect: Blunt Thought Process & Associations: Circumstantial Thought Content: Preoccupations, Delusional Hallucination Type: Other (internally stimulated) Delusion Type: Paranoid Suicidal Ideation: No Suicidal Plan: No Suicidal Intention: No Homicidal Ideation: No Homicidal Plan: No Homicidal Intention: No Insight: Poor Judgment: Poor Results Labs Labs reviewed. No new labs. Item Value Date Time Thyroid Stimulating Hormone 3rd Gen 0.436 uIU/ML 07/21/17 1544 Creatinine 1.02 MG/DL 07/27/17 0540 Blood Urea Nitrogen 14 MG/DL 07/27/17 0540 Estimat Glomerular Filtration Rate 103 ML/MIN 07/27/17 0540 Vitals/IOs Vital Signs Date Time Temp Pulse Resp B/P (MAP) Pulse Ox O2 Delivery O2 Flow Rate FiO2 07/26/17 05:26 98.1 75 17 131/67 (88) 100 07/25/17 20:50 Room Air Assessment & Plan Problem List: (1) Schizoaffective disorder, bipolar type ICD Codes: F25.0 - Schizoaffective disorder, bipolar type (2) Cannabis abuse ICD Codes: F12.10 - Cannabis abuse, uncomplicated (3) Cocaine abuse ICD Codes: F14.10 - Cocaine abuse, uncomplicated Assessment & Plan Ongoing psychotic symptoms and mood instability requiring ETO. Discussed pharmacotherapeutic options and R/B/A with GA. Start lithium 300mg BID and plan to check a level after weekend. Continue Haldol as ordered. Continue to monitor on the high acuity unit. Continue other medications and care as ordered. Patient's case was presented to the [facility] [facility] court, and the patient was retained on the unit by the study specialist with mother to serve as guardian advocate. Justification for Cont. Inpt. Med changes. Impairment in reality construction. High risk for decompensation in less restrictive environment. Discharge Planning Pending psychiatric stabilization. Request HC Surrog/Guard Advoc?: Yes Kirby Melendez MD Jul 29, 2017 10:46
[2017-07-29] MEDS: LITHIUM CARBONATE 300 MG TAB PO SCH (20:34)
[2017-07-29] MEDS: REMOVE OLD NICOTINE PATCH T-DERMAL SCH (20:54)
[2017-07-30 06:05] VITALS: BP 114/65; PULSE 95; RESP 18; TEMP 98.3; O2SAT 98
[2017-07-30] MEDS: LORazepam 1 MG TAB PO PRN (07:36)
[2017-07-30] MEDS: LITHIUM CARBONATE 300 MG TAB PO SCH ×2 (07:37→20:46)
[2017-07-30] MEDS: HALOPERIDOL 10 MG TAB PO SCH ×2 (07:37→20:46)
[2017-07-30] MEDS: NICOTINE 21 MG/24 HR PATCH T-DERMAL SCH (07:37)
--- NOTE | 2017-07-30 10:25 | HHI.PYPN ---
Subjective Chief Complaint: Psychosis Remarks Patient seen and examined with nurse. Chart reviewed. Case discussed with nursing staff who reports that the patient was threatening and ranting this morning but calmed after receiving morning medications. Case discussed in treatment team. On my examination today, the patient tells me that he is "trying to get released." He is fairly oppositional and dismisses me with a wave of his hand after a brief interaction. He refuses interview after that. No evidence side effects from medications. No physical complaints. Review of Systems ROS Limitations: Psychotic, Poor Historian Except as stated in HPI: all other systems reviewed are Neg Mental Status Examination Appearance: Disheveled Consciousness: Alert Orientation: Person, Place Motor Activity: Other (no abnormal motor movements noted) Speech: Unremarkable Language: Adequate Fund of Knowledge: Inadequate Attention and Concentration: Easily Distracted Memory: Impaired (once again psychosis interferes) Mood: Irritable Affect: Flat Thought Process & Associations: Intact Thought Content: Preoccupations, Delusional Hallucination Type: Other (remains internally stimulated) Delusion Type: Paranoid Suicidal Ideation: No Suicidal Plan: No Suicidal Intention: No Homicidal Ideation: No Homicidal Plan: No Homicidal Intention: No Insight: Poor Judgment: Poor Results Labs Labs reviewed. Vitals/IOs Vital Signs Date Time Temp Pulse Resp B/P (MAP) Pulse Ox O2 Delivery O2 Flow Rate FiO2 07/30/17 06:05 98.3 95 18 114/65 (81) 98 Assessment & Plan Problem List: (1) Schizoaffective disorder, bipolar type ICD Codes: F25.0 - Schizoaffective disorder, bipolar type (2) Cannabis abuse ICD Codes: F12.10 - Cannabis abuse, uncomplicated (3) Cocaine abuse ICD Codes: F14.10 - Cocaine abuse, uncomplicated Assessment & Plan Titrate Haldol to 10 mg 3 times a day to target residual psychotic symptoms. Patient has Cogentin as needed available for any EPS. Continue lithium as ordered with plans for a lithium level and BMP Wednesday morning. Continue to monitor on the high acuity unit. Continue other medications and care as ordered. Justification for Cont. Inpt. Impairment in reality construction. Medication changes. High risk for decompensation in less restrictive environment. Discharge Planning Pending psychiatric stabilization Request HC Surrog/Guard Advoc?: Yes Kirby Melendez MD Jul 30, 2017 10:25
--- NOTE | 2017-07-30 14:51 | PD.TTN ---
Patient Problems 1. Discharge planning 2. Medication compliance 3. Knowledge deficit 4. Lack of coping skills Progress Toward Goals Provider Present: Dr. Milton Melendez Provider Input: 07/30/17 Dr. Melendez shares he will continue with medication adjustment and treatment however is open to input if state referral would be beneficial or any other services suggested to help stabilize patient fdc, he will remain until stable and safe discharge is arranged. Dr. Melendez treatment team met to discuss patient's medication, treatment team, and discharge. Patient was started on Haldol. Patient is presenting psychotic. Patient will remain until stable. Nurse(s) Input: Patient was threatening this morning, agitated, aggressive need and injection to help calm patient down Psychiatric Counselors Present: Joselyn Pabon LCSW, Mahogany Yates, [facility] Psych Therapist Input: 07/30/17 patient continues with limited insight but has been medication compliant, after [facility] court yesterday was highly aggitated and aggressive and medicated wtih ETO. He remains discharge oriented but is at high risk for decompensation and relapse and putting himself in potential harmful situations int he community. Will work on a FACT referral and revisit with team if a state referral would be beneficial Patient would not respond to this counselor. Patient was found in his bed with the sheets over his head. Group Spec/RT/OT/CHAVEZ Present: JAIME Ambriz Group Spec/RT/OT/CHAVEZ Input: patient attends select groups and presents with aggitated mood Patient has attended selective group activities since his admission. Joselyn Pabon LCSW Jul 30, 2017 14:51
[2017-07-30] MEDS ORDERED: HALOPERIDOL 10 MG TAB PO ONE (16:15)
[2017-07-30] MEDS: REMOVE OLD NICOTINE PATCH T-DERMAL SCH (20:46)
[2017-07-31] MEDS: LITHIUM CARBONATE 300 MG TAB PO SCH ×2 (08:41→21:00)
[2017-07-31] MEDS: NICOTINE 21 MG/24 HR PATCH T-DERMAL SCH (08:42)
[2017-07-31] MEDS: HALOPERIDOL 10 MG TAB PO SCH ×3 (08:46→21:01)
--- NOTE | 2017-07-31 17:12 | HHI.PYPN ---
Subjective Chief Complaint: Psychosis Remarks Patient was seen and case discussed with nursing. Patient refuses the interview today. He is laying in his bed with his covers on. Per nursing is oppositional but has not had any outbursts. Remains difficult with medications but is compliant Mental Status Examination Appearance: Disheveled Consciousness: Alert Orientation: Person, Place Motor Activity: Other (no abnormal motor movements noted) Speech: Unremarkable Language: Adequate Fund of Knowledge: Inadequate Attention and Concentration: Easily Distracted Memory: Impaired (once again psychosis interferes) Mood: Irritable Affect: Flat Thought Process & Associations: Intact Thought Content: Preoccupations, Delusional Hallucination Type: Other (remains internally stimulated) Delusion Type: Paranoid Suicidal Ideation: No Suicidal Plan: No Suicidal Intention: No Homicidal Ideation: No Homicidal Plan: No Homicidal Intention: No Insight: Poor Judgment: Poor Results Vitals/IOs Vital Signs Date Time Temp Pulse Resp B/P (MAP) Pulse Ox O2 Delivery O2 Flow Rate FiO2 07/30/17 06:05 98.3 95 18 114/65 (81) 98 Assessment & Plan Problem List: (1) Schizoaffective disorder, bipolar type ICD Codes: F25.0 - Schizoaffective disorder, bipolar type (2) Cannabis abuse ICD Codes: F12.10 - Cannabis abuse, uncomplicated (3) Cocaine abuse ICD Codes: F14.10 - Cocaine abuse, uncomplicated Assessment & Plan Continue current treatment plan Justification for Cont. Inpt. Patient would decompensate in a less restrictive setting Request HC Surrog/Guard Advoc?: Yes Jorge Best DO Jul 31, 2017 17:12
[2017-07-31] MEDS: REMOVE OLD NICOTINE PATCH T-DERMAL SCH (21:00)
[2017-07-31] MEDS: diphenhydrAMINE HCL 50 MG CAP - HS PRN PO (21:01)
[2017-08-01] MEDS: NICOTINE 21 MG/24 HR PATCH T-DERMAL SCH (09:00)
[2017-08-01] MEDS: HALOPERIDOL 10 MG TAB PO SCH ×3 (09:37→20:57)
[2017-08-01] MEDS: LORazepam 1 MG TAB PO PRN (09:37)
[2017-08-01] MEDS: LITHIUM CARBONATE 300 MG TAB PO SCH ×2 (09:37→20:57)
--- NOTE | 2017-08-01 15:17 | HHI.PYPN ---
Subjective Chief Complaint: Psychosis Remarks Patient was seen and case discussed with nursing. Patient is perseverant on discharge. He is cooperative with interview like yesterday. He has not had any outbursts or irritability. His taking his medications. No specific delusions were elicited that he could be internally preoccupied. Insight remains for concerning his admission and history Mental Status Examination Appearance: Disheveled Consciousness: Alert Orientation: Person, Place Motor Activity: Other (no abnormal motor movements noted) Speech: Unremarkable Language: Adequate Fund of Knowledge: Inadequate Attention and Concentration: Easily Distracted Memory: Impaired (once again psychosis interferes) Mood: Irritable Affect: Flat Thought Process & Associations: Intact Thought Content: Preoccupations, Delusional Hallucination Type: Other (remains internally stimulated) Delusion Type: Paranoid Suicidal Ideation: No Suicidal Plan: No Suicidal Intention: No Homicidal Ideation: No Homicidal Plan: No Homicidal Intention: No Insight: Poor Judgment: Poor Results Vitals/IOs Vital Signs Date Time Temp Pulse Resp B/P (MAP) Pulse Ox O2 Delivery O2 Flow Rate FiO2 07/30/17 06:05 98.3 95 18 114/65 (81) 98 Assessment & Plan Problem List: (1) Schizoaffective disorder, bipolar type ICD Codes: F25.0 - Schizoaffective disorder, bipolar type (2) Cannabis abuse ICD Codes: F12.10 - Cannabis abuse, uncomplicated (3) Cocaine abuse ICD Codes: F14.10 - Cocaine abuse, uncomplicated Assessment & Plan Continue current treatment plan Justification for Cont. Inpt. Patient would decompensate in a less restrictive setting Request HC Surrog/Guard Advoc?: Yes Jorge Best DO Aug 01, 2017 15:17
[2017-08-01] MEDS: REMOVE OLD NICOTINE PATCH T-DERMAL SCH (20:57)
[2017-08-01] MEDS: diphenhydrAMINE HCL 50 MG CAP - HS PRN PO (20:57)
[2017-08-02] MEDS: LORazepam 1 MG TAB PO PRN (06:24)
[2017-08-02 06:52] LABS: BICARBONATE 24.8 MEQ/L (21.0-32.0); CREATININE 1.01 MG/DL (0.60-1.30)
[2017-08-02] MEDS: LITHIUM CARBONATE 300 MG TAB PO SCH (08:12)
[2017-08-02] MEDS: HALOPERIDOL 10 MG TAB PO SCH ×3 (08:13→20:57)
[2017-08-02] MEDS: NICOTINE 21 MG/24 HR PATCH T-DERMAL SCH (09:00)
--- NOTE | 2017-08-02 09:45 | HHI.PYPN ---
Subjective Chief Complaint: Psychosis Remarks Patient seen and examined with nurse. Chart reviewed. Case discussed with nursing staff. On my exam, patient remains irascible and delusional. He is discharge focused. His insight into his illness is nil. He has a Capgras about his mother and insists that his real mother is . He denies SI/HI but is unreliable to contract for safety and becomes quite agitated when he learns he will not be discharged today. He subsequently requires Haldol IM. He tries to elope from the unit when I exit. He denies AVH but remains internally stimulated. Denies side effects from medications. No physical complaints. Spoke with patient's mother and GA. She notes "I really don't feel like he's ready to come out." We discuss treatment plan going forward, and she is in agreement with the plan as outlined below. Review of Systems ROS Limitations: Psychotic, Poor Historian Except as stated in HPI: all other systems reviewed are Neg Mental Status Examination Appearance: Disheveled Consciousness: Alert Orientation: Person, Place (at least) Motor Activity: Other (no motoric abnormalities noted) Speech: Unremarkable Language: Adequate Fund of Knowledge: Inadequate Attention and Concentration: Easily Distracted Memory: Impaired (once again psychosis interferes) Mood: Irritable Affect: Flat Thought Process & Associations: Intact Thought Content: Preoccupations, Delusional Hallucination Type: Other (denies AVH but again is internally stimulated) Delusion Type: Paranoid, Other (Capgras regarding mother) Suicidal Ideation: No (unreliable to contract for safety) Suicidal Plan: No Suicidal Intention: No Homicidal Ideation: No (unreliable to contract for safety) Homicidal Plan: No Homicidal Intention: No Insight: Poor Judgment: Poor Results Labs Test 08/02/17 05:55 Blood Urea Nitrogen 13 MG/DL Creatinine 1.01 MG/DL Random Glucose 80 MG/DL Calcium Level 9.0 MG/DL Sodium Level 136 MEQ/L Potassium Level 4.3 MEQ/L Chloride Level 104 MEQ/L Carbon Dioxide Level 24.8 MEQ/L Anion Gap 7 MEQ/L Estimat Glomerular Filtration Rate 104 ML/MIN [place] Level 0.6 MEQ/L Labs reviewed. BMP unremarkable. [place] level subtherapeutic at 0.6. Vitals/IOs Vital Signs Date Time Temp Pulse Resp B/P (MAP) Pulse Ox O2 Delivery O2 Flow Rate FiO2 07/30/17 06:05 98.3 95 18 114/65 (81) 98 Assessment & Plan Problem List: (1) Schizoaffective disorder, bipolar type ICD Codes: F25.0 - Schizoaffective disorder, bipolar type (2) Cannabis abuse ICD Codes: F12.10 - Cannabis abuse, uncomplicated (3) Cocaine abuse ICD Codes: F14.10 - Cocaine abuse, uncomplicated Assessment & Plan Titrate lithium to 300mg qAM and 600mg qHS. Plan to check a follow up lithium level later in the week. Continue Haldol as ordered but to consider titrating this agent. Continue to monitor on the high acuity unit. Continue other medications and care as ordered. Justification for Cont. Inpt. Med changes. Impairment and safety. Impairment in reality construction. Risk for decompensation in less restrictive environment. Discharge Planning Pending psychiatric stabilization. Request HC Surrog/Guard Advoc?: Yes Kirby Melendez MD Aug 02, 2017 09:45
[2017-08-02] MEDS: HALOPERIDOL LACTATE 5 MG/ML AMP IM PRN (10:12)
[2017-08-02] MEDS: LITHIUM CARBONATE 300 MG CAP PO SCH (20:57)
[2017-08-02] MEDS: REMOVE OLD NICOTINE PATCH T-DERMAL SCH (20:57)
[2017-08-03 05:40] VITALS: BP 110/56; PULSE 80; RESP 18; TEMP 99
[2017-08-03] MEDS: HALOPERIDOL 10 MG TAB PO SCH ×3 (08:33→21:09)
[2017-08-03] MEDS: NICOTINE 21 MG/24 HR PATCH T-DERMAL SCH (08:33)
[2017-08-03] MEDS: LITHIUM CARBONATE 300 MG TAB PO SCH (08:33)
--- NOTE | 2017-08-03 10:51 | PD.TTN ---
Patient Problems 1. Discharge planning 2. Medication compliance 3. Knowledge deficit 4. Lack of coping skills Progress Toward Goals Provider Present: Dr. Milton Melendez Provider Input: 08/03/17 patient could benefit from state referral 07/30/17 Dr. Melendez shares he will continue with medication adjustment and treatment however is open to input if state referral would be beneficial or any other services suggested to help stabilize patient shelter, he will remain until stable and safe discharge is arranged. Dr. Melendez treatment team met to discuss patient's medication, treatment team, and discharge. Patient was started on Haldol. Patient is presenting psychotic. Patient will remain until stable. Nurse(s) Input: Patient was threatening this morning, agitated, aggressive need and injection to help calm patient down Psychiatric Counselors Present: Joselyn Pabon LCSW, Mahogany Yates, [facility] Psych Therapist Input: 08/03/17 remains discharge oriented but had an outburst yesterday in need for more ETO medications. He is still thinking he can just be discharged, asking to call mother, mother stated she feels he needs more help, contacted Case Management to discuss FACT team referral- he lacks insight and will more likely decompensate again once discharged and is unsafe to live by self due to his risky behaviors and non compliance and drug use 07/30/17 patient continues with limited insight but has been medication compliant, after [employer] [address] court yesterday was highly aggitated and aggressive and medicated wtih ETO. He remains discharge oriented but is at high risk for decompensation and relapse and putting himself in potential harmful situations int he community. Will work on a FACT referral and revisit with team if a state referral would be beneficial Patient would not respond to this counselor. Patient was found in his bed with the sheets over his head. Group Spec/RT/OT/CHAVEZ Present: JAIME Ambriz Group Spec/RT/OT/CHAVEZ Input: 08/03/17 patient is unable to tolerate groups at this time 07/30/17 patient attends select groups and presents with aggitated mood Patient has attended selective group activities since his admission. Joselyn Pabon LCSW Aug 03, 2017 10:51
--- NOTE | 2017-08-03 12:15 | HHI.PYPN ---
Subjective Chief Complaint: Psychosis Remarks Patient seen and examined with nurse. Chart reviewed. Case discussed with nursing staff. No further physical aggression since outburst yesterday, although the patient has been yelling out that he wants to be discharged. Case discussed in treatment team. On my examination today, the patient does acknowledge that his mother is in fact his real mother. He insists that she is agreeable to having him return home and will assist with his medications. He remains quite discharge focused. Insight into mental illness is quite poor. No side effects from medications. No physical complaints. Review of Systems ROS Limitations: Psychotic, Poor Historian Except as stated in HPI: all other systems reviewed are Neg Mental Status Examination Appearance: Disheveled Consciousness: Alert Orientation: Person, Place, Date/Time (approx) Motor Activity: Other (no abnormal motor movements noted) Speech: Unremarkable Language: Adequate Fund of Knowledge: Inadequate Attention and Concentration: Easily Distracted Memory: Impaired (once again psychosis interferes) Mood: Irritable Affect: Flat Thought Process & Associations: Intact Thought Content: Preoccupations, Delusional Hallucination Type: Other (remains internally stimulated) Delusion Type: Paranoid Suicidal Ideation: No (unreliable to contract for safety) Suicidal Plan: No Suicidal Intention: No Homicidal Ideation: No (unreliable to contract for safety) Homicidal Plan: No Homicidal Intention: No Insight: Poor Judgment: Poor Results Labs Labs reviewed. Vitals/IOs Vital Signs Date Time Temp Pulse Resp B/P (MAP) Pulse Ox O2 Delivery O2 Flow Rate FiO2 08/03/17 05:40 99.0 80 18 110/56 (74) Assessment & Plan Problem List: (1) Schizoaffective disorder, bipolar type ICD Codes: F25.0 - Schizoaffective disorder, bipolar type (2) Cannabis abuse ICD Codes: F12.10 - Cannabis abuse, uncomplicated (3) Cocaine abuse ICD Codes: F14.10 - Cocaine abuse, uncomplicated Assessment & Plan Titrate Haldol to 20mg BID to target ongoing psychotic symptoms. Nurse has confirmed last dose of Haldol Dec was 150mg IM on 07/15. Check EKG for QTc. Patient does have Cogentin available as needed should he develop any EPS. Continue lithium as ordered with plans for lithium level later in the week. Continue to monitor on the high acuity unit. Continue other medications and care as ordered. Justification for Cont. Inpt. Med changes. Impairment in reality construction Risk for decompensation in less restrictive environment. Discharge Planning Pending psychiatric stabilization Request HC Surrog/Guard Advoc?: Yes Kirby Melendez MD Aug 03, 2017 12:15
[2017-08-03 17:54] VITALS: BP 104/53; PULSE 69; RESP 18; TEMP 98.4; O2SAT 100
[2017-08-03 18:11] VITALS: BP 112/54; PULSE 87; RESP 18; TEMP 98.9; O2SAT 99
[2017-08-03] MEDS: REMOVE OLD NICOTINE PATCH T-DERMAL SCH (21:00)
[2017-08-03] MEDS: diphenhydrAMINE HCL 50 MG CAP - HS PRN PO (21:09)
[2017-08-03] MEDS: LITHIUM CARBONATE 300 MG CAP PO SCH (21:09)
[2017-08-04 01:56] VITALS: BP 100/59; PULSE 70; RESP 18; TEMP 98.4; O2SAT 97
[2017-08-04 05:38] VITALS: BP 109/69; PULSE 80; RESP 18; TEMP 98.5; O2SAT 99
[2017-08-04 08:34] LABS: TROPONIN I LESS THAN 0.02 NG/ML (0.02-0.05)
[2017-08-04] MEDS: HALOPERIDOL 10 MG TAB PO SCH ×2 (08:46→21:59)
[2017-08-04] MEDS: NICOTINE 21 MG/24 HR PATCH T-DERMAL SCH (08:46)
[2017-08-04] MEDS: LITHIUM CARBONATE 300 MG TAB PO SCH (08:46)
--- NOTE | 2017-08-04 08:50 | HHI.PYPN ---
Subjective Chief Complaint: Psychosis Remarks Patient seen and examined with nurse. Chart reviewed. Case discussed with nursing staff. I was called overnight as the physician on-call because the patient was complaining of chest pain. EKG revealed sinus rhythm with ST elevation likely due to early repolarization. I ordered serial cardiac enzymes but the patient refused them overnight. He has allowed them to be drawn this morning and the CKMB and troponin are unremarkable. CK was somewhat elevated, likely due to agitation in previous days. On my examination today, patient is calmer and more organized. He remains discharge focused. No SI/HI/AVH. He is agreeable to remaining overnight for observation but would like to be discharged tomorrow. He is agreeable to receiving additional Haldol Dec. Denies side effects from medications. No physical complaints, and in particular no complaints of chest pain or other cardiac symptoms at this time. Spoke with patient's mother/guardian advocate. Obtained consent for additional Haldol Decanoate. R/B/A for med change discussed with mother. Review of Systems ROS Limitations: Poor Historian Except as stated in HPI: all other systems reviewed are Neg Mental Status Examination Appearance: Disheveled Consciousness: Alert Orientation: x4 Motor Activity: Other (no hand tremor, no cogwheeling, no dystonia, no dyskinesia) Speech: Unremarkable Language: Adequate Fund of Knowledge: Inadequate Attention and Concentration: Easily Distracted Memory: Unremarkable Mood: Appropriate Affect: Blunt Thought Process & Associations: Intact Thought Content: Appropriate Hallucination Type: None, Tactile, Other (remains internally stimulated) Delusion Type: None Suicidal Ideation: No Suicidal Plan: No Suicidal Intention: No Homicidal Ideation: No Homicidal Plan: No Homicidal Intention: No Insight: Poor Judgment: Poor Results Labs Test 08/04/17 07:34 Total Creatine Kinase 476 U/L Creatine Kinase MB 1.0 NG/ML Creatine Kinase MB % 0.2 % Troponin I LESS THAN 0.02 NG/ML Labs reviewed. Vitals/IOs Vital Signs Date Time Temp Pulse Resp B/P (MAP) Pulse Ox O2 Delivery O2 Flow Rate FiO2 08/04/17 05:38 98.5 80 18 109/69 (82) 99 Assessment & Plan Problem List: (1) Schizoaffective disorder, bipolar type ICD Codes: F25.0 - Schizoaffective disorder, bipolar type (2) Cannabis abuse ICD Codes: F12.10 - Cannabis abuse, uncomplicated (3) Cocaine abuse ICD Codes: F14.10 - Cocaine abuse, uncomplicated Assessment & Plan Patient does seem to be improving with current regimen. Continue Haldol 20mg PO BID. Patient received Haldol Dec 150mg IM about 3 weeks ago. Given current oral dose, this Decanoate dose is likely inadequate. He likely will no longer meet criteria for involuntary hospitalization tomorrow if he remains in behavioral control, and I am concerned about adherence outside of the hospital setting. Consequently, I would like to administer additional decanoate now. Given that this administration is occurring at 3 weeks out rather than the usual 4 weeks, I will not administer the full dose (i.e. 10x oral dose or 400mg IM) but will instead administer 200mg IM with plans for additional decanoate outpatient. Continue lithium as ordered. [place] level ordered for tomorrow morning. I will additionally check a CK and BMP at that time. Continue to monitor on an inpatient unit, although we will transfer the patient to lower acuity unit to see if he can manage the milieu there. Continue other medications and care as ordered. Justification for Cont. Inpt. Med changes. Risk for decompensation and less restrictive environment. Discharge Planning Pending stabilization Request HC Surrog/Guard Advoc?: Yes Kirby Melendez MD Aug 04, 2017 08:50
--- NOTE | 2017-08-04 12:55 | EKG ---
Date Performed: 08/03/2017 Time Performed: 17:44:55 PTAGE: 32 years EKG: Sinus rhythm ST ELEVATION, PROBABLY EARLY REPOLARIZATION BORDERLINE ECG PREVIOUS TRACING : 04/20/2015 18.32 DOCTOR: Charlie Scott Interpretating Date/Time 08/04/2017 12:49:29
[2017-08-04] MEDS: LORazepam 1 MG TAB PO PRN (14:41)
[2017-08-04] MEDS ORDERED: HALOPERIDOL DECANOATE 50 MG/ML VIAL IM SCH (15:00)
[2017-08-04 15:08] LABS: TROPONIN I LESS THAN 0.02 NG/ML (0.02-0.05)
[2017-08-04] MEDS: REMOVE OLD NICOTINE PATCH T-DERMAL SCH (21:00)
[2017-08-04] MEDS: LITHIUM CARBONATE 300 MG CAP PO SCH (21:59)
[2017-08-05 06:27] VITALS: BP 110/62; PULSE 76; RESP 16; TEMP 98; O2SAT 98
[2017-08-05 07:26] LABS: BLOOD UREA NITROGEN 14 MG/DL (7-18); CALCIUM 8.5 MG/DL (8.5-10.1); CHLORIDE 105 MEQ/L (98-107); CREATININE 0.87 MG/DL (0.60-1.30); GLOMERULAR FILTRATION RATE 123 ML/MIN (>89); GLUCOSE,RANDOM 72 MG/DL (74-106); SODIUM (NA) 138 MEQ/L (136-145)
[2017-08-05] MEDS: HALOPERIDOL 10 MG TAB PO SCH (09:00)
[2017-08-05] MEDS: NICOTINE 21 MG/24 HR PATCH T-DERMAL SCH (09:00)
[2017-08-05] MEDS: LITHIUM CARBONATE 300 MG TAB PO SCH (09:00)
[2017-08-05] MEDS ORDERED: HALOPERIDOL DECANOATE 50 MG/ML VIAL IM ONE (09:15)
[2017-08-05] MEDS ORDERED: LITH300T3 PO (12:51)
[2017-08-05] MEDS ORDERED: LITH300C2 PO (12:51)
[2017-08-05] MEDS ORDERED: HALO10TA PO (12:51)
[2017-08-05] MEDS ORDERED: HALO100P IM (12:51)
--- NOTE | 2017-08-05 12:52 | HHI.DS ---
Psychiatry Discharge Summary Inpatient Psychiatric care?: Yes Advance Directive: No Reason Not Provided: Due to Patient Condition Mental Health AdvanceDirective: No Health Care Proxy: No Admission Admission Date Jul 25, 2017 at 23:08 Admission Diagnosis: (1) Schizoaffective disorder, bipolar type ICD Code: F25.0 - Schizoaffective disorder, bipolar type (2) Cannabis abuse ICD Code: F12.10 - Cannabis abuse, uncomplicated (3) Cocaine abuse ICD Code: F14.10 - Cocaine abuse, uncomplicated Brief History Mr. Allen is a 31-year-old male with a history of psychotic disorder and substance use issues who presented to the emergency department with psychotic symptoms. He verbalized suicidal and homicidal ideation per ED provider notes. He was placed under the Xiong act and required seclusion and chemical restraint because of agitation. Patient is well known to the inpatient psychiatric service here. He was just discharged Wednesday by Dr. Dean and was admitted under my care under a different medical record number in September 2016. Electronic medical record reviewed. Patient seen and examined with nurse. Chart reviewed. Case discussed with nursing staff. Patient noted to be irritable and psychotic by nursing staff. Patient is presently admitted to the lower acuity inpatient unit. On my examination today, the patient is irritable, oppositional and minimally cooperative. He answers many of my questions with "I plead the fifth amendment. " He tells me that he is going to [place] for his birthday. He appears internally stimulated. He is paranoid. Affect is dysphoric. He does not verbalize any suicidal or homicidal ideation but seems unreliableto contract for safety in his present state. He is unable to tolerate extended interview and yells at us repeatedly to "get out of my room!" Psychiatric interview is limited because of patient's degree of psychiatric impairment presently. No physical complaints. I have obtained outpatient treatment records from [facility]. Patient was treated there most recently on an outpatient basis in March 2017 and was on Inderal, Haldol and long-acting injectable Abilify at that time. Patient was also apparently hospitalized at [facility] earlier this month. Tobacco Use In Past 30 Days: 5 or More Cigarettes/Day Alcohol Use: Never Hospital Course Patient was admitted to a locked, inpatient psychiatric unit. Appropriate precautions were in place throughout patient's hospital stay. The patient was seen and examined on the unit by psychiatry and also visited by counselor. Psychotropic medications were adjusted. Patient tolerated medication changes well without side effects. Patient had improvement in presenting psychiatric symptomatology. There was no evidence of any suicidality or homicidality on the inpatient unit. The patient's behavior improved to the point that he was able to be transferred from the higher acuity unit to the lower acuity unit without incident, and he was able to tolerate the milieu of the lower acuity unit. Patient required no p.r.n. Haldol or ETO medication in the 48 hours prior to discharge. He was generally medication compliant and accepted a booster dose of Haldol Decanoate. On the day of discharge: Patient seen and examined. Chart reviewed. Case discussed with nursing staff. On my examination today, the patient is requesting discharge from the inpatient psychiatric unit today. He plans to go stay with a cousin. He is calm and cooperative with interview. He denies any suicidal or homicidal ideation, intent or plan on direct questioning and contracts for safety. No depressive or hypomanic/manic symptoms in evidence. He denies any audiovisual hallucinations. I can elicit no delusional material. Patient is attending to basic needs. He denies side effects from medications. We discussed his discharge medication regimen. No physical complaints. Synthesizing the relevant clinical information, I distillation operator that the patient no longer meets criteria for involuntary psychiatric hospitalization. I have recommended that the patient remain voluntarily on the unit for additional stabilization, but he has declined. I have no basis to retain him over his objection at this point and so will discharge him today with psychiatric follow-up as arranged by counselor. Patient is also to follow-up with primary care. I have counseled the patient to abstain from any abuse of substances. I reminded the patient of warning signs for need to return to the psychiatric emergency room as part of a general safety plan. Given that we are administering Haldol Dec 1 week early with the goal of ultimately getting him to 400mg IM [id number], I will order another 300mg IM in 3 weeks time with plans for the full 400mg dose 4 weeks after that. I have selected this dosing schedule to try to raise plasma levels to appropriate levels without causing untoward side effects from over-rapid titration leading to poor med adherence on the one hand or leaving the patient uncovered with respect to antipsychotic on the other. Results Blood Pressure 110 / 62 Vital Signs Date Time Temp Pulse Resp B/P (MAP) Pulse Ox O2 Delivery O2 Flow Rate FiO2 08/05/17 06:27 98.0 76 16 110/62 (78) 98 Laboratory Tests Test 08/04/17 07:34 08/04/17 13:54 08/05/17 05:43 Total Creatine Kinase 476 U/L (39-308) 403 U/L (39-308) Troponin I LESS THAN 0.02 NG/ML LESS THAN 0.02 NG/ML Random Glucose 72 MG/DL (74-106) Anion Gap 4 MEQ/L (5-15) Creatine Kinase MB LESS THAN 0.5 NG/ML Laboratory Results Test 07/27/17 05:40 08/05/17 05:43 Cholesterol Level 150 MG/DL (120-200) HDL Cholesterol 46.9 MG/DL (40.0-60.0) Hemoglobin A1c 5.0 % (4.3-6.0) LDL Cholesterol 94 MG/DL (0-99) Triglycerides Level 45 MG/DL (42-150) [place] Level 1.1 MEQ/L (0.5-1.5) Summary of Procedures None done Imaging None done Pending results at discharge: No Medications # of Antipsychotic meds at D/C: 1 Approp Antipsych med options 1 - Minimum of three failed multiple trials of monotherapy. 2 - Documented plan to taper to monotherapy due to previous use of multiple meds OR cross-taper in progress at D/C. 3 - Documentation of augmentation of Clozapine. 4 - Justification other than those listed in allowable values 1-3, document here : Discharge Discharge Date: Aug 05, 2017 Discharge Diagnosis: (1) Schizoaffective disorder, bipolar type Diagnosis: Principal ICD Code: F25.0 - Schizoaffective disorder, bipolar type (2) Cannabis abuse Diagnosis: Secondary ICD Code: F12.10 - Cannabis abuse, uncomplicated (3) Cocaine abuse Diagnosis: Secondary ICD Code: F14.10 - Cocaine abuse, uncomplicated Pt Condition on Discharge: Stable Discharge Disposition: Discharge Home Discharge Instructions Diet Instructions: As Tolerated, No Restrictions Activities you can perform: Weight Bearing as Luís Scheduled Appointment: as per counselor's notes New Medications: Haloperidol Decanoate Inj (Haldol Decanoate Inj) 100 Mg/Ml Inj 300 MG IM Q28D for Mental Health, #2 VIAL 0 Refills This dose of Haldol Decanoate is due on 08/26/17. Consider titrating dose when next due after 08/26 injection to 400mg. Haloperidol (Haloperidol) 20 Mg Tab 20 MG PO BID for Mental Health for 15 Days, TAB 1 Refill Continue oral Haldol at least until your next Haldol Decanoate injection or as directed by your outpatient provider. [place] Carbonate ([place] Carbonate) 300 Mg Tab 300 MG PO DAILY for Mental Health for 15 Days, #15 TAB 1 Refill [place] Carbonate ([place] Carbonate) 300 Mg Cap 600 MG PO HS for Mental Health for 15 Days, CAP 1 Refill Discontinued Medications: Ciprofloxacin (Cipro) 500 Mg Tab 500 MG PO BID for Infection for 7 Days, #14 TAB 0 Refills Divalproex ER (Depakote ER) 250 Mg Claudia 1500 MG PO HS for Mental Health for 15 Days, TAB 1 Refill Pharmacist: Ok to dispense in any strength so long as dose is the same. Fluphenazine Decanoate Inj (Fluphenazine Decanoate Inj) 125 Mg/5 Ml Inj 37.5 MG SQ Q21D for Mental Health, #1 VIAL 0 Refills This dose of fluphenazine dec is due on 11/20/2016. Haloperidol (Haloperidol) 5 Mg Tab 5 MG PO BID for health for 30 Days, #60 TAB Levocarnitine Liq (Carnitor Liq) 1 Gm/10 Ml Soln 6 ML PO TID for Hyperammonemia for 15 Days, ML 1 Refill Olanzapine (Olanzapine) 15 Mg Tab 15 MG PO HS for Mental Health for 15 Days, TAB 1 Refill [Benztropine] () 1 MG TAB 0.5 MG PO Q12HR for health for 30 Days, #30 Discharge Time <= 30 minutes Mental Status Examination Appearance: Appropriate Consciousness: Alert Orientation: x4 Motor Activity: Normal gait, Other (no motoric abnormalities noted) Speech: Unremarkable Language: Adequate Fund of Knowledge: Adequate Attention and Concentration: Adequate Memory: Unremarkable Mood: Appropriate Affect: Blunt Thought Process & Associations: Intact Thought Content: Appropriate Hallucination Type: None Delusion Type: None Suicidal Ideation: No Suicidal Plan: No Suicidal Intention: No Homicidal Ideation: No Homicidal Plan: No Homicidal Intention: No Insight: Poor (chronic condition) Judgment: Poor (chronic condition) Discharge/Advance Care Plan Health Problems: (1) Schizoaffective disorder, bipolar type (2) Cannabis abuse (3) Cocaine abuse Goals to promote your health * To prevent worsening of your condition and complications * To maintain your health at the optimal level Directions to meet your goals Take your medications as prescribed Follow your dietary instruction Follow activity as directed Keep your appointments as scheduled Take your immunizations and boosters as scheduled If your symptoms worsen call your PCP, if no PCP go to Urgent Care Center or Emergency Room For 18/01 questions related to your inpatient stay or results of tests pending at discharge, please contact Dr. Kirby Melendez at Smoking is Dangerous to Your Health. Avoid second hand smoking Kirby Melendez MD Aug 05, 2017 12:52
[2017-08-05] MEDS ORDERED: HALO20TA PO (12:54)
== END 2017-08-05 13:55 | disposition home or self-care (01) | DRG 885 ==
LOC: NEPJ 19:21 → MERGE 23:08 → NEDA 23:08 → H260 07-26 00:34 → H270 07-26 13:45 → H260 08-04 11:40
PROVIDERS: ADMIT Psychiatry & Neurology Psychiatry; ATTEND Psychiatry & Neurology Psychiatry
DX: F25.0 Schizoaffective disorder, bipolar type (principal); R45.851 Suicidal ideations; D57.1 Sickle-cell disease without crisis; R45.850 Homicidal ideations; F14.10 Cocaine abuse, uncomplicated; F12.10 Cannabis abuse, uncomplicated; R07.9 Chest pain, unspecified; Z72.0 Tobacco use; Z91.14 Patient's other noncompliance with medication regimen
CPT/HCPCS: 80048; 80061; 80178; 80307; 82550; 82552; 83036; 84484; 93005; 96372; J1200; J1630; J1631; J2060; Q0163

== ENCOUNTER 2017-08-09 02:40 | Emergency (ER) | payer MEDICAID, OTHER ==
[~2017-08-09] VITALS: Ht 170.2 cm; Wt 51.5 kg
[~2017-08-09 02:40] MED LIST changes: -Benztropine PO; -CIPR-9 PO; -DIVA250ER PO; -FLUP1INJ SQ; +HALO100P IM; +HALO20TA PO; -HALO5TAB PO; -LEVO10%S PO; +LITH300C2 PO; +LITH300T3 PO; -OLAN15TA PO
[2017-08-09 02:50] VITALS: BP 125/81; PULSE 104; RESP 18; TEMP 98.7; O2SAT 99
== END 2017-08-09 04:00 | disposition left against medical advice (07) ==
LOC: NED 02:40
DX: R10.9 Unspecified abdominal pain (principal)
CPT/HCPCS: 99281

== ENCOUNTER 2017-08-29 04:24 | Emergency (ER) | payer MEDICAID ==
[~2017-08-29] VITALS: Ht 170.2 cm; Wt 59.0 kg
[2017-08-29 04:29] VITALS: BP 113/62; PULSE 71; RESP 16; TEMP 98.4; O2SAT 100
--- NOTE | 2017-08-29 06:34 | PD ---
HPI Chief Complaint: Psychiatric Symptoms Time Seen by Provider: 06:24 Travel History International Travel<30 days: No Contact w/Intl Traveler<30days: No Traveled to known affect area: No History of Present Illness HPI 32-year-old black male presents emergency department for evaluation. The patient is refusing to cooperate with history and exam. The patient is stating that he would like to be left alone so he can sleep. I attempted to arouse the patient for his history and exam and he becomes violent towards me. I have notified security. PFSH Past Medical History Hx Anticoagulant Therapy: No Anemia: Yes Blood Disorders: No Bipolar Disorder: Yes Anxiety: Yes Cardiovascular Problems: Yes Chemotherapy: No Chest Pain: Yes Cerebrovascular Accident: No Diabetes: No Diminished Hearing: No Endocrine: No Gastrointestinal Disorders: No Genetic Disorder: Yes (sickle cell trait) Genitourinary: Yes (h/o testicular thrombosis, UTI) Headaches: Yes Immune Disorder: No Implanted Vascular Access Dvce: No Musculoskeletal: No Neurologic: No Psychiatric: Yes Reproductive: Yes Respiratory: No Immunizations Current: Yes Schizophrenia: Yes Seizures: Yes Sickle Cell Disease: Yes Tetanus Vaccination: < 5 Years Influenza Vaccination: No Past Surgical History Abdominal Surgery: No Cardiac Surgery: No Ear Surgery: No Endocrine Surgery: No Eye Surgery: No Genitourinary Surgery: No Gynecologic Surgery: No Hysterectomy: No Neurologic Surgery: No Oral Surgery: No Thoracic Surgery: No Other Surgery: Yes (removal of right wrist cyst) Social History Alcohol Use: Yes (Vodka "lots of it") Tobacco Use: Yes Substance Use: Yes (MARIJUANA, PILLS) Allergies-Medications (Allergen,Severity, Reaction): Coded Allergies: No Known Allergies (Unverified Allergy, Unknown, 08/09/17) Pork/Porcine Containing Products (Unverified Adverse Reaction, Intermediate, Nausea/Vomiting, 07/07/17) Reported Meds & Prescriptions Reported Meds & Active Scripts Active Haloperidol 20 Mg Tab 20 Mg PO BID 15 Days Continue oral Haldol at least until your next Haldol Decanoate injection or as directed by your outpatient provider. [place] Carbonate 300 Mg Tab 300 Mg PO DAILY 15 Days Review of Systems ROS Limitations: Uncooperative Physical Exam Narrative GENERAL: This is a well-nourished, well-developed patient, in no apparent distress. SKIN: No rashes, ecchymoses or lesions. Warm and dry. HEAD: Atraumatic. Normocephalic. EYES: PERRL, EOMI, no discharge or injection. No scleral icterus. EARS: Clear NOSE: Nasal turbinates appear normal. THROAT: Mucosa pink and moist. Airway patent. NECK: Trachea midline. supple, moves head freely. LUNGS: Clear to auscultation. CV: Regular in rhythm. ABDOMEN: Soft nontender. EXT: No clubbing cyanosis or edema. Data Data Last Documented VS Vital Signs Date Time Temp Pulse Resp B/P (MAP) Pulse Ox O2 Delivery O2 Flow Rate FiO2 08/29/17 04:29 98.4 71 16 113/62 (79) 100 MDM Medical Decision Making Medical Screen Exam Complete: Yes Emergency Medical Condition: No Medical Record Reviewed: Yes Differential Diagnosis Differential diagnosis: Alcohol intoxication, substance abuse, malingering Narrative Course This is a 32-year-old black male known to the ER staff. He is refusing to cooperate with history and physical. The patient is attempting to lay down and sleep. When he is advised to sit up to be evaluated he becomes agitated and attempts to become physically confrontational with the provider. Security is advised. The patient does not appear to be in any acute distress. There is no emergent medical condition identified. He does not appear to be a threat to himself or others. I see no reason that the patient needs to stay for further evaluation and security is asked to remove the patient from the premises. The patient's demeanor and actions are consistent with malingering. Diagnosis Primary Impression: Malingering Additional Instructions: Rest. Increase fluids. Avoid alcohol. Avoid illegal substances. Follow-up with [facility] today. Do not operate a car or any heavy machinery under the influence of alcohol or drugs. Return to the ER for emergencies Disposition: 01 DISCHARGE HOME Condition: Stable Trev Tejada Aug 29, 2017 06:34
== END 2017-08-29 08:33 | disposition home or self-care (01) ==
LOC: NEPD 04:24
DX: R45.1 Restlessness and agitation (principal); Z76.5 Malingerer [conscious simulation]
CPT/HCPCS: 99281

== ENCOUNTER 2017-09-07 10:47 | Emergency (ER) | payer MEDICAID ==
[~2017-09-07] VITALS: Ht 175.3 cm; Wt 63.6 kg
[~2017-09-07 10:47] MED LIST changes: -HALO100P IM; -LITH300C2 PO
[2017-09-07 11:19] VITALS: BP 122/87; PULSE 90; RESP 18; TEMP 97.7; O2SAT 99
--- NOTE | 2017-09-07 12:27 | RADRPT ---
EXAM DATE/TIME: 09/07/2017 11:47 [facility] COMPARISON: US TESTICLE W/DOPPLER, June 15, 2015, 12:56. INDICATIONS : Testicular pain. MEDICAL HISTORY : UTI. Sickle cell trait. Psychiatric problems. Anemia. SURGICAL HISTORY : Left wrist surgery. ENCOUNTER: Subsequent ACUITY: 4 - 6 days PAIN SCORE: 4/10 LOCATION: Bilateral scrotum. MEASUREMENTS: RIGHT TESTICLE: 4.0 x 3.1 x 1.6cm LEFT TESTICLE: 3.8 x 3.0 x 1.9cm FINDINGS: RIGHT TESTICLE: Heterogeneous echotexture without intra or extratesticular mass. Blood flow is symmetric and within normal limits. No hydrocele or varicocele. Epididymis is within normal limits. LEFT TESTICLE: Heterogeneous echotexture without intra or extratesticular mass. Blood flow is symmetric and within normal limits. No hydrocele with small varicocele. Epididymis is within normal limits. SCROTUM: Within normal limits. CONCLUSION: 1. Heterogeneous testicles with normal flow. 2. Small left varicocele Akbar Jung MD on September 07, 2017 at 12:24 Board Certified Radiologist. This report was verified electronically.
[2017-09-07 12:35] LABS: BACTERIA, URINE OCC /hpf; BILIRUBIN, URINE NEG (NEG); BLOOD, URINE NEG (NEG); GLUCOSE,URINE NEG (NEG); KETONE, URINE NEG (NEG); MUCUS URINE FEW /lpf (OCC); NITRITE,URINE NEG (NEG); PH, URINE 6.5 (5.0-8.5); SQUAMOUS EPITHELIAL CELL URINE <1 /hpf (0-5); URINE COLOR YELLOW (YELLW/STRAW); URINE LEUKOCYTE ESTERASE MOD (NEG)
--- NOTE | 2017-09-07 13:38 | PD ---
HPI Chief Complaint: Complaint Time Seen by Provider: 11:19 Travel History International Travel<30 days: No Contact w/Intl Traveler<30days: No Traveled to known affect area: No History of Present Illness HPI Pt is a 32-year-old male presenting to emergency department for evaluation of bilateral testicle pain. Patient states that he has had blood clots in them before. He states they are swollen. He reports mild dysuria. He denies any nausea, vomiting, fever, chills. He states his symptoms started 1-2 months ago. He has not been evaluated for this prior to today. Due to months it was gradual, symptom severity is mild to moderate. There are no alleviating factors. Patient reports his pain is a 4 out of 10. He states it is sore. PFSH Past Medical History Hx Anticoagulant Therapy: No Anemia: Yes Blood Disorders: No Bipolar Disorder: Yes Anxiety: Yes Cardiovascular Problems: Yes Chemotherapy: No Chest Pain: Yes Cerebrovascular Accident: No Diabetes: No Diminished Hearing: No Endocrine: No Gastrointestinal Disorders: No Genetic Disorder: Yes (sickle cell trait) Genitourinary: Yes (h/o testicular thrombosis, UTI) Headaches: Yes Immune Disorder: No Implanted Vascular Access Dvce: No Musculoskeletal: No Neurologic: No Psychiatric: Yes Reproductive: Yes Respiratory: No Immunizations Current: Yes Schizophrenia: Yes Seizures: Yes Sickle Cell Disease: Yes Past Surgical History Abdominal Surgery: No Cardiac Surgery: No Ear Surgery: No Endocrine Surgery: No Eye Surgery: No Genitourinary Surgery: No Gynecologic Surgery: No Hysterectomy: No Neurologic Surgery: No Oral Surgery: No Thoracic Surgery: No Other Surgery: Yes (removal of right wrist cyst) Social History Alcohol Use: Yes (Vodka "lots of it") Tobacco Use: Yes Substance Use: Yes (MARIJUANA, PILLS) Allergies-Medications (Allergen,Severity, Reaction): Coded Allergies: No Known Allergies (Unverified Allergy, Unknown, 08/09/17) Pork/Porcine Containing Products (Unverified Adverse Reaction, Intermediate, Nausea/Vomiting, 07/07/17) Reported Meds & Prescriptions Reported Meds & Active Scripts Active Haloperidol 20 Mg Tab 20 Mg PO BID 15 Days Continue oral Haldol at least until your next Haldol Decanoate injection or as directed by your outpatient provider. [place] Carbonate 300 Mg Tab 300 Mg PO DAILY 15 Days Review of Systems Except as stated in HPI: all other systems reviewed are Neg Genitourinary: Positive: Dysuria, Other Physical Exam Narrative GENERAL: Thin, well-developed, alert male. Presenting in no acute distress. SKIN: Warm and dry. HEAD: Normocephalic. EYES: No scleral icterus. No injection or drainage. NECK: Supple, trachea midline. No JVD or lymphadenopathy. CARDIOVASCULAR: Regular rate RESPIRATORY: No accessory muscle use. Data Data Last Documented VS Vital Signs Date Time Temp Pulse Resp B/P (MAP) Pulse Ox O2 Delivery O2 Flow Rate FiO2 09/07/17 11:19 97.7 90 18 122/87 (99) 99 Orders Orders Urinalysis - C+S If Indicated (09/07/17 11:22) Us Testicles W Doppler (09/07/17 ) Urine Culture (09/07/17 11:29) Labs Laboratory Tests Test 09/07/17 11:29 Urine Color YELLOW Urine Turbidity CLEAR Urine pH 6.5 Urine Specific [place] 1.027 Urine Protein 30 mg/dL Urine Glucose (UA) NEG mg/dL Urine Ketones NEG mg/dL Urine Occult Blood NEG Urine Nitrite NEG Urine Bilirubin NEG Urine Urobilinogen 4.0 MG/DL Urine Leukocyte Esterase MOD Urine RBC 1 /hpf Urine WBC 29 /hpf Urine Squamous Epithelial Cells <1 /hpf Urine Bacteria OCC /hpf Urine Mucus FEW /lpf Microscopic Urinalysis Comment CULTURE INDICATED MDM Medical Decision Making Medical Screen Exam Complete: Yes Emergency Medical Condition: Yes Interpretation(s) Vital Signs Date Time Temp Pulse Resp B/P (MAP) Pulse Ox O2 Delivery O2 Flow Rate FiO2 09/07/17 11:19 97.7 90 18 122/87 (99) 99 Differential Diagnosis Hydrocele versus epididymitis versus testicular torsion versus UTI versus STD versus other Narrative Course Patient is a well-appearing 32-year-old male presenting for evaluation of bilateral testicle pain. Patient's vital signs are stable. Labs and imaging ordered and pending. Patient was called be placed in a bed, patient left the emergency department AMA. Ultrasound of the testicles was negative. Urinalysis has reflux culture pending. Will defer treatment until culture reports. Diagnosis Primary Impression: Left against medical advice Blanka Torres Sep 07, 2017 13:38
== END 2017-09-07 12:40 | disposition left against medical advice (07) ==
LOC: NED 10:47
DX: N50.811 Right testicular pain (principal); N50.812 Left testicular pain; Z72.0 Tobacco use
CPT/HCPCS: 76870; 81001; 87086; 93975; 99284

== ENCOUNTER 2017-10-06 04:21 | Emergency (ER) | payer MEDICAID ==
[~2017-10-06] VITALS: Ht 175.3 cm; Wt 70.0 kg
[2017-10-06 04:24] VITALS: BP 116/63; PULSE 97; RESP 16; TEMP 97.5; O2SAT 100
--- NOTE | 2017-10-06 05:28 | PD ---
HPI Chief Complaint: Psychiatric Symptoms Time Seen by Provider: 05:27 Travel History International Travel<30 days: No Contact w/Intl Traveler<30days: No Traveled to known affect area: No History of Present Illness HPI 32-year-old male with history of PTSD, schizophrenia, bipolar, seizure disorder , presents emergency department voluntarily for psychiatric evaluation. Patient states that he would like to talk with psychiatry. He is upset with his cousin. He says that she has been feeding him merle and he is having hallucinations. He states that he has not been taking his medication for some time now. He follows up with [facility]. Denies any recent illnesses, fever, or chills. Has no other symptoms to report. PFSH Past Medical History Hx Anticoagulant Therapy: No Anemia: Yes Blood Disorders: No Bipolar Disorder: Yes Anxiety: Yes Cardiovascular Problems: Yes Chemotherapy: No Chest Pain: Yes Cerebrovascular Accident: No Diabetes: No Diminished Hearing: No Endocrine: No Gastrointestinal Disorders: No Genetic Disorder: Yes (sickle cell trait) Genitourinary: Yes (h/o testicular thrombosis, UTI) Headaches: Yes Immune Disorder: No Implanted Vascular Access Dvce: No Musculoskeletal: No Neurologic: No Psychiatric: Yes Reproductive: Yes Respiratory: No Immunizations Current: Yes Schizophrenia: Yes Seizures: Yes Sickle Cell Disease: Yes Tetanus Vaccination: < 5 Years Influenza Vaccination: No Past Surgical History Abdominal Surgery: No Cardiac Surgery: No Ear Surgery: No Endocrine Surgery: No Eye Surgery: No Genitourinary Surgery: No Gynecologic Surgery: No Hysterectomy: No Neurologic Surgery: No Oral Surgery: No Thoracic Surgery: No Other Surgery: Yes (removal of right wrist cyst) Social History Alcohol Use: No Tobacco Use: Yes Substance Use: Yes (merle (smoke)) Allergies-Medications (Allergen,Severity, Reaction): Coded Allergies: No Known Allergies (Unverified Allergy, Unknown, 10/06/17) Pork/Porcine Containing Products (Unverified Adverse Reaction, Intermediate, Nausea/Vomiting, 10/06/17) Reported Meds & Prescriptions Reported Meds & Active Scripts Active Haloperidol 20 Mg Tab 20 Mg PO BID 15 Days Continue oral Haldol at least until your next Haldol Decanoate injection or as directed by your outpatient provider. [place] Carbonate 300 Mg Tab 300 Mg PO DAILY 15 Days Review of Systems Except as stated in HPI: all other systems reviewed are Neg Physical Exam Narrative GENERAL: Well-nourished male patient with bizarre affect but in no acute distress. SKIN: Focused skin assessment warm/dry. HEAD: Atraumatic. Normocephalic. EYES: Pupils equal and round. No scleral icterus. No injection or drainage. ENT: No nasal bleeding or discharge. Mucous membranes pink and moist. NECK: Trachea midline. No JVD. CARDIOVASCULAR: Elevated rate and rhythm. No murmur appreciated. RESPIRATORY: No accessory muscle use. Clear to auscultation. Breath sounds equal bilaterally. GASTROINTESTINAL: Abdomen soft, non-tender, nondistended. Hepatic and splenic margins not palpable. MUSCULOSKELETAL: No obvious deformities. No clubbing. No cyanosis. No edema. NEUROLOGICAL: Awake and alert. No obvious cranial nerve deficits. Motor grossly within normal limits. Normal speech. Data Data Last Documented VS Vital Signs Date Time Temp Pulse Resp B/P (MAP) Pulse Ox O2 Delivery O2 Flow Rate FiO2 10/06/17 04:24 97.5 97 16 116/63 (80) 100 Orders Orders Complete Blood Count With Diff (10/06/17 05:27) Thyroid Stimulating Hormone (10/06/17 05:27) Basic Metabolic Panel (Bmp) (10/06/17 05:27) Psych Screen (10/06/17 05:27) Drug Screen, Random Urine (10/06/17 05:27) Alcohol (Ethanol) (10/06/17 05:27) MDM Medical Decision Making Medical Screen Exam Complete: Yes Emergency Medical Condition: Yes Medical Record Reviewed: Yes Differential Diagnosis Mood disorder versus personality disorder versus adjustment reaction disorder Narrative Course 32-year-old male presents emergency department voluntarily for psychiatric evaluation. Patient states he has been using merle. Denies suicidal thoughts. Currently, patient is refusing any lab work. He would like to speak to a psychiatrist. Patient is medically cleared to undergo psychiatric screening for further evaluation and disposition. Mental health screening discussed with the patient. Psychiatric screen ordered. Diagnosis Primary Impression: scizoaffective bipolar type Additional Impressions: Schizophrenia, paranoid type Cocaine abuse Condition: Patsy Landry Oct 06, 2017 05:28
== END 2017-10-06 06:36 | disposition left against medical advice (07) ==
LOC: NEPD 04:21
DX: F25.0 Schizoaffective disorder, bipolar type (principal); F20.0 Paranoid schizophrenia; F14.10 Cocaine abuse, uncomplicated; F41.9 Anxiety disorder, unspecified; D57.3 Sickle-cell trait; F43.10 Post-traumatic stress disorder, unspecified; Z72.0 Tobacco use
CPT/HCPCS: 99281

== ENCOUNTER 2017-10-20 03:26 | Emergency (ER) | payer MEDICAID ==
[2017-10-20 03:30] VITALS: BP 126/87; PULSE 96; RESP 16; TEMP 98.1; O2SAT 100
[2017-10-20 04:03] LABS: BILIRUBIN, URINE NEG (NEG); BLOOD, URINE NEG (NEG); GLUCOSE,URINE NEG (NEG); KETONE, URINE NEG (NEG); MUCUS URINE FEW /lpf (OCC); NITRITE,URINE NEG (NEG); SQUAMOUS EPITHELIAL CELL URINE 1 /hpf (0-5); URINE COLOR YELLOW (YELLW/STRAW); URINE LEUKOCYTE ESTERASE TRACE (NEG)
--- NOTE | 2017-10-20 04:03 | PD ---
HPI Chief Complaint: Flank/Kidney Pain Time Seen by Provider: 03:46 Travel History International Travel<30 days: No Contact w/Intl Traveler<30days: No Traveled to known affect area: No History of Present Illness HPI The patient is a 32 year old male who presents to the [facility] emergency department with a history of with lower abdominal pain and pain in his scrotum that he reports has been present for the last 4-5 years. He reports that he has been told in the past that he needs to follow-up with the urologist, however he has not been able to do so. He reports that he last saw his primary care physician 8 years ago. The patient reports that he has "stones" in his scrotum that he is trying to "push out by pinching them. He reports that he previously had 3 and now he has 5 stones. The patient reports that he has a burning sensation with urinating and feels like he has hesitancy with urinating. He denies any urinary frequency. He denies any hematuria. On review of systems otherwise, he denies having any known recent fevers, cough, congestion, neck pain, chest pain, shortness of breath, vomiting, diarrhea, or neurologic symptoms. Patient reports that he last moved his bowels earlier today. He denies having any blood in the stool. [facility] Past Medical History Narrative Medical The patient's past medical history is significant for sickle cell trait, posttraumatic stress disorder, schizophrenia, bipolar disorder, history of seizure disorder. Hx Anticoagulant Therapy: No Anemia: Yes Blood Disorders: No Bipolar Disorder: Yes Anxiety: Yes Cardiovascular Problems: Yes Chemotherapy: No Chest Pain: Yes Cerebrovascular Accident: Yes Diabetes: No Diminished Hearing: No Endocrine: No Gastrointestinal Disorders: No Genetic Disorder: Yes (sickle cell trait) Genitourinary: Yes (h/o testicular thrombosis, UTI) Headaches: Yes Immune Disorder: No Implanted Vascular Access Dvce: No Musculoskeletal: No Neurologic: No Psychiatric: Yes Reproductive: Yes Respiratory: No Immunizations Current: Yes Schizophrenia: Yes Seizures: Yes Sickle Cell Disease: Yes Past Surgical History Narrative Surgical The patient's past surgical history of removal of a cyst from his right wrist. Abdominal Surgery: No Cardiac Surgery: No Ear Surgery: No Endocrine Surgery: No Eye Surgery: No Genitourinary Surgery: No Gynecologic Surgery: No Hysterectomy: No Neurologic Surgery: No Oral Surgery: No Thoracic Surgery: No Other Surgery: Yes (removal of right wrist cyst) Social History Alcohol Use: No Tobacco Use: Yes Substance Use: Yes (merle (smoke)) Allergies-Medications (Allergen,Severity, Reaction): Coded Allergies: Pork/Porcine Containing Products (Unverified Adverse Reaction, Intermediate, Nausea/Vomiting, 10/20/17) haloperidol (Verified Adverse Reaction, Unknown, depressed, suicidal, 10/20) Reported Meds & Prescriptions Reported Meds & Active Scripts Active Haloperidol 20 Mg Tab 20 Mg PO BID 15 Days Continue oral Haldol at least until your next Haldol Decanoate injection or as directed by your outpatient provider. [place] Carbonate 300 Mg Tab 300 Mg PO DAILY 15 Days Review of Systems Except as stated in HPI: all other systems reviewed are Neg General / Constitutional: No: Fever Eyes: No: Visual changes HENT: No: Headaches Cardiovascular: No: Chest Pain or Discomfort Respiratory: No: Shortness of Breath Gastrointestinal: Positive: Abdominal Pain, No: Nausea, Vomiting, Diarrhea, Changes in Bowel Habits Genitourinary: Positive: Urgency, Dysuria, Hesitancy, No: Frequency Musculoskeletal: No: Pain Skin: No Rash Neurologic: No: Weakness, Focal Abnormalities, Change in Mentation, Slurred Speech, Sensory Disturbance Psychiatric: No: Depression Endocrine: No: Polydipsia Hematologic/Lymphatic: No: Easy Bruising Physical Exam Narrative General: The patient is a well-developed well-nourished male in no acute distress. Head and Neck exam: Head is normocephalic atraumatic. Eyes: EOMI, pupils are equal round and reactive to light. Nose: Midline septum with pink mucous membranes Mouth: Dentition unremarkable. Moist mucus membranes. Posterior oropharynx is not erythematous. No tonsillar hypertrophy. Uvula midline. Airway patent. Neck: No palpable lymphadenopathy. No nuchal rigidity. No thyromegaly. Cardiovascular: Regular rate and rhythm without murmurs, gallops, or rubs. Lungs: Clear to auscultation bilaterally. No wheezes, rhonchi, or rales. Abdomen: Soft, without tenderness to palpation in all 4 quadrants of the abdomen. No guarding, rebound, or rigidity. Normal bowel sounds are audible. No tenderness on palpation of McBurney's point. Negative Ramirez sign. Extremities: No clubbing, cyanosis, or edema. 2+ pulses in all 4 extremities. Back: No costovertebral angle tenderness to palpation. Neurologic Exam: Grossly nonfocal Skin Exam: No rash noted. Intact skin that is warm and dry. Genital exam: No genital lesions or rash are noted. No penile discharge is noted. No scrotal swelling or masses are noted on examination. No palpable testicle masses or tenderness on palpation. No palpable hernia. No fluctuance, pointing , or induration of the scrotum or perineum is noted. Data Data Last Documented VS Vital Signs Date Time Temp Pulse Resp B/P (MAP) Pulse Ox O2 Delivery O2 Flow Rate FiO2 10/20/17 03:30 98.1 96 16 126/87 (100) 100 Orders Orders Urinalysis - C+S If Indicated (10/20/17 03:51) Gc And Chlamydia Pcr (10/20/17 03:51) Acetaminophen (Tylenol) (10/20/17 04:15) Azithromycin Powd Pack (Zithromax Powd P (10/20/17 05:15) Ceftriaxone Inj (Rocephin Inj) (10/20/17 05:15) Lidocaine 1% Inj (50 Ml) (Xylocaine 1% I (10/20/17 05:15) Labs Laboratory Tests Test 10/20/17 03:53 Urine Color YELLOW Urine Turbidity CLEAR Urine pH 6.0 Urine Specific [place] 1.021 Urine Protein TRACE mg/dL Urine Glucose (UA) NEG mg/dL Urine Ketones NEG mg/dL Urine Occult Blood NEG Urine Nitrite NEG Urine Bilirubin NEG Urine Urobilinogen 2.0 MG/DL Urine Leukocyte Esterase TRACE Urine RBC 2 /hpf Urine WBC 2 /hpf Urine Squamous Epithelial Cells 1 /hpf Urine Mucus FEW /lpf Microscopic Urinalysis Comment CULT NOT INDICATED Chlamydia trachomatis DNA (PCR) NOT DETECTED Neisseria gonorrhoeae DNA (PCR) NOT DETECTED MDM Medical Decision Making Medical Screen Exam Complete: Yes Emergency Medical Condition: Yes Medical Record Reviewed: Yes Differential Diagnosis Folliculitis, versus kidney stone, versus epididymitis, versus testicle mass, versus urinary tract infection, versus prostatitis Narrative Course During the course of the patient's emergency department visit, the patient's history, examination, and differential diagnosis were reviewed with the patient. The patient reports a long-standing history of this problem with referral in the past to a urologist. The patient's electronic medical record was reviewed. The patient last had an ultrasound done of his testicles and scrotum on September 07, 2017. At that time the patient had good blood flow to the testicles, no masses noted. A small left varicocele was noted. As this was recently done, the patient's examination shows no significant abnormality, the ultrasound is not needed to be repeated. A urinalysis will be sent. The patient was initially provided Tylenol for pain. The patient's laboratory studies were reviewed and remarkable for a urinalysis that shows trace leukocyte esterase, few mucus, otherwise unremarkable. Given the patient's symptomatology the patient was empirically treated for urethritis with Rocephin 250 IM, Zithromax 1 g p.o. The patient was instructed regarding the importance of following up with the urologist regarding his persistent scrotal pain. The patient is given the name of the urologist vocational nursing instructor, Dr. Santiago for follow-up. The patient is resting comfortably and feels better, is alert and in no distress. The patient's results and examination findings were discussed with the patient. The repeat examination is unremarkable and benign. The history, exam, diagnostic testing, and current condition do not suggest any significant pathology to warrant further testing, continued ED treatment, admission, or surgical evaluation at this point. The vital signs have been stable. The patient does not have uncontrollable pain, intractable vomiting, or other significant symptoms. The patient's condition is stable and appropriate for discharge. The patient will pursue further outpatient evaluation with a primary care physician or other designated or consulting physician as indicated in the discharge instructions. The patient expressed understanding and was agreeable with this plan. Diagnosis Primary Impression: Dysuria Additional Impression: Varicocele Referrals: Devon Santiago MD call for appointment Patient Instructions: General Instructions, Varicocele (ED) Disposition: 01 DISCHARGE HOME Condition: Stable Emerald Lopez MD Oct 20, 2017 04:03
[2017-10-20] MEDS ORDERED: ACETAMINOPHEN 325 MG TAB PO ONE (04:15)
[2017-10-20] MEDS ORDERED: cefTRIAXone 250 MG VIAL IM ONE (05:15)
[2017-10-20] MEDS ORDERED: AZITHROMYCIN PWD FOR SUSP 1 GM PACKET PO ONE (05:15)
[2017-10-20] MEDS ORDERED: LIDOCAINE HCL 1% 50 ML VIAL IM ONE (05:15)
== END 2017-10-20 05:46 | disposition home or self-care (01) ==
LOC: NEPE 03:26
DX: R30.0 Dysuria (principal); I86.1 Scrotal varices; R10.30 Lower abdominal pain, unspecified; R39.11 Hesitancy of micturition; D57.3 Sickle-cell trait; Z72.0 Tobacco use
CPT/HCPCS: 81001; 87491; 87591; 96372; 99283; J0696

== ENCOUNTER 2017-10-20 05:47 | Emergency (ER) | payer MEDICAID ==
[~2017-10-20] VITALS: Ht 175.3 cm; Wt 65.0 kg
[2017-10-20 05:54] VITALS: BP 105/72; PULSE 89; RESP 16; TEMP 97.5; O2SAT 98
[2017-10-20 06:21] LABS: BASOPHIL % 0.8 % (0.0-2.0); EOSINOPHIL # 0.3 TH/MM3 (0-0.4); EOSINOPHIL % 4.1 % (0.0-4.0); HEMOGLOBIN 12.8 GM/DL (13.0-17.0); LYMPH % 37.4 % (9.0-44.0); LYMPHOCYTE # 2.3 TH/MM3 (1.0-4.8); MEAN CELL VOLUME 65.6 FL (80.0-100.0); MEAN PLATELET VOLUME 9.7 FL (7.0-11.0); MONOCYTE # 0.5 TH/MM3 (0-0.9); NEUT % 48.7 % (16.0-70.0); PLATELET COUNT 193 TH/MM3 (150-450); RED BLOOD COUNT 6.09 MIL/MM3 (4.50-5.90); RED CELL DISTRIBUTION WIDTH 14.5 % (11.6-17.2); WHITE BLOOD COUNT 6.1 TH/MM3 (4.0-11.0)
[2017-10-20 06:37] LABS: ALBUMIN 3.6 GM/DL (3.4-5.0); ALT (GPT) 16 U/L (12-78); AST (GOT) 11 U/L (15-37); BICARBONATE 30.4 MEQ/L (21.0-32.0); BLOOD UREA NITROGEN 11 MG/DL (7-18); CALCIUM 8.7 MG/DL (8.5-10.1); CHLORIDE 107 MEQ/L (98-107); CREATININE 1.16 MG/DL (0.60-1.30); GLOMERULAR FILTRATION RATE 88 ML/MIN (>89); GLUCOSE,RANDOM 81 MG/DL (74-106); SODIUM (NA) 143 MEQ/L (136-145)
--- NOTE | 2017-10-20 06:42 | PD ---
HPI Chief Complaint: Psychiatric Symptoms Time Seen by Provider: 06:04 Travel History International Travel<30 days: No Contact w/Intl Traveler<30days: No Traveled to known affect area: No History of Present Illness HPI The patient is a 32 year old male who presents to the [facility] emergency department with a history of schizophrenia, reporting that he is having suicidal ideation would like to Xiong act himself. The patient denies having plan regarding harming himself. He denies having any homicidal ideations. He reports that he has been hearing voices. He reports that he has been taking his psychiatric medications regularly. He reports that he is on Haldol. The patient was just seen in the emergency department earlier this evening with complaints of difficulty urinating scrotal pain. The patient had a urinalysis at that time that was unremarkable, however GC and Chlamydia were pending results. The patient was empirically treated with Rocephin and Zithromax. On review of systems otherwise, the patient denies having any fevers, cough or congestion, neck pain, chest pain, shortness of breath, abdominal pain currently , vomiting, diarrhea, new urinary symptoms, or neurologic symptoms. [facility] Past Medical History Narrative Medical The patient's past medical history is significant for schizophrenia, sickle cell trait bipolar disorder, history of urinary tract infections, history of headaches, history of seizure activity Hx Anticoagulant Therapy: No Anemia: Yes Blood Disorders: No Bipolar Disorder: Yes Anxiety: Yes Cardiovascular Problems: Yes Chemotherapy: No Chest Pain: Yes Cerebrovascular Accident: Yes Diabetes: No Diminished Hearing: No Endocrine: No Gastrointestinal Disorders: No Genetic Disorder: Yes (sickle cell trait) Genitourinary: Yes (h/o testicular thrombosis, UTI) Headaches: Yes Immune Disorder: No Implanted Vascular Access Dvce: No Musculoskeletal: No Neurologic: No Psychiatric: Yes Reproductive: Yes Respiratory: No Immunizations Current: Yes Schizophrenia: Yes Seizures: Yes Sickle Cell Disease: Yes Tetanus Vaccination: < 5 Years Influenza Vaccination: Yes Past Surgical History Narrative Surgical The patient's past surgical history to begin for removal of the right wrist cyst. Abdominal Surgery: No Cardiac Surgery: No Ear Surgery: No Endocrine Surgery: No Eye Surgery: No Genitourinary Surgery: No Gynecologic Surgery: No Hysterectomy: No Neurologic Surgery: No Oral Surgery: No Thoracic Surgery: No Other Surgery: Yes (removal of right wrist cyst) Social History Alcohol Use: No Tobacco Use: Yes Substance Use: Yes (merle (smoke)) Allergies-Medications (Allergen,Severity, Reaction): Coded Allergies: Pork/Porcine Containing Products (Unverified Adverse Reaction, Intermediate, Nausea/Vomiting, 10/20/17) haloperidol (Verified Adverse Reaction, Unknown, depressed, suicidal, 10/20) Reported Meds & Prescriptions Reported Meds & Active Scripts Active Haloperidol 20 Mg Tab 20 Mg PO BID 15 Days Continue oral Haldol at least until your next Haldol Decanoate injection or as directed by your outpatient provider. [place] Carbonate 300 Mg Tab 300 Mg PO DAILY 15 Days Review of Systems Except as stated in HPI: all other systems reviewed are Neg General / Constitutional: No: Fever Eyes: No: Visual changes HENT: No: Headaches Cardiovascular: No: Chest Pain or Discomfort Respiratory: No: Shortness of Breath Gastrointestinal: No: Nausea, Vomiting, Diarrhea, Abdominal Pain Genitourinary: Positive: Urgency, Dysuria Musculoskeletal: No: Pain Skin: No Rash Neurologic: No: Weakness Psychiatric: Positive: Depression, Suicidal Ideations, Disorder of Thought, Mood Disorder Endocrine: No: Polydipsia Hematologic/Lymphatic: No: Easy Bruising Physical Exam Narrative General: The patient is a well-developed well-nourished male in no acute distress. Head and Neck exam: Head is normocephalic atraumatic. Eyes: EOMI, pupils are equal round and reactive to light. Nose: Midline septum with pink mucous membranes Mouth: Dentition unremarkable. Moist mucus membranes. Posterior oropharynx is not erythematous. No tonsillar hypertrophy. Uvula midline. Airway patent. Neck: No palpable lymphadenopathy. No nuchal rigidity. No thyromegaly. Cardiovascular: Regular rate and rhythm without murmurs, gallops, or rubs. Lungs: Clear to auscultation bilaterally. No wheezes, rhonchi, or rales. Abdomen: Soft, without tenderness to palpation in all 4 quadrants of the abdomen. No guarding, rebound, or rigidity. Normal bowel sounds are audible. No tenderness on palpation of McBurney's point. Extremities: No clubbing, cyanosis, or edema. 2+ pulses in all 4 extremities. No calf tenderness on palpation. Back: No costovertebral angle tenderness to palpation. Neurologic Exam: Grossly nonfocal. Skin Exam: No rash noted. Intact skin that is warm and dry. Data Data Last Documented VS Vital Signs Date Time Temp Pulse Resp B/P (MAP) Pulse Ox O2 Delivery O2 Flow Rate FiO2 10/20/17 05:54 97.5 89 16 105/72 (83) 98 Orders Orders Complete Blood Count With Diff (10/20/17 06:04) Comprehensive Metabolic Panel (10/20/17 06:04) Thyroid Stimulating Hormone (10/20/17 06:04) Psych Screen (10/20/17 06:04) Drug Screen, Random Urine (10/20/17 06:04) Alcohol (Ethanol) (10/20/17 06:04) Labs Laboratory Tests Test 10/20/17 06:12 White Blood Count 6.1 TH/MM3 Red Blood Count 6.09 MIL/MM3 Hemoglobin 12.8 GM/DL Hematocrit 40.0 % Mean Corpuscular Volume 65.6 FL Mean Corpuscular Hemoglobin 21.0 PG Mean Corpuscular Hemoglobin Concent 32.0 % Red Cell Distribution Width 14.5 % Platelet Count 193 TH/MM3 Mean Platelet Volume 9.7 FL Neutrophils (%) (Auto) 48.7 % Lymphocytes (%) (Auto) 37.4 % Monocytes (%) (Auto) 9.0 % Eosinophils (%) (Auto) 4.1 % Basophils (%) (Auto) 0.8 % Neutrophils # (Auto) 3.0 TH/MM3 Lymphocytes # (Auto) 2.3 TH/MM3 Monocytes # (Auto) 0.5 TH/MM3 Eosinophils # (Auto) 0.3 TH/MM3 Basophils # (Auto) 0.0 TH/MM3 CBC Comment DIFF FINAL Differential Comment Blood Urea Nitrogen 11 MG/DL Creatinine 1.16 MG/DL Random Glucose 81 MG/DL Total Protein 7.0 GM/DL Albumin 3.6 GM/DL Calcium Level 8.7 MG/DL Alkaline Phosphatase 53 U/L Aspartate Amino Transf (AST/SGOT) 11 U/L Alanine Aminotransferase (ALT/SGPT) 16 U/L Total Bilirubin 0.3 MG/DL Sodium Level 143 MEQ/L Potassium Level 3.8 MEQ/L Chloride Level 107 MEQ/L Carbon Dioxide Level 30.4 MEQ/L Anion Gap 6 MEQ/L Estimat Glomerular Filtration Rate 88 ML/MIN Thyroid Stimulating Hormone 3rd Gen 2.020 uIU/ML Ethyl Alcohol Level LESS THAN 3 MG/DL MDM Medical Decision Making Medical Screen Exam Complete: Yes Emergency Medical Condition: Yes Medical Record Reviewed: Yes Differential Diagnosis Substance-induced mood disorder, versus decompensated schizophrenia, versus malingering Narrative Course During the course of the patient's emergency department visit, the patient's history, examination, and differential diagnosis were reviewed with the patient. The patient was placed on a cardiac rehabilitation program director with oximetry and frequent blood pressure monitoring. The patient had blood work sent for analysis. A psychiatric screen was ordered. The patient does not meet Xiong act criteria as the patient is a voluntary evaluation for suicidal ideations. The patient's laboratory studies were reviewed and remarkable for a white count of 6.1, hemoglobin 12.8, platelets 193 with 9 monocytes, CMP is remarkable for GFR of 88, AST 11, TSH 2.02, alcohol level is less than 3. The patient has been medically cleared for evaluation by the psychiatric screener for suicidal ideations. Diagnosis Primary Impression: Schizophrenia Qualified Codes: F20.89 - Other schizophrenia Additional Impression: Suicidal ideations Emerald Lopez MD Oct 20, 2017 06:42
[2017-10-20 06:46] LABS: ALKALINE PHOSPHATASE 53 U/L (45-117); TOTAL BILIRUBIN ADULT 0.3 MG/DL (0.2-1.0)
--- NOTE | 2017-10-20 12:24 | PD.PSY.CON ---
Provisional Diagnosis Admission Date [place] I. Polysubstance dependence including cocaine, marijuana, Katty, history of schizophrenia,, history of malingering Madison II. Unspecified personality disorder [place] III. Hypertension History of Present Illness Service Psychiatry Consult Requested By ER Reason for Consult Psychiatric evaluate Primary Care Physician No Primary Care Physician HPI The patient was seen this morning at 7:30 AM The patient is a 32 year old -[place] man, domiciled with his sister in [facility], single, employed, with several reported psychiatric history of schizophrenia, polysubstance dependence including cocaine, cannabis, Katty, history of conscious simulation with secondary gain of use in the hospital as a care home, medical history of hypertension, who presents to the [facility] emergency department reporting that he is having suicidal ideation would like to Xiong act himself in the context of recent use of cocaine, Katty and cannot. The patient denies having plan regarding harming himself. He denies having any homicidal ideations. He reports that he has been hearing voices. He reports that he has been taking his psychiatric medications regularly. He reports that he is on Haldol. The patient was just seen in the emergency department earlier this evening with complaints of difficulty urinating scrotal pain. The patient had a urinalysis at that time that was unremarkable, however GC and Chlamydia were pending results. The patient was empirically treated with Rocephin and Zithromax. On review of systems otherwise, the patient denies having any fevers, cough or congestion, neck pain, chest pain, shortness of breath, abdominal pain currently, vomiting, diarrhea, new urinary symptoms, or neurologic symptoms. Today on psychiatric evaluation patient is found sleeping, he is easily arousable. His first question was to ask for his breakfast. Patient says that he is now ready to go back home. Patient reports that yesterday he was high and he needed a bed to sleep. Right now he denies depression, he denies anhedonia, denies hopelessness, denies helplessness, denies suicidal enemas ideation, denies visual and auditory hallucinations. Review of Systems Constitutional: DENIES: Diaphoretic episodes, Fatigue, Fever, Weight gain, Weight loss, Chills, Dizziness, Change in appetite, Night Sweats Endocrine: DENIES: Heat/cold intolerance, Polydipsia, Polyuria, Polyphagia Eyes: DENIES: Blurred vision, Diplopia, Eye inflammation, Eye pain, Vision loss , Photosensitivity, Double Vision Ears, nose, mouth, throat: DENIES: Tinnitus, Hearing loss, Vertigo, Nasal discharge, Oral lesions, Throat pain, Hoarseness, Ear Pain, Running Nose, Epistaxis, Sinus Pain, Toothache, Odynophagia Respiratory: DENIES: Apneas, Cough, Snoring, Wheezing, Hemoptysis, Sputum production, Shortness of breath Cardiovascular: DENIES: Chest pain, Palpitations, Syncope, Dyspnea on Exertion , PND, Lower Extremity Edema, Orthopnea, Claudication Gastrointestinal: DENIES: Abdominal pain, Black stools, Bloody stools, Constipation, Diarrhea, Nausea, Vomiting, Difficulty Swallowing, Anorexia Genitourinary: DENIES: Sexual dysfunction, Urinary frequency, Urinary incontinence, Urgency, Hematuria, Dysuria, Nocturia, Penile Discharge, Testicular Pain, Testicular Swelling Musculoskeletal: DENIES: Joint pain, Muscle aches, Stiffness, Joint Swelling, Back pain, Neck pain Integumentary: DENIES: Abnormal pigmentation, Nail changes, Pruritus, Rash Hematologic/lymphatic: DENIES: Bruising, Lymphadenopathy Immunologic/allergic: DENIES: Eczema, Urticaria Neurologic: DENIES: Abnormal gait, Headache, Localized weakness, Paresthesias, Seizures, Speech Problems, Tremor, Poor Balance Psychiatric: DENIES: Anxiety, Confusion, Mood changes, Depression, Hallucinations, Agitation, Suicidal Ideation, Homicidal Ideation, Delusions Past Family Social History Coded Allergies: Pork/Porcine Containing Products (Unverified Adverse Reaction, Intermediate, Nausea/Vomiting, 10/20/17) haloperidol (Verified Adverse Reaction, Unknown, depressed, suicidal, 10/20) Active Scripts Haloperidol (Haloperidol) 20 Mg Tab, 20 MG PO BID for Mental Health for 15 Days , TAB 1 Refill Continue oral Haldol at least until your next Haldol Decanoate injection or as directed by your outpatient provider. Prov:Kirby Melendez MD 08/05/17 [place] Carbonate ([place] Carbonate) 300 Mg Tab, 300 MG PO DAILY for Mental Health for 15 Days, #15 TAB 1 Refill Prov:Kirby Melendez MD 08/05/17 Family Psych History His grandmother has dementia Social History Patient was born and raised in [facility], he lives in [facility] [facility] [place] with his sister, single, unemployed, Physical Exam Vital Signs Vital Signs Date Time Temp Pulse Resp B/P (MAP) Pulse Ox O2 Delivery O2 Flow Rate FiO2 10/20/17 05:54 97.5 89 16 105/72 (83) 98 I/O 10/20/17 10/20/17 10/21/17 08:00 16:00 00:00 Intake Total 240 ml Balance 240 ml Lab Results Test 10/20/17 06:12 10/20/17 07:01 White Blood Count 6.1 TH/MM3 Red Blood Count 6.09 MIL/MM3 Hemoglobin 12.8 GM/DL Hematocrit 40.0 % Mean Corpuscular Volume 65.6 FL Mean Corpuscular Hemoglobin 21.0 PG Mean Corpuscular Hemoglobin Concent 32.0 % Red Cell Distribution Width 14.5 % Platelet Count 193 TH/MM3 Mean Platelet Volume 9.7 FL Neutrophils (%) (Auto) 48.7 % Lymphocytes (%) (Auto) 37.4 % Monocytes (%) (Auto) 9.0 % Eosinophils (%) (Auto) 4.1 % Basophils (%) (Auto) 0.8 % Neutrophils # (Auto) 3.0 TH/MM3 Lymphocytes # (Auto) 2.3 TH/MM3 Monocytes # (Auto) 0.5 TH/MM3 Eosinophils # (Auto) 0.3 TH/MM3 Basophils # (Auto) 0.0 TH/MM3 CBC Comment DIFF FINAL Differential Comment Blood Urea Nitrogen 11 MG/DL Creatinine 1.16 MG/DL Random Glucose 81 MG/DL Total Protein 7.0 GM/DL Albumin 3.6 GM/DL Calcium Level 8.7 MG/DL Alkaline Phosphatase 53 U/L Aspartate Amino Transf (AST/SGOT) 11 U/L Alanine Aminotransferase (ALT/SGPT) 16 U/L Total Bilirubin 0.3 MG/DL Sodium Level 143 MEQ/L Potassium Level 3.8 MEQ/L Chloride Level 107 MEQ/L Carbon Dioxide Level 30.4 MEQ/L Anion Gap 6 MEQ/L Estimat Glomerular Filtration Rate 88 ML/MIN Thyroid Stimulating Hormone 3rd Gen 2.020 uIU/ML Ethyl Alcohol Level LESS THAN 3 MG/DL Urine Opiates Screen NEG Urine Barbiturates Screen NEG Urine Amphetamines Screen NEG Urine Benzodiazepines Screen NEG Urine Cocaine Screen POS Urine Cannabinoids Screen POS Mental Status Examination Appearance: Appropriate Consciousness: Alert Orientation: x4 Motor Activity: Normal gait Speech: Unremarkable Language: Adequate Fund of Knowledge: Adequate Attention and Concentration: Adequate Memory: Unremarkable Mood: Appropriate Affect: Appropriate Thought Process & Associations: Intact Thought Content: Appropriate Hallucination Type: None Delusion Type: None Suicidal Ideation: No Suicidal Plan: No Suicidal Intention: No Homicidal Ideation: No Homicidal Plan: No Homicidal Intention: No Insight: Adequate Judgment: Adequate Assessment & Plan Problem List: (1) Polysubstance dependence ICD Codes: F19.20 - Other psychoactive substance dependence, uncomplicated Assessment & Plan: The patient today is clinically sober. He denies symptomatology of depression, denies symptomatology of anxiety, chani and psychosis. The patient denies suicidal and homicidal ideation, he denies visual and auditory hallucinations. Apparently his expressive psychiatric symptoms on arrival were just a way to get a bed in the hospital. He has history of use in the ER with this intentions. He does not meet criteria for involuntary psychiatric admission at this moment. Support, motivation, psychoeducation provided. Assessment & Plan Estimated LOS: Kenyon Hooks MD Oct 20, 2017 12:24
== END 2017-10-20 08:52 | disposition home or self-care (01) ==
LOC: NEPE 05:47
DX: F20.9 Schizophrenia, unspecified (principal); R45.851 Suicidal ideations; N50.82 Scrotal pain; D57.3 Sickle-cell trait; I10 Essential (primary) hypertension; Z72.0 Tobacco use; Z79.899 Other long term (current) drug therapy
CPT/HCPCS: 80053; 80307; 84443; 85025; 99283

== ENCOUNTER 2017-11-29 | Inpatient (IN) ==
[2017-12-26] MEDS ORDERED: Lidocaine 5% Patch T-DERMAL ONE (07:37)
[2017-12-26] MEDS ORDERED: Acetaminophen 325 MG Tablet PO PRN (08:01)
[2017-12-26] MEDS ORDERED: Aluminum/Magnesium/Simethacone Susp 30 ML UDC PO PRN (08:02)
[2017-12-26] MEDS ORDERED: Chlorpromazine Inj 50 MG/2 ML Ampule IM PRN (08:04)
[2017-12-26] MEDS ORDERED: LORazepam 1 MG Tablet PO PRN (08:14)
[2017-12-26] MEDS ORDERED: Lidocaine 5% Patch T-DERMAL SCH (09:00)
--- NOTE | 2017-12-26 13:02 | P.PNPSY ---
Subjective Remarks: Patient was seen and case discussed with nursing. Patient remains seclusive to self. Spending most of his time in bed. Remains perseverative on the specifics of his upcoming discharge. Continues to deny psychosis. Insight remains poor concerning his mental health. He has been compliant with medications and has not had any outbursts Mental Status Examination Appearance: Appropriate Consciousness: Vigilant Orientation: x4 Motor Activity: Normal gait Speech: Slow Language: Adequate Fund of Knowledge: Adequate Attention and Concentration: Adequate Memory: Unremarkable Mood: Appropriate Affect: Blunt Thought Process & Associations: Disorganized Thought Content: Appropriate Hallucination Type: None Delusion Type: None Suicidal Ideation: No Suicidal Plan: No Suicidal Intention: No Homicidal Ideation: No Homicidal Plan: No Homicidal Intention: No Insight: Poor Judgment: Poor Assessment and Plan - Assessment (1) Schizoaffective disorder Code(s): F25.9 - Schizoaffective disorder, unspecified Status: Acute - Plan Plan: Estimated LOS: [] days Continue current treatment plan Justification for Continued Inpatient Stay: Patient would decompensate in a less restrictive setting
[2017-12-26] MEDS ORDERED: ChlorproMAZINE 50 MG Tablet PO SCH (21:00)
--- NOTE | 2017-12-27 14:19 | P.DSPSY ---
Psychiatry Discharge Summary Inpatient Psychiatric care?: Yes Advance Directives: No Mental Health Advance Directive: No Health Care Proxy: No - Admission Admission Date: November 29, 2017 08:07 - Admission Diagnosis (1) Schizoaffective disorder Code(s): F25.9 - Schizoaffective disorder, unspecified Brief History: The patient is a 21-year-old man, domiciled with his mother, unemployed, single, supported by [facility], with psychiatric history of diagnosis schizophrenia, schizoaffective disorder marijuana and cocaine use disorder, antisocial personality disorder, multiple psychiatric admissions, multiple ED visits, he has been hospitalized twice this year in [place], noncompliant with his medications, medical history of Sickle cell disease, who came to the hospital on the Xiong act initiated by law-enforcement, due to aggressive behavior in the street. In the ER the patient has been extremely aggressive, requesting to be discharged, he was medicated once with Zyprexa 10 mg to calm him down. But, on my evaluation this morning the patient was already aggressive , trying to elope from the ER, a adela garcia was called, forces show up in the ER , and the patient had to be manually and mechanically restrained posterior sleep chemically restrained too with Thorazine 100 mg. On the ER the patient has been quite disorganized, voicing profanities, no able to be redirected verbally. I spoke with his mother, Ms. Lopez, who states that the patient has being very disorganized and agitated in the last days, he has not been taking his medications, has been using cocaine and cannabis every day and yesterday, she says, he voiced that he wanted to commit suicide by hanging him multiple times. The mother agrees that the patient needs psychiatric admission, but he does not have capacity to take decisions for himself and she agreed with starting the medication in lithium 200 mg and Thorazine 50 mg twice daily. Past psychiatric history: Schizophrenia versus schizoaffective disorder, marijuana use disorder, previous psychiatric hospitalizations last time and [place] in august 2017 but after that he has numerous ER visit. He also have multiple suicidal attempts Substance use history: Marijuana use daily since his teenage years currently reporting wanting to stop. Also uses cocaine. Past medical history: Sickle cell disease Allergies: NKDA Social history: Single, domiciled alone, has 1 daughter who lives with his grandparents, unemployed on SSI. Tobacco Use In Past 30 Days: No How Often Do You Have a Drink Containing Alcohol: Monthly or less Hospital Course: Patient was admitted to a locked, inpatient psychiatric unit. A general medical consultation was obtained and the patient was medically cleared prior to discharge. Appropriate precautions were in place throughout patient's hospital stay. Patient was seen and examined on the unit by psychiatry and also visited by counselor. Psychotropic medications were adjusted. Patient tolerated medication changes well without side effects beside some mild tiredness. A state hospital referral has been initiated in this patient with chronic and persistent mental illness. [facility] has agreed to retain the patient for state hospitalization, and counselor cement or concrete finishing supervisor Colin Osullivan indicates that the patient may be transferred to their inpatient unit today. On the day of discharge: Patient seen and examined with nurse. Chart reviewed. Case discussed with nursing staff. On my examination today, the patient remained somewhat guarded but is calmer versus before the weekend. He denies any SI or HI but seems unreliable to contract for safety in his present state, particularly in a less restrictive setting. He denies any audiovisual hallucinations but still appears somewhat internally preoccupied. He denies side effects from medications besides mild tiredness. No physical complaints. In particular, the patient denies any complaints of chest pain or associated symptoms. Patient will be transferred to the inpatient unit at [facility] today with plans for subsequent state psychiatric hospitalization. Psychiatric follow-up as per [facility]ks[facility] Nunn. Patient is also to follow up with primary care. Patient to return to psychiatric emergency room for any concerning psychiatric symptoms as part of a general safety plan. - Discharge Discharge Date: 12/27/17 - Discharge Diagnosis (1) Schizoaffective disorder Code(s): F25.9 - Schizoaffective disorder, unspecified Status: Acute Discharge Disposition: [facility] inpatient psychiatric unit - Discharge Instructions Discharge Diet: Regular Diet Activities You Can Perform: Weight Bearing As Tolerat - Discharge Time <= 30 minutes Mental Status Examination Appearance: Appropriate Consciousness: Alert Orientation: Person, Place (At least) Motor Activity: Normal gait, Other (No motor abnormalities noted) Speech: Unremarkable Language: Adequate Fund of Knowledge: Adequate Attention and Concentration: Adequate Memory: Unremarkable Mood: Other (Calm) Affect: Blunt Thought Process & Associations: Tangential Thought Content: Other (Delusional) Hallucination Type: Other (Internally preoccupied) Delusion Type: Paranoid Suicidal Ideation: No Suicidal Plan: No Suicidal Intention: No Homicidal Ideation: No Homicidal Plan: No Homicidal Intention: No Insight: Poor Judgment: Poor Discharge/Advance Care Plan - Results Vital Signs: Last Vital Signs Temp 97.8 F 12/27/17 05:55 Pulse 79 12/27/17 05:55 Resp 16 12/27/17 05:55 BP 109/57 L 12/27/17 05:55 Pulse Ox 98 12/27/17 05:55 Lab Results: Laboratory Results Hemoglobin A1c 5.0 % (4.3-6.0) 12/05/17 06:56 Triglycerides 117 MG/DL (42-150) 12/05/17 06:56 Cholesterol 139 MG/DL (120-200) 12/05/17 06:56 HDL Cholesterol 44.7 MG/DL (40.0-60.0) 12/05/17 06:56 [place] 0.8 MEQ/L (0.5-1.5) 12/10/17 05:47 Summary of Procedures: None done Pending Results: None - Medications Number of antipsychotic medications at discharge: 1 - Discharge Care Plan Goals to Promote Your Health: * To prevent worsening of your condition and complications * To maintain your health at the optimal level Directions to Meet Your Goals: Take your medications as prescribed Follow your dietary instruction Follow activity as directed Keep your appointments as scheduled Take your immunizations and boosters as scheduled If your symptoms worsen call your PCP, if no PCP go to Urgent Care Center or Emergency Room For 18/01 questions related to your inpatient stay or results of tests pending at discharge, please contact Dr. Kirby Melendez MD at [phone] Smoking is Dangerous to Your Health. Avoid second hand smoking (1) Schizoaffective disorder Qualifiers: Schizoaffective disorder type: bipolar Qualified Code(s): F25.0 - Schizoaffective disorder, bipolar type (1) Schizoaffective disorder Qualifiers: Schizoaffective disorder type: bipolar Qualified Code(s): F25.0 - Schizoaffective disorder, bipolar type
== END 2017-12-27 16:55 ==
LOC: UNDODISIN → H260 08:07
PROVIDERS: ADMIT Psychiatry & Neurology Psychiatry; ATTEND Psychiatry & Neurology Psychiatry

== ENCOUNTER 2018-06-10 19:09 | Inpatient (IN) ==
--- NOTE | 2018-06-10 19:39 | ED ---
HPI General Chief Complaint: Psychiatric Symptoms Stated Complaint: Psych (DBPD) Time Seen by Provider: 06/10/18 19:16 Source: police Mode of arrival: other (Police) Limitations: no limitations History of Present Illness HPI Narrative: Presents to our facility under a Xiong act by the [facility]. Patient was wandering around a local [employer] campus and saying that he wanted to harm himself or others. Please stated that he was being belligerent and saying things that did not make sense. Patient denies any history of any mental illness, depression, anxiety. States that he has never been medicated for any mental health disorders. MD complaint: Reports suicidal ideation and altered mental status Duration: constant History of same: Yes Relieving factors: none Exacerbating factors: none Context: Reports not taking psychiatric medications; Denies recent alcohol abuse and recent drug abuse Associated psychiatric symptoms: Reports suicidal ideation and homicidal ideation Associated symptoms: Reports confusion; Denies headache, shortness of breath, nausea, vomiting, syncope and insomnia Treatments prior to arrival: Reports none Related Data Home Medications Medication Instructions Recorded Confirmed No Known Home Medications 06/10/18 06/10/18 Allergies Allergy/AdvReac Type Severity Reaction Status Date / Time Pork/Porcine Containing AdvReac Intermediate Nausea/Vomi Unverified 10/20/17 06: 07 Products ting haloperidol AdvReac Unknown depressed, Verified 10/20/17 06:07 suicidal Review of Systems ROS: all other systems reviewed are negative [facility] Medical History Medical History Patient denies medical problems (Acute) Schizophrenia (Acute) Surgical History Surgical History No history of previous surgery (Acute) Social History Social History How Often Do You Have a Drink Containing Alcohol: Monthly or less Recent Travel in [place] within the Last 8 Weeks: No Recent Out of Country Travel within the Last 8 Weeks: No Exam Const General: anxious and disheveled Orientation: alert, awake and oriented x3 HENMT Head: normocephalic and atraumatic Nose: no nasal discharge and no epistaxis Mouth: moist mucous membranes Eyes Sclera: normal sclerae Pupils: PERRL Neck Neck: trachea midline and no JVD Resp Effort & Inspection: no use of accessory muscles Auscultation: clear to auscultation bilaterally Cardio Rate: regular rate Rhythm: regular rhythm Heart Sounds: no murmurs GI Inspection: non-distended Palpation: soft, no hepatosplenomegaly and nontender Skin General: dry skin (warm) Neuro General: alert and awake Cranial Nerves: other Speech: speech normal Motor: no movement abnormalities noted Extrem General: normal to inspection, no clubbing, no cyanosis and no edema Psych Mood: congruent mood Affect: normal affect and anxious affect Judgment: judgment good Course Initial Documented Vital Signs Temperature 97.6 F 06/10/18 19:17 Pulse Rate 74 06/10/18 19:17 Respiratory Rate 16 06/10/18 19:17 Blood Pressure 125/84 06/10/18 19:17 Pulse Oximetry 100 06/10/18 19:17 Last Documented Vital Signs Temperature 98.2 F 06/10/18 22:16 Pulse Rate 70 06/10/18 22:16 Respiratory Rate 14 06/10/18 22:16 Blood Pressure 115/67 06/10/18 22:16 Pulse Oximetry 100 06/10/18 22:16 Medical Decision Making MDM Narrative Medical decision making narrative: Presents to our facility under a Xiong act by the [facility] [employer]. Patient was wandering around a local college campus and saying that he wanted to harm himself or others. Please stated that he was being belligerent and saying things that did not make sense. Patient denies any history of any mental illness, depression, anxiety. States that he has never been medicated for any mental health disorders. Pressure is 115/67, pulse is 70 patient is 98.2 O2 sat is 100% on room air Physical exam is unremarkable. Patient will receive basic lab work along with a tox screen. Lab work is unremarkable Patient medically cleared at 2100. Patient awaits psychiatric evaluation in the morning Medical Screen Exam Complete: Yes Emergency Medical Condition: Yes Lab Data Lab results reviewed: Yes I reviewed the patient's lab results. Result diagrams: 06/10/18 19:35 06/10/18 19:35 Lab Results 06/10/18 06/10/18 06/10/18 Range/Units 19:35 19:35 19:35 WBC 6.1 (4.0-11.0) th/mm3 RBC 5.62 (4.50-5.90) mil/mm3 Hgb 11.6 L (13.0-17.0) gm/dL Hct 35.8 L (39.0-51.0) % MCV 63.8 L (80.0-100.0) fL MCH 20.7 L (27.0-34.0) pg MCHC 32.5 (32.0-36.0) % RDW 15.9 (11.6-17.2) % Plt Count 186 (150-450) th/mm3 MPV 9.7 (7.0-11.0) fL Neut % (Auto) 59.4 (16.0-70.0) % Lymph % (Auto) 24.1 (9.0-44.0) % [place] % (Auto) 10.0 H (0.0-8.0) % Eos % (Auto) 6.0 H (0.0-4.0) % Baso % (Auto) 0.5 (0.0-2.0) % Neut # (Auto) 3.6 (1.8-7.7) th/mm3 Lymph # (Auto) 1.5 (1.0-4.8) th/mm3 [place] # (Auto) 0.6 (0.0-0.9) th/mm3 Eos # (Auto) 0.4 (0.0-0.4) th/mm3 Baso # (Auto) 0.0 (0.0-0.2) th/mm3 WBC Differential . Differential Comment Auto diff final Sodium (136-145) meq/L Potassium (3.5-5.1) meq/L Chloride (98-107) meq/L Carbon Dioxide (21.0-32.0) meq/L Anion Gap (5-15) meq/L BUN (7-18) mg/dL Creatinine (0.60-1.30) mg/dL Estimated GFR (>89) mL/min Random Glucose (74-106) mg/dL Calcium (8.5-10.1) mg/dL Magnesium (1.5-2.5) mg/dL Total Bilirubin (0.2-1.0) mg/dL AST (15-37) U/L ALT (12-78) U/L Alkaline Phosphatase (45-117) U/L Total Protein (6.4-8.2) g/dL Albumin (3.4-5.0) g/dL TSH (0.358-3.740) uIU/mL Salicylates Less than 1.7 L (2.8-20.0) mg/dL Acetaminophen (10.0-30.0) mcg/mL Valproic Acid (50-100) mcg/mL [place] Less than 0.1 L (0.5-1.5) meq/L Serum Alcohol (0-5) mg/dL 06/10/18 Range/Units 19:35 WBC (4.0-11.0) th/mm3 RBC (4.50-5.90) mil/mm3 Hgb (13.0-17.0) gm/dL Hct (39.0-51.0) % MCV (80.0-100.0) fL MCH (27.0-34.0) pg MCHC (32.0-36.0) % RDW (11.6-17.2) % Plt Count (150-450) th/mm3 MPV (7.0-11.0) fL Neut % (Auto) (16.0-70.0) % Lymph % (Auto) (9.0-44.0) % [place] % (Auto) (0.0-8.0) % Eos % (Auto) (0.0-4.0) % Baso % (Auto) (0.0-2.0) % Neut # (Auto) (1.8-7.7) th/mm3 Lymph # (Auto) (1.0-4.8) th/mm3 [place] # (Auto) (0.0-0.9) th/mm3 Eos # (Auto) (0.0-0.4) th/mm3 Baso # (Auto) (0.0-0.2) th/mm3 WBC Differential Differential Comment Sodium 141 (136-145) meq/L Potassium 3.7 (3.5-5.1) meq/L Chloride 107 (98-107) meq/L Carbon Dioxide 28.8 (21.0-32.0) meq/L Anion Gap 5 (5-15) meq/L BUN 11 (7-18) mg/dL Creatinine 1.13 (0.60-1.30) mg/dL Estimated GFR Greater than 89 (>89) mL/min Random Glucose 85 (74-106) mg/dL Calcium 8.1 L (8.5-10.1) mg/dL Magnesium 2.3 (1.5-2.5) mg/dL Total Bilirubin 0.7 (0.2-1.0) mg/dL AST 23 (15-37) U/L ALT 21 (12-78) U/L Alkaline Phosphatase 55 (45-117) U/L Total Protein 7.3 (6.4-8.2) g/dL Albumin 3.8 (3.4-5.0) g/dL TSH 1.270 (0.358-3.740) uIU/mL Salicylates (2.8-20.0) mg/dL Acetaminophen Less than 2.0 L (10.0-30.0) mcg/mL Valproic Acid Less than 3 L (50-100) mcg/mL [place] (0.5-1.5) meq/L Serum Alcohol Less than 3 (0-5) mg/dL Discharge Plan Discharge Disposition Patient Disposition: Sign Out(ED Internal Use Only) Discharge Condition Condition: Stable Discharge Details Diagnosis: Acute psychosis, Suicidal ideation Physicians Team ED Provider: [facility] ED Midlevel Provider: Nubia Spicer Primary Care Provider: Primary Care Elvira Plummer Rxs /Orders / Referrals /Forms Prescriptions: No Action No Known Home Medications RF: 0 Status ED Status: With Doctor
[2018-06-10 19:55] LABS: Baso % (Auto) 0.5 % (0.0-2.0); Eos # (Auto) 0.4 th/mm3 (0.0-0.4); Hematocrit 35.8 % (39.0-51.0); Hemoglobin 11.6 gm/dL (13.0-17.0); Lymph # (Auto) 1.5 th/mm3 (1.0-4.8); Lymph % (Auto) 24.1 % (9.0-44.0); Mean Corpuscular HGB Conc 32.5 % (32.0-36.0); Mean Corpuscular Hemoglobin 20.7 pg (27.0-34.0); Mean Corpuscular Volume 63.8 fL (80.0-100.0); Mean Platelet Volume 9.7 fL (7.0-11.0); Mono # (Auto) 0.6 th/mm3 (0.0-0.9); Neut # (Auto) 3.6 th/mm3 (1.8-7.7); Neut % (Auto) 59.4 % (16.0-70.0); Platelet Count 186 th/mm3 (150-450); Red Blood Count 5.62 mil/mm3 (4.50-5.90); Red Cell Distribution Width 15.9 % (11.6-17.2); White Blood Count 6.1 th/mm3 (4.0-11.0)
[2018-06-10 20:17] LABS: Albumin 3.8 g/dL (3.4-5.0); Anion Gap 5 meq/L (5-15); Aspartate Aminotransferase 23 U/L (15-37); Blood Urea Nitrogen 11 mg/dL (7-18); Calcium 8.1 mg/dL (8.5-10.1); Carbon Dioxide 28.8 meq/L (21.0-32.0); Chloride 107 meq/L (98-107); Glomerular Filtration Rate Greater Than 89 mL/min (>89); Glucose,Random 85 mg/dL (74-106); Magnesium 2.3 mg/dL (1.5-2.5); Potassium 3.7 meq/L (3.5-5.1); Sodium 141 meq/L (136-145)
[2018-06-10 20:18] LABS: Alanine Aminotransferase 21 U/L (12-78)
[2018-06-10 20:26] LABS: Alkaline Phosphatase 55 U/L (45-117); Total Protein 7.3 g/dL (6.4-8.2)
[2018-06-11] MEDS ORDERED: predniSONE 20 MG Tablet PO ONE (01:11)
[2018-06-11 01:57] LABS: Amorphous Sediment,Urine Rare /hpf; Bacteria,Urine Occasional /hpf; Bilirubin,Urine Negative (Negative); Clarity,Urine Hazy (Clear); Color,Urine Yellow (Yellw/Straw); Glucose,Urine (UA) Negative (Negative); Leukocyte Esterase,Urine Negative (Negative); Mucus,Urine Few /lpf (Occasional); Nitrite,Urine Negative (Negative); Specific Gravity,Urine 1.024 (1.002-1.035); Squamous Epithelial Cell,Urine <1 /hpf (0-5)
[2018-06-11 02:00] LABS: Urobilinogen,Urine 0.2 mg/dL (Less than 2)
[2018-06-11 02:40] LABS: Amphetamine Screen,Urine Neg (Neg); Barbiturate Screen,Urine Neg (Neg); Cannabinoid Screen,Urine Pos (Neg); Cocaine Screen,Urine Neg (Neg); Opiate Screen,Urine Neg (Neg)
[2018-06-11] MEDS ORDERED: LORazepam 1 MG Tablet PO PRN (11:54)
[2018-06-11] MEDS ORDERED: Benztropine Inj 2 MG/2 ML Ampul IM PRN (11:54)
[2018-06-11] MEDS ORDERED: Aluminum/Magnesium/Simethacone Susp 30 ML UDC PO PRN (11:54)
--- NOTE | 2018-06-11 11:59 | P.HPPSY ---
Provisional Diagnosis Admission Date: June 10, 2018 19:09 [place] I.: 1. Schizoaffective disorder, bipolar type, acute exacerbation 2. Cannabis abuse [place] II.: Deferred Competence Certification of Person's Competence To Provide Express and Informed Consent I have personally examined Kannan Lopez, a person being served at [facility] on, June 11, 2018 1159. Express and informed consent means consent voluntarily given in writing, by a competent person, after sufficient explanation and disclosure of the subject matter involved to enable the person to make a knowing and willful decision without any element of force, fraud, deceit, duress, or other form of constraint or coercion. This person is 18 years of age or older, is not now known to be incompetent to consent to treatment with a guardian advocate, and does not have a health care surrogate or proxy currently making medical treatment decisions. I have found this person to be one of the following: [] Competent to provide express and informed consent, as defined above, for voluntary admission to this facility and is competent to provide express and informed consent for treatment. He/she has the consistent capacity to make well reasoned, willful, and knowing decisions concerning his or her medical or mental health treatment. The person fully and consistently understands the purpose of the admission for examination/placement and is fully capable of personally exercising all rights assured [place] [X] Incompetent to provide express and informed consent to voluntary admission, and this is incompetent to provide express and informed consent to treatment. The person must be transferred to involuntary status and a petition for a guardian advocate filed with the Circuit Court. [] Refusing to provide express and informed consent to voluntary admission but is competent to provide express and informed consent for treatment. The person must be discharged or transferred to involuntary status. Form shall be completed within 24 hours of a person's arrival at the receiving facility and filed in the clinical record of each person: 1. Admitted on a voluntary basis 2. Permitted to provide express and informed consent to his/her own treatment 3. Allowed to transfer from involuntary to voluntary status 4. Prior to permitting a person to consent to his or her own treatment after having been previously found incompetent to consent to treatment. History of Present Illness Capacity: Lacks capacity Chief Complaint: Psychosis History of Present Illness: Mr. Lopez is a 32-year-old male with a history of schizoaffective disorder who presents under a Xiong act by law enforcement alleging that the patient was found trespassing on a local college campus. He was noted to be paranoid and making bizarre statements including statements about murder and weapons. Patient is well-known to the psychiatric service here from multiple previous psychiatric admissions and ED visits. Reviewing the electronic medical record, I note that he was most recently psychiatrically admitted under my care in November of this year, at which point he was transferred to [facility] to await critical access hospital psychiatric hospitalization. Patient seen and examined. Chart reviewed. Case discussed with nursing staff who reports patient's behavior has been somewhat intrusive and bizarre while under observation in the ED. On my examination today, the patient presents as fairly paranoid. He tells me that the police took him off of the college campus because there was a freeze warning. When I asked him about the allegations regarding bizarre statements including statements about murder as detailed in the Xiong act the patient smiles quite inappropriately and says that this is "the truth, the whole truth." He then says that he "plead[s] the fifth" and does not want to talk anymore. He does not describe any specific victim. He denies any hallucinations but does appear internally stimulated. He is fairly interpersonally intense. History is limited because of the patient 's psychiatric symptoms at present. Patient has no acute physical complaints. Past psychiatric history: Patient carries a diagnosis of schizoaffective disorder. He reports that he continues to follow at [facility] and was last seen there yesterday. He says that he is prescribed lithium and Invega, although if true I note that the patient's lithium level was undetectable. He reports that he was discharged from the [facility] [place] last . He denies a history of suicide attempts. Family history: Patient denies any family psychiatric history. Chemical dependency history: Patient admits to ongoing use of cannabis. No other substance use reported. Social history: Patient becomes extremely paranoid when I endeavored to obtain social history and is unwilling to provide me with any details regarding his current social situation. Given the patient's degree of psychiatric impairment at present, I have obtained collateral information from his mother Suma Lopez at [phone]. Ms. Lopez confirms that the patient was released from [place] last into the care of the FACT team. He was placed at [facility] by the [facility]. She reports that the patient wandered from this facility and outpatient immigration case worker with the FACT team, Marlon Jaimes, was reportedly in the process of obtaining an ex parte. Ms. Lopez is willing to serve as HCS. She is unsure of psychotropic regimen but does provide consent for Ativan/Benadryl. I tried calling over to [facility] to get patient's med list, but they have no records of patient's medications since July. I have instructed nurse Yomaira in the [facility] to obtain up-to-date med list from patient's immigration case worker CHILO. Review of Systems unobtainable due to mental condition PMFSH - History History Provided By: Patient, Law Enforcement - Medical History Medical History: Medical History (Last Reviewed 06/11/18 @ 00:31 by Nubia Spicer) Patient denies medical problems Schizophrenia - Surgical History Surgical History: Surgical History (Last Reviewed 06/11/18 @ 00:31 by Nubia Spicer) No history of previous surgery - Alcohol History How Often Do You Have a Drink Containing Alcohol: Monthly or less - Travel History Recent Travel in the [place] Within the Last 8 Weeks: No Recent Travel Out of the Country Within the Last 8 Weeks: No Quality Measures - Psychiatric History Psychological trauma history: Unable to obtain secondary to paranoia - Patient Strengths Patient's strengths (minimum of 2): In a monitored setting. Verbally fluent. Medications and Allergies Active Medications: Active Medications Acetaminophen (Tylenol) 650 mg PO Q4H PRN PRN Reason: Pain 1-5 or Temp >101F Al Hydrox/Mg Hydrox/Simethicone (Mag-Al Plus Susp Liq) 30 ml PO Q6H PRN PRN Reason: DYSPEPSIA Al Hydroxide/Mg Hydroxide (Milk Of Magnesia Liq) 30 ml PO Q12H PRN PRN Reason: Mild Constipation Benztropine Mesylate (Cogentin) 1 mg PO Q12H PRN PRN Reason: EXTRA PYRAMIDAL SYMPTOMS Benztropine Mesylate (Cogentin Inj) 1 mg IM Q12H PRN PRN Reason: EXTRA PYRAMIDAL SYMPTOMS Diphenhydramine HCl (Benadryl) 50 mg PO HS PRN PRN Reason: INSOMNIA Lorazepam (Ativan) 1 mg PO Q6H PRN PRN Reason: MODERATE TO SEVERE ANXIETY Lorazepam (Ativan Inj) 1 mg IM Q6H PRN PRN Reason: MODERATE TO SEVERE ANXIETY Nicotine (Habitrol 14 Mg Patch.24 Hr) 1 patch T-DERMAL DAILY PRN PRN Reason: Nicotine craving Patch Removal (Remove Old Patch) 1 each T-DERMAL HS STEPHAN Allergies Allergy/AdvReac Type Severity Reaction Status Date / Time haloperidol AdvReac Intermediate depressed, Verified 06/11/18 01:30 suicidal Pork/Porcine Containing AdvReac Intermediate Nausea/Vomi Verified 06/11/18 01:30 Products ting Home Medications Medication Instructions Recorded Confirmed Type No Known Home Medications 06/10/18 06/10/18 History Results - Labs CBC & Chem 7: 06/10/18 19:35 06/10/18 19:35 Labs: Laboratory Results - last 24 hr 06/10/18 06/10/18 06/10/18 19:35 19:35 19:35 WBC 6.1 RBC 5.62 Hgb 11.6 L Hct 35.8 L MCV 63.8 L MCH 20.7 L MCHC 32.5 RDW 15.9 Plt Count 186 MPV 9.7 Neut % (Auto) 59.4 Lymph % (Auto) 24.1 [place] % (Auto) 10.0 H Eos % (Auto) 6.0 H Baso % (Auto) 0.5 Neut # (Auto) 3.6 Lymph # (Auto) 1.5 [place] # (Auto) 0.6 Eos # (Auto) 0.4 Baso # (Auto) 0.0 WBC Differential . Differential Comment Auto diff final Sodium Potassium Chloride Carbon Dioxide Anion Gap BUN Creatinine Estimated GFR Random Glucose Calcium Magnesium Total Bilirubin AST ALT Alkaline Phosphatase Total Protein Albumin TSH Urine Color Urine Clarity Urine pH Ur Specific [place] Urine Protein Urine Glucose (UA) Urine Ketones Urine Occult Blood Urine Nitrate Urine Bilirubin Urine Urobilinogen Ur Leukocyte Esterase Urine RBC Urine WBC Ur Squamous Epith Cells Amorphous Sediment Urine Bacteria Urine Mucus Micro UA Comment Ur Microscopic Review Urine Culture Comments Salicylates Less than 1.7 L Urine Opiates Screen Acetaminophen Ur Barbiturates Screen Valproic Acid Ur Amphetamines Screen U Benzodiazepines Scrn [place] Less than 0.1 L Urine Cocaine Screen U Cannabinoids Screen Serum Alcohol 06/10/18 06/11/18 06/11/18 19:35 01:00 01:00 WBC RBC Hgb Hct MCV MCH MCHC RDW Plt Count MPV Neut % (Auto) Lymph % (Auto) [place] % (Auto) Eos % (Auto) Baso % (Auto) Neut # (Auto) Lymph # (Auto) [place] # (Auto) Eos # (Auto) Baso # (Auto) WBC Differential Differential Comment Sodium 141 Potassium 3.7 Chloride 107 Carbon Dioxide 28.8 Anion Gap 5 BUN 11 Creatinine 1.13 Estimated GFR Greater than 89 Random Glucose 85 Calcium 8.1 L Magnesium 2.3 Total Bilirubin 0.7 AST 23 ALT 21 Alkaline Phosphatase 55 Total Protein 7.3 Albumin 3.8 TSH 1.270 Urine Color Yellow Urine Clarity Hazy H Urine pH 6.0 Ur Specific [place] 1.024 Urine Protein Negative Urine Glucose (UA) Negative Urine Ketones Negative Urine Occult Blood Negative Urine Nitrate Negative Urine Bilirubin Negative Urine Urobilinogen 0.2 Ur Leukocyte Esterase Negative Urine RBC 1 Urine WBC 8 H Ur Squamous Epith Cells <1 Amorphous Sediment Rare H Urine Bacteria Occasional H Urine Mucus Few H Micro UA Comment Culture indicated Ur Microscopic Review Not Reportable Urine Culture Comments Culture indicated Salicylates Urine Opiates Screen Neg Acetaminophen Less than 2.0 L Ur Barbiturates Screen Neg Valproic Acid Less than 3 L Ur Amphetamines Screen Neg U Benzodiazepines Scrn Neg [place] Urine Cocaine Screen Neg U Cannabinoids Screen Pos H Serum Alcohol Less than 3 Labs reviewed. Anemia is chronic. Exam Vital signs: Vital Signs 06/10/18 19:17 06/10/18 22:16 06/11/18 05:24 Temperature 97.6 F 98.2 F 98.3 F Pulse Rate 74 70 68 Respiratory Rate 16 14 16 Blood Pressure 125/84 115/67 120/75 Pulse Oximetry 100 100 100 Intake & Output 06/10/18 06/11/18 06/11/18 18:59 06:59 18:59 Weight 72.575 kg Narrative: Physical examination was completed by the ED provider. On my examination today , the patient appears to be in no acute physical distress. No motor abnormalities noted. Labs and vital signs reviewed. Mental Status Examination Appearance: Disheveled Consciousness: Alert, Vigilant Orientation: Person, Place (At least) Motor Activity: Other (No motor abnormalities noted) Speech: Hesitant Language: Other (Somewhat rambling) Fund of Knowledge: Inadequate Attention and Concentration: Easily distracted Memory: Impaired (Psychosis interferes) Mood: Oppositional, Irritable Affect: Irritable, Other (Inappropriate) Thought Process & Associations: Tangential Thought Content: Bizarre thinking, Hallucinations, Delusional Hallucination Type: Auditory (Denies AVH but appears internally preoccupied) Delusion Type: Paranoid Suicidal Ideation: No Homicidal Ideation: Yes (Admits to making statements regarding violent ideation as noted above.) Insight: Poor Judgment: Poor Assessment and Plan - Assessment (1) Schizoaffective disorder Code(s): F25.9 - Schizoaffective disorder, unspecified Status: Acute (2) Cannabis abuse Code(s): F12.10 - Cannabis abuse, uncomplicated Status: Acute - Plan Plan: 32-year-old male with psychiatric history as detailed above who presents under a Xiong act by law enforcement. On my examination today, the patient appears to be decompensated with respect to his psychotic illness. It is possible this decompensation is related to medication nonadherence or perhaps was precipitated by substance use. In any event, I am concerned that the patient is unpredictable with respect to risk for violence and he was alleged to have been making statements regarding murder according to the Xiong act. I will plan to admit the patient to the inpatient psychiatric unit for safety, observation and stabilization. Admit inpatient. Involuntary status. I have completed first opinion. Consult for second opinion. Request healthcare surrogate and guardian advocate. Nursing is working to confirm outpatient psychotropic medication regimen. Once this is done, we will plan to obtain consent for psychotropic medications as appropriate from patient's mother who has agreed to serve as health care surrogate. I will check an EKG in anticipation of initiation of antipsychotic therapy. Ativan as needed for anxiety. E-FORCSE report reviewed. Cogentin as needed for EPS. Benadryl as needed for sleep. Patient was provided with a dose of amoxicillin and prednisone by the ED provider, although the rationale for this therapy is unclear and there is no recommendation in ED provider notes for ongoing therapy with either of these agents. I spoke with midlevel ED provider who has assumed care of case, Fernando Hardwick, and she will investigate whether patient needs to continue with these agents. Overnight vitals every shift. Counselor to see. Disposition planning. ELOS: 7+ days. Justification for Continued Inpatient Stay: See above. Discharge Planning: Pending psychiatric stabilization. Request Healthcare Surrogate/Guardian Advocate?: Yes (1) Schizoaffective disorder Qualifiers: Schizoaffective disorder type: bipolar Qualified Code(s): F25.0 - Schizoaffective disorder, bipolar type
[2018-06-12 11:20] LABS: Chol/HDL Ratio 3.47 Ratio; HDL Cholesterol 47.5 mg/dL (40.0-60.0)
--- NOTE | 2018-06-12 11:42 | P.PNPSY ---
Subjective Chief Complaint: Psychosis Remarks: Patient seen and examined with nurseKellen. Chart reviewed. Case discussed with nursing staff. On my examination today, the patient is seclusive to his room. He keeps his head covered throughout the interview. He is quite paranoid. He is discharge focused and asks if he can sign himself out of the hospital. We have discussed his legal status. He denies any suicidal or homicidal ideation. He denies any audiovisual hallucinations. Prior to admission regimen was obtained by nurse in the ED from outpatient lining caser and reportedly included lithium and Haldol decanoate. However, I see that the patient has a listed allergy to Haldol. When I ask the patient about his reaction to this medication he says "I do not know. I overheated." No physical complaints. Spoke with patient's mother/healthcare surrogate. She reports that Haldol has caused enuresis in the past but knows of no other intolerances or side effects to this medication. We discussed options for management of patient's psychosis and settle on continuation of lithium and replacement of Haldol with paliperidone with consideration of initiation of Invega Sustenna. Mother provides consent for lithium and paliperidone. Vital Signs Temp Pulse Resp BP Pulse Ox 06/12/18 06:00 98 F 77 18 124/64 100 06/11/18 16:00 98.2 F 88 18 123/70 100 06/11/18 14:25 69 18 112/67 Intake and Output 06/11/18 06/12/18 06/12/18 22:59 06:59 14:59 Other: Weight 72.4 kg Weight On Admission 72.4 kg Laboratory Results - last 24 hr 06/12/18 10:10 Triglycerides 101 Cholesterol 165 LDL Cholesterol, Calc 97 HDL Cholesterol 47.5 Cholesterol/HDL Ratio 3.47 Labs reviewed. Patient refused EKG. Review of Systems unobtainable due to mental condition Mental Status Examination Appearance: Disheveled Consciousness: Alert Orientation: Person, Place (At least) Motor Activity: Other (No motoric abnormalities noted) Speech: Hesitant Language: Other (Somewhat rambling) Fund of Knowledge: Inadequate Attention and Concentration: Easily distracted Memory: Impaired (Psychosis interferes) Mood: Oppositional, Irritable Affect: Irritable Thought Process & Associations: Tangential Thought Content: Bizarre thinking, Delusional Hallucination Type: None (Denies AVH) Delusion Type: Paranoid Suicidal Ideation: No Homicidal Ideation: No Insight: Poor Judgment: Poor Assessment and Plan - Assessment (1) Schizoaffective disorder Code(s): F25.9 - Schizoaffective disorder, unspecified Status: Acute (2) Cannabis abuse Code(s): F12.10 - Cannabis abuse, uncomplicated Status: Acute - Plan Plan: Initiate Eskalith SR 450mg BID for mood stabilization. Renal function and TSH within normal limits. Plan to check a level after the appropriate interval. For management of psychosis, initiate paliperidone 6 mg daily. Plan to titrate medications to effect and as tolerated. Consent for medications obtained from healthcare surrogate. Continue to monitor on the high acuity unit. Continue other medications and care as ordered. Justification for Continued Inpatient Stay: Risk for decompensation in less restrictive environment. Medication changes. Impairment in reality construction. Discharge Planning: Pending psychiatric stabilization Request Healthcare Surrogate/Guardian Advocate?: Yes (1) Schizoaffective disorder Qualifiers: Schizoaffective disorder type: bipolar Qualified Code(s): F25.0 - Schizoaffective disorder, bipolar type
[2018-06-12 13:35] LABS: Hemoglobin A1c 4.9 % (4.3-6.0)
--- NOTE | 2018-06-12 14:38 | P.PNPSY ---
Subjective Chief Complaint: Psychosis Remarks: This is a request for second opinion. Admission note was reviewed and I agree with the history. Patient was seen and case was discussed with nursing. Patient is admitted to the psychiatric unit for acute psychosis and violent threats. Per [employer] patient thought he was , in his 40s and made nonspecific mention of weapons. During today's interview patient is angry and irritable and threatening. He instantly refuses the interview and starts cursing and threatening myself and the nurse to leave the room. Mental Status Examination Appearance: Disheveled Consciousness: Alert Orientation: Person Motor Activity: Other (No motoric abnormalities noted) Speech: Unremarkable Language: Other (Somewhat rambling) Fund of Knowledge: Inadequate Attention and Concentration: Easily distracted Memory: Impaired (Psychosis interferes) Mood: Angry, Oppositional Affect: Irritable Thought Process & Associations: Tangential Thought Content: Bizarre thinking, Delusional Hallucination Type: None (Denies AVH) Delusion Type: Bizarre, Paranoid Suicidal Ideation: No (Would not answer) Homicidal Ideation: No (Would not answer) Insight: Poor Judgment: Poor Assessment and Plan - Assessment (1) Schizoaffective disorder Code(s): F25.9 - Schizoaffective disorder, unspecified Status: Acute (2) Cannabis abuse Code(s): F12.10 - Cannabis abuse, uncomplicated Status: Acute - Plan Plan: I agree with plan to continue petition. Criteria include acute psychosis. Patient will be receiving injections of antipsychotics today is approved by his proxy per nursing. Justification for Continued Inpatient Stay: Patient would decompensate in a less restrictive setting Request Healthcare Surrogate/Guardian Advocate?: Yes (1) Schizoaffective disorder Qualifiers: Schizoaffective disorder type: bipolar Qualified Code(s): F25.0 - Schizoaffective disorder, bipolar type
--- NOTE | 2018-06-13 08:44 | P.PNPSY ---
Subjective Chief Complaint: Psychosis Remarks: Patient seen and examined. Chart reviewed. Case discussed with nursing staff. Patient reportedly remains bizarre, rambling and discharge focused. He is adherent with psychotropic medications. Case discussed with counselor who has spoken with the [facility]. Apparently, the patient was discharged by the court when his case came up for review at the [facility] and so a hasty discharge had to be arranged, and this is why he ended up at [facility] with FACT team follow-up. On my evaluation, I find the patient in the day area. He appears internally stimulated. Paranoia is present. He ambulates with me wordlessly to his room where he proceeds to lie in his bed and pull the covers over his head. He is selectively mute after that and cannot be made to participate in interview. No evident side effects from medications. No evidence of physical distress. Vital Signs Temp Pulse Resp BP Pulse Ox 06/13/18 06:00 97.6 F 92 H 18 120/59 L 99 Intake and Output 06/12/18 06/13/18 06/13/18 22:59 06:59 14:59 Other: Weight 73 kg Laboratory Results - last 24 hr 06/12/18 10:10 Hemoglobin A1c 4.9 Labs reviewed. Review of Systems unobtainable due to mental condition Mental Status Examination Appearance: Disheveled Consciousness: Alert, Vigilant Orientation: Person, Place (At least) Motor Activity: Other (No abnormal motor movements noted.) Speech: Unremarkable Language: Other (Somewhat rambling) Attention and Concentration: Easily distracted Mood: Oppositional Affect: Irritable Thought Process & Associations: Tangential Thought Content: Bizarre thinking, Hallucinations, Delusional Hallucination Type: Other (Internally preoccupied) Delusion Type: Bizarre, Paranoid Suicidal Ideation: No (No SI voiced) Homicidal Ideation: No (No HI voiced) Insight: Poor Judgment: Poor Assessment and Plan - Assessment (1) Schizoaffective disorder Code(s): F25.9 - Schizoaffective disorder, unspecified Status: Acute (2) Cannabis abuse Code(s): F12.10 - Cannabis abuse, uncomplicated Status: Acute - Plan Plan: Titrate paliperidone to 9 mg daily to target psychotic symptoms. Plan for ongoing titration to effect. To consider initiation of long-acting injectable Invega Sustenna. Continue lithium as ordered with plans to obtain a lithium level and BMP later in the week with further adjustments depending on the level and patient's response to medication. Continue to monitor on the high acuity unit. Continue other medications and care as ordered. Justification for Continued Inpatient Stay: Medication changes. Impairment in reality construction. High risk for decompensation in less restrictive environment. Discharge Planning: Probable return to [facility] if retained by [facility] [employer] [facility] given rapid rehospitalization following discharge from the [facility]. I have entered a referral to the [facility] order to allow counselor to begin working on [facility] admission packet in advance of [employer] this . Request Healthcare Surrogate/Guardian Advocate?: Yes (1) Schizoaffective disorder Qualifiers: Schizoaffective disorder type: bipolar Qualified Code(s): F25.0 - Schizoaffective disorder, bipolar type
[2018-06-13] MEDS: Acetaminophen 325 MG Tablet PO PRN (20:22)
--- NOTE | 2018-06-14 09:36 | P.PNPSY ---
Subjective Chief Complaint: Psychosis Remarks: Patient seen and examined with nurse. Chart reviewed. Case discussed with nursing staff. Patient noted to be internally stimulated and masturbating frequently. I have instructed the nurse to move the patient to a private room so he is less disruptive to his peers. Case discussed in treatment team. Nurse and I find the patient in his room. He initially has his head partially uncovered but quickly covers his head completely. He is irritable, paranoid and agitated. He tells nurse and this provider to "get the fuck out of my face, " although we are both standing at some distance from him. He issues verbal threats of violence against this provider, although he does not make a move from his bed. Regarding his medications, patient says "I'm not taking that shit !" Patient refused medications this morning per nursing, although he did subsequently accept them later in the day. No evident medication side effects. No evidence of physical distress. I endeavored to reach patient's mother/HCS to discuss adding an IM backup antipsychotic option. I left generic requesting call back. Vital Signs Temp Pulse Resp BP Pulse Ox 06/14/18 06:00 97.9 F 87 18 111/67 100 Labs reviewed. No new labs. Review of Systems unobtainable due to mental condition Mental Status Examination Appearance: Disheveled Consciousness: Alert, Vigilant Orientation: Person, Place (At least) Motor Activity: Other (No motor abnormalities noted.) Speech: Other (Terse, irritable) Language: Adequate Fund of Knowledge: Inadequate Attention and Concentration: Easily distracted Memory: Impaired (Psychosis interferes) Mood: Angry, Oppositional, Irritable Affect: Irritable, Other (hostile) Thought Process & Associations: Tangential Thought Content: Bizarre thinking, Delusional Hallucination Type: None (No AVH reported.) Delusion Type: Bizarre, Paranoid Suicidal Ideation: No (No SI voiced) Homicidal Ideation: Yes (issues threats against this provider) Insight: Poor Judgment: Poor Assessment and Plan - Assessment (1) Schizoaffective disorder Code(s): F25.9 - Schizoaffective disorder, unspecified Status: Acute (2) Cannabis abuse Code(s): F12.10 - Cannabis abuse, uncomplicated Status: Acute - Plan Plan: Titrate Invega to 12mg daily to target psychotic symptoms. [place] again to obtain EKG (patient previously refused), and hold antipsychotic if QTc greater than 450 ms. To consider addition of IM backup antipsychotic once healthcare surrogate can be reached. Continue lithium as ordered with plans to obtain lithium level and BMP tomorrow morning. Continue to monitor on the high acuity unit, transfer to private room. Continue other medications and care as ordered. I have informed patient that this is my last day at [place] and that new psychiatric provider will be assuming care of his case tomorrow; unable to have meaningful discussion regarding transition of care with patient secondary to his current mental state. Justification for Continued Inpatient Stay: Impairment and safety. Impairment in reality construction. Medication changes. High risk for decompensation in less restrictive setting. Discharge Planning: Anticipate return to [facility] so long as patient is retained by [employer] [facility]. Request Healthcare Surrogate/Guardian Advocate?: Yes (1) Schizoaffective disorder Qualifiers: Schizoaffective disorder type: bipolar Qualified Code(s): F25.0 - Schizoaffective disorder, bipolar type
--- NOTE | 2018-06-14 10:01 | P.TTN ---
- Patient Problems Problems: 1. Discharge planning 2. Medication compliance 3. Knowledge deficit 4. Lack of coping skills - Progress Toward Goals Provider Present: Dr. Milton Melendez (Dr. Melendez put in an order for a state referral. Dr. Melendez will eventually transition the patient to inVega cistena. Patient remains for further stabilization) Psychiatric Counselors Present: Leonid Devlin Jr., [facility] (Counselor will complete state packet today, scan, and sent to Herminia calero at the [facility] hospital admissions.) Group Spec/RT/OT/CHAVEZ Present: KATHY Weiss (Patient attends groups and is appropriate.) - Documentation Teaching Recipient: Patient
--- NOTE | 2018-06-15 15:23 | ECG ---
Date Performed: 06/14/2018 Time Performed: 13:29:25 PTAGE: 32 years EKG: Sinus rhythm Since the previous tracing, no significant change noted NORMAL ECG PREVIOUS TRACING : 12/22/2017 16.14 DOCTOR: Patrick Ellison Interpretating Date/Time 06/15/2018 15:22:47
--- NOTE | 2018-06-15 15:29 | P.PNPSY ---
Subjective Chief Complaint: Psychosis Remarks: June 15, 2018 Subjective:Patient was seen and examined with RN. Chart reviewed. Case discussed with nursing staff. Information was obtained both from Dr. treating the patient for his leaving and from his notes and nursing notes. Entered the room with the RN who reports the patient has been transferred to a private room because of disruptiveness towards others. It is noted that he was demanding that DrMaddison and nurse get room yesterday. Today he continues with most of his behaviors including frequent showers for masturbation. Today the patient was covered except for his eyes and forehead curled up in a position. Ask him a how he was doing and he told me he wanted to play again a particular [employer] quarterback. When questioned further about this it was obvious he only knew the name but had no idea of the position that the player played. His attitude was friendly and conversational which it appears because of unusual It is noted that plan was to initiate Invega Sustenna with gradual tapering of the oral medication. Mental Status Examination Appearance: Disheveled Consciousness: Alert, Vigilant Orientation: Person, Place (At least) Motor Activity: Other (No motor abnormalities noted.) Speech: Other (Terse, irritable) Language: Adequate Fund of Knowledge: Inadequate Attention and Concentration: Easily distracted Memory: Impaired (Psychosis interferes) Mood: Angry, Oppositional, Irritable Affect: Irritable, Other (hostile) Thought Process & Associations: Tangential Thought Content: Bizarre thinking, Delusional Hallucination Type: None (No AVH reported.) Delusion Type: Bizarre, Paranoid Suicidal Ideation: No (No SI voiced) Homicidal Ideation: Yes (issues threats against this provider) Insight: Poor Judgment: Poor Assessment and Plan - Assessment (1) Schizoaffective disorder Code(s): F25.9 - Schizoaffective disorder, unspecified Status: Acute (2) Cannabis abuse Code(s): F12.10 - Cannabis abuse, uncomplicated Status: Acute - Plan Plan: Titrate Invega to 12mg daily to target psychotic symptoms. [place] again to obtain EKG (patient previously refused), and hold antipsychotic if QTc greater than 450 ms. To consider addition of IM backup antipsychotic once healthcare surrogate can be reached. Continue lithium as ordered with plans to obtain lithium level and BMP tomorrow morning. Continue to monitor on the high acuity unit, transfer to private room. Continue other medications and care as ordered. I have informed patient that this is my last day at [place] and that new psychiatric provider will be assuming care of his case tomorrow; unable to have meaningful discussion regarding transition of care with patient secondary to his current mental state. Justification for Continued Inpatient Stay: Patient would surely deteriorate and decompensate and unless restrictive environment. Request Healthcare Surrogate/Guardian Advocate?: Yes (1) Schizoaffective disorder Qualifiers: Schizoaffective disorder type: bipolar Qualified Code(s): F25.0 - Schizoaffective disorder, bipolar type
--- NOTE | 2018-06-16 15:35 | P.PNPSY ---
Subjective Chief Complaint: Psychosis Remarks: Kannan refused post the [employer] hearing and interview. I entered the room the patient was totally covered with his blanket and refused to speak. Case was reviewed with the [employer] health teacher and states diagnostics sales developer and the patient continued on hold for transfer to [facility] Mental Status Examination Appearance: Disheveled Consciousness: Alert, Vigilant Orientation: Person, Place (At least) Motor Activity: Other (No motor abnormalities noted.) Speech: Other (Terse, irritable) Language: Adequate Fund of Knowledge: Inadequate Attention and Concentration: Easily distracted Memory: Impaired (Psychosis interferes) Mood: Angry, Oppositional, Irritable Affect: Irritable, Other (hostile) Thought Process & Associations: Tangential Thought Content: Bizarre thinking, Delusional Hallucination Type: None (No AVH reported.) Delusion Type: Bizarre, Paranoid Suicidal Ideation: No (No SI voiced) Homicidal Ideation: Yes (issues threats against this provider) Insight: Poor Judgment: Poor Assessment and Plan - Assessment (1) Schizoaffective disorder Code(s): F25.9 - Schizoaffective disorder, unspecified Status: Acute (2) Cannabis abuse Code(s): F12.10 - Cannabis abuse, uncomplicated Status: Acute - Plan Plan: Titrate Invega to 12mg daily to target psychotic symptoms. [place] again to obtain EKG (patient previously refused), and hold antipsychotic if QTc greater than 450 ms. To consider addition of IM backup antipsychotic once healthcare surrogate can be reached. Continue lithium as ordered with plans to obtain lithium level and BMP tomorrow morning. Continue to monitor on the high acuity unit, transfer to private room. Continue other medications and care as ordered. I have informed patient that this is my last day at [place] and that new psychiatric provider will be assuming care of his case tomorrow; unable to have meaningful discussion regarding transition of care with patient secondary to his current mental state. June 16, 2018 Treatment plan as outlined above will be continued. Given the patient's level of compliance is doubtful that the lithium would be continued on discharge, but if the patient is treated at the [facility] there is a chance it will be continued for long enough to have some improvement. Justification for Continued Inpatient Stay: Patient is on hold for [facility] patient has professed homicidal and suicidal thoughts in the past and without inpatient care would risk serious decompensation. Request Healthcare Surrogate/Guardian Advocate?: Yes (1) Schizoaffective disorder Qualifiers: Schizoaffective disorder type: bipolar Qualified Code(s): F25.0 - Schizoaffective disorder, bipolar type
--- NOTE | 2018-06-17 11:59 | P.PNPSY ---
Subjective Chief Complaint: Psychosis Remarks: June 17, 2018 Subjective: Patient is out of bed and up and appears to be very positive mood today joking and laughing and interacting with others on the unit. Patient was seen in [id number] with consultation with the staff and review of the nursing notes from the previous 24 hours. Patient seems to understand that he is on a fast track [facility]. Mental Status Examination Appearance: Appropriate Consciousness: Alert Orientation: Person, Place (At least), Date/Time, Situation Motor Activity: Normal gait Speech: Unremarkable Language: Adequate Fund of Knowledge: Inadequate Attention and Concentration: Adequate Memory: Impaired (Does not recall the conversation I had with him the previous day or the day prior to that) Mood: Good Affect: Appropriate Thought Process & Associations: Tangential Thought Content: Bizarre thinking, Delusional Hallucination Type: None (No AVH reported.) Delusion Type: Bizarre, Paranoid Suicidal Ideation: No (No SI voiced) Homicidal Ideation: Yes (issues threats against this provider) Insight: Poor Judgment: Poor Assessment and Plan - Assessment (1) Schizoaffective disorder Code(s): F25.9 - Schizoaffective disorder, unspecified Status: Acute (2) Cannabis abuse Code(s): F12.10 - Cannabis abuse, uncomplicated Status: Acute - Plan Plan: Titrate Invega to 12mg daily to target psychotic symptoms. [place] again to obtain EKG (patient previously refused), and hold antipsychotic if QTc greater than 450 ms. To consider addition of IM backup antipsychotic once healthcare surrogate can be reached. Continue lithium as ordered with plans to obtain lithium level and BMP tomorrow morning. Continue to monitor on the high acuity unit, transfer to private room. Continue other medications and care as ordered. I have informed patient that this is my last day at [place] and that new psychiatric provider will be assuming care of his case tomorrow; unable to have meaningful discussion regarding transition of care with patient secondary to his current mental state. June 16, 2018 Treatment plan as outlined above will be continued. Given the patient's level of compliance is doubtful that the lithium would be continued on discharge, but if the patient is treated at the [facility] there is a chance it will be continued for long enough to have some improvement. June 17, 2018 Treatment plan is unchanged. Patient is doing very well today, but how long he can maintain his current mental status is uncertain. Prefer not to make any changes until he is transferred to the [facility]. If the [facility] decides he should transition to the [facility] it would be better if the decision is made by his psychiatrist there. Justification for Continued Inpatient Stay: Patient is on a wait list for the [facility] Request Healthcare Surrogate/Guardian Advocate?: Yes (1) Schizoaffective disorder Qualifiers: Schizoaffective disorder type: bipolar Qualified Code(s): F25.0 - Schizoaffective disorder, bipolar type
[2018-06-18 07:21] LABS: Anion Gap 8 meq/L (5-15); Blood Urea Nitrogen 17 mg/dL (7-18); Calcium 8.8 mg/dL (8.5-10.1); Carbon Dioxide 24.6 meq/L (21.0-32.0); Chloride 106 meq/L (98-107); Glomerular Filtration Rate Greater Than 89 mL/min (>89); Glucose,Random 83 mg/dL (74-106); Potassium 3.8 meq/L (3.5-5.1); Sodium 139 meq/L (136-145)
--- NOTE | 2018-06-18 15:09 | P.PNPSY ---
Subjective Chief Complaint: Psychosis Remarks: Patient seen for follow-up, chart reviewed, patient discussed with nursing staff ; we reviewed the patient's mood, thoughts, and behaviors from overnight and this morning. Nursing reports that the patient has been cooperative with care and his affect somewhat bizarre. He is noted to be dancing and smiling on the unit. The patient was pleasant upon approach from the provider. His answers to questions seem nonsensical and he did engage in some lighthearted dancing in front of the provider. The patient denied any thoughts of self-harm or harm to others. He reports feeling safe on the unit. Mental Status Examination Appearance: Appropriate Consciousness: Alert Orientation: Person, Place (At least), Date/Time Motor Activity: Normal gait Speech: Unremarkable Language: Adequate Fund of Knowledge: Inadequate Attention and Concentration: Adequate Memory: Impaired (Does not recall the conversation I had with him the previous day or the day prior to that) Mood: Good Affect: Other (Expansive/exaggerated) Thought Process & Associations: Tangential Thought Content: Bizarre thinking, Delusional Hallucination Type: None (No AVH reported.) Delusion Type: Bizarre Suicidal Ideation: No (No SI voiced) Homicidal Ideation: No (issues threats against this provider) Insight: Poor Judgment: Poor Assessment and Plan - Assessment (1) Schizoaffective disorder Code(s): F25.9 - Schizoaffective disorder, unspecified Status: Acute (2) Cannabis abuse Code(s): F12.10 - Cannabis abuse, uncomplicated Status: Acute - Plan Plan: Titrate Invega to 12mg daily to target psychotic symptoms. [place] again to obtain EKG (patient previously refused), and hold antipsychotic if QTc greater than 450 ms. To consider addition of IM backup antipsychotic once healthcare surrogate can be reached. Continue lithium as ordered with plans to obtain lithium level and BMP tomorrow morning. Continue to monitor on the high acuity unit, transfer to private room. Continue other medications and care as ordered. I have informed patient that this is my last day at [place] and that new psychiatric provider will be assuming care of his case tomorrow; unable to have meaningful discussion regarding transition of care with patient secondary to his current mental state. June 16, 2018 Treatment plan as outlined above will be continued. Given the patient's level of compliance is doubtful that the lithium would be continued on discharge, but if the patient is treated at the [facility] there is a chance it will be continued for long enough to have some improvement. June 17, 2018 Treatment plan is unchanged. Patient is doing very well today, but how long he can maintain his current mental status is uncertain. Prefer not to make any changes until he is transferred to the [facility]. If the [facility] decides he should transition to the [facility] it would be better if the decision is made by his psychiatrist there. June 18, 2018 Fair response to treatment, the patient's mood and affect appear much more positive and patient no longer endorsing suicidal or homicidal ideations. Continue current inpatient treatment plan and stabilization. Justification for Continued Inpatient Stay: Patient remains an elevated risk for self-harm by self neglect and harm to others per his reported threats and will require further inpatient stabilization and preparation of a safe discharge plan. Moving patient to a less restrictive environment at this time may result in decompensation. Request Healthcare Surrogate/Guardian Advocate?: Yes (1) Schizoaffective disorder Qualifiers: Schizoaffective disorder type: bipolar Qualified Code(s): F25.0 - Schizoaffective disorder, bipolar type
--- NOTE | 2018-06-19 12:23 | P.PNPSY ---
Subjective Chief Complaint: Psychosis Remarks: Reviewed electronic medical record. Rounded with EFRAIN Chopra. Patient in bed. Nursing reports that patient is sleeping most of the day. Will change the Invega from 12mg daily to 6mg bid to see if helps. Nursing reports that he is not active and will not participate with others. He endorses no AVH, delusions or paranoia. He has been cooperative with no behavioral concerns. Denies SI/HI. Review of Systems All other systems reviewed negative except as stated in HPI Mental Status Examination Appearance: Appropriate Consciousness: Alert Orientation: Person, Place (At least), Date/Time Motor Activity: Normal gait Speech: Unremarkable Language: Adequate Fund of Knowledge: Inadequate Attention and Concentration: Adequate Memory: Impaired (Does not recall the conversation I had with him the previous day or the day prior to that) Mood: Good Affect: Other (Expansive/exaggerated) Thought Process & Associations: Tangential Thought Content: Bizarre thinking, Delusional Hallucination Type: None (No AVH reported.) Delusion Type: Bizarre Suicidal Ideation: No (No SI voiced) Suicidal Plan: No Suicidal Intention: No Homicidal Ideation: No (issues threats against this provider) Homicidal Plan: No Homicidal Intention: No Insight: Poor Judgment: Poor Assessment and Plan - Assessment (1) Schizoaffective disorder Code(s): F25.9 - Schizoaffective disorder, unspecified Status: Acute - Plan Plan: 06/19/18 patient will not get out of bed, not eating. States that the medication are making him too tired. Will change Invega 12 mg daily to 6mg bid. 06/18/18Titrate Invega to 12mg daily to target psychotic symptoms. [place] again to obtain EKG (patient previously refused), and hold antipsychotic if QTc greater than 450 ms. To consider addition of IM backup antipsychotic once healthcare surrogate can be reached. Continue lithium as ordered with plans to obtain lithium level and BMP tomorrow morning. Continue to monitor on the high acuity unit, transfer to private room. Continue other medications and care as ordered. I have informed patient that this is my last day at [place] and that new psychiatric provider will be assuming care of his case tomorrow; unable to have meaningful discussion regarding transition of care with patient secondary to his current mental state. June 16, 2018 Treatment plan as outlined above will be continued. Given the patient's level of compliance is doubtful that the lithium would be continued on discharge, but if the patient is treated at the [facility] there is a chance it will be continued for long enough to have some improvement. June 17, 2018 Treatment plan is unchanged. Patient is doing very well today, but how long he can maintain his current mental status is uncertain. Prefer not to make any changes until he is transferred to the [facility]. If the [facility] decides he should transition to the [facility] it would be better if the decision is made by his psychiatrist there. June 18, 2018 Fair response to treatment, the patient's mood and affect appear much more positive and patient no longer endorsing suicidal or homicidal ideations. Continue current inpatient treatment plan and stabilization. Justification for Continued Inpatient Stay: Moving patient to a less restrictive environment may result in his decompensation. Request Healthcare Surrogate/Guardian Advocate?: Yes (1) Schizoaffective disorder Qualifiers: Schizoaffective disorder type: bipolar Qualified Code(s): F25.0 - Schizoaffective disorder, bipolar type
--- NOTE | 2018-06-20 14:00 | P.PNPSY ---
Subjective Chief Complaint: Psychosis Remarks: June 20, 2018 Subjective: Patient is unchanged. Again he is spending his time in bed. He does respond with answers to my questions and according to his responses he is experiencing no hallucinations today. Discussed the patient with the nurse and reviewed the record his progress over the weekend. It is uncertain when the patient will be transferred to the [facility]. Nurses report that female end of the patient has been calling him repeatedly during the day. Mental Status Examination Appearance: Appropriate Consciousness: Alert Orientation: Person, Place (At least), Date/Time Motor Activity: Normal gait Speech: Unremarkable Language: Adequate Fund of Knowledge: Inadequate Attention and Concentration: Adequate Memory: Impaired (Does not recall the conversation I had with him the previous day or the day prior to that) Mood: Good Affect: Other (Expansive/exaggerated) Thought Process & Associations: Tangential Thought Content: Bizarre thinking, Delusional Hallucination Type: None (No AVH reported.) Delusion Type: Bizarre Suicidal Ideation: No (No SI voiced) Suicidal Plan: No Suicidal Intention: No Homicidal Ideation: No (issues threats against this provider) Homicidal Plan: No Homicidal Intention: No Insight: Poor Judgment: Poor Assessment and Plan - Assessment (1) Schizoaffective disorder Code(s): F25.9 - Schizoaffective disorder, unspecified Status: Acute (2) Cannabis abuse Code(s): F12.10 - Cannabis abuse, uncomplicated Status: Acute - Plan Plan: 06/19/18 patient will not get out of bed, not eating. States that the medication are making him too tired. Will change Invega 12 mg daily to 6mg bid. 06/18/18Titrate Invega to 12mg daily to target psychotic symptoms. [place] again to obtain EKG (patient previously refused), and hold antipsychotic if QTc greater than 450 ms. To consider addition of IM backup antipsychotic once healthcare surrogate can be reached. Continue lithium as ordered with plans to obtain lithium level and BMP tomorrow morning. Continue to monitor on the high acuity unit, transfer to private room. Continue other medications and care as ordered. I have informed patient that this is my last day at [place] and that new psychiatric provider will be assuming care of his case tomorrow; unable to have meaningful discussion regarding transition of care with patient secondary to his current mental state. June 16, 2018 Treatment plan as outlined above will be continued. Given the patient's level of compliance is doubtful that the lithium would be continued on discharge, but if the patient is treated at the [facility] there is a chance it will be continued for long enough to have some improvement. June 17, 2018 Treatment plan is unchanged. Patient is doing very well today, but how long he can maintain his current mental status is uncertain. Prefer not to make any changes until he is transferred to the [facility]. If the [facility] decides he should transition to the [facility] it would be better if the decision is made by his psychiatrist there. June 18, 2018 Fair response to treatment, the patient's mood and affect appear much more positive and patient no longer endorsing suicidal or homicidal ideations. Continue current inpatient treatment plan and stabilization. Justification for Continued Inpatient Stay: June 20, 2018 Patient remains on hold for transfer to the [facility]. There have been no changes suggestive of his ability to be managed in a less restrictive environment. Request Healthcare Surrogate/Guardian Advocate?: Yes (1) Schizoaffective disorder Qualifiers: Schizoaffective disorder type: bipolar Qualified Code(s): F25.0 - Schizoaffective disorder, bipolar type
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
--- NOTE | 2018-06-22 13:00 | P.PNPSY ---
Subjective Chief Complaint: Psychosis Remarks: 06/22/2018 Patient seen in [id number] interview presence of a psychiatric nurse. The patient is somewhat subdued today. There are no side effects or problems with his current medication. Patient's case will be reviewed with the team and hopefully we can communicate with the state regarding anticipated time for the patient be transferred. Mental Status Examination Appearance: Appropriate Consciousness: Alert Orientation: Person, Place (At least), Date/Time Motor Activity: Normal gait Speech: Unremarkable Language: Adequate Fund of Knowledge: Inadequate Attention and Concentration: Adequate Memory: Impaired (Does not recall the conversation I had with him the previous day or the day prior to that) Mood: Good Affect: Other (Expansive/exaggerated) Thought Process & Associations: Tangential Thought Content: Bizarre thinking, Delusional Hallucination Type: None (No AVH reported.) Delusion Type: Bizarre Suicidal Ideation: No (No SI voiced) Suicidal Plan: No Suicidal Intention: No Homicidal Ideation: No (issues threats against this provider) Homicidal Plan: No Homicidal Intention: No Insight: Poor Judgment: Poor Assessment and Plan - Assessment (1) Schizoaffective disorder Code(s): F25.9 - Schizoaffective disorder, unspecified Status: Acute (2) Cannabis abuse Code(s): F12.10 - Cannabis abuse, uncomplicated Status: Acute - Plan Plan: 06/19/18 patient will not get out of bed, not eating. States that the medication are making him too tired. Will change Invega 12 mg daily to 6mg bid. 06/18/18Titrate Invega to 12mg daily to target psychotic symptoms. [place] again to obtain EKG (patient previously refused), and hold antipsychotic if QTc greater than 450 ms. To consider addition of IM backup antipsychotic once healthcare surrogate can be reached. Continue lithium as ordered with plans to obtain lithium level and BMP tomorrow morning. Continue to monitor on the high acuity unit, transfer to private room. Continue other medications and care as ordered. I have informed patient that this is my last day at [place] and that new psychiatric provider will be assuming care of his case tomorrow; unable to have meaningful discussion regarding transition of care with patient secondary to his current mental state. June 16, 2018 Treatment plan as outlined above will be continued. Given the patient's level of compliance is doubtful that the lithium would be continued on discharge, but if the patient is treated at the [facility] there is a chance it will be continued for long enough to have some improvement. June 17, 2018 Treatment plan is unchanged. Patient is doing very well today, but how long he can maintain his current mental status is uncertain. Prefer not to make any changes until he is transferred to the [facility]. If the [facility] decides he should transition to the [facility] it would be better if the decision is made by his psychiatrist there. June 18, 2018 Fair response to treatment, the patient's mood and affect appear much more positive and patient no longer endorsing suicidal or homicidal ideations. Continue current inpatient treatment plan and stabilization. June 21, 2018 Patient's mood less improved today with the stress of his focus on his DCF report. I do not see any need for changes in his treatment at this time. June 22, 2018 neck Patient's mood much the same as yesterday. He seems a bit confused about my visit yesterday talking to the DCF when in fact the DCF worker had been present while I was talking to the patient. Justification for Continued Inpatient Stay: June 22, 2018 Patient is at risk for deterioration and decompensation in a less structured environment. He is aware he is awaiting transfer to [facility] facility. Request Healthcare Surrogate/Guardian Advocate?: Yes (1) Schizoaffective disorder Qualifiers: Schizoaffective disorder type: bipolar Qualified Code(s): F25.0 - Schizoaffective disorder, bipolar type
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
--- NOTE | 2018-06-25 17:09 | P.PNPSY ---
Subjective Chief Complaint: Psychosis Remarks: Reviewed electronic medical records and discussed case with staff. Follow-up was conducted in the hallway with EFRAIN Navarrete present. His nurse reports he has been compliant, cooperative, and pleasant with staff. Patient states that he "feels okay". States that he has been "sleeping a lot". Reports his appetite' s been "fine". Denies any side effects from medications. He is discharged seeking and launches into a tangent about leaving versus going to state. This provider quickly explained to him that I would not be making that decision at which time he was easily redirected. Mental Status Examination Appearance: Appropriate Consciousness: Alert Orientation: Person, Place (At least), Date/Time Motor Activity: Normal gait Speech: Unremarkable Language: Adequate Fund of Knowledge: Inadequate Attention and Concentration: Adequate Memory: Impaired (Does not recall the conversation I had with him the previous day or the day prior to that) Mood: Good Affect: Other (Expansive/exaggerated) Thought Process & Associations: Tangential Thought Content: Bizarre thinking, Delusional Hallucination Type: None (No AVH reported.) Delusion Type: Bizarre Suicidal Ideation: No (No SI voiced) Suicidal Plan: No Suicidal Intention: No Homicidal Ideation: No (issues threats against this provider) Homicidal Plan: No Homicidal Intention: No Insight: Poor Judgment: Poor Assessment and Plan - Assessment (1) Schizoaffective disorder Code(s): F25.9 - Schizoaffective disorder, unspecified Status: Acute - Plan Plan: Patient will be reevaluated by the attending psychiatrist. Continue with current treatment plan. Awaiting state placement. Justification for Continued Inpatient Stay: Moving this patient to a less restrictive environment would likely result in decompensation. Request Healthcare Surrogate/Guardian Advocate?: Yes (1) Schizoaffective disorder Qualifiers: Schizoaffective disorder type: bipolar Qualified Code(s): F25.0 - Schizoaffective disorder, bipolar type
--- NOTE | 2018-06-26 18:42 | P.PNPSY ---
Subjective Chief Complaint: Psychosis Remarks: Reviewed electronic medical records and discussed case with staff. Follow-up was conducted in the patient's room with EFRAIN Navarrete present. His nurse reports that he has been more depressed and seclusive to his room because he does not want to go to the state facility. She states that he is expressed he feels that his current attending psychiatrist will not talk to him. She states that he has been cooperative and compliant with his medications. Patient is found lying in his bed awake, alert, and oriented x4. He reports that he feels "okay ". However his affect is depressed. Reports that he is sleeping and eating well. He additionally states that when not here he resides with his cousin Jerri , . He is hopeful that somebody would reach out to her and perhaps he could be discharged to her house with follow-up outpatient at [facility]. Mental Status Examination Appearance: Appropriate Consciousness: Alert Orientation: Person, Place (At least), Date/Time Motor Activity: Normal gait Speech: Unremarkable Language: Adequate Fund of Knowledge: Inadequate Attention and Concentration: Adequate Memory: Impaired (Does not recall the conversation I had with him the previous day or the day prior to that) Mood: Good Affect: Other (Expansive/exaggerated) Thought Process & Associations: Tangential Thought Content: Bizarre thinking, Delusional Hallucination Type: None (No AVH reported.) Delusion Type: Bizarre Suicidal Ideation: No (No SI voiced) Suicidal Plan: No Suicidal Intention: No Homicidal Ideation: No (issues threats against this provider) Homicidal Plan: No Homicidal Intention: No Insight: Poor Judgment: Poor Assessment and Plan - Assessment (1) Schizoaffective disorder Code(s): F25.9 - Schizoaffective disorder, unspecified Status: Acute - Plan Plan: Patient will be reevaluated by the attending psychiatrist. Continue with current treatment plan. Patient is calm and cooperative and seems to be at his baseline at this time. Justification for Continued Inpatient Stay: Moving this patient to a less restrictive environment would likely result in decompensation. Request Healthcare Surrogate/Guardian Advocate?: Yes (1) Schizoaffective disorder Qualifiers: Schizoaffective disorder type: bipolar Qualified Code(s): F25.0 - Schizoaffective disorder, bipolar type
--- NOTE | 2018-06-27 11:59 | P.PNPSY ---
Subjective Chief Complaint: Psychosis Remarks: June 27, 2018 Subjective: Patient seen in bed. As usual, he had the cover pulled up over his head, but as usual he awakened quickly and back again his campaigning for discharge without having to go to state. Patient discussed with the staff and electronic records reviewed. There is no change. Mental Status Examination Appearance: Appropriate Consciousness: Alert Orientation: Person, Place (At least), Date/Time, Situation Motor Activity: Normal gait Speech: Unremarkable Language: Adequate Fund of Knowledge: Inadequate Attention and Concentration: Adequate Memory: Impaired (Does not recall the conversation I had with him the previous day or the day prior to that) Mood: Good Affect: Other (Expansive/exaggerated) Thought Process & Associations: Tangential Thought Content: Bizarre thinking, Delusional Hallucination Type: None (No AVH reported.) Delusion Type: Bizarre Suicidal Ideation: No (No SI voiced) Suicidal Plan: No Suicidal Intention: No Homicidal Ideation: No (Made threats toward METAL POURER over the weekend) Homicidal Plan: No Homicidal Intention: No Insight: Poor Judgment: Poor Assessment and Plan - Assessment (1) Schizoaffective disorder Code(s): F25.9 - Schizoaffective disorder, unspecified Status: Acute (2) Cannabis abuse Code(s): F12.10 - Cannabis abuse, uncomplicated Status: Acute - Plan Plan: Patient will be reevaluated by the attending psychiatrist. Continue with current treatment plan. Patient is calm and cooperative and seems to be at his baseline at this time. Justification for Continued Inpatient Stay: June 27, 2018 Efforts are being made to transfer the patient [facility] pending his admission to the [facility]. Patient remains psychotic and in need of long- term treatment in a state facility. Request Healthcare Surrogate/Guardian Advocate?: Yes (1) Schizoaffective disorder Qualifiers: Schizoaffective disorder type: bipolar Qualified Code(s): F25.0 - Schizoaffective disorder, bipolar type
--- NOTE | 2018-06-29 08:04 | P.PNPSY ---
Subjective Chief Complaint: Psychosis Remarks: Late entry for June 28, 2018 dictated June 29, 2018 Subjective: Patient discussed with nursing staff. Bed with covers pulled up over his head and refusing to. Mental Status Examination Appearance: Appropriate Consciousness: Alert Orientation: Person, Place (At least), Date/Time, Situation Motor Activity: Normal gait Speech: Unremarkable Language: Adequate Fund of Knowledge: Inadequate Attention and Concentration: Adequate Memory: Impaired (Does not recall the conversation I had with him the previous day or the day prior to that) Mood: Good Affect: Other (Expansive/exaggerated) Thought Process & Associations: Tangential Thought Content: Bizarre thinking, Delusional Hallucination Type: None (No AVH reported.) Delusion Type: Bizarre Suicidal Ideation: No (No SI voiced) Suicidal Plan: No Suicidal Intention: No Homicidal Ideation: No (Made threats toward MANAGER TERMINAL over the weekend) Homicidal Plan: No Homicidal Intention: No Insight: Poor Judgment: Poor Assessment and Plan - Assessment (1) Schizoaffective disorder Code(s): F25.9 - Schizoaffective disorder, unspecified Status: Acute (2) Cannabis abuse Code(s): F12.10 - Cannabis abuse, uncomplicated Status: Acute - Plan Plan: Patient will be reevaluated by the attending psychiatrist. Continue with current treatment plan. Patient is calm and cooperative and seems to be at his baseline at this time. June 28, 2018 late entry Patient seen and discussed with nursing staff. Previous psychiatrist had considered long-acting injection, but had laid given the possibility of bed becoming quickly available, interrupting the process. Efforts are made by clinical social worker on at least 5-day a week effort to speed up the process of discharge. It is very difficult to plan. For process that might not be taken through the initial 2 injections. Justification for Continued Inpatient Stay: June 28, 2018 dictated June 29, 2018 Patient remains at risk for decompensation in a lower level of care. Request Healthcare Surrogate/Guardian Advocate?: Yes (1) Schizoaffective disorder Qualifiers: Schizoaffective disorder type: bipolar Qualified Code(s): F25.0 - Schizoaffective disorder, bipolar type
--- NOTE | 2018-06-29 10:38 | P.PNPSY ---
Subjective Chief Complaint: Psychosis Remarks: June 29, 2018 Subjective: Patient lying in bed asleep. Patient with senior staff consultant who was able to arouse the patient. Patient continued in bed but move the covers down to where he could speak. He seems, but remains concerned about discharge only. Staff notes that the patient continues to show a cooperative attitude and no real change in his behavioral symptoms. He does not at the time of my interview with him to show evidence of preoccupation with internal stimuli. Most of the unusual behavior that has been noted occurs at times other than during our interviews. Review of Systems Review of systems: Patient denies any physical symptoms. There is no evidence of dystonia or alteration in his gait or complaints of the same. Mental Status Examination Appearance: Appropriate Consciousness: Alert Orientation: Person, Place (At least), Date/Time, Situation Motor Activity: Normal gait Speech: Unremarkable Language: Adequate Fund of Knowledge: Inadequate Attention and Concentration: Adequate Memory: Impaired (Does not recall the conversation I had with him the previous day or the day prior to that) Mood: Good Affect: Other (Expansive/exaggerated) Thought Process & Associations: Tangential Thought Content: Bizarre thinking, Delusional Hallucination Type: None (No AVH reported.) Delusion Type: Bizarre Suicidal Ideation: No (No SI voiced) Suicidal Plan: No Suicidal Intention: No Homicidal Ideation: No (Made threats toward PETS SALESPERSON over the weekend) Homicidal Plan: No Homicidal Intention: No Insight: Poor Judgment: Poor Assessment and Plan - Assessment (1) Schizoaffective disorder Code(s): F25.9 - Schizoaffective disorder, unspecified Status: Acute (2) Cannabis abuse Code(s): F12.10 - Cannabis abuse, uncomplicated Status: Acute - Plan Plan: Patient will be reevaluated by the attending psychiatrist. Continue with current treatment plan. Patient is calm and cooperative and seems to be at his baseline at this time. June 28, 2018 late entry Patient seen and discussed with nursing staff. Previous psychiatrist had considered long-acting injection, but had laid given the possibility of bed becoming quickly available, interrupting the process. Efforts are made by manager social media on at least 5-day a week effort to speed up the process of discharge. It is very difficult to plan. For process that might not be taken through the initial 2 injections. Justification for Continued Inpatient Stay: June 29, 2018 patient continues awaiting transfer to [facility]. It is likely the patient would decompensate in the left lower level of care Request Healthcare Surrogate/Guardian Advocate?: Yes (1) Schizoaffective disorder Qualifiers: Schizoaffective disorder type: bipolar Qualified Code(s): F25.0 - Schizoaffective disorder, bipolar type
--- NOTE | 2018-06-30 15:04 | P.PNPSY ---
Subjective Chief Complaint: Psychosis Remarks: June 30, 2018 There is been no changes in the patient's condition. He continues to complain that he does not need to go to state hospital but continues to have psychotic symptoms of internally directed preoccupation and disorganized thought patterns along with total lack of insight. There is anticipated that the patient would be happy that the possibility of transfer to await the [facility] hospital could be affected on Wednesday. However his only happiness would come from his not having to be admitted to the the [facility] hospital. Review of Systems June 30, 2018 Patient voices no somatic complaints or new review of system issues. Mental Status Examination Appearance: Appropriate Consciousness: Alert Orientation: Person, Place (At least), Date/Time, Situation Motor Activity: Normal gait Speech: Unremarkable Language: Adequate Fund of Knowledge: Inadequate Attention and Concentration: Adequate Memory: Impaired (Does not recall the conversation I had with him the previous day or the day prior to that) Mood: Good Affect: Other (Expansive/exaggerated) Thought Process & Associations: Tangential Thought Content: Bizarre thinking, Delusional Hallucination Type: None (No AVH reported.) Delusion Type: Bizarre Suicidal Ideation: No (No SI voiced) Suicidal Plan: No Suicidal Intention: No Homicidal Ideation: No (Made threats toward HAULPAK DRIVER over the weekend) Homicidal Plan: No Homicidal Intention: No Insight: Poor Judgment: Poor Assessment and Plan - Assessment (1) Schizoaffective disorder Code(s): F25.9 - Schizoaffective disorder, unspecified Status: Acute (2) Cannabis abuse Code(s): F12.10 - Cannabis abuse, uncomplicated Status: Acute - Plan Plan: Patient will be reevaluated by the attending psychiatrist. Continue with current treatment plan. Patient is calm and cooperative and seems to be at his baseline at this time. June 28, 2018 late entry Patient seen and discussed with nursing staff. Previous psychiatrist had considered long-acting injection, but had laid given the possibility of bed becoming quickly available, interrupting the process. Efforts are made by social work associate on at least 5-day a week effort to speed up the process of discharge. It is very difficult to plan. For process that might not be taken through the initial 2 injections. Justification for Continued Inpatient Stay: June 30, 2018 Patient would decompensate if he were discharged to a lower level of care. Request Healthcare Surrogate/Guardian Advocate?: Yes (1) Schizoaffective disorder Qualifiers: Schizoaffective disorder type: bipolar Qualified Code(s): F25.0 - Schizoaffective disorder, bipolar type
--- NOTE | 2018-07-02 12:55 | P.PNPSY ---
Subjective Chief Complaint: Psychosis Remarks: Patient was seen and case discussed with nursing. Patient continues to be focused on going to the [facility]. He minimizes his reasons for admission and his history of mental health and his recent behavior. However, he is compliant with his medications and is behaving well in the unit. Today, he denies suicidal or homicidal ideation intent or plan. No specific delusions were elicited Review of Systems All other systems reviewed negative except as stated in HPI Mental Status Examination Appearance: Appropriate Consciousness: Alert Orientation: Person, Place (At least), Date/Time, Situation Motor Activity: Normal gait Speech: Unremarkable Language: Adequate Fund of Knowledge: Inadequate Attention and Concentration: Adequate Memory: Impaired (Does not recall the conversation I had with him the previous day or the day prior to that) Mood: Good Affect: Other (Expansive/exaggerated) Thought Process & Associations: Tangential Thought Content: Bizarre thinking, Depersonalization Hallucination Type: None (No AVH reported.) Delusion Type: Bizarre Suicidal Ideation: No (No SI voiced) Suicidal Plan: No Suicidal Intention: No Homicidal Ideation: No (Made threats toward ORDERLIES TEACHER over the weekend) Homicidal Plan: No Homicidal Intention: No Insight: Poor Judgment: Poor Assessment and Plan - Assessment (1) Schizoaffective disorder Code(s): F25.9 - Schizoaffective disorder, unspecified Status: Acute (2) Cannabis abuse Code(s): F12.10 - Cannabis abuse, uncomplicated Status: Acute - Plan Plan: Continue current treatment plan Justification for Continued Inpatient Stay: Patient would decompensate in a less restrictive setting Request Healthcare Surrogate/Guardian Advocate?: Yes (1) Schizoaffective disorder Qualifiers: Schizoaffective disorder type: bipolar Qualified Code(s): F25.0 - Schizoaffective disorder, bipolar type
[2018-07-02] MEDS: Acetaminophen 325 MG Tablet PO PRN (18:10)
[2018-07-03 04:56] VITALS: BP 110/65; PULSE 70; RESP 16; TEMP 97.9; O2SAT 97
--- NOTE | 2018-07-03 17:07 | P.PNPSY ---
Subjective Chief Complaint: Psychosis Remarks: Reviewed electronic medical records and discussed case with staff. Follow-up was conducted in the hallway with EFRAIN Dorsey. Patient states that he is doing "okay". Reports is been sleeping and eating well. He states that he has been talking with his cousin and it has been going well. He is hopeful for short stay at the state facility and reports he will be living with his cousin when he is. Mental Status Examination Appearance: Appropriate Consciousness: Alert Orientation: Person, Place (At least), Date/Time, Situation Motor Activity: Normal gait Speech: Unremarkable Language: Adequate Fund of Knowledge: Inadequate Attention and Concentration: Adequate Memory: Impaired (Does not recall the conversation I had with him the previous day or the day prior to that) Mood: Good Affect: Other (Expansive/exaggerated) Thought Process & Associations: Tangential Thought Content: Bizarre thinking, Depersonalization Hallucination Type: None (No AVH reported.) Delusion Type: Bizarre Suicidal Ideation: No (No SI voiced) Suicidal Plan: No Suicidal Intention: No Homicidal Ideation: No (Made threats toward SUPERVISOR [employer] over the weekend) Homicidal Plan: No Homicidal Intention: No Insight: Poor Judgment: Poor Assessment and Plan - Assessment (1) Schizoaffective disorder Code(s): F25.9 - Schizoaffective disorder, unspecified Status: Acute - Plan Plan: Patient will be reevaluated by the attending psychiatrist. Continue with current treatment plan. Justification for Continued Inpatient Stay: Moving this patient to a less restrictive environment would likely result in decompensation. Request Healthcare Surrogate/Guardian Advocate?: Yes (1) Schizoaffective disorder Qualifiers: Schizoaffective disorder type: bipolar Qualified Code(s): F25.0 - Schizoaffective disorder, bipolar type
[2018-07-04] MEDS ORDERED: LORazepam 1 MG Tablet PO ONE (07:00)
== END 2018-07-04 07:45 | DRG 885 ==
LOC: NEPJ 19:09 → NEDA 06-11 12:02 → H270 06-11 15:14 → H260 06-29 14:54
PROVIDERS: ADMIT Psychiatry & Neurology Child & Adolescent Psychiatry; ATTEND Psychiatry & Neurology Child & Adolescent Psychiatry
CPT/HCPCS: 80048; 80053; 80061; 80164; 80178; 80307; 81001; 83036; 83735; 84443; 85025; 87086; 90791; 93005; 99285; J7506; J7512; Q0163